=== PATIENT | male | born 1940 | race Caucasian/White ===

== ENCOUNTER 2017-07-12 12:32 | Emergency (ER) | payer OTHER ==
[2017-07-12 13:39] LABS: Absolute Lymphocytes (CBC) 0.5 K/uL (0.7-4.9); Absolute Monocytes 1.2 K/uL (0.1-1.3); Absolute Neutrophil 11.2 K/uL (1.8-8.0); Basophils % 0.2 % (0-1.3); Eosinophils % 0.1 % (0-4.4); Hematocrit 35.3 % (39.6-49.0); Lymphocytes % 4.2 % (15.3-44.8); MCH 26.4 pg (27.0-35.0); MCV 84.3 fL (80-100); MPV 7.6 fL (7.6-11.3); Monocytes % 9.1 % (3.3-12.3); RBC Red Blood Cell Count 4.19 M/uL (4.33-5.43)
--- NOTE | 2017-07-12 13:47 | RAD REPORT ---
EXAM DESCRIPTION: RAD - Chest Single View - 07/12/2017 1:39 pm CLINICAL HISTORY: Fever, chest pain COMPARISON: 04/20/2017, 04/11/2017 FINDINGS: Portable technique limits examination quality. Linear opacities in the medial right lung base probably represent subsegmental atelectasis. A focal i nfiltrate is not confirmed. Heart is mildly prominent size. No displaced fractures.Cervical hardware plate is present.
[2017-07-12 13:48] LABS: Protime INR 1.21
[2017-07-12] MEDS ORDERED: NA CHLORIDE 0.9% 1,000 ML ONE (13:49)
[2017-07-12 14:01] LABS: Albumin 3.8 g/dL (3.2-5.5); Bilirubin Direct 0.2 mg/dL (0-0.2); Bilirubin Total 1.1 mg/dL (0.3-1.2); C-Reactive Protein 107.9 mg/L (<10.0); CKMB Creatine Kinase MB 2.4 ng/ml (0.3-4.0); Protein, Total 7.1 g/dL (6.0-8.3)
[2017-07-12 14:15] LABS: Urine Blood 2+ (NEG); Urine Glucose NEGATIVE (NEG); Urine Protein 1+ (NEG); Urine Specific Gravity 1.015 (1.005-1.030)
[2017-07-12 14:18] LABS: Anisocytosis 1+; Blood Morphology Comment NOTED (NOT SEEN); Platelet Estimate ADEQ; Urine White Blood Cell Casts OK
[2017-07-12 14:20] LABS: Urine Bacteria <20 /HPF (NONE SEEN); Urine Culture Reflex Order NOT NEEDED; Urine RBC <5 /HPF (NONE SEEN)
--- NOTE | 2017-07-12 15:56 | EDPHYS ---
Physician Documentation [facility] Name: Zen Bledsoe Jr Age: 77 yrs Sex: Male : 1940 Arrival Date: 07/12/2017 Time: 12:33 Bed 24 Private MD: Ramon Galeana C ED Physician Karsten Ha HPI: 07/12 13:21 This 77 yrs old Male presents to ER via Wheelchair with complaints of Fever. tw4 13:21 The patient reports fever, that was measured at 101 degrees Fahrenheit. Onset: The tw4 symptoms/episode began/occurred today. Modifying factors: there are no obvious modifying factors. Associated signs and symptoms: Pertinent positives: altered mental status,\E\ chills, cough, with clear sputum, Pertinent negatives: abdominal pain, diarrhea. Severity of symptoms: At their worst the symptoms were moderate in the emergency department the symptoms are unchanged. The patient has not recently seen a physician. Historical: - Allergies: 12:54 BACLOFEN; lk1 12:54 Bactrim; lk1 12:54 Codeine; lk1 12:54 HYDROCODONE; lk1 12:54 Iodine; lk1 12:54 Sulfa (Sulfonamide Antibiotics); lk1 - Home Meds: 15:15 Plavix 75 mg Oral tab once daily [Active]; Toprol XL 25 mg Oral tab 0.5 tab once daily kr2 [Active]; Aspir-81 81 mg Oral TbEC 1 tab once daily [Active]; simvastatin 40 mg Oral tab 1 tab once daily [Active]; Cymbalta 60 mg Oral cpDR 1 cap once daily [Active]; pain pump with prialta 2.0 mcg at .7002 mcg daily nand dilaudid 2.0 mcg at .7002 [Active]; Spiriva with HandiHaler 18 mcg inhalation CpDv 1 cap once daily [Active]; gabapentin 800 mg oral tab [Active]; dymista 1 spray BID [Active]; prednisone 10 mg Oral tab PRN [Active]; ranitidine HCl 300 mg Oral cap once daily [Active]; polyethylene glycol 3350 17 gram/dose Oral powd [Active]; Milk of Magnesia Oral PRN [Active]; levetiracetam 500 mg Oral tab daily [Active]; pantoprazole 40 mg Oral TbEC once daily [Active]; midodrine 10 mg Oral tab [Active]; vitamin b12 [Active]; Vitamin C [Active]; vitamin d3 [Active]; cranberry Oral [Active]; vitamin E [Active]; Singulair 10 mg Oral tab 1 tab once daily [Active]; - PMHx: 12:54 urticaria vasculitis; bladder failure; cardiac stents; Asthma; COPD; Sleep Apnea; lk1 Angina; Arthritis; ESSENTIAL TREMORS; BPH; GERD; Hypertension; 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 - Social history:: Smoking status: Patient/guardian denies using tobacco. ROS: 13:21 ENT: Negative for injury, pain, and discharge, Cardiovascular: Negative for chest pain, tw4 palpitations, and edema, Respiratory: Negative for shortness of breath, cough, wheezing, and pleuritic chest pain, Abdomen/GI: Negative for abdominal pain, nausea, vomiting, diarrhea, and constipation, Back: Negative for injury and pain, MS/Extremity: Negative for injury and deformity. 13:21 Constitutional: Positive for chills, fever, Negative for body aches, fatigue, malaise, poor PO intake. Exam: 13:21 Constitutional: This is a well developed, well nourished patient who is awake, alert, tw4 and in no acute distress. Head/Face: Normocephalic, atraumatic. Chest/axilla: Normal chest wall appearance and motion. Nontender with no deformity. No lesions are appreciated. Cardiovascular: Regular rate and rhythm with a normal S1 and S2. No gallops, murmurs, or rubs. Normal PMI, no JVD. No pulse deficits. Respiratory: Lungs have equal breath sounds bilaterally, clear to auscultation and percussion. No rales, rhonchi or wheezes noted. No increased work of breathing, no retractions or nasal flaring. Abdomen/GI: Soft, non-tender, with normal bowel sounds. No distension or tympany. No guarding or rebound. No evidence of tenderness throughout. 13:21 MS/ Extremity: Pulses equal, no cyanosis. Neurovascular intact. Full, normal range of motion. Neuro: Awake and alert, GCS 15, oriented to person, place, time, and situation. Cranial nerves II-XII grossly intact. Motor strength 5/5 in all extremities. Sensory grossly intact. Cerebellar exam normal. Normal gait. 13:21 : a domínguez is noted, urine is clear. Vital Signs: 12:55 BP 142 / 57; Pulse 86; Resp 16; Temp 100.4(TE); Pulse Ox 92% on R/A; Weight 102.97 kg lk1 (R); Height 5 ft. 11 in. (180.34 cm) (R); Pain 4/10; 13:45 BP 137 / 55; Pulse 80; Resp 17; Pulse Ox 96% on 3.5 lpm NC; dh3 14:15 BP 149 / 58; Pulse 84; Resp 15; Pulse Ox 96% on 3.5 lpm NC; dh3 15:19 BP 130 / 55; Pulse 79; Resp 19; Pulse Ox 97% on 3.5 lpm NC; dh3 16:23 BP 132 / 56; Pulse 78; Resp 17; Temp 98.5(O); Pulse Ox 98% on 3.5 lpm NC; kr2 12:55 Body Mass Index 31.66 (102.97 kg, 180.34 cm) lk1 MDM: 13:00 Patient medically screened. tw4 18:23 Differential diagnosis: viral Infection, bacterial infection, URI. Data reviewed: vital tw4 signs, nurses notes. Counseling: I had a detailed discussion with the patient and/or guardian regarding: the historical points, exam findings, and any diagnostic results supporting the discharge/admit diagnosis. Physician consultation: A Kervin JACOBS was contacted at 15:30, regarding patient's condition, outpatient follow-up, and will see patient in office. Special discussion: I discussed with the patient/guardian in detail that at this point there is no indication for admission to the hospital. It is understood, however, that if the symptoms persist or worsen the patient needs to return immediately for re-evaluation. 07/12 13:07 Order name: Urine Microscopic Only; Complete Time: 14:42 tw4 07/12 13:07 Order name: Urine Culture tw4 07/12 13:07 Order name: Amylase, Serum; Complete Time: 14:42 tw4 07/12 13:07 Order name: Basic Metabolic Panel; Complete Time: 14:42 tw4 07/12 13:07 Order name: Blood Culture Adult (2) 4 07/12 13:07 Order name: BNP; Complete Time: 14:42 tw4 07/12 13:07 Order name: C-Reactive Protein; Complete Time: 14:42 tw4 07/12 13:07 Order name: CBC with Diff; Complete Time: 14:42 tw4 07/12 13:07 Order name: Ckmb; Complete Time: 14:42 tw4 07/12 13:07 Order name: CPK; Complete Time: 14:42 tw4 07/12 13:07 Order name: Lactate; Complete Time: 14:42 tw4 07/12 13:07 Order name: LFT's; Complete Time: 14:42 tw4 07/12 13:07 Order name: Lipase; Complete Time: 14:42 tw4 07/12 13:07 Order name: Procalcitonin; Complete Time: 14:42 tw4 07/12 13:07 Order name: Protime (+inr); Complete Time: 14:42 tw4 07/12 13:07 Order name: Ptt, Activated; Complete Time: 14:42 tw4 07/12 13:07 Order name: Sed Rate; Complete Time: 14:42 tw4 07/12 13:07 Order name: Troponin (emerg Dept Use Only); Complete Time: 14:42 tw4 07/12 13:07 Order name: Chest Single View XRAY; Complete Time: 14:42 tw4 07/12 13:07 Order name: Cardiac monitoring; Complete Time: 13:39 tw4 07/12 13:07 Order name: EKG - Nurse/Tech; Complete Time: 14:48 tw4 07/12 13:07 Order name: IV Saline Lock - Large Bore; Complete Time: 13:32 tw4 07/12 13:07 Order name: Labs collected and sent; Complete Time: 13:32 tw4 07/12 13:07 Order name: O2 Per Protocol; Complete Time: 13:32 tw4 07/12 13:44 Order name: CBC Smear Scan; Complete Time: 14:42 EDMS 07/12 14:08 Order name: Urine Dipstick--Ancillary (enter results); Complete Time: 14:42 bd 07/12 13:07 Order name: O2 Sat Monitoring; Complete Time: 13:32 tw4 04 13:07 Order name: Urine Dipstick-Ancillary (obtain specimen); Complete Time: 13:40 tw4 Administered Medications: 13:39 CANCELLED (Physician Discretion): NS 0.9% (30 ml/kg) 30 ml/kg IV at bolus once; Sepsis kr2 Protocol 13:39 Drug: NS 0.9% 1000 ml Route: IV; Rate: 1 bolus; Site: right antecubital; kr2 15:00 Follow up: Response: No adverse reaction; IV Status: Completed infusion kr2 15:58 Drug: AZITHromycin 500 mg Route: PO; kr2 16:22 Follow up: Response: Medication administered at discharge. kr2 Disposition: 07/12/17 15:55 Discharged to Home. Impression: Acute bronchitis. - Condition is Stable. - Discharge Instructions: Acute Bronchitis, Acute Bronchitis, [id number]. - Prescriptions for Zithromax 500 mg Oral Tablet - take 1 tablet by ORAL route once daily for 5 days; 5 tablet. - Medication Reconciliation Form, Thank You Letter, Antibiotic Education, Prescription Opioid Use form. - Follow up: Ramon Galeana MD; When: As needed; Reason: If symptoms return, Recheck today's complaints, Continuance of care, Re-evaluation by your physician. - Problem is new. - Symptoms have improved. Signatures: Dispatcher [employer] EDMS Makenna Lerma RN RN lk1 Cherri Soni RN RN kr2 Karsten Ha MD MD tw4 Corrections: (The following items were deleted from the chart) 13:39 13:07 NS 0.9% (30 ml/kg) 30 ml/kg IV at bolus once; Sepsis Protocol ordered. tw4 kr2 15:59 13:07 Accucheck ordered. tw4 kr2
--- NOTE | 2017-07-12 15:56 | ER ---
Nurse's Notes [facility] Name: Zen Bledsoe Jr Age: 77 yrs Sex: Male : 1940 Arrival Date: 07/12/2017 Time: 12:33 Bed 24 Private MD: Ramon Galeana C Diagnosis: Acute bronchitis Presentation: 07/12 12:48 Presenting complaint: Significant other states: "He has multiple things wrong. 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 He started running a fever last night. He started acting not himself, like saying things that don't make sense, and not acting like himself. Dr. Galeana said to bring him in here.". Transition of care: patient was not received from another setting of care. Onset of symptoms was July 11, 2017 at 20:00. Care prior to arrival: None. 12:48 Method Of Arrival: Wheelchair lk1 12:48 Acuity: KARY 3 lk1 Triage Assessment: 12:54 General: Appears ill, Behavior is calm, cooperative, appropriate for age. Pain: lk1 Complains of pain in head Pain currently is 4 out of 10 on a pain scale. Cardiovascular: Capillary refill is brisk Patient's skin is warm and dry. Respiratory: Airway is patent Respiratory effort is even, unlabored, Respiratory pattern is regular, symmetrical. GI: Abdomen is non-distended. : Domínguez in place to gravity drainage. Historical: - Allergies: 12:54 BACLOFEN; lk1 12:54 Bactrim; lk1 12:54 Codeine; lk1 12:54 HYDROCODONE; lk1 12:54 Iodine; lk1 12:54 Sulfa (Sulfonamide Antibiotics); lk1 - Home Meds: 15:15 Plavix 75 mg Oral tab once daily [Active]; Toprol XL 25 mg Oral tab 0.5 tab once daily kr2 [Active]; Aspir-81 81 mg Oral TbEC 1 tab once daily [Active]; simvastatin 40 mg Oral tab 1 tab once daily [Active]; Cymbalta 60 mg Oral cpDR 1 cap once daily [Active]; pain pump with prialta 2.0 mcg at .7002 mcg daily nand dilaudid 2.0 mcg at .7002 [Active]; Spiriva with HandiHaler 18 mcg inhalation CpDv 1 cap once daily [Active]; gabapentin 800 mg oral tab [Active]; dymista 1 spray BID [Active]; prednisone 10 mg Oral tab PRN [Active]; ranitidine HCl 300 mg Oral cap once daily [Active]; polyethylene glycol 3350 17 gram/dose Oral powd [Active]; Milk of Magnesia Oral PRN [Active]; levetiracetam 500 mg Oral tab daily [Active]; pantoprazole 40 mg Oral TbEC once daily [Active]; midodrine 10 mg Oral tab [Active]; vitamin b12 [Active]; Vitamin C [Active]; vitamin d3 [Active]; cranberry Oral [Active]; vitamin E [Active]; Singulair 10 mg Oral tab 1 tab once daily [Active]; - PMHx: 12:54 urticaria vasculitis; bladder failure; cardiac stents; Asthma; COPD; Sleep Apnea; lk1 Angina; Arthritis; ESSENTIAL TREMORS; BPH; GERD; 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 - Social history:: Smoking status: Patient/guardian denies using tobacco. Screenin:15 Abuse screen: Denies threats or abuse. Denies injuries from another. Nutritional kr2 screening: No deficits noted. Tuberculosis screening: No symptoms or risk factors identified. Fall Risk IV access (20 points). Assessment: 13:15 General: Appears in no apparent distress. comfortable, well groomed, well developed, kr2 well nourished, Behavior is calm, cooperative. Pain: Complains of pain in chest Pain does not radiate. Pain currently is 4 out of 10 on a pain scale. Quality of pain is described as aching, Pain began gradually, Is continuous, Alleviated by medications, rest, Patient reports he has a pump with Dilaudid administered. He has chronic pain that moves all over his body, the chest pain he states is typical. Neuro: Level of Consciousness is awake, alert, obeys commands, Oriented to person, place, time, situation. Cardiovascular: Capillary refill < 3 seconds in bilateral fingers Patient's skin is warm and dry. Respiratory: Airway is patent Respiratory effort is even, unlabored, Respiratory pattern is regular, symmetrical. Respiratory: Reports He normally is on oxygen at home at 3.5 LPM and he wears a bipap at night. GI: Abdomen is round non-distended. : Domínguez in place to gravity drainage Urine is tom. EENT: Nares are clear bilaterally Oral mucosa is dry. Derm: Skin is intact, Skin is pink, warm \\T\\ dry. Musculoskeletal: Circulation, motion, and sensation intact. 14:30 Reassessment: Patient appears in no apparent distress at this time. Patient and/or kr2 family updated on plan of care and expected duration. Pain level reassessed. Patient is alert, oriented x 3, equal unlabored respirations, skin warm/dry/pink. Patient denies pain at this time. 15:40 Reassessment: Patient appears in no apparent distress at this time. Patient and/or kr2 family updated on plan of care and expected duration. Pain level reassessed. Patient is alert, oriented x 3, equal unlabored respirations, skin warm/dry/pink. 16:25 Reassessment: No changes from previously documented assessment. kr2 Vital Signs: 12:55 BP 142 / 57; Pulse 86; Resp 16; Temp 100.4(TE); Pulse Ox 92% on R/A; Weight 102.97 kg lk1 (R); Height 5 ft. 11 in. (180.34 cm) (R); Pain 4/10; 13:45 BP 137 / 55; Pulse 80; Resp 17; Pulse Ox 96% on 3.5 lpm NC; dh3 14:15 BP 149 / 58; Pulse 84; Resp 15; Pulse Ox 96% on 3.5 lpm NC; dh3 15:19 BP 130 / 55; Pulse 79; Resp 19; Pulse Ox 97% on 3.5 lpm NC; dh3 16:23 BP 132 / 56; Pulse 78; Resp 17; Temp 98.5(O); Pulse Ox 98% on 3.5 lpm NC; kr2 12:55 Body Mass Index 31.66 (102.97 kg, 180.34 cm) lk1 ED Course: 12:33 Patient arrived in ED. as 12:34 Ronald Galeana MD is Private Physician. as 12:34 Ramon Galeana MD is Private Physician. as 12:50 Triage completed. lk1 12:57 Arm band placed on right wrist. lk1 13:00 Karsten aH MD is Attending Physician. tw4 13:15 Patient has correct armband on for positive identification. Bed in low position. Call kr2 light in reach. Side rails up X2. Adult w/ patient. system administration advisor on. Pulse ox on. NIBP on. Door closed. Noise minimized. Head of bed elevated. 13:15 Oxygen administration via nasal cannula 3.5 Response to oxygen therapy: symptoms kr2 improved. 13:23 Initial lab(s) drawn, by me, sent to lab. First set of blood cultures drawn by me. dh3 Inserted saline lock: 20 gauge in right antecubital area, using aseptic technique. Blood collected. 13:26 Cherri Soni, MADELINE is Primary Nurse. kr2 13:28 X-ray completed. Portable x-ray completed in exam room. Patient tolerated procedure jb2 well. 13:39 Chest Single View XRAY In Process Unspecified. EDMS 15:55 Ramon Galeana MD is Referral Physician. tw4 16:25 No provider procedures requiring assistance completed. IV discontinued, intact, kr2 bleeding controlled, No redness/swelling at site. Pressure dressing applied. Administered Medications: 13:39 CANCELLED (Physician Discretion): NS 0.9% (30 ml/kg) 30 ml/kg IV at bolus once; Sepsis kr2 Protocol 13:39 Drug: NS 0.9% 1000 ml Route: IV; Rate: 1 bolus; Site: right antecubital; kr2 15:00 Follow up: Response: No adverse reaction; IV Status: Completed infusion kr2 15:58 Drug: AZITHromycin 500 mg Route: PO; kr2 16:22 Follow up: Response: Medication administered at discharge. kr2 Outcome: 15:55 Discharge ordered by . tw4 16:25 Discharged to home via wheelchair, with family. kr2 16:25 Condition: stable 16:25 Discharge instructions given to patient, family, Instructed on discharge instructions, follow up and referral plans. medication usage, Demonstrated understanding of instructions, follow-up care, medications, Prescriptions given X 1. 16:26 Patient left the ED. kr2 Addendum: 07/18/2017 16:05 Addendum: Culture Results: Positive urine culture. Phone call Attempt #1 spoke with s s patient who reports that he has already followed up with Dr. Galeana and Dr. Kirby regarding urine infection. Pt reports he is feeling better. Signatures: Dispatcher [employer] EDMS Oneil Garrett2 Mily Johnston Shelby, RN RN Makenna Lerma RN RN lk1 Kaycee William 3 Cherri Soni RN RN kr2 Karsten Ha MD MD tw4 Corrections: (The following items were deleted from the chart) 07/12 16:24 16:23 BP 132 / 56; Pulse 78bpm; Resp 17bpm; Pulse Ox 98% 3.5 lpm Nasal Cannula; kr2 kr2
[2017-07-12] MEDS ORDERED: AZITHROMYCIN 250 MG TAB ONE (16:16)
[2017-07-12 16:37] VITALS: BP 132/56; TEMP 98.5; O2SAT 98
== END 2017-07-12 16:26 | disposition home or self-care (01) ==
LOC: ER 12:32
DX: J20.9 Acute bronchitis, unspecified (principal); I10 Essential (primary) hypertension; J44.9 Chronic obstructive pulmonary disease, unspecified; G40.909 Epilepsy, unspecified, not intractable, without status epilepticus; Z95.818 Presence of other cardiac implants and grafts; Z79.01 Long term (current) use of anticoagulants; Z79.82 Long term (current) use of aspirin; Z88.1 Allergy status to other antibiotic agents; Z88.2 Allergy status to sulfonamides; Z88.5 Allergy status to narcotic agent; Z91.048 Other nonmedicinal substance allergy status
CPT/HCPCS: 36415; 71045; 80048; 80076; 82150; 82550; 82553; 83605; 83690; 83880; 84145; 84484; 85025; 85610; 85652; 85730; 86140; 87040 ×2; 87077; 87086; 87088; 87186; 96360; 99285; J7030; 81003; 81015

== ENCOUNTER 2017-08-23 15:43 | Emergency (ER) | payer OTHER ==
[2017-08-23] MEDS ORDERED: NA CHLORIDE 0.9% 1,000 ML ONE (16:48)
[2017-08-23 17:09] LABS: Absolute Lymphocytes (CBC) 1.3 K/uL (0.7-4.9); Absolute Monocytes 0.9 K/uL (0.1-1.3); Absolute Neutrophil 4.4 K/uL (1.8-8.0); Basophils % 0.5 % (0-1.3); Eosinophils % 2.6 % (0-4.4); Hematocrit 34.9 % (39.6-49.0); Lymphocytes % 18.9 % (15.3-44.8); MCV 86.1 fL (80-100); MPV 7.2 fL (7.6-11.3); Monocytes % 13.5 % (3.3-12.3); RBC Red Blood Cell Count 4.05 M/uL (4.33-5.43)
[2017-08-23 17:24] LABS: Protime INR 1.04
--- NOTE | 2017-08-23 17:38 | RAD REPORT ---
EXAM DESCRIPTION: RAD - Chest Single View - 08/23/2017 5:13 pm CLINICAL HISTORY: Chest pain. COMPARISON: 07/12/2017 FINDINGS: Portable technique limits examination quality. The lungs are grossly clear. The heart is mildly moderately enlarged. No displaced fractures.Cervical spine hardware plate noted. IMPRESSION: No acute intrathoracic process suspected.
[2017-08-23 17:47] LABS: ALT/SGPT 16 IU/L (10-60); AST/SGOT 18 IU/L (10-42); Alkaline Phosphatase 55 IU/L (42-121); BUN Blood Urea Nitrogen 13 mg/dL (6-20); Bicarbonate 31 mEq/L (21-31); Bilirubin Direct < 0.1 mg/dL (0-0.2); Bilirubin Total 0.4 mg/dL (0.3-1.2); CKMB Creatine Kinase MB 4.9 ng/ml (0.3-4.0); Creatine Phosphokinase 223 IU/L (22-269); Glucose Level 100 mg/dL (65-120); Lipase 23 U/L (22-51); Magnesium 2.3 mg/dL (1.8-2.5); Potassium 4.3 mEq/L (3.6-5.0); Sodium Level 139 mEq/L (135-145)
--- NOTE | 2017-08-23 18:08 | ER ---
Nurse's Notes [facility] Name: Zen Bledsoe Jr Age: 77 yrs Sex: Male : 1940 Arrival Date: 08/23/2017 Time: 15:44 Bed 6 Private MD: Ronald Galeana Diagnosis: Abdominal tenderness;Chronic obstructive pulmonary disease, unspecified Presentation: 08/23 16:26 Presenting complaint: Preop labs for upcoming cesia showed elevated potassium and hb sodium. Sent by Dr. Galeana. Transition of care: patient was not received from another setting of care. Onset of symptoms was August 23, 2017. Initial Sepsis Screen: Does the patient meet any 2 criteria? No. Patient's initial sepsis screen is negative. Does the patient have a suspected source of infection? No. Patient's initial sepsis screen is negative. Care prior to arrival: None. 16:26 Method Of Arrival: Wheelchair hb 16:26 Acuity: KARY 3 hb Historical: - Allergies: 16:31 BACLOFEN; hb 16:31 Bactrim; hb 16:31 Codeine; hb 16:31 HYDROCODONE; hb 16:31 Iodine; hb 16:31 Sulfa (Sulfonamide Antibiotics); hb - Home Meds: 16:31 Aspir-81 81 mg Oral TbEC 1 tab once daily [Active]; cranberry Oral [Active]; Cymbalta hb 60 mg Oral cpDR 1 cap once daily [Active]; dymista 1 spray BID [Active]; gabapentin 800 mg Oral tab [Active]; levetiracetam 500 mg Oral tab daily [Active]; Milk of Magnesia Oral PRN [Active]; midodrine 10 mg Oral tab [Active]; pain pump with prialta 2.0 mcg at .7002 mcg daily nand dilaudid 2.0 mcg at .7002 [Active]; pantoprazole 40 mg Oral TbEC once daily [Active]; Plavix 75 mg Oral tab once daily [Active]; polyethylene glycol 3350 17 gram/dose Oral powd [Active]; prednisone 10 mg Oral tab PRN [Active]; ranitidine HCl 300 mg Oral cap once daily [Active]; simvastatin 40 mg Oral tab 1 tab once daily [Active]; Singulair 10 mg Oral tab 1 tab once daily [Active]; Spiriva with HandiHaler 18 mcg inhalation CpDv 1 cap once daily [Active]; vitamin b12 [Active]; Vitamin C [Active]; vitamin d3 [Active]; vitamin E [Active]; Toprol XL 25 mg Oral tab 0.5 tab once daily [Active]; - PMHx: 16:31 Angina; Arthritis; Asthma; bladder failure; bowel obstruction; BPH; cardiac stents; hb chronic back pain; COPD; ESSENTIAL TREMORS; gastritis; GERD; Hypertension; 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 - Social history:: Smoking status: Patient/guardian denies using tobacco. - Family history:: not pertinent. Screenin:41 Abuse screen: Denies threats or abuse. Denies injuries from another. Nutritional sv screening: No deficits noted. Tuberculosis screening: No symptoms or risk factors identified. Fall Risk None identified. Assessment: 17:00 General: Appears in no apparent distress. comfortable, well groomed, well developed, sv Behavior is calm, cooperative, appropriate for age. Pain: Denies pain. Neuro: Level of Consciousness is awake, alert, obeys commands, Oriented to person, place, time, situation, Moves all extremities. Full function Gait is steady, Speech is normal. Cardiovascular: Patient's skin is warm and dry. Pulses are 3+ in right radial artery and left radial artery Rhythm is sinus rhythm. Respiratory: Respiratory effort is even, unlabored, Respiratory pattern is regular, symmetrical, Denies shortness of breath. : Domínguez in place to gravity drainage clamped. Derm: Skin is pink, warm \T\ dry. Musculoskeletal: No signs and/or symptoms reported regarding the musculoskeletal system. 17:51 Reassessment: Patient appears in no apparent distress at this time. No changes from sv previously documented assessment. Patient and/or family updated on plan of care and expected duration. Pain level reassessed. Patient is alert, oriented x 3, equal unlabored respirations, skin warm/dry/pink. 18:42 Reassessment: Patient appears in no apparent distress at this time. No changes from sv previously documented assessment. Patient and/or family updated on plan of care and expected duration. Pain level reassessed. Patient is alert, oriented x 3, equal unlabored respirations, skin warm/dry/pink. Vital Signs: 16:28 BP 129 / 62; Pulse 74; Resp 20; Temp 98.2(TE); Pulse Ox 98% on 2 lpm NC; Weight 100.7 hb kg; Height 5 ft. 11 in. (180.34 cm); Pain 5/10; 17:53 BP 167 / 74; Pulse 62; Resp 14; Pulse Ox 99% ; sv 16:28 Body Mass Index 30.96 (100.70 kg, 180.34 cm) hb ED Course: 15:44 Patient arrived in ED. al2 15:45 Ronald Galeana MD is Private Physician. al2 16:28 Triage completed. hb 16:28 Arm band placed on right wrist. hb 16:35 Shayan Muñoz MD is Attending Physician. dale 16:41 Verona Franco RN is Primary Nurse. sv 16:41 ED physician to see patient. sv 16:41 Patient has correct armband on for positive identification. Placed in gown. Bed in low sv position. Call light in reach. Adult w/ patient. Door closed. Head of bed elevated. 17:00 Initial lab(s) drawn, by me, sent to lab. Inserted saline lock: 20 gauge in right sv antecubital area, using aseptic technique. Blood collected. Flushed right antecubital with 5 ml normal saline. 17:08 X-ray completed. Portable x-ray completed in exam room. Patient tolerated procedure bb2 well. 17:09 XRAY Chest (1 view) In Process Unspecified. EDMS 18:06 Ronald Galeana MD is Referral Physician. [facility] 18:42 No provider procedures requiring assistance completed. IV discontinued, intact, sv bleeding controlled, No redness/swelling at site. Pressure dressing applied. Administered Medications: 17:04 Drug: NS 0.9% 500 ml Route: IV; Rate: bolus; Site: right antecubital; sv 17:51 Follow up: Response: No adverse reaction; IV Status: Completed infusion; IV Intake: sv 500ml 17:51 Drug: NS 0.9% 1000 ml Route: IV; Rate: 125 ml/hr; Site: right antecubital; sv 18:42 Follow up: Response: No adverse reaction; IV Status: Order to discontinue infusion sv Intake: 17:51 IV: 500ml; Total: 500ml. sv Output: 17:52 Urine: 650ml (Domínguez); Total: 650ml. sv Outcome: 18:06 Discharge ordered by . dale 18:42 Patient left the ED. sv 18:42 Discharged to home via wheelchair, with family. sv 18:42 Condition: stable 18:42 Discharge instructions given to patient, family, Instructed on discharge instructions, follow up and referral plans. Demonstrated understanding of instructions, follow-up care. Signatures: Dispatcher [employer] Verona Parish RN RN sv Anderson, Corey, MD MD cha Baxter, Heather, RN RN Maritza, Irina bb2 Joana, Maranda fiore2 Corrections: (The following items were deleted from the chart) 18:03 17:53 Pulse 62bpm; Resp 14bpm; Pulse Ox 99%; sv sv
--- NOTE | 2017-08-23 18:08 | EDPHYS ---
Physician Documentation [facility] Name: Zen Bledsoe Jr Age: 77 yrs Sex: Male : 1940 Arrival Date: 08/23/2017 Time: 15:44 Bed 6 Private MD: Ronald Galeana ED Physician Shayan Muñoz HPI: 08/23 18:04 This 77 yrs old Male presents to ER via Wheelchair with complaints of dale Abnormal Lab Results. 18:04 sent for abnormal lad results. Onset: The symptoms/episode began/occurred yesterday. dale Severity of symptoms: At their worst the symptoms were none. The patient has not experienced similar symptoms in the past. Historical: - Allergies: 16:31 BACLOFEN; hb 16:31 Bactrim; hb 16:31 Codeine; hb 16:31 HYDROCODONE; hb 16:31 Iodine; hb 16:31 Sulfa (Sulfonamide Antibiotics); hb - Home Meds: 16:31 Aspir-81 81 mg Oral TbEC 1 tab once daily [Active]; cranberry Oral [Active]; Cymbalta hb 60 mg Oral cpDR 1 cap once daily [Active]; dymista 1 spray BID [Active]; gabapentin 800 mg Oral tab [Active]; levetiracetam 500 mg Oral tab daily [Active]; Milk of Magnesia Oral PRN [Active]; midodrine 10 mg Oral tab [Active]; pain pump with prialta 2.0 mcg at .7002 mcg daily nand dilaudid 2.0 mcg at .7002 [Active]; pantoprazole 40 mg Oral TbEC once daily [Active]; Plavix 75 mg Oral tab once daily [Active]; polyethylene glycol 3350 17 gram/dose Oral powd [Active]; prednisone 10 mg Oral tab PRN [Active]; ranitidine HCl 300 mg Oral cap once daily [Active]; simvastatin 40 mg Oral tab 1 tab once daily [Active]; Singulair 10 mg Oral tab 1 tab once daily [Active]; Spiriva with HandiHaler 18 mcg inhalation CpDv 1 cap once daily [Active]; vitamin b12 [Active]; Vitamin C [Active]; vitamin d3 [Active]; vitamin E [Active]; Toprol XL 25 mg Oral tab 0.5 tab once daily [Active]; - PMHx: 16:31 Angina; Arthritis; Asthma; bladder failure; bowel obstruction; BPH; cardiac stents; hb chronic back pain; COPD; ESSENTIAL TREMORS; gastritis; GERD; Hypertension; 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 - Social history:: Smoking status: Patient/guardian denies using tobacco. - Family history:: not pertinent. ROS: 18:04 Constitutional: Negative for fever, chills, and weight loss, Eyes: Negative for injury, dale pain, redness, and discharge, ENT: Negative for injury, pain, and discharge, Neck: Negative for injury, pain, and swelling, Cardiovascular: Negative for chest pain, palpitations, and edema, Respiratory: Negative for shortness of breath, cough, wheezing, and pleuritic chest pain, Back: Negative for injury and pain, : Negative for injury, bleeding, discharge, and swelling, MS/Extremity: Negative for injury and deformity, Skin: Negative for injury, rash, and discoloration, Neuro: Negative for headache, weakness, numbness, tingling, and seizure, Psych: Negative for depression, anxiety, suicide ideation, homicidal ideation, and hallucinations, Allergy/Immunology: Negative for hives, rash, and allergies, Endocrine: Negative for neck swelling, polydipsia, polyuria, polyphagia, and marked weight changes, Hematologic/Lymphatic: Negative for swollen nodes, abnormal bleeding, and unusual bruising. 18:04 Abdomen/GI: Positive for abdominal pain. Exam: 18:04 Constitutional: This is a well developed, well nourished patient who is awake, alert, dale and in no acute distress. Head/Face: Normocephalic, atraumatic. Eyes: Pupils equal round and reactive to light, extra-ocular motions intact. Lids and lashes normal. Conjunctiva and sclera are non-icteric and not injected. Cornea within normal limits. Periorbital areas with no swelling, redness, or edema. ENT: Nares patent. No nasal discharge, no septal abnormalities noted. Tympanic membranes are normal and external auditory canals are clear. Oropharynx with no redness, swelling, or masses, exudates, or evidence of obstruction, uvula midline. Mucous membranes moist. Neck: Trachea midline, no thyromegaly or masses palpated, and no cervical lymphadenopathy. Supple, full range of motion without nuchal rigidity, or vertebral point tenderness. No Meningismus. Chest/axilla: Normal chest wall appearance and motion. Nontender with no deformity. No lesions are appreciated. Cardiovascular: Regular rate and rhythm with a normal S1 and S2. No gallops, murmurs, or rubs. Normal PMI, no JVD. No pulse deficits. Respiratory: Lungs have equal breath sounds bilaterally, clear to auscultation and percussion. No rales, rhonchi or wheezes noted. No increased work of breathing, no retractions or nasal flaring. Back: No spinal tenderness. No costovertebral tenderness. Full range of motion. Male : Normal genitalia with no discharge or lesions. Skin: Warm, dry with normal turgor. Normal color with no rashes, no lesions, and no evidence of cellulitis. MS/ Extremity: Pulses equal, no cyanosis. Neurovascular intact. Full, normal range of motion. Neuro: Awake and alert, GCS 15, oriented to person, place, time, and situation. Cranial nerves II-XII grossly intact. Motor strength 5/5 in all extremities. Sensory grossly intact. Cerebellar exam normal. Normal gait. Psych: Awake, alert, with orientation to person, place and time. Behavior, mood, and affect are within normal limits. 18:04 Abdomen/GI: Inspection: abdomen appears normal, Bowel sounds: normal, Palpation: mild abdominal tenderness, in all quadrants, Liver: no appreciated palpable abnormalities, Hernia: not appreciated. Vital Signs: 16:28 BP 129 / 62; Pulse 74; Resp 20; Temp 98.2(TE); Pulse Ox 98% on 2 lpm NC; Weight 100.7 hb kg; Height 5 ft. 11 in. (180.34 cm); Pain 5/10; 17:53 BP 167 / 74; Pulse 62; Resp 14; Pulse Ox 99% ; sv 16:28 Body Mass Index 30.96 (100.70 kg, 180.34 cm) hb MDM: 16:35 Patient medically screened. [facility] 18:05 Data reviewed: vital signs, nurses notes, lab test result(s), EKG, radiologic studies, dale plain films. 08/23 16:47 Order name: Basic Metabolic Panel; Complete Time: 17:59 [facility] 08/23 16:47 Order name: BNP; Complete Time: 17:59 [facility] 08/23 16:47 Order name: CBC with Diff; Complete Time: 17:59 [facility] 08/23 16:47 Order name: Ckmb; Complete Time: 17:59 [facility] 08/23 16:47 Order name: CPK; Complete Time: 17:59 [facility] 08/23 16:47 Order name: LFT's; Complete Time: 17:59 [facility] 08/23 16:47 Order name: Magnesium; Complete Time: 17:59 [facility] 08/23 16:47 Order name: PT-INR; Complete Time: 17:59 [facility] 08/23 16:47 Order name: Ptt, Activated; Complete Time: 17:59 [facility] 08/23 16:47 Order name: Troponin (emerg Dept Use Only); Complete Time: 17:59 [facility] 08/23 16:47 Order name: Lipase; Complete Time: 17:59 [facility] 08/23 18:14 Order name: Urine Dipstick--Ancillary (enter results) 08/23 18:17 Order name: Urine --Ancillary (enter results) 08/23 16:47 Order name: XRAY Chest (1 view); Complete Time: 17:59 [facility] 08/23 16:47 Order name: EKG; Complete Time: 16:47 [facility] 08/23 16:47 Order name: Cardiac monitoring; Complete Time: 17:04 [facility] 08/23 16:47 Order name: IV Saline Lock; Complete Time: 17:04 [facility] 08/23 16:47 Order name: Labs collected and sent; Complete Time: 17:04 [facility] 08/23 16:47 Order name: O2 Per Protocol; Complete Time: 17:04 [facility] 08/23 16:47 Order name: O2 Sat Monitoring; Complete Time: 17:04 [facility] Administered Medications: 17:04 Drug: NS 0.9% 500 ml Route: IV; Rate: bolus; Site: right antecubital; sv 17:51 Follow up: Response: No adverse reaction; IV Status: Completed infusion; IV Intake: sv 500ml 17:51 Drug: NS 0.9% 1000 ml Route: IV; Rate: 125 ml/hr; Site: right antecubital; sv 18:42 Follow up: Response: No adverse reaction; IV Status: Order to discontinue infusion sv Disposition: 08/23/17 18:06 Discharged to Home. Impression: Abdominal tenderness, Chronic obstructive pulmonary disease, unspecified. - Condition is Stable. - Discharge Instructions: Abdominal Pain, Adult, Abdominal Pain, Adult, [id number]. - Medication Reconciliation Form, Thank You Letter, Antibiotic Education, Prescription Opioid Use form. - Follow up: Ronald Galeana MD; When: 1 - 2 days; Reason: Recheck today's complaints, Continuance of care, Re-evaluation by your physician. - Problem is new. - Symptoms have improved. Signatures: Dispatcher [employer] [facility] Verona Franco RN RN sv Anderson, Corey, MD MD cha Baxter, Heather, RN RN Corrections: (The following items were deleted from the chart) 18:21 18:18 Urine --Ancillary ordered. [facility] EDMT 18:42 18:06 08/23/2017 18:06 Discharged to Home. Impression: Abdominal tenderness; Chronic sv obstructive pulmonary disease, unspecified. Condition is Stable. Forms are Medication Reconciliation Form, Thank You Letter, Antibiotic Education, Prescription Opioid Use. Follow up: Ronald Galeana; When: 1 - 2 days; Reason: Recheck today's complaints, Continuance of care, Re-evaluation by your physician. Problem is new. Symptoms have improved. dale
[2017-08-23 18:21] LABS: Urine Blood TRACE (NEG); Urine Glucose NEGATIVE (NEG); Urine Protein NEGATIVE (NEG); Urine Specific Gravity <1.005 (1.005-1.030); Urine pH 6.5 (5.0-7.0)
[2017-08-23 18:46] VITALS: TEMP 98.2
[2017-08-23 18:48] VITALS: BP 167/74; O2SAT 99
--- NOTE | 2017-08-23 20:58 | EKG ---
Test Date: 2017-08-23 Test Time: 17:22:13 Flat Lock Operator: OSCAR MEASUREMENT RESULTS: Intervals: Rate: 61 MT: 260 QRSD: 94 QT: 428 QTc: 430 [place]: P: 89 MT: 260 QRS: -17 T: 67 INTERPRETIVE STATEMENTS: Sinus rhythm with 1st degree AV block with premature atrial complexes Cannot rule out Anterior infarct, age undetermined Abnormal ECG Compared to ECG 04/09/2017 16:43:18 Atrial premature complex(es) now present First degree AV block now present Myocardial infarct finding now present Sinus arrhythmia no longer present ST (T wave) deviation no longer present Electronically Signed On 08-23-17 20:57:44 CDT by Sukhi Castro
== END 2017-08-23 18:42 | disposition home or self-care (01) ==
LOC: ER 15:43
DX: J44.9 Chronic obstructive pulmonary disease, unspecified (principal); I10 Essential (primary) hypertension; Z95.818 Presence of other cardiac implants and grafts; G40.909 Epilepsy, unspecified, not intractable, without status epilepticus; Z79.01 Long term (current) use of anticoagulants; Z79.82 Long term (current) use of aspirin; Z88.1 Allergy status to other antibiotic agents; Z88.2 Allergy status to sulfonamides; Z88.5 Allergy status to narcotic agent; Z91.048 Other nonmedicinal substance allergy status
CPT/HCPCS: 36415 ×2; 71045; 80048; 80053; 80076; 81003; 82150; 82550; 82553; 83690 ×2; 83735; 83880; 84443; 84484; 85025 ×2; 85610; 85652; 85730; 93005; 96360; 96361; 99284; J7030

== ENCOUNTER 2018-09-20 07:24 | Day surgery (SDC) | payer OTHER ==
--- OUTSIDE RECORDS SUMMARY | 2018-09-20 07:27 | XMS REPORT ---
:1940 [facility] Address [address] [place] [address] Dr. Andrade [address] [place] [id number] Care Team Providers Name Role Phone Unavailable Unavailable Unavailable Problems This patient has no known problems. Allergies, Adverse Reactions, Alerts This patient has no known allergies or adverse reactions. Medications This patient has no known medications.
[2018-09-20] MEDS ORDERED: Ringers Lactate 1,000 ML IV ONE (08:04)
[2018-09-20] MEDS ORDERED: PROPOFOL 200 MG/20 ML VIAL IV ONE (09:22)
[2018-09-20 09:57] VITALS: TEMP 99.2; O2SAT 95
[2018-09-20] MEDS ORDERED: ONDANSETRON 4 MG/2 ML VIAL ONE (09:58)
[2018-09-20 10:01] VITALS: BP 134/64
--- NOTE | 2018-10-06 03:46 | ENDO RPT ---
[address], [address] COLONOSCOPY PROCEDURE REPORT EXAM DATE: 09/20/2018 PATIENT NAME: Zen Bledsoe MR #: [id number] BIRTHDATE: 1940 ATTENDING: Kvng [address] STATUS: outpatient [employer]: Ellen Aguilar, Maya Carter RN, and Hilario Quintero RN INDICATIONS: The patient is a 78 yr old Male here for a colonoscopy due to RLQ abdominal pain, change in bowel habits, unexplained chronic diarrhea, history of polyps, family history of colon cancer - father, family history of colon polyps - father, and weight loss PROCEDURE PERFORMED: Colonoscopy with biopsy MEDICATIONS: Per Anesthesia. ESTIMATED BLOOD LOSS: None CONSENT: The patient understands the risks and benefits of the procedure and understands that these risks include, but are not limited to: sedation, allergic reaction, infection, perforation and/or bleeding. Alternative means of evaluation and treatment include, among others: physical exam, x-rays, and/or surgical intervention. The patient elects to proceed with this endoscopic procedure. DESCRIPTION OF PROCEDURE: During intra-op preparation period all mechanical medical equipment was checked for proper function. Hand hygiene and appropriate measures for infection prevention was taken. Procedure, possible complications, alternatives including, but not limited to possibility of bleeding, perforation, tear, infection, sepsis, need for surgery, need for blood transfusion, were explained to the patient. After the risks, benefits and alternatives of the procedure were thoroughly explained, Informed consent was verified, confirmed and timeout was successfully executed by the treatment team. The patient was placed in the left lateral position. A digital rectal exam was performed and revealed several skin tags. After appropriate level of anesthesia, the scope was passed. The EC-[id number] ([id number]) endoscope was introduced through the anus and advanced to the ascending colon. The quality of the prep was poor. The instrument was then slowly withdrawn as the colon was fully examined. Scope withdrawal time was 8 minutes. COLON FINDINGS: Random biopsies of the colon and rectum obtained with history of chronic unexplained diarrhea. Internal hemorrhoids were found. Retroflexed views revealed small hemorrhoids. The scope was then completely withdrawn from the patient and the procedure terminated. ADVERSE EVENTS: There were no complications. IMPRESSIONS: 1. Random biopsies of the colon and rectum obtained with history of chronic unexplained diarrhea 2. Internal hemorrhoids 3. Poor prep, BBPS 3 4. Intubation to distal ascending colon RECOMMENDATIONS: fiber rich diet RECALL: Return in 1 day to 1 week(s) for Colonoscopy. Kvng [address] Dr eSigned: Kvng Bennett Dr 09/20/2018 9:43 AM cc: Ronald Galeana CPT CODES: ICD9 CODES: PATIENT NAME: Zen BledsoeSrinath MR#: [id number]
== END 2018-09-20 10:15 | disposition home or self-care (01) ==
LOC: OR 07:24
PROVIDERS: ATTEND Internal Medicine Gastroenterology
PROC: 0DBE8ZX Excision of Large Intestine, Via Natural or Artificial Opening Endoscopic, Diagnostic (ICD-10-PCS; 2018-09-20)
PROC: 0DBP8ZX Excision of Rectum, Via Natural or Artificial Opening Endoscopic, Diagnostic (ICD-10-PCS; principal; 2018-09-20 10:30)
DX: K58.0 Irritable bowel syndrome with diarrhea (principal); K64.8 Other hemorrhoids; Z86.010 Personal history of colon polyps; K21.9 Gastro-esophageal reflux disease without esophagitis; J44.9 Chronic obstructive pulmonary disease, unspecified; J45.909 Unspecified asthma, uncomplicated; M19.90 Unspecified osteoarthritis, unspecified site; Z88.2 Allergy status to sulfonamides; Z88.6 Allergy status to analgesic agent; Z91.041 Radiographic dye allergy status; Z91.048 Other nonmedicinal substance allergy status; Z79.82 Long term (current) use of aspirin; Z87.891 Personal history of nicotine dependence; Z80.0 Family history of malignant neoplasm of digestive organs
CPT/HCPCS: 45380; 88305; J2704; J2405

== ENCOUNTER 2018-11-04 07:53 | Inpatient (IN) | payer OTHER ==
--- OUTSIDE RECORDS SUMMARY | 2018-11-04 07:55 | XMS REPORT ---
:1940 [facility] Address [address] [place] [id number] Care Team Providers Name Role Phone Unavailable Unavailable Unavailable Problems This patient has no known problems. Allergies, Adverse Reactions, Alerts This patient has no known allergies or adverse reactions. Medications This patient has no known medications.
[2018-11-04] MEDS ORDERED: NA CHLORIDE 0.9% 500 ML ONE (08:54)
[2018-11-04 09:19] LABS: Absolute Lymphocytes (CBC) 0.5 K/uL (0.7-4.9); Basophils % 0.2 % (0-1.3); Hematocrit 35.5 % (39.6-49.0); Lymphocytes % 5.5 % (15.3-44.8); MPV 7.2 fL (7.6-11.3); RBC Red Blood Cell Count 4.02 M/uL (4.33-5.43)
[2018-11-04 09:33] LABS: ALT/SGPT 21 U/L (12-78); AST/SGOT 17 U/L (15-37); Albumin 3.4 g/dL (3.4-5.0); Alkaline Phosphatase 52 U/L (45-117); BUN Blood Urea Nitrogen 12 mg/dL (7-18); Bicarbonate 28 mmol/L (21-32); Bilirubin Direct 0.2 mg/dL (0-0.2); Bilirubin Total 0.7 mg/dL (0.2-1.0); Glucose Level 111 mg/dL (74-106); Lipase 55 U/L (73-393); Potassium 3.7 mmol/L (3.5-5.1); Protein, Total 7.4 g/dL (6.4-8.2); Sodium Level 138 mmol/L (136-145)
[2018-11-04] MEDS ORDERED: HYDROMORPHONE HCL 0.5 MG/0.5 ML INJ ONE (09:52)
[2018-11-04] MEDS ORDERED: ONDANSETRON 4 MG/2 ML VIAL ONE (09:53)
--- NOTE | 2018-11-04 10:23 | RAD REPORT ---
EXAM DESCRIPTION: CT - Head C Spine Cap Vonnie Coates - 11/04/2018 9:59 am CLINICAL HISTORY: Head and neck injury with chest and abdominal pain status post fall. Head and neck pain . TECHNIQUE: Computed axial tomography of the head and cervical spine was obtained Computed axial tomography of the chest, abdomen and pelvis was obtained. 100 cc Isovue-300 was given intravenously coronal and sagittal reconstruction was performed. All CT scans are performed using dose optimization technique as appropriate and may include automated exposure control or mA/KV adjustment according to patient size. COMPARISON: CT abdomen June 2018 FINDINGS: An intracranial bleed is not seen. The ventricles are normal in caliber. An extra-axial fl uid collection is not noted. A cervical fracture is not seen. No dislocation is seen. Anterior fusion involves the cervical spine. A mediastinal hematoma is not noted. A pleural effusion is not present. A lung contusion is not seen. Mild to moderate right lower lobe alveolar opacities are without significant change. The liver, spleen, pancreas, adrenals, kidneys and bladder do not demonstrate a traumatic injury Neurostimulator device is in place. Postsurgical changes involve the lumbar spine. Rocha catheter is present the bladder. IMPRESSION: 1. No acute intracranial abnormality is seen 2. A cervical fracture is not visualized. 3. No traumatic injury involving the chest, abdomen or pelvis is seen. 4. Mild to moderate right lower lobe consolidation without significant change from the prior exam. Br onchoscopy may be helpful to help exclude a post obstructive process
--- NOTE | 2018-11-04 11:14 | ER ---
Nurse's Notes [facility] Name: Zen Bledsoe Jr Age: 78 yrs Sex: Male : 1940 Arrival Date: 11/04/2018 Time: 07:57 Bed 6 Private MD: Diagnosis: Pneumonia, unspecified organism;Repeated falls;Weakness;Low back pain Presentation: 11/04 07:57 Presenting complaint: EMS states: Pt hx of chronic pain and multiple back surgeries, ph had a more active day than usual, felt weak and fell in restroom, hit head on counter, denies LOC, was assisted up off of floor and into bed by and neighbors, woke up today w/ severe back pain and headache which has gotten progressively worse, has Dilaudid pain pump and does take Plavix. Care prior to arrival: Cervical collar in place. Placed on backboard. Mechanism of Injury: Fall from standing position. Trauma event details: Injury occurred in the [facility], Injury occurred: at home. Injury occurred: November 04, 2018. 07:57 Method Of Arrival: EMS: [facility] 07:57 Acuity: KARY 3 ph 09:12 Transition of care: patient was not received from another setting of care. Onset of ph symptoms was November 04, 2018. Risk Assessment: Do you want to hurt yourself or someone else? Patient reports no desire to harm self or others. Initial Sepsis Screen: Does the patient meet any 2 criteria? No. Patient's initial sepsis screen is negative. Does the patient have a suspected source of infection? No. Patient's initial sepsis screen is negative. Trauma Activation: Not Applicable Physician: ED Physician; Name: ; Notified At: ; Arrived At: Physician: General Surgeon; Name: ; Notified At: ; Arrived At: Physician: Radiology; Name: ; Notified At: ; Arrived At: Physician: Respiratory; Name: ; Notified At: ; Arrived At: Physician: Lab; Name: ; Notified At: ; Arrived At: Historical: - Allergies: 08:11 BACLOFEN; ph 08:11 Bactrim; ph 08:11 Codeine; ph 08:11 HYDROCODONE; ph 08:11 Iodine; ph 08:11 Sulfa (Sulfonamide Antibiotics); ph - Home Meds: 08:11 Plavix 75 mg Oral tab once daily [Active]; Toprol XL 25 mg Oral tab 0.5 tab 1/2 in am ph and 1 at night [Active]; Aspir-81 81 mg Oral TbEC 1 tab once daily [Active]; simvastatin 40 mg Oral tab 1 tab once daily [Active]; - PMHx: 08:11 Angina; Arthritis; Asthma; bladder failure; BPH; cardiac stents; bowel obstruction; ph chronic back pain; COPD; O2 at home; ESSENTIAL TREMORS; gastritis; GERD; Seizures; Sleep Apnea; Hypertension; chcf domínguez; neurogenic orthogenic hypertension; 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 - Family history:: not pertinent. - Social history:: Smoking status: Patient/guardian denies using tobacco. - Ebola Screening: : No symptoms or risks identified at this time. Screenin:03 Abuse screen: Denies threats or abuse. Denies injuries from another. Nutritional sv screening: No deficits noted. Tuberculosis screening: No symptoms or risk factors identified. Fall Risk No fall in past 12 months (0 pts). No secondary diagnosis (0 pts). No IV (0 pts). Ambulatory Aid- None/Bed Rest/Nurse Assist (0 pts). Gait- Normal/Bed Rest/Wheelchair (0 pts) Mental Status- Oriented to own ability (0 pts). Total Muse Fall Scale indicates No Risk (0-24 pts). Primary Survey: 08:15 NO uncontrolled hemorrhage observed. A: The patient is alert. Breathing/Chest: ph Respiratory pattern: regular, Respiratory effort: spontaneous, unlabored, Breath sounds: coarse, bilaterally. Chest inspection: symmetrical rise and fall of the chest. Circulation: Skin color: pink, Skin temperature: warm, dry. Disability Alert. Exposure/Environment: There is no evidence of uncontrolled external bleeding. No obvious injuries are noted at this time. 12:31 Reassessment Breathing/Chest Respiratory pattern Regular Respiratory effort Spontaneous ph Unlabored Chest inspection Symmetrical. Assessment: 08:30 General: Appears in no apparent distress. uncomfortable, well groomed, Behavior is ph calm, cooperative, appropriate for age. Pain: Complains of pain in head and back. Neuro: Level of Consciousness is awake, alert, obeys commands, Oriented to person, place, time, situation, Reports headache occipital area. Cardiovascular: Capillary refill < 3 seconds in bilateral fingers Patient's skin is warm and dry. Respiratory: Airway is patent Respiratory effort is even, unlabored, Respiratory pattern is regular, symmetrical, Breath sounds are coarse bilaterally. Denies shortness of breath. GI: Patient currently denies abdominal pain, nausea, vomiting. : Domínguez in place to gravity drainage Urine is clear. Derm: Skin is healthy with good turgor, Skin is pink, warm \T\ dry. Musculoskeletal: Circulation, motion, and sensation intact. 09:35 Reassessment: CT informed creatinine is resulted. sv 10:30 Reassessment: Patient appears in no apparent distress at this time. Patient and/or ph family updated on plan of care and expected duration. Pain level reassessed. Patient is alert, oriented x 3, equal unlabored respirations, skin warm/dry/pink. 11:50 Reassessment: Attempted to call report, nurse to call back for report. sv 12:28 Reassessment: Patient appears in no apparent distress at this time. Patient and/or ph family updated on plan of care and expected duration. Pain level reassessed. Patient is alert, oriented x 3, equal unlabored respirations, skin warm/dry/pink. Pt taken to room via stretcher, accompanied by family. Vital Signs: 07:59 BP 135 / 61; Pulse 69; Resp 18; Temp 98.9; Pulse Ox 96% ; sv 08:52 BP 135 / 67; Pulse 66; Resp 18; Pulse Ox 98% ; sv 10:30 BP 144 / 60; Pulse 66; Resp 18; Pulse Ox 97% ; sv 11:00 BP 144 / 61; Pulse 65; Resp 18; Pulse Ox 97% ; sv 11:30 BP 133 / 57; Pulse 66; Resp 18; Pulse Ox 96% ; sv 12:14 BP 105 / 76; Pulse 81; Resp 16; Pulse Ox 96% ; sv 12:30 Temp 97.8; ph Ernestine Coma Score: 08:00 Eye Response: spontaneous(4). Verbal Response: oriented(5). Motor Response: obeys ph commands(6). Total: 15. Trauma Score (Adult): 08:00 Eye Response: spontaneous(1); Verbal Response: oriented(1); Motor Response: obeys ph commands(2); Systolic BP: > 89 mm Hg(4); Respiratory Rate: 10 to 29 per min(4); Peterson Score: 15; Trauma Score: 12 ED Course: 07:57 Patient arrived in ED. ph 07:58 Shayan Muñoz MD is Attending Physician. dale 08:04 Patient has correct armband on for positive identification. Bed in low position. Side sv rails up X2. Pulse ox on. NIBP on. Door closed. 08:06 Triage completed. ph 08:55 Missed attempt(s): 22 gauge in right antecubital area. Bleeding controlled, band aid ph applied, catheter tip intact. 09:00 Initial lab(s) drawn, by me, sent to lab. T\T\S collected, blood band applied to patient. sv Inserted saline lock: 20 gauge in left antecubital area, using aseptic technique. Blood collected. Flushed left antecubital with 5 ml normal saline. 09:01 Radiology exam delayed due to lab results not completed at this time. (BUN/Creatinine) nj IV insertion attempt and/or patient not having appropriate IV at this time. 09:09 Mildred Wasserman, RN is Primary Nurse. ph 09:13 Arm band placed on Patient placed in an exam room, on a stretcher, on oxygen. ph 09:13 Oxygen administration via nasal cannula \T\ 4L/min. ph 09:13 Thermoregulation: warm blanket given to patient. ph 09:26 Radiology exam delayed due to lab results not completed at this time. (BUN/Creatinine). nj 10:01 CT Traumagram (Head C Spine CAP W Con) In Process Unspecified. EDMS 11:12 Ronald Galeana MD is Hospitalizing Provider. dale 12:14 No provider procedures requiring assistance completed. Patient admitted, IV remains in sv place. intact. Administered Medications: 09:01 Drug: NS 0.9% 500 ml Route: IV; Rate: bolus; Site: left antecubital; sv 10:30 Follow up: Response: No adverse reaction; IV Status: Completed infusion; IV Intake: ph 500ml 09:40 Drug: Zofran 4 mg Route: IVP; Site: left antecubital; ph 12:30 Follow up: Response: No adverse reaction ph 09:41 Drug: Dilaudid 0.5 mg Route: IVP; Site: left antecubital; ph 10:30 Follow up: Response: No adverse reaction; Pain is decreased ph 11:46 Drug: SOLU-Medrol 125 mg Route: IVP; Site: left antecubital; ph 12:31 Follow up: Response: No adverse reaction ph 11:46 Drug: Albuterol - atroVENT (3:1) (2.5 mg - 0.5 mg) 3 ml Route: Nebulizer; ph 12:31 Follow up: Response: No adverse reaction ph 12:02 Drug: Zosyn 3.375 grams Route: IVPB; Infused Over: 60 mins; Site: left antecubital; iw 12:31 Follow up: Response: No adverse reaction; IV Status: Completed infusion ph Intake: 10:30 IV: 500ml; Total: 500ml. ph 12:32 IV: 600ml; Total: 1100ml. ph Output: 12:32 Urine: 500ml (Domínguez); Total: 500ml. ph Outcome: 11:13 Decision to Hospitalize by Provider. dale 12:13 Admitted to Tele accompanied by tech, family with patient, via stretcher, room 422, with chart, Report called to Deonna CORREA 12:13 Condition: stable 12:13 Instructed on the need for admit. 12:32 Patient's length of stay was not longer than 2 hours. ph 12:32 Patient left the ED. ph Signatures: Dispatcher [employer] Verona Parish RN RN sv Anderson, Corey, MD MD cha Williams, Irene, RN RN Mildred Wasserman RN RN ph Jordan, Nathan nj Corrections: (The following items were deleted from the chart) 08:04 08:04 Door closed. Head of bed elevated. [facility]
--- NOTE | 2018-11-04 11:14 | EDPHYS ---
Physician Documentation [facility] Name: Zen Bledsoe Jr Age: 78 yrs Sex: Male : 1940 Arrival Date: 11/04/2018 Time: 07:57 Bed 6 Private MD: ED Physician Shayan Muñoz HPI: 11/04 08:21 This 78 yrs old Male presents to ER via EMS with complaints of Fall Injury. dale 08:21 Details of fall: The patient fell from an upright position. Onset: The symptoms/episode dale began/occurred just prior to arrival, this morning. Severity of symptoms: At their worst the symptoms were mild, in the emergency department the symptoms are unchanged. The patient has not experienced similar symptoms in the past. Historical: - Allergies: 08:11 BACLOFEN; ph 08:11 Bactrim; ph 08:11 Codeine; ph 08:11 HYDROCODONE; ph 08:11 Iodine; ph 08:11 Sulfa (Sulfonamide Antibiotics); ph - Home Meds: 08:11 Plavix 75 mg Oral tab once daily [Active]; Toprol XL 25 mg Oral tab 0.5 tab 1/2 in am ph and 1 at night [Active]; Aspir-81 81 mg Oral TbEC 1 tab once daily [Active]; simvastatin 40 mg Oral tab 1 tab once daily [Active]; - PMHx: 08:11 Angina; Arthritis; Asthma; bladder failure; BPH; cardiac stents; bowel obstruction; ph chronic back pain; COPD; O2 at home; ESSENTIAL TREMORS; gastritis; GERD; Seizures; Sleep Apnea; Hypertension; [facility] dom[facility]; neurogenic orthogenic hypertension; 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 - Family history:: not pertinent. - Social history:: Smoking status: Patient/guardian denies using tobacco. - Ebola Screening: : No symptoms or risks identified at this time. ROS: 08:22 Constitutional: Negative for fever, chills, and weight loss, Eyes: Negative for injury, dale pain, redness, and discharge, ENT: Negative for injury, pain, and discharge, Neck: Negative for injury, pain, and swelling, Cardiovascular: Negative for chest pain, palpitations, and edema, Respiratory: Negative for shortness of breath, cough, wheezing, and pleuritic chest pain, Abdomen/GI: Negative for abdominal pain, nausea, vomiting, diarrhea, and constipation, : Negative for injury, bleeding, discharge, and swelling, MS/Extremity: Negative for injury and deformity, Skin: Negative for injury, rash, and discoloration, Psych: Negative for depression, anxiety, suicide ideation, homicidal ideation, and hallucinations, Allergy/Immunology: Negative for hives, rash, and allergies, Endocrine: Negative for neck swelling, polydipsia, polyuria, polyphagia, and marked weight changes, Hematologic/Lymphatic: Negative for swollen nodes, abnormal bleeding, and unusual bruising. 08:22 Back: Positive for injury or acute deformity, decreased range of motion. Exam: 08:22 Constitutional: This is a well developed, well nourished patient who is awake, alert, dale and in no acute distress. Head/Face: Normocephalic, atraumatic. Eyes: Pupils equal round and reactive to light, extra-ocular motions intact. Lids and lashes normal. Conjunctiva and sclera are non-icteric and not injected. Cornea within normal limits. Periorbital areas with no swelling, redness, or edema. ENT: Nares patent. No nasal discharge, no septal abnormalities noted. Tympanic membranes are normal and external auditory canals are clear. Oropharynx with no redness, swelling, or masses, exudates, or evidence of obstruction, uvula midline. Mucous membranes moist. Neck: Trachea midline, no thyromegaly or masses palpated, and no cervical lymphadenopathy. Supple, full range of motion without nuchal rigidity, or vertebral point tenderness. No Meningismus. Chest/axilla: Normal chest wall appearance and motion. Nontender with no deformity. No lesions are appreciated. Cardiovascular: Regular rate and rhythm with a normal S1 and S2. No gallops, murmurs, or rubs. Normal PMI, no JVD. No pulse deficits. Respiratory: Lungs have equal breath sounds bilaterally, clear to auscultation and percussion. No rales, rhonchi or wheezes noted. No increased work of breathing, no retractions or nasal flaring. Abdomen/GI: Soft, non-tender, with normal bowel sounds. No distension or tympany. No guarding or rebound. No evidence of tenderness throughout. Male : Normal genitalia with no discharge or lesions. Skin: Warm, dry with normal turgor. Normal color with no rashes, no lesions, and no evidence of cellulitis. MS/ Extremity: Pulses equal, no cyanosis. Neurovascular intact. Full, normal range of motion. Neuro: Awake and alert, GCS 15, oriented to person, place, time, and situation. Cranial nerves II-XII grossly intact. Motor strength 5/5 in all extremities. Sensory grossly intact. Cerebellar exam normal. Normal gait. Psych: Awake, alert, with orientation to person, place and time. Behavior, mood, and affect are within normal limits. 08:22 Back: pain, that is mild, that is moderate, ROM is painful, normal spinal alignment noted, CVA tenderness, is absent, vertebral tenderness, is not appreciated. Vital Signs: 07:59 BP 135 / 61; Pulse 69; Resp 18; Temp 98.9; Pulse Ox 96% ; sv 08:52 BP 135 / 67; Pulse 66; Resp 18; Pulse Ox 98% ; sv 10:30 BP 144 / 60; Pulse 66; Resp 18; Pulse Ox 97% ; sv 11:00 BP 144 / 61; Pulse 65; Resp 18; Pulse Ox 97% ; sv 11:30 BP 133 / 57; Pulse 66; Resp 18; Pulse Ox 96% ; sv 12:14 BP 105 / 76; Pulse 81; Resp 16; Pulse Ox 96% ; sv 12:30 Temp 97.8; ph [place] Coma Score: 08:00 Eye Response: spontaneous(4). Verbal Response: oriented(5). Motor Response: obeys ph commands(6). Total: 15. Trauma Score (Adult): 08:00 Eye Response: spontaneous(1); Verbal Response: oriented(1); Motor Response: obeys ph commands(2); Systolic BP: > 89 mm Hg(4); Respiratory Rate: 10 to 29 per min(4); Ernestine Score: 15; Trauma Score: 12 MDM: 07:58 Patient medically screened. [facility] 08:23 Data reviewed: vital signs, nurses notes, lab test result(s), EKG, radiologic studies, [facility] CT scan, plain films. 11/04 08:20 Order name: Basic Metabolic Panel; Complete Time: 11:00 [facility] 11/04 08:20 Order name: CBC with Diff; Complete Time: 11:00 [facility] 11/04 08:20 Order name: Creatinine for Radiology; Complete Time: 11:00 [facility] 11/04 08:20 Order name: Type And Screen; Complete Time: 11:00 [facility] 11/04 08:20 Order name: Lipase; Complete Time: 11:00 [facility] 11/04 08:20 Order name: LFT's; Complete Time: 11:00 [facility] 11/04 08:20 Order name: CT Traumagram (Head C Spine CAP W Con); Complete Time: 11:00 [facility] 11/04 11:06 Order name: Blood Culture Adult (2) [facility] 11/04 11:06 Order name: Sputum Culture [facility] 11/04 08:20 Order name: Labs collected and sent; Complete Time: 09:02 [facility] 11/04 08:24 Order name: EKG; Complete Time: 08:25 [facility] 11/04 08:24 Order name: EKG - Nurse/Tech; Complete Time: 09:02 [facility] Administered Medications: 09:01 Drug: NS 0.9% 500 ml Route: IV; Rate: bolus; Site: left antecubital; sv 10:30 Follow up: Response: No adverse reaction; IV Status: Completed infusion; IV Intake: ph 500ml 09:40 Drug: Zofran 4 mg Route: IVP; Site: left antecubital; ph 12:30 Follow up: Response: No adverse reaction ph 09:41 Drug: Dilaudid 0.5 mg Route: IVP; Site: left antecubital; ph 10:30 Follow up: Response: No adverse reaction; Pain is decreased ph 11:46 Drug: SOLU-Medrol 125 mg Route: IVP; Site: left antecubital; ph 12:31 Follow up: Response: No adverse reaction ph 11:46 Drug: Albuterol - atroVENT (3:1) (2.5 mg - 0.5 mg) 3 ml Route: Nebulizer; ph 12:31 Follow up: Response: No adverse reaction ph 12:02 Drug: Zosyn 3.375 grams Route: IVPB; Infused Over: 60 mins; Site: left antecubital; 12:31 Follow up: Response: No adverse reaction; IV Status: Completed infusion ph Disposition: 11/04/18 11:13 Hospitalization ordered by Ronald Galeana for Inpatient Admission. Preliminary diagnosis are Pneumonia, unspecified organism, Repeated falls, Weakness, Low back pain. - Bed requested for Telemetry/MedSurg (Inpatient). - Status is Inpatient Admission. ph - Condition is Stable. - Problem is new. - Symptoms have improved. UTI on Admission? No Signatures: Dispatcher [employer] EDMS Verona Franco RN Shayan Bolivar MD MD cha Williams, Irene, RN RN iw Hall, Patricia, RN RN Jovanni Diaz RN RN ja1 Corrections: (The following items were deleted from the chart) 11:45 11:13 Hospitalization Ordered by Ronald Galeana MD for Inpatient Admission. Preliminary ja1 diagnosis is Pneumonia, unspecified organism; Repeated falls; Weakness; Low back pain. Bed requested for Telemetry/MedSurg (Inpatient). Status is Inpatient Admission. Condition is Stable. Problem is new. Symptoms have improved. UTI on Admission? No. dale 12:32 11:45 11/04/2018 11:13 Hospitalization Ordered by Ronald Galeana MD for Inpatient ph Admission. Preliminary diagnosis is Pneumonia, unspecified organism; Repeated falls; Weakness; Low back pain. Bed requested for Telemetry/MedSurg (Inpatient). Status is Inpatient Admission. Condition is Stable. Problem is new. Symptoms have improved. UTI on Admission? No. ja1
[2018-11-04] MEDS ORDERED: ALBUTEROL 2.5 MG/3 ML NEB SOL ONE (11:47)
[2018-11-04] MEDS ORDERED: METHYLPREDNISOLONE 125 MG INJ ONE (11:47)
[2018-11-04] MEDS ORDERED: PIPER/TAZO/NS 3.375gm 3.375 GM/100 ML BAG ONE (11:47)
[2018-11-04] MEDS ORDERED: IPRATROPIUM BROM 0.5MG/2.5ML ONE (11:47)
[2018-11-04] MEDS: NA CHLORIDE 0.9% 1,000 ML IV SCH ×2 (12:41→13:56)
[2018-11-04] MEDS ORDERED: ACETAMINOPHEN 500 MG TAB PO PRN (12:41)
[2018-11-04] MEDS ORDERED: ALBUTEROL 2.5 MG/3 ML NEB SOL NEB PRN (12:41)
[2018-11-04 13:12] VITALS: BMI 25.9
--- NOTE | 2018-11-04 13:33 | EKG ---
Test Date: 2018-11-04 Test Time: 09:04:15 Web Operations Administrator: OSCAR MEASUREMENT RESULTS: Intervals: Rate: 64 MD: 238 QRSD: 154 QT: 454 QTc: 468 [place]: P: 87 MD: 238 QRS: -3 T: 20 INTERPRETIVE STATEMENTS: Sinus rhythm with 1st degree AV block Right bundle branch block T wave abnormality, consider lateral ischemia Abnormal ECG Compared to ECG 08/23/2017 17:22:13 Right bundle-branch block now present T-wave abnormality now present Possible ischemia now present Atrial premature complex(es) no longer present Myocardial infarct finding no longer present Electronically Signed On 11-04-18 13:33:13 CDT by Sukhi Castro
[2018-11-04] MEDS: METHYLPREDNISOLONE 40 MG INJ IV SCH (16:06)
[2018-11-04] MEDS: HYDROMORPHONE HCL 0.5 MG/0.5 ML INJ IV PRN ×2 (16:06→20:45)
[2018-11-04] MEDS: DICYCLOMINE HCL 10 MG CAP PO SCH ×2 (17:00→20:53)
[2018-11-04] MEDS ORDERED: HOME MED 1 EA UNK (Dicyclomine Hcl [Dicyclomine Hcl] 20 MG) PO SCH (17:00)
[2018-11-04] MEDS: PIPER/TAZO/NS 3.375gm 3.375 GM/100 ML BAG IVPB SCH (17:27)
[2018-11-04] MEDS: ACETAMINOPHEN 500 MG TAB PO SCH (17:28)
[2018-11-04] MEDS: ENOXAPARIN 40 MG/0.4 ML SQ SCH (17:28)
[2018-11-04] MEDS: levETIRAcetam 500 MG TAB PO SCH (20:43)
[2018-11-04] MEDS: HYOSCYAMINE SULF 0.125 MG TAB PO PRN (20:43)
[2018-11-04] MEDS: CLOPIDOGREL 75 MG TABLET PO SCH (20:43)
[2018-11-04] MEDS: ATORVASTATIN 20 MG TAB PO SCH (20:43)
[2018-11-04] MEDS: METOPROLOL XL 25 MG TAB PO SCH (20:44)
[2018-11-04] MEDS: MIDODRINE HCL 5 MG TABLET PO SCH (20:44)
[2018-11-04] MEDS: ASPIRIN EC 81 MG TAB PO SCH (20:44)
[2018-11-04] MEDS: RANITIDINE 150 MG TABLET PO SCH (20:44)
[2018-11-04] MEDS: GABAPENTIN 400 MG CAP PO SCH (20:44)
[2018-11-04] MEDS: FAMOTIDINE 20 MG/2 ML VIAL IV SCH (20:44)
[2018-11-04] MEDS: ENSURE ENLIVE 237 ML CAN PO SCH (20:45)
[2018-11-04] MEDS: IPRATROPIUM BROM 0.5MG/2.5ML NEB PRN (20:45)
[2018-11-04] MEDS: MONTELUKAST 10 MG TAB PO SCH (20:52)
[2018-11-04] MEDS ORDERED: RANITIDINE HCL 300 MG PO SCH (21:00)
[2018-11-04] MEDS ORDERED: HOME MED 1 EA UNK (Gabapentin [Gabapentin] 800 MG) PO SCH (21:00)
[2018-11-04] MEDS: AZELASTINE IN SCH (21:00)
[2018-11-04] MEDS: ARFORMOTEROL TARTRATE 15 MCG/2 ML VIAL.NEB IH SCH (21:00)
[2018-11-04] MEDS: FLUTICASONE IN SCH (21:00)
[2018-11-04] MEDS ORDERED: HOME MED 1 EA UNK (Simvastatin [Simvastatin] 40 MG) PO SCH (21:00)
[2018-11-05] MEDS: PIPER/TAZO/NS 3.375gm 3.375 GM/100 ML BAG IVPB SCH ×3 (01:00→17:22)
[2018-11-05] MEDS: METHYLPREDNISOLONE 40 MG INJ IV SCH ×3 (01:15→17:23)
--- NOTE | 2018-11-05 04:26 | HP ---
Date of Admission: 11/04/2018 Chief Complaint: Fall and back pain. History Of Present Illness: This is a 78-year-old male patient with COPD, who is oxygen and steroid dependent, came into emergency room after he fell down a couple of times in last few days. Last fall was yesterday. The patient had hard time getting up after the fall, and with 2-people assistance, michael james was able to get up. He has been having back pain since this fall today. He came into emergency ro om. After he was evaluated, he was admitted to the hospital with pneumonia and back pain. He has ch ronic cough, coughs up some greenish colored mucus as reported today and has shortness of breath with activity, which has not changed lately. He reports that last 7 to 10 days he has not been feeling l gold his normal self and has felt different. He takes his medications regularly as prescribed. Medications: List reviewed. Review of Systems: Respiratory: As mentioned above. MUSCULOSKELETAL: As mentioned above. All other systems reviewed and are negative. Allergies: BACLOFEN, CODEINE, HYDROCODONE, AND SULFA. 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 Past Surgical History: Significant for appendectomy, tonsillectomy, back surgery, vasectomy, arthros copic knee surgery, hip replacement, cervical spine fusion, right-sided hemicolectomy due to colon po lyps, and surgery for deviated nasal septum. Social History: Negative for smoking and alcohol use. Family History: Significant for cancer of esophagus and hypertension. Physical Examination: Vital Signs: Temperature 97.8, pulse 84, respiratory rate 16, blood pressure 146/74, oxygen saturati on 97% on 3 L nasal cannula oxygen. Height 5 feet 11 inches, weight 186 pounds. General: Awake, alert, oriented, not in distress. HEENT: Head atraumatic, normocephalic. Conjunctivae nonerythematous. Sclerae white. Mouth, no thr ush or edema noted. Ears/Nose, no mass, lesion, discharge noted. Neck: Supple. No JVD, lymph nodes, bruit, thyromegaly noted. Lungs: Presence of some rales in right lower lung field. Not using accessory muscles of respiration . Heart: Normal heart sounds, no murmur or gallop. Abdomen: Soft, bowel sounds normal. No guarding, rigidity, tenderness, mass, hepatosplenomegaly, dis tention, or bruit noted. Genitourinary: Significant for presence of Rocha catheter. Back: Patient has significant back pain with any movement, even trying to sit up in the bed causes s ignificant pain. Extremities: No leg edema. No calf tenderness. Skin: Multiple bruises on both lower extremities. Lymphatics: No lymph node enlargement in neck, supraclavicular, infraclavicular region. Neuro: No focal neurological deficit. Chest: Unremarkable. External Genitalia: Deferred. Rectal: Deferred. Laboratory Data: White count 9.4, hemoglobin 12, platelets 225. Sodium 138, potassium 3.7, chloride 102, bicarb 28, BUN 12, creatinine 0.75, glucose 111. Liver function tests unremarkable. Troponin less than 0.02. Lipase 55. CAT scan of the head and cervical spine no acute intracranial changes no xiao. No cervical spine fracture. CAT scan of the chest and abdomen shows [id number] right low er lobe consolidation without significant change from prior exam June 2018. Impression: 1.Pneumonia. 2.Chronic obstructive pulmonary disease. 3.Hypertension. 4.Orthostatic hypotension. 5.Hyperlipidemia. 6.Gastroesophageal reflux disease. 7.Fatigue. 8.Anemia, chronic, unspecified. 9.Peripheral neuropathy. 10.Neurogenic bladder, status post indwelling Rocha catheter. Plan: We will go ahead and admit the patient to hospital for further evaluation and management of th is problem. Patient is appropriate for inpatient and is expected to spend 2 midnight in the hospital . Home medications will be continued per order. DVT prophylaxis will be given using Lovenox. We wi ll consult Physical Therapy to help ambulate the patient. Continue oxygen nebulizer treatment, IV st eroid, and IV antibiotic, which is Zosyn per order. We will consult Dr. Gallego to see if he needs to consider doing bronchoscopy to rule out any postobstructive process or not. Details and plan of t reatment discussed with the patient and his . The patient has a pain pump and he gets it refille d every month with his pain management physician and his next time he needs refill is sometime next w [facility] as reported. We will check orthostatic vital signs and then decide if we need to increase t he dose of his midodrine from 5 mg to 10 mg 3 times a day or more. JERAD/DOMINICK Voice ID: [id number]
[2018-11-05] MEDS: ACETAMINOPHEN 500 MG TAB PO SCH ×4 (05:33→17:21)
[2018-11-05] MEDS: NA CHLORIDE 0.9% 1,000 ML IV SCH ×3 (05:34→20:29)
[2018-11-05 05:55] LABS: Absolute Lymphocytes (CBC) 0.4 K/uL (0.7-4.9); Hematocrit 34.1 % (39.6-49.0); Lymphocytes % 4.2 % (15.3-44.8); MPV 7.3 fL (7.6-11.3); RBC Red Blood Cell Count 3.85 M/uL (4.33-5.43)
[2018-11-05 06:18] LABS: BUN Blood Urea Nitrogen 13 mg/dL (7-18); Bicarbonate 28 mmol/L (21-32); Glucose Level 129 mg/dL (74-106); NT PRO-BNP 628 pg/mL (<450); Potassium 4.8 mmol/L (3.5-5.1); Sodium Level 142 mmol/L (136-145)
[2018-11-05 06:27] LABS: Blood Morphology Comment NOT SEEN (NOT SEEN); Platelet Estimate ADEQ
[2018-11-05] MEDS: MIDODRINE HCL 5 MG TABLET PO SCH ×3 (08:35→20:30)
[2018-11-05] MEDS: AMLODIPINE 5 MG TAB PO SCH (08:35)
[2018-11-05] MEDS: DULOXETINE 30 MG CAP PO SCH (08:35)
[2018-11-05] MEDS: GABAPENTIN 400 MG CAP PO SCH ×3 (08:35→20:31)
[2018-11-05] MEDS: CYANOCOBALAMIN 1,000 MCG TAB PO SCH (08:36)
[2018-11-05] MEDS: DICYCLOMINE HCL 10 MG CAP PO SCH ×4 (08:36→21:00)
[2018-11-05] MEDS: FAMOTIDINE 20 MG/2 ML VIAL IV SCH ×2 (08:37→20:39)
[2018-11-05] MEDS: ENSURE ENLIVE 237 ML CAN PO SCH ×2 (08:37→22:53)
[2018-11-05] MEDS: ARFORMOTEROL TARTRATE 15 MCG/2 ML VIAL.NEB IH SCH ×2 (08:45→20:45)
[2018-11-05] MEDS: HYDROMORPHONE HCL 0.5 MG/0.5 ML INJ IV PRN ×4 (08:47→21:30)
[2018-11-05] MEDS: FLUTICASONE IN SCH ×2 (09:00→21:00)
[2018-11-05] MEDS: AZELASTINE IN SCH ×2 (09:00→21:00)
--- NOTE | 2018-11-05 09:48 | RAD REPORT ---
EXAM DESCRIPTION: Huy Single View11/05/2018 6:28 am CLINICAL HISTORY: Chest pain COMPARISON: November 04, 2018 FINDINGS: Partial resolution in mild bibasilar lung opacities. Heart remains enlarged
--- NOTE | 2018-11-05 12:42 | P.CNS ---
Date of Consult: 11/05/18 Reason for Consult: Possible pneumonia Chief Complaint: Fall History of Present Illness: Patient is 78 years of age with a history of COPD admitted with a 3 day history of acute fall add seems to happen without warning he does falls to the ground feels very weak unable to get up only happen in the past 3 days denies any cough sputum hemoptysis chest pain of worsening shortness of breath patient was found to have a right middle lobe infiltrate which is chronic was present in CT scan that was done in June she denies any other pulmonary complaints denies any weakness of his extremities Allergies sulfamethoxazole [From Bactrim] Allergy (Intermediate, Verified 04/09/17 20:09) Itching/Hives/Rash baclofen Allergy (Verified 04/09/17 20:09) Itching/Hives/Rash codeine [Codeine] Allergy (Verified 04/09/17 20:09) Itching/Hives/Rash hydrocodone [Hydrocodone] Allergy (Verified 04/09/17 20:09) Nausea/Vomiting iodine Allergy (Verified 04/09/17 20:09) Shortness of breath Sulfa (Sulfonamide Antibiotics) Allergy (Verified 04/09/17 20:09) Itching/Hives/Rash trimethoprim [From Bactrim] Allergy (Verified 04/09/17 20:09) Itching/Hives/Rash Home Medications: Albuterol Sulfate [Ventolin Hfa] 1 puff IH Q4HP PRN 02/07/17 Ascorbic Acid [Vitamin C*] 1,000 mg PO DAILY 02/07/17 Aspirin [Aspirin EC 81 MG] 81 mg PO BEDTIME 02/07/17 Cholecalciferol (Vitamin D3) [Vitamin D3] 4,000 unit PO DAILY 02/07/17 Clopidogrel Bisulfate [Plavix] 75 mg PO BEDTIME 02/07/17 Cyanocobalamin [Vitamin B-12*] 2,000 mcg PO DAILY 02/07/17 Duloxetine [Cymbalta *] 60 mg PO DAILY 02/07/17 Gabapentin 800 mg PO TID 02/07/17 L.acidoph,Paracasei, B.lactis [Probiotic] 1 each PO DAILY 02/07/17 Mag Hydroxide 8% [Milk Of Magnesia*] 30 ml PO DAILYPRN PRN 02/07/17 Metoprolol Succinate 12.5 mg PO BEDTIME 02/07/17 Montelukast [Singulair*] 10 mg PO BEDTIME 02/07/17 Simvastatin 40 mg PO BEDTIME 02/07/17 Sodium Chloride [Saline Nose [place]] 1 spray IH Q6HP PRN 02/07/17 Vitamin E 450 unit PO DAILY 02/07/17 levETIRAcetam [Keppra*] 500 mg PO BEDTIME 02/07/17 raNITIdine HCl [Ranitidine HCl] 300 mg PO BEDTIME 02/07/17 Cranberry Conc/C/Bacill Coag [Cranberry Tablet] 8,400 mg PO DAILY 04/10/17 predniSONE [Deltasone*] 10 mg PO PRN PRN 04/10/17 Azelastine/Fluticasone [Dymista Nasal [place]] 1 spray IN BID 12/22/17 Midodrine HCl [Proamatine*] 5 mg PO TID 12/22/17 Amlodipine [Norvasc] 5 mg PO DAILY 11/04/18 Arformoterol Tartrate [Brovana] 15 mcg IH BID 11/04/18 Dicyclomine HCl 20 mg PO QID 11/04/18 Fluticasone Propionate [Flovent Diskus] 50 mcg IH Q6HR PRN 11/04/18 Hyoscyamine Sulfate [Levsin] 0.125 mg PO Q4HR PRN 11/04/18 Ipratropium/Albuterol Sulfate [Iprat-Albut 0.5-3(2.5) mg/3 ml] 3 ml IH QID PRN 11/04/18 Midodrine HCl [Proamatine] 5 mg PO TID 11/04/18 Montelukast [Singulair] 10 mg PO BEDTIME 11/04/18 - Past Medical/Surgical History Diabetic: No -: Back pain -: Peripheral neuropathy -: Asthma -: Seizures -: GERD -: Atonic bladder -: Sleep apnea -: orthostatic hypotension -: COPD -: Obstructive sleep apnea on BiPAP -: hypertension -: Neural stimulator R hip -: pain pump L hip -: colon surgery x2 -: laminectomy -: R knee surgery -: 2 stents in coronary artery - Family History Father History Unknown: Yes Medical History: Heart disease Mother History Unknown: Yes Medical History: Cancer Notes: esophageal - Social History Smoking Status: Never smoker Alcohol use: No CD- Drugs: No Caffeine use: Yes Place of Residence: Home Review of Systems 10-point ROS is otherwise unremarkable General: Weakness Respiratory: Shortness of Breath Physical Examination Temp Pulse Resp BP Pulse Ox 97.1 F 60 18 133/60 95 11/05/18 12:00 11/05/18 12:00 11/05/18 12:00 11/05/18 12:00 11/05/18 12:00 General: Alert, In no apparent distress, Oriented x3 Neck: Supple Respiratory: Clear to auscultation bilaterally Cardiovascular: No edema, Regular rate/rhythm, Normal S1 S2 Gastrointestinal: Normal bowel sounds, Soft and benign Musculoskeletal: No clubbing Neurological: Normal speech, Normal strength at 5/5 x4 extr - Problems (1) Abnormal chest x-ray Current Visit: No Status: Acute Plan: Patient is 78 years of age admitted with falls without any warning there is no evidence of sepsis is white count is normal he has a chronic right middle lobe infiltrate denies any symptoms of signs of sepsis labs all reviewed he has a BiPAP chemistries unremarkable there is no clinical evidence of sepsis I doubt if this acute pneumonia he is high risk for bronchoscopy will check for orthostatic blood pressure changes physical therapy
[2018-11-05] MEDS: ENOXAPARIN 40 MG/0.4 ML SQ SCH (17:21)
--- NOTE | 2018-11-05 17:40 | PN ---
Date of Progress Note: 11/05/2018 Subjective: Patient was seen this morning for followup. He was lying in bed, not in any distress. Overall feels better today than yesterday. Objective: Vital Signs: Reviewed. HEENT: Unremarkable. Lungs: Bilaterally good equal air entry. Clear to auscultation except minimum right basal rales pre sent. Heart: Heart sounds normal. Abdomen: Soft. Bowel sounds normal. No guarding, rigidity, tenderness, or distention. Extremities: No leg edema. Laboratory Data: White count 10, hemoglobin 11.5, platelets 206. Sodium 142, potassium 4.8, chlorid e 107, bicarb 28, BUN 13, creatinine 0.73, glucose 129. Impression: 1.Pneumonia. 2.Chronic obstructive pulmonary disease. 3.Orthostatic hypotension. 4.Peripheral neuropathy. Plan: We will continue current antibiotic, steroid, oxygen, nebulizer treatment. Consult Dr. Maryann fiore for pneumonia problem. I did talk to him and requested his evaluation to see. He would consider doing bronchoscopy of the patient considering CAT scan findings. We will continue DVT prophylaxis. I will see him tomorrow for followup. JERAD/MODL Voice ID: [id number] Report ID: [id number]
[2018-11-05] MEDS: ASPIRIN EC 81 MG TAB PO SCH (20:30)
[2018-11-05] MEDS: RANITIDINE 150 MG TABLET PO SCH (20:30)
[2018-11-05] MEDS: CLOPIDOGREL 75 MG TABLET PO SCH (20:30)
[2018-11-05] MEDS: levETIRAcetam 500 MG TAB PO SCH (20:30)
[2018-11-05] MEDS: ATORVASTATIN 20 MG TAB PO SCH (20:30)
[2018-11-05] MEDS: METOPROLOL XL 25 MG TAB PO SCH (20:31)
[2018-11-05] MEDS: MONTELUKAST 10 MG TAB PO SCH (20:31)
[2018-11-05] MEDS: IPRATROPIUM BROM 0.5MG/2.5ML NEB PRN (20:45)
[2018-11-06] MEDS: METHYLPREDNISOLONE 40 MG INJ IV SCH ×3 (01:41→18:32)
[2018-11-06] MEDS: PIPER/TAZO/NS 3.375gm 3.375 GM/100 ML BAG IVPB SCH ×3 (01:43→18:28)
[2018-11-06] MEDS: HYDROMORPHONE HCL 0.5 MG/0.5 ML INJ IV PRN ×3 (01:44→13:12)
[2018-11-06] MEDS: ACETAMINOPHEN 500 MG TAB PO SCH ×4 (05:42→18:32)
[2018-11-06] MEDS: MAGNESIUM HYDROXIDE 8% 30 ML PO PRN (07:05)
[2018-11-06] MEDS: NA CHLORIDE 0.9% 1,000 ML IV SCH ×2 (07:06→19:00)
[2018-11-06] MEDS: ARFORMOTEROL TARTRATE 15 MCG/2 ML VIAL.NEB IH SCH ×2 (07:54→20:00)
[2018-11-06] MEDS: DICYCLOMINE HCL 10 MG CAP PO SCH ×4 (09:00→20:09)
[2018-11-06] MEDS: AZELASTINE IN SCH ×2 (09:00→20:11)
[2018-11-06] MEDS: FLUTICASONE IN SCH ×2 (09:00→20:11)
[2018-11-06] MEDS: DULOXETINE 30 MG CAP PO SCH (09:43)
[2018-11-06] MEDS: HYOSCYAMINE SULF 0.125 MG TAB PO PRN (09:43)
[2018-11-06] MEDS: MIDODRINE HCL 5 MG TABLET PO SCH ×3 (09:43→20:10)
[2018-11-06] MEDS: CYANOCOBALAMIN 1,000 MCG TAB PO SCH (09:43)
[2018-11-06] MEDS: AMLODIPINE 5 MG TAB PO SCH (09:45)
[2018-11-06] MEDS: GABAPENTIN 400 MG CAP PO SCH ×3 (09:45→20:10)
[2018-11-06] MEDS: FAMOTIDINE 20 MG/2 ML VIAL IV SCH ×2 (09:52→20:10)
[2018-11-06] MEDS: ENSURE ENLIVE 237 ML CAN PO SCH ×2 (09:55→20:09)
--- NOTE | 2018-11-06 16:30 | PN ---
Date of Progress Note: 11/06/2018 Subjective: Patient was seen this morning for followup. No new complaints/problems reported by him. He was sitting at bedside. Denied any new complaints. Feels better today than yesterday. Still h as a cough, chest congestion, coughing up some colored mucus, but overall feels better than before. Objective: Vital Signs: Reviewed. HEENT: Unremarkable. Lungs: Clear to auscultation except some minimum rales noted in the lower lung field on the right si de. Heart: Sounds normal. Abdomen: Soft. Bowel sounds normal. No guarding, rigidity, tenderness, distention. Extremities: No leg edema. Impression: 1.Pneumonia. 2.Chronic obstructive pulmonary disease. 3.Orthostatic hypotension. Plan: Patient's orthostatic vital signs changes were reviewed, and he still drops his blood pressure in standing position from supine position, so what we will do is, we will increase the dose of his m idodrine from 5 mg 3 times a day to 10 mg 3 times a day considering patient is having recurrent fall lately, which could be very well due to his underlying orthostatic hypotension. I did talk to Dr. Paolo landin today, and he has released patient to go home from his point of view. Medically, the patient is improving, and hopefully, he will be ready for discharge by tomorrow. Details were discussed with the patient. We will discontinue his IV fluid. Continue oxygen nebulizer treatment; steroids; and antibiotic, gabriela hennessy is Brandi. JERAD/MODL Voice ID: [id number] Report ID: [id number]
[2018-11-06] MEDS: ENOXAPARIN 40 MG/0.4 ML SQ SCH (18:32)
[2018-11-06] MEDS: CLOPIDOGREL 75 MG TABLET PO SCH (20:10)
[2018-11-06] MEDS: RANITIDINE 150 MG TABLET PO SCH (20:10)
[2018-11-06] MEDS: ASPIRIN EC 81 MG TAB PO SCH (20:10)
[2018-11-06] MEDS: ATORVASTATIN 20 MG TAB PO SCH (20:11)
[2018-11-06] MEDS: levETIRAcetam 500 MG TAB PO SCH (20:11)
[2018-11-06] MEDS: MONTELUKAST 10 MG TAB PO SCH (20:11)
[2018-11-06] MEDS: METOPROLOL XL 25 MG TAB PO SCH (20:14)
[2018-11-07] MEDS: METHYLPREDNISOLONE 40 MG INJ IV SCH ×2 (00:14→08:31)
[2018-11-07] MEDS: ACETAMINOPHEN 500 MG TAB PO SCH ×2 (00:14→05:25)
[2018-11-07] MEDS: PIPER/TAZO/NS 3.375gm 3.375 GM/100 ML BAG IVPB SCH ×2 (00:14→08:31)
[2018-11-07] MEDS: MAGNESIUM HYDROXIDE 8% 30 ML PO PRN (05:27)
[2018-11-07] MEDS: ARFORMOTEROL TARTRATE 15 MCG/2 ML VIAL.NEB IH SCH (07:35)
[2018-11-07] MEDS: IPRATROPIUM BROM 0.5MG/2.5ML NEB PRN (07:35)
[2018-11-07] MEDS: FAMOTIDINE 20 MG/2 ML VIAL IV SCH (08:31)
[2018-11-07] MEDS: DICYCLOMINE HCL 10 MG CAP PO SCH (08:31)
[2018-11-07] MEDS: DULOXETINE 30 MG CAP PO SCH (08:32)
[2018-11-07] MEDS: AMLODIPINE 5 MG TAB PO SCH (08:32)
[2018-11-07] MEDS: CYANOCOBALAMIN 1,000 MCG TAB PO SCH (08:32)
[2018-11-07] MEDS: GABAPENTIN 400 MG CAP PO SCH (08:32)
[2018-11-07] MEDS: MIDODRINE HCL 5 MG TABLET PO SCH (08:33)
[2018-11-07] MEDS: ENSURE ENLIVE 237 ML CAN PO SCH (08:33)
[2018-11-07 08:34] VITALS: BP 121/87
[2018-11-07] MEDS: FLUTICASONE IN SCH (08:34)
[2018-11-07] MEDS: AZELASTINE IN SCH (08:34)
[2018-11-07 09:09] VITALS: TEMP 97.9
[2018-11-07 12:18] VITALS: O2SAT 96
--- NOTE | 2018-11-08 13:59 | DS ---
Date of Discharge: 11/07/2018 Disposition: Discharged to go home. Physical Examination: HEENT: Unremarkable. Lungs: Clear to auscultation. Heart: Sounds normal. Abdomen: Soft. Bowel sounds normal. No guarding, rigidity, tenderness, or distention. Extremities: No leg edema. Laboratory Data: Upon admission on 11/04/2018, white count 9.4, hemoglobin 12, platelets 225. Sodiu m 138, potassium 3.7, chloride 102, bicarb 28, BUN 12, creatinine 0.75, glucose 111. Liver function tests unremarkable. Troponin less than 0.02. Hospital Course: A 78-year-old male patient, who was admitted to the hospital with back pain and fal l. Please see dictated H and P for more information. The patient was evaluated in the ER. He was a dmitted to the hospital. The patient had a CAT scan done as a part of workup for his fall, revealed presence of pneumonia in the right lower lung and radiologist reported that as unchanged from prior C AT scan findings in June of this year. Chest x-ray done a day prior to admission to the hospital [place] d shown some slight increase in bibasilar lung markings, raising possibility of pneumonia as per radi ologist's report. This was ordered by Dr. Gallego. The patient has chronic cough, dyspnea, and cou ghing up some mucus. Denies any recent fever. After he was evaluated in the ER, he was admitted to the hospital. Pain medication was ordered. He was started on IV antibiotic, Zosyn. Home medication s were continued per order. Orthostatic vital sign changes were done as I was concerned about that a nd it does show that patient's blood pressure drops in standing position compared to supine and sitti ng positions. He takes midodrine 5 mg three times a day, so we will go ahead and increase the dose t o 10 mg three times a day. Dr. Galelgo from Pulmonary was consulted to see if patient will need a b ronchoscopy or not and he informed me that there is no need for any bronchoscopy at this point and brenda rogers is at high risk for such a procedure. His condition overall has improved and he was discharged to go home in stable condition today with following discharge medications and instructions. Final Diagnoses: 1.Pneumonia. 2.Chronic obstructive pulmonary disease. 3.Hypertension. 4.Orthostatic hypotension. 5.Hyperlipidemia. 6.Gastroesophageal reflux disease. 7.Fatigue. 8.Anemia, chronic, unspecified. 9.Peripheral neuropathy. 10.Neurogenic bladder, status post indwelling Rocha catheter. Discharge Medications And Instructions: 1.Continue prior home medications. 2.Augmentin 875 mg twice a day for 10 days. 3.Stop midodrine 5 mg dose and start taking 10 mg three times a day. 4.Follow up at my office next week and follow up with Dr. Gallego in 2 weeks. JERAD/MODL Voice ID: [id number] Report ID: [id number]
== END 2018-11-07 11:22 | disposition home or self-care (01) | DRG 194 ==
LOC: ER 07:53 → ERHOLD 11:16 → 4TH 12:14
PROVIDERS: ADMIT Internal Medicine; ATTEND Internal Medicine
DX: J18.1 Lobar pneumonia, unspecified organism (principal); J44.0 Chronic obstructive pulmonary disease with (acute) lower respiratory infection; I10 Essential (primary) hypertension; I95.1 Orthostatic hypotension; E78.5 Hyperlipidemia, unspecified; G47.33 Obstructive sleep apnea (adult) (pediatric); K21.9 Gastro-esophageal reflux disease without esophagitis; R53.83 Other fatigue; D53.9 Nutritional anemia, unspecified; G62.9 Polyneuropathy, unspecified; N31.9 Neuromuscular dysfunction of bladder, unspecified; Z99.81 Dependence on supplemental oxygen; Z79.51 Long term (current) use of inhaled steroids; Z95.5 Presence of coronary angioplasty implant and graft; Z88.1 Allergy status to other antibiotic agents; Z88.5 Allergy status to narcotic agent; Z88.2 Allergy status to sulfonamides
CPT/HCPCS: 36415; 70450; 71045; 71046; 71260; 72125; 74177; 80048; 80076; 83690; 83880; 84484; 85025; 86850; 86900; 86901; 87040; 87070; 87077; 87186; 87205; 93005; 94640; 94760; 96361; 96365; 96375; 97116; 97161; 97530; 99285; J1170; J1650; J2405; J2543; J2920; J2930; J7030; J7605; Q9967

== ENCOUNTER 2018-11-10 12:35 | Inpatient (IN) | payer OTHER ==
--- OUTSIDE RECORDS SUMMARY | 2018-11-10 12:37 | XMS REPORT ---
:1940 [facility] Address [address] [place] [id number] Care Team Providers Name Role Phone Unavailable Unavailable Unavailable Problems This patient has no known problems. Allergies, Adverse Reactions, Alerts This patient has no known allergies or adverse reactions. Medications This patient has no known medications.
[2018-11-10 13:22] LABS: Absolute Lymphocytes (CBC) 0.4 K/uL (0.7-4.9); Basophils % 0.1 % (0-1.3); Hematocrit 35.9 % (39.6-49.0); Lymphocytes % 5.2 % (15.3-44.8); Protime INR 1.11
[2018-11-10 13:37] LABS: ALT/SGPT 45 U/L (12-78); AST/SGOT 21 U/L (15-37); Albumin 3.1 g/dL (3.4-5.0); Alkaline Phosphatase 49 U/L (45-117); BUN Blood Urea Nitrogen 11 mg/dL (7-18); Bicarbonate 26 mmol/L (21-32); Bilirubin Direct 0.2 mg/dL (0-0.2); Bilirubin Total 0.5 mg/dL (0.2-1.0); Glucose Level 107 mg/dL (74-106); Magnesium 2.6 mg/dL (1.8-2.4); NT PRO-BNP 218 pg/mL (<450); Potassium 4.2 mmol/L (3.5-5.1); Protein, Total 7.3 g/dL (6.4-8.2); Sodium Level 134 mmol/L (136-145); Troponin (Emerg Dept Use Only) < 0.02 ng/mL (0.0-0.045)
[2018-11-10 13:46] LABS: Blood Morphology Comment NOT SEEN (NOT SEEN); Platelet Estimate ADEQ
--- NOTE | 2018-11-10 14:58 | RAD REPORT ---
EXAM DESCRIPTION: RAD - Chest Single View - 11/10/2018 1:58 pm CLINICAL HISTORY: Pneumonia, chest pain COMPARISON: November 05 TECHNIQUE: AP portable chest image was obtained 1350 hours . FINDINGS: Lung volumes are normal. Chronic stranding in each lung base matches the comparison. No ne w failure, infiltrate or mass. The chronic interstitial pattern throughout the lung munguia also seen as stable. Heart and vasculature are normal. No measurable pleural effusion and no pneumothorax. No a cute bony abnormality seen. No acute aortic findings suspected. IMPRESSION: Chronic interstitial lung disease worse in each lung base. Chest findings are not substantially different from the November 05 imaging.
--- NOTE | 2018-11-10 15:09 | ER ---
Nurse's Notes [facility] Name: Zen Bledsoe Jr Age: 78 yrs Sex: Male : 1940 Arrival Date: 11/10/2018 Time: 12:36 Bed 5 Private MD: Diagnosis: Shortness of breath;COPD Exacerbation Presentation: 11/10 12:44 Presenting complaint: states: "he was admitted here with pneumonia on Wednesday and aa5 discharged on Wednesday but since he was discharged he has been having chest pain, nausea, and has been sleeping most of the time". Pt also reports diarrhea today. Transition of care: patient was not received from another setting of care. Onset of symptoms was October 2018. Risk Assessment: Do you want to hurt yourself or someone else? Patient reports no desire to harm self or others. Care prior to arrival: None. 12:44 Acuity: KARY 3 aa5 12:44 Method Of Arrival: Wheelchair aa5 Historical: - Allergies: 12:48 BACLOFEN; aa5 12:48 Bactrim; aa5 12:48 Codeine; aa5 12:48 HYDROCODONE; aa5 12:48 Iodine; aa5 12:48 Sulfa (Sulfonamide Antibiotics); aa5 - Home Meds: 15:33 Aspir-81 81 mg Oral TbEC 1 tab once daily [Active]; Plavix 75 mg Oral tab once daily hb [Active]; Toprol XL 25 mg Oral tab 0.5 tab 1/2 in am and 1 at night [Active]; simvastatin 40 mg Oral tab 1 tab once daily [Active]; amlodipine 5 mg tab 1 tab once daily [Active]; Cymbalta 60 mg oral cpDR 1 cap once daily [Active]; gabapentin 800 mg oral tab 1 tab 3 times per day [Active]; Pain Pump w/Prialta and Dilaudid [Active]; Brovana 15 mcg/2 mL inhalation nebu [Active]; ipratropium-albuterol 0.5 mg-3 mg(2.5 mg base)/3 mL Inhl nebu [Active]; Ventolin HFA 90 mcg/actuation Nebulizer HFAA [Active]; Singulair 10 mg Oral tab 1 tab once daily [Active]; fluticasone inhalation inhalation [Active]; prednisone 10 mg Oral tab as needed [Active]; ranitidine HCl 300 mg Oral tab 1 tab once daily [Active]; dicyclomine 20 mg Oral tab 4 times per day [Active]; hyoscyamine sulfate 0.125 mg SL subl [Active]; levetiracetam 500 mg oral tab nightly [Active]; midodrine 5 mg oral tab 3 times per day [Active]; vitamin b12 [Active]; Vitamin D3 oral oral [Active]; Vitamin E Oral [Active]; Vitamin C Oral [Active]; - PMHx: 12:48 Angina; Arthritis; Asthma; bladder failure; bowel obstruction; BPH; cardiac stents; aa5 chronic back pain; COPD; ESSENTIAL TREMORS; gastritis; GERD; Hypertension; 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; neurogenic orthogenic hypertension; neuropathy; O2 at home; osteoarthritis; Seizures; Sleep Apnea; urticaria vasculitis; - PSHx: 12:48 Tonsillectomy; Appendectomy; Cystoscopy/bladder hydrodistention and transurethral aa5 incision of prostate w/holmium YAG laser; right hip replacement; L3 L4 Laminectomy; Neuro Stimulator; Dilaudid pain pump; Heart stents; C2-C7 fusion with titanium bar; Polyps removed from colon; C4 C5 fusion; Deviated nasal septum repair; Vasectomy; L4 L5 Laminectomy; right knee; Bowel resection; - Immunization history:: Pneumococcal vaccine is up to date, Flu vaccine is up to date. - Social history:: Smoking status: Patient/guardian denies using tobacco. - Ebola Screening: : No symptoms or risks identified at this time. Vital Signs: 12:48 BP 106 / 61; Pulse 89; Resp 18 S; Temp 97.9(TE); Pulse Ox 94% on 4 lpm NC; Weight 89.36 aa5 kg (R); Height 5 ft. 11 in. (180.34 cm) (R); Pain 7/10; 14:00 BP 120 / 75; Pulse 78; Resp 16; Pulse Ox 100% ; sv 14:30 BP 133 / 90; Pulse 81; Resp 19; Pulse Ox 95% on 4 lpm NC; sv 15:30 BP 130 / 71; Pulse 81; Resp 21; Pulse Ox 100% on 4 lpm NC; sv 16:00 BP 148 / 61; Pulse 87; Resp 17; Pulse Ox 100% on 4 lpm NC; sv 12:48 Body Mass Index 27.48 (89.36 kg, 180.34 cm) aa5 ED Course: 12:36 Patient arrived in ED. as 12:46 Triage completed. aa5 12:46 Arm band placed on. aa5 12:50 Ollie Lemus MD is Attending Physician. kdr 12:50 EKG done, by news technical director. reviewed by Ollie Lemus MD. sm3 13:11 Initial lab(s) drawn, by il, sent to lab. Inserted saline lock: 22 gauge in left jb1 antecubital area, using aseptic technique. Blood collected. 13:56 X-ray completed. Portable x-ray completed in exam room. Patient tolerated procedure jb2 well. 13:58 XRAY Chest (1 view) In Process Unspecified. EDMS 14:54 Angi Lemus, MADELINE is Primary Nurse. hb 15:08 Ramon Galeana MD is Hospitalizing Provider. kdr Administered Medications: 15:27 Drug: Xopenex (3) 0.63 mg Route: Inhalation; hb 16:22 Follow up: Response: No adverse reaction hb 15:27 Drug: SOLU-Medrol 125 mg Route: IVP; Site: left antecubital; hb 16:00 Follow up: Response: No adverse reaction hb 15:27 Drug: morphine 2 mg Route: IVP; Site: left antecubital; hb 16:00 Follow up: Response: No adverse reaction hb 15:27 Drug: Zofran 4 mg Route: IVP; Site: left antecubital; hb 16:00 Follow up: Response: No adverse reaction hb 15:27 Drug: LevaQUIN 500 mg Route: PO; hb 16:15 Follow up: Response: No adverse reaction hb Outcome: 15:08 Decision to Hospitalize by Provider. kdr 16:34 Admitted to Tele accompanied by tech, family with patient, via wheelchair, room 224, sv with oxygen, with chart, Report called to Remi CORREA 16:34 Condition: stable 16:34 Instructed on the need for admit. 16:42 Patient left the ED. sv Signatures: Dispatcher [employer] EDMS Feliberto Cortez1 Verona Franco RN RN Ollie Lemus MD MD [facility] Oneil Garrett jb2 Mily Johnston Audri, RN RN [facility] Angi Lemus, RN RN hb Citlali Boudreaux sm3
--- NOTE | 2018-11-10 15:10 | EDPHYS ---
Physician Documentation [facility] Name: Zen Bledsoe Jr Age: 78 yrs Sex: Male : 1940 Arrival Date: 11/10/2018 Time: 12:36 Bed 5 Private MD: ED Physician Ollie Lemus HPI: 11/11 07:34 This 78 yrs old Male presents to ER via Wheelchair with complaints of Chest kdr Pain, Nausea, Diarrhea. 07:35 The patient or guardian reports chest pain that is located primarily in the anterior kdr chest wall, bilaterally. Onset: gradually, 3 day(s) ago. The pain does not radiate. Associated signs and symptoms: Pertinent positives: nausea, shortness of breath. The chest pain is described as aching, dull, a pressure. Duration: The patient or guardian reports multiple episodes, that are intermittent, that wax and wane, with no pattern. Modifying factors: The symptoms are alleviated by nothing. the symptoms are aggravated by nothing. Severity of pain: At its worst the pain was mild in the emergency department the pain is unchanged. The patient has not experienced similar symptoms in the past. Historical: - Allergies: 11/10 12:48 BACLOFEN; aa5 12:48 Bactrim; aa5 12:48 Codeine; aa5 12:48 HYDROCODONE; aa5 12:48 Iodine; aa5 12:48 Sulfa (Sulfonamide Antibiotics); aa5 - Home Meds: 15:33 Aspir-81 81 mg Oral TbEC 1 tab once daily [Active]; Plavix 75 mg Oral tab once daily hb [Active]; Toprol XL 25 mg Oral tab 0.5 tab 1/2 in am and 1 at night [Active]; simvastatin 40 mg Oral tab 1 tab once daily [Active]; amlodipine 5 mg tab 1 tab once daily [Active]; Cymbalta 60 mg oral cpDR 1 cap once daily [Active]; gabapentin 800 mg oral tab 1 tab 3 times per day [Active]; Pain Pump w/Prialta and Dilaudid [Active]; Brovana 15 mcg/2 mL inhalation nebu [Active]; ipratropium-albuterol 0.5 mg-3 mg(2.5 mg base)/3 mL Inhl nebu [Active]; Ventolin HFA 90 mcg/actuation Nebulizer HFAA [Active]; Singulair 10 mg Oral tab 1 tab once daily [Active]; fluticasone inhalation inhalation [Active]; prednisone 10 mg Oral tab as needed [Active]; ranitidine HCl 300 mg Oral tab 1 tab once daily [Active]; dicyclomine 20 mg Oral tab 4 times per day [Active]; hyoscyamine sulfate 0.125 mg SL subl [Active]; levetiracetam 500 mg oral tab nightly [Active]; midodrine 5 mg oral tab 3 times per day [Active]; vitamin b12 [Active]; Vitamin D3 oral oral [Active]; Vitamin E Oral [Active]; Vitamin C Oral [Active]; - PMHx: 12:48 Angina; Arthritis; Asthma; bladder failure; bowel obstruction; BPH; cardiac stents; aa5 chronic back pain; COPD; ESSENTIAL TREMORS; gastritis; GERD; Hypertension; 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[employer]; neurogenic orthogenic hypertension; neuropathy; O2 at home; osteoarthritis; Seizures; Sleep Apnea; urticaria vasculitis; - PSHx: 12:48 Tonsillectomy; Appendectomy; Cystoscopy/bladder hydrodistention and transurethral aa5 incision of prostate w/holmium YAG laser; right hip replacement; L3 L4 Laminectomy; Neuro Stimulator; Dilaudid pain pump; Heart stents; C2-C7 fusion with titanium bar; Polyps removed from colon; C4 C5 fusion; Deviated nasal septum repair; Vasectomy; L4 L5 Laminectomy; right knee; Bowel resection; - Immunization history:: Pneumococcal vaccine is up to date, Flu vaccine is up to date. - Social history:: Smoking status: Patient/guardian denies using tobacco. - Ebola Screening: : No symptoms or risks identified at this time. ROS: 11/11 07:35 Constitutional: Negative for fever, chills, and weight loss, Eyes: Negative for injury, kdr pain, redness, and discharge, ENT: Negative for injury, pain, and discharge, Neck: Negative for injury, pain, and swelling, Back: Negative for injury and pain, : Negative for injury, bleeding, discharge, and swelling, MS/Extremity: Negative for injury and deformity, Skin: Negative for injury, rash, and discoloration, Neuro: Negative for headache, weakness, numbness, tingling, and seizure activity. Psych: Negative for depression, anxiety, suicide ideation, homicidal ideation, and hallucinations, Allergy/Immunology: Negative for hives, rash, and allergies, Endocrine: Negative for neck swelling, polydipsia, polyuria, polyphagia, and marked weight changes, Hematologic/Lymphatic: Negative for swollen nodes, abnormal bleeding, and unusual bruising. Cardiovascular: Positive for chest pain, Negative for edema, orthopnea, palpitations, paroxysmal nocturnal dyspnea. Respiratory: Positive for shortness of breath, Negative for cough, dyspnea on exertion, hemoptysis, orthopnea, pleurisy, sputum production, wheezing. Abdomen/GI: Positive for nausea, Negative for vomiting, diarrhea, abdominal distension, anorexia, dysphagia, hematemesis, black/tarry stool, rectal pain, rectal bleeding. Exam: 07:35 Constitutional: This is a well developed, well nourished patient who is awake, alert, kdr and in no acute distress. Head/Face: Normocephalic, atraumatic. Eyes: Pupils equal round and reactive to light, extra-ocular motions intact. Lids and lashes normal. Conjunctiva and sclera are non-icteric and not injected. Cornea within normal limits. Periorbital areas with no swelling, redness, or edema. Neck: Trachea midline, no thyromegaly or masses palpated, and no cervical lymphadenopathy. Supple, full range of motion without nuchal rigidity, or vertebral point tenderness. No Meningismus. Chest/axilla: Normal chest wall appearance and motion. Nontender with no deformity. No lesions are appreciated. Cardiovascular: Regular rate and rhythm with a normal S1 and S2. No gallops, murmurs, or rubs. Normal PMI, no JVD. No pulse deficits. Respiratory: Lungs have equal breath sounds bilaterally, clear to auscultation and percussion. No rales, rhonchi or wheezes noted. No increased work of breathing, no retractions or nasal flaring. Abdomen/GI: Soft, non-tender, with normal bowel sounds. No distension or tympany. No guarding or rebound. No evidence of tenderness throughout. Back: No spinal tenderness. No costovertebral tenderness. Full range of motion. Skin: Warm, dry with normal turgor. Normal color with no rashes, no lesions, and no evidence of cellulitis. MS/ Extremity: Pulses equal, no cyanosis. Neurovascular intact. Full, normal range of motion. Neuro: Awake and alert, GCS 15, oriented to person, place, time, and situation. Cranial nerves II-XII grossly intact. Motor strength 5/5 in all extremities. Sensory grossly intact. Cerebellar exam normal. Normal gait. Psych: Awake, alert, with orientation to person, place and time. Behavior, mood, and affect are within normal limits. Vital Signs: 11/10 12:48 BP 106 / 61; Pulse 89; Resp 18 S; Temp 97.9(TE); Pulse Ox 94% on 4 lpm NC; Weight 89.36 aa5 kg (R); Height 5 ft. 11 in. (180.34 cm) (R); Pain 7/10; 14:00 BP 120 / 75; Pulse 78; Resp 16; Pulse Ox 100% ; sv 14:30 BP 133 / 90; Pulse 81; Resp 19; Pulse Ox 95% on 4 lpm NC; sv 15:30 BP 130 / 71; Pulse 81; Resp 21; Pulse Ox 100% on 4 lpm NC; sv 16:00 BP 148 / 61; Pulse 87; Resp 17; Pulse Ox 100% on 4 lpm NC; sv 12:48 Body Mass Index 27.48 (89.36 kg, 180.34 cm) aa5 MDM: 15:08 Patient medically screened. kdr 11/11 07:35 HEART Score: History: Slightly Suspicious (0), ECG: Non specific repolarization kdr disturbance / LBTB / PM (1), Age: > or = 65 years (2), Risk Factors: Troponin: < or = 1 x Normal Limit (0). Data reviewed: vital signs, nurses notes, lab test result(s), radiologic studies. 11/10 12:51 Order name: Basic Metabolic Panel; Complete Time: 15: kdr 11/10 12:51 Order name: CBC with Diff; Complete Time: 15: kdr 11/10 12:51 Order name: LFT's; Complete Time: 15: kdr 11/10 12:51 Order name: Magnesium; Complete Time: 15: kdr 11/10 12:51 Order name: NT PRO-BNP; Complete Time: 15: kdr 11/10 12:51 Order name: PT-INR; Complete Time: 15: kdr 11/10 12:51 Order name: Troponin (emerg Dept Use Only); Complete Time: 15: kdr 11/10 12:51 Order name: XRAY Chest (1 view); Complete Time: 15:06 kdr 11/10 13:44 Order name: Manual Differential; Complete Time: 15:06 EDMS 11/10 12:51 Order name: EKG; Complete Time: 12:56 kdr 11/10 12:51 Order name: Cardiac monitoring; Complete Time: 12:52 kdr 11/10 12:51 Order name: EKG - Nurse/Tech; Complete Time: 13:11 kdr 11/10 12:51 Order name: IV Saline Lock; Complete Time: 13:09 kdr 11/10 12:51 Order name: Labs collected and sent; Complete Time: 13:09 kdr 11/10 12:51 Order name: O2 Per Protocol; Complete Time: 12:52 kdr 11/10 12:51 Order name: O2 Sat Monitoring; Complete Time: 12:52 kdr Administered Medications: 11/10 15:27 Drug: Xopenex (3) 0.63 mg Route: Inhalation; hb 16:22 Follow up: Response: No adverse reaction hb 15:27 Drug: SOLU-Medrol 125 mg Route: IVP; Site: left antecubital; hb 16:00 Follow up: Response: No adverse reaction hb 15:27 Drug: morphine 2 mg Route: IVP; Site: left antecubital; hb 16:00 Follow up: Response: No adverse reaction hb 15:27 Drug: Zofran 4 mg Route: IVP; Site: left antecubital; hb 16:00 Follow up: Response: No adverse reaction hb 15:27 Drug: LevaQUIN 500 mg Route: PO; hb 16:15 Follow up: Response: No adverse reaction hb Disposition: 11/10/18 15:08 Hospitalization ordered by Ramon Galeana for Inpatient Admission. Preliminary diagnosis are Shortness of breath, COPD Exacerbation. - Bed requested for Telemetry/MedSurg (Inpatient). - Status is Inpatient Admission. sv - Condition is Fair. - Problem is an acute exacerbation. - Symptoms have improved. UTI on Admission? No Signatures: Dispatcher [employer] EDVerona Mccall RN RN sv Woody, Diana, RN RN dw Rittger, Kevin, MD MD kdr Calderon, Audri, RN RN aa5 Angi Lemus RN RN hb Corrections: (The following items were deleted from the chart) 15:11 15:08 Hospitalization Ordered by A Kervin JACOBS for Inpatient Admission. Preliminary kdr diagnosis is Shortness of breath. Bed requested for Telemetry/MedSurg (Inpatient). Status is Inpatient Admission. Condition is Fair. Problem is an acute exacerbation. Symptoms have improved. UTI on Admission? No. kdr 16:17 15:11 11/10/2018 15:08 Hospitalization Ordered by A Kervin JACOBS for Inpatient Admission. dw Preliminary diagnosis is Shortness of breath; COPD Exacerbation. Bed requested for Telemetry/MedSurg (Inpatient). Status is Inpatient Admission. Condition is Fair. Problem is an acute exacerbation. Symptoms have improved. UTI on Admission? No. kdr 16:42 16:17 11/10/2018 15:08 Hospitalization Ordered by A Kervin JACOBS for Inpatient Admission. sv Preliminary diagnosis is Shortness of breath; COPD Exacerbation. Bed requested for Telemetry/MedSurg (Inpatient). Status is Inpatient Admission. Condition is Fair. Problem is an acute exacerbation. Symptoms have improved. UTI on Admission? No. dw
[2018-11-10] MEDS ORDERED: IPRATROPIUM BROM 0.5MG/2.5ML NEB PRN (15:16)
[2018-11-10] MEDS ORDERED: ACETAMINOPHEN 500 MG TAB PO PRN (15:16)
[2018-11-10] MEDS ORDERED: ALBUTEROL 2.5 MG/3 ML NEB SOL NEB PRN (15:16)
[2018-11-10] MEDS ORDERED: METHYLPREDNISOLONE 125 MG INJ ONE (15:17)
[2018-11-10] MEDS ORDERED: MORPHINE 2 MG/ML SYR ONE (15:17)
[2018-11-10] MEDS ORDERED: LEVALBUTEROL 0.63 MG/3 ML NEB ONE (15:17)
[2018-11-10] MEDS ORDERED: ONDANSETRON 4 MG/2 ML VIAL ONE (15:18)
[2018-11-10] MEDS ORDERED: levoFLOXacin 500 MG TAB ONE (15:18)
[2018-11-10] MEDS: METHYLPREDNISOLONE 40 MG INJ IV SCH (17:00)
[2018-11-10 17:36] VITALS: BMI 27.4
[2018-11-10] MEDS ORDERED: ENOXAPARIN 40 MG/0.4 ML SQ ONE (20:03)
[2018-11-10] MEDS: ARFORMOTEROL TARTRATE 15 MCG/2 ML VIAL.NEB NEB PRN (20:45)
[2018-11-10] MEDS ORDERED: RANITIDINE HCL 300 MG PO SCH (21:00)
[2018-11-10] MEDS: FLUTICASONE PROPIONATE PO SCH (21:00)
[2018-11-10] MEDS: GABAPENTIN 400 MG CAP PO SCH ×2 (21:00→23:00)
[2018-11-10] MEDS ORDERED: HOME MED 1 EA UNK (Dicyclomine Hcl [Dicyclomine Hcl] 20 MG) PO SCH (21:00)
[2018-11-10] MEDS: MIDODRINE HCL 5 MG TABLET PO SCH (22:18)
[2018-11-10] MEDS: HYOSCYAMINE SULF 0.125 MG TAB PO SCH (22:18)
[2018-11-10] MEDS: METOPROLOL XL 25 MG TAB PO SCH (22:18)
[2018-11-10] MEDS: MONTELUKAST 10 MG TAB PO SCH (22:18)
[2018-11-10] MEDS: CLOPIDOGREL 75 MG TABLET PO SCH (22:18)
[2018-11-10] MEDS: ATORVASTATIN 20 MG TAB PO SCH (22:18)
[2018-11-10] MEDS: levETIRAcetam 500 MG TAB PO SCH (22:18)
[2018-11-11] MEDS: METHYLPREDNISOLONE 40 MG INJ IV SCH ×2 (01:00→09:23)
--- NOTE | 2018-11-11 05:52 | HP ---
Date of Admission: 11/10/2018 Chief Complaint: Shortness of breath. History Of Present Illness: A 78-year-old male patient who was admitted to the hospital last week an d was discharged to go home over the weekend in his last hospital admission because of back pain. Fu rther evaluation in the emergency room had presence of pneumonia detected on CAT scan. During last h ospitalization, he was treated with IV antibiotic with Zosyn, IV steroid and nebulizer treatment and Dr. Gallego saw him. During this last hospitalization, his condition improved back to baseline and was discharged to go home in stable condition. Patient returned back to the emergency room today wit h shortness of breath problem, and after he was evaluated he was admitted to the hospital. He is cou ghing up some white colored mucus, sometimes yellow in color. No fever. No chills. No vomiting, di arrhea. After he was evaluated, he was admitted to the hospital. The patient denies any chest pain. He takes medications as prescribed. Medications: List reviewed. Review of Systems: Respiratory: As mentioned above. All other systems reviewed and negative. Allergies: ALLERGIES TO BACLOFEN, CODEINE, HYDROCODONE, SULFA. Past Medical History: Significant for neurogenic bladder for which he has an indwelling Rocha cathet er, orthostatic hypotension, hyperlipidemia, hypertension, fatigue, gastroesophageal reflux disease, COPD, anemia, peripheral neuropathy. Past Surgical History: Significant for appendectomy, tonsillectomy, back surgery, vasectomy, arthros copic knee surgery, cervical spine fusion, right-sided hemicolectomy due to colon polyps, and surgery for deviated nasal septum. Social History: Negative for smoking, alcohol use. Family History: Significant for cancer of esophagus and hypertension. Physical Examination: Vital Signs: Temperature 97.9, pulse 88, respiratory rate 18, blood pressure 153/69, oxygen saturati on 95%. Height 5 feet 11 inches, weight 197 pounds. General: Awake, alert, oriented, not in distress. HEENT: Head atraumatic, normocephalic. Conjunctivae nonerythematous. Sclerae white. Mouth, no thr ush or edema noted. Ears/Nose, no mass, lesion, discharge noted. Neck: Supple. No JVD, lymph nodes, bruit, thyromegaly noted. Lungs: Bilateral good equal air entry. Clear to auscultation. No rhonchi. No rales. Heart: Normal heart sounds, no murmur or gallop. Abdomen: Soft, bowel sounds normal. No guarding, rigidity, tenderness, mass, hepatosplenomegaly, dis tention, or bruit noted. Extremities: No leg edema. No calf tenderness. Skin: No rash, ulcer, cellulitis. Lymphatics: No lymph node enlargement in neck, supraclavicular, infraclavicular region. Genitalia: External genitalia showed evidence of indwelling Rocha catheter Neuro: No focal neurological deficit. Chest: Unremarkable. Rectal: Deferred. Laboratory Data: White count 8.3, hemoglobin 12.2, platelets 305. Sodium 134, potassium 4.2, chlori de 101, bicarb 26, BUN 11, creatinine 0.80 glucose 107. Liver function tests unremarkable. Troponin less than 0.02. Chest x-ray, increased lung markings in both lung bases, unchanged from last 2 week s chest x-ray. Impression: 1.Acute exacerbation of chronic obstructive pulmonary disease. 2.Pneumonia. 3.Rule out pulmonary embolism. 4.Peripheral neuropathy. 5.Neurogenic bladder. 6.Gastroesophageal reflux disease. 7.Hypertension. 8.Hyperlipidemia. 9.Fatigue. 10.Orthostatic hypotension. Plan: Admit patient to hospital for further evaluation and management of this problem. Patient is a ppropriate for inpatient and is expected to spend 2 midnights in hospital. We will consult Pulmonary Service, get a V/Q scan done tomorrow to rule out pulmonary embolism. Start DVT prophylaxis using L ovenox today. Home medications will be continued per order and will follow up tomorrow morning. Det ails of plan of treatment discussed with the patient. Steroid and antibiotics will be given. We kati sharp give Levaquin and IV steroid. JERAD/MODL Voice ID: [id number]
[2018-11-11 06:33] LABS: Absolute Lymphocytes (CBC) 0.4 K/uL (0.7-4.9); Basophils % 0.1 % (0-1.3); Hematocrit 35.3 % (39.6-49.0); Lymphocytes % 6.5 % (15.3-44.8); MPV 6.8 fL (7.6-11.3); RBC Red Blood Cell Count 4.04 M/uL (4.33-5.43)
[2018-11-11 07:03] LABS: BUN Blood Urea Nitrogen 14 mg/dL (7-18); Bicarbonate 28 mmol/L (21-32); Glucose Level 141 mg/dL (74-106); NT PRO-BNP 231 pg/mL (<450); Potassium 5.1 mmol/L (3.5-5.1); Sodium Level 135 mmol/L (136-145)
[2018-11-11] MEDS: FLUTICASONE PROPIONATE PO SCH ×2 (09:00→21:00)
[2018-11-11] MEDS: MIDODRINE HCL 5 MG TABLET PO SCH ×3 (09:20→20:44)
[2018-11-11] MEDS: DULOXETINE 30 MG CAP PO SCH (09:20)
[2018-11-11] MEDS: levoFLOXacin 500 MG TAB PO SCH (09:21)
[2018-11-11] MEDS: HYOSCYAMINE SULF 0.125 MG TAB PO SCH ×4 (09:21→20:45)
[2018-11-11] MEDS: DICYCLOMINE HCL 10 MG CAP PO SCH ×4 (09:21→20:44)
[2018-11-11] MEDS: CYANOCOBALAMIN 1,000 MCG TAB PO SCH (09:22)
[2018-11-11] MEDS: GABAPENTIN 400 MG CAP PO SCH ×3 (09:22→20:25)
[2018-11-11] MEDS: AMLODIPINE 5 MG TAB PO SCH (09:22)
[2018-11-11] MEDS: ASPIRIN EC 81 MG TAB PO SCH (09:23)
--- NOTE | 2018-11-11 09:50 | RAD REPORT ---
EXAM DESCRIPTION: NM - Vent Perfusion VQ Scan - 11/11/2018 6:52 am CLINICAL HISTORY: Shortness of breath COMPARISON: November 10, 2018 chest x-ray TECHNIQUE: 19.9 Mci Xe133 was administered by inhalation. First breath, equilibrium, and washout images of the lungs obtained 7.1 millicuries Technetium-99 MAA was administered intravenously. Anterior, posterior, lateral and ob lique views of the lungs were taken. FINDINGS: The lungs demonstrate relatively homogeneous radiotracer activity on ventilation and perfu golden sequences. No mismatched segmental or lobar perfusion defects are seen. IMPRESSION: No evidence of a pulmonary embolus
--- NOTE | 2018-11-11 11:07 | P.PN ---
Subjective Date of Service: 11/11/18 Chief Complaint: COPD exacerbation Patient was discharged admitted again he is cough and congestion a worse has not fallen recently no fever or chills now coughing up productive sputum more short of breath prednisone did help Review of Systems General: Weakness Respiratory: Cough, Shortness of Breath Physical Examination - Vital Signs Temperature: 96.7 F Blood Pressure: 114/56 Pulse: 76 Respirations: 16 Pulse Ox (%): 96 - Physical Exam General: Alert, In no apparent distress, Oriented x3, Mild distress Respiratory: Expiratory wheezes Cardiovascular: No edema, Normal pulses - Studies Laboratory Data (last 24 hrs) 11/10/18 13:00: PT 13.0 H, INR 1.11 11/10/18 13:00: WBC 8.3 D, Hgb 12.2 L, Hct 35.9 L, Plt Count 305 D 11/10/18 13:00: Sodium 134 L, Potassium 4.2, BUN 11, Creatinine 0.80, Glucose 107 H, Magnesium 2.6 H, Total Bilirubin 0.5, AST 21, ALT 45, Alkaline Phosphatase 49 Assessment & Plan - Problems (Diagnosis) (1) COPD exacerbation Current Visit: Yes Status: Acute Plan: Patient is 78 years of age admitted with COPD exacerbation he has a BiPAP at home complaining of cough congestion patient states that the prednisone helped them I will change him over to p.o. per sputum cultures patient is on midodrine and amlodipine will discuss with Dr. Galeana vital signs in oxygenation stable chemistries unremarkable white count normal
--- NOTE | 2018-11-11 12:36 | ECHO ---
HEIGHT: 5 ft 11 in WEIGHT: 197 lb 0 oz DATE OF STUDY: 11/11/[address]: Ronald Galeana MD 2-DIMENSIONAL: YES M.MODE: YES DOPPLER: YES COLOR FLOW: YES TDS: NO PORTABLE: NO DEFINITY: NO BUBBLE STUDY: NO DIAGNOSIS: EVALUATE LEFT VENTRICULAR EJECTION FRACTION CARDIAC HISTORY: CATHERIZATION: NO SURGERY: NO PROSTHETIC VALVE: NO PACEMAKER: NO MEASUREMENTS (cm) DIASTOLIC (NORMALS) SYSTOLIC (NORMALS) IVSd 1.2 (0.6-1.2) LA Diam (1.9-4.0) LVEF 77% LVIDd 4.2 (3.5-5.7) LVIDs 2.3 (2.0-3.5) %FS 45% LVPWd 1.4 (0.6-1.2) Ao Diam 3.1 (2.0-3.7) 2 DIMENSIONAL ASSESSMENT: RIGHT ATRIUM: NORMAL LEFT ATRIUM: NORMAL RIGHT VENTRICLE: NORMAL LEFT VENTRICLE: NORMAL TRICUSPID VALVE: NORMAL MITRAL VALVE: MITRAL ANNULAR CALCIFICATION PULMONIC VALVE: NORMAL AORTIC VALVE: NORMAL PERICARDIAL EFFUSION: NONE AORTIC ROOT: NONE LEFT VENTRICULAR WALL MOTION: NORMAL. DOPPLER/COLOR FLOW: MILD TRICUSPID REGURGITATION. COMMENTS: EJECTION FRACTION 77%. MITRAL ANNULAR CALCIFICATION. NORMAL LEFT VENTRICULAR SIZE AND FUNCTION. NO WALL MOTION ABNORMALITY. TECHNOLOGIST: JOSEPH IVEY
--- NOTE | 2018-11-11 12:37 | EKG ---
Test Date: 2018-11-10 Test Time: 12:49:01 Manager Risk: MEG MEASUREMENT RESULTS: Intervals: Rate: 84 RI: 202 QRSD: 134 QT: 382 QTc: 451 [place]: P: 70 RI: 202 QRS: 57 T: 63 INTERPRETIVE STATEMENTS: Normal sinus rhythm Possible Left atrial enlargement Right bundle branch block Possible Lateral infarct, age undetermined Possible Inferior infarct, age undetermined Abnormal ECG Compared to ECG 11/04/2018 09:04:15 Myocardial infarct finding now present First degree AV block no longer present T-wave abnormality no longer present Possible ischemia no longer present Electronically Signed On 11-11-18 12:33:11 CDT by Nilay Villela
[2018-11-11] MEDS: ARFORMOTEROL TARTRATE 15 MCG/2 ML VIAL.NEB NEB PRN (13:45)
[2018-11-11] MEDS ORDERED: ENOXAPARIN 40 MG/0.4 ML SQ SCH (17:00)
--- NOTE | 2018-11-11 19:04 | PN ---
Date of Progress Note: 11/11/2018 Subjective: Patient was seen this morning for followup. He was lying in bed, not in any distress. No new complaints or problems reported. Objective: Vital Signs: Reviewed. HEENT: Unremarkable. Lungs: Bilateral good equal air entry. No rhonchi, no rales. Not in any respiratory distress. Heart: Sounds normal. Abdomen: Soft. Bowel sounds normal. No guarding, rigidity, tenderness, distention. Extremities: No leg edema. Laboratory Data: White count 6.2, hemoglobin 12, platelets 307. Sodium 135, potassium 5.1, chloride 102, bicarb 28, BUN 14, creatinine 0.80, glucose 141. Troponin less than 0.02 x3. ProBNP 231 this morning. Impression: 1.Acute exacerbation of chronic obstructive pulmonary disease. 2.Pneumonia. 3.Peripheral neuropathy. 4.Chronic steroid therapy. 5.Hypertension. Plan: Today, patient had a V/Q scan done, which came back negative for pulmonary embolism. Echocard iogram will be done today to evaluate his left ventricular ejection fraction. We will continue Levaq uin, IV steroid, other current medical management, oxygen nebulizer treatment, and Dr. Gallego from Pulmonary will evaluate him. JERAD/MODL Voice ID: [id number] Report ID: [id number]
[2018-11-11] MEDS: CLOPIDOGREL 75 MG TABLET PO SCH (20:24)
[2018-11-11] MEDS: predniSONE 20 MG TAB PO SCH (20:25)
[2018-11-11] MEDS: ATORVASTATIN 20 MG TAB PO SCH (20:44)
[2018-11-11] MEDS: MONTELUKAST 10 MG TAB PO SCH (20:46)
[2018-11-11] MEDS: levETIRAcetam 500 MG TAB PO SCH (20:46)
[2018-11-11] MEDS: METOPROLOL XL 25 MG TAB PO SCH (20:46)
[2018-11-11] MEDS ORDERED: RANITIDINE 150 MG TABLET PO SCH (21:00)
[2018-11-12 06:47] VITALS: TEMP 97.8
[2018-11-12] MEDS: DULOXETINE 30 MG CAP PO SCH (08:54)
[2018-11-12] MEDS: levoFLOXacin 500 MG TAB PO SCH (08:54)
[2018-11-12] MEDS: predniSONE 20 MG TAB PO SCH (08:54)
[2018-11-12] MEDS: ASPIRIN EC 81 MG TAB PO SCH (08:54)
[2018-11-12] MEDS: DICYCLOMINE HCL 10 MG CAP PO SCH ×2 (08:55→12:31)
[2018-11-12] MEDS: GABAPENTIN 400 MG CAP PO SCH (08:55)
[2018-11-12] MEDS: MIDODRINE HCL 5 MG TABLET PO SCH (08:55)
[2018-11-12] MEDS: HYOSCYAMINE SULF 0.125 MG TAB PO SCH ×2 (08:55→12:31)
[2018-11-12] MEDS: AMLODIPINE 5 MG TAB PO SCH (08:56)
[2018-11-12] MEDS: CYANOCOBALAMIN 1,000 MCG TAB PO SCH (08:56)
[2018-11-12] MEDS: FLUTICASONE PROPIONATE PO SCH (09:00)
[2018-11-12 10:10] VITALS: O2SAT 100
--- NOTE | 2018-11-12 11:44 | P.DS ---
Admission Date: 11/10/18 Discharge Date: 11/12/18 Disposition: ROUTINE DISCHARGE Discharge Condition: GOOD Reason for Admission: COPD exacerbation Consultations: Pulmonology - Problems (1) COPD exacerbation Current Visit: Yes Status: Acute (2) Benign prostatic hypertrophy Onset Date: 03/15/14 Current Visit: No Status: Chronic (3) Coronary artery disease Onset Date: 03/15/14 Current Visit: No Status: Chronic Qualifiers: Coronary Disease-Associated Artery/Lesion type: knik artery [place] vs. transplanted heart: knik heart Associated angina: without angina Qualified Code(s): I25.10 - Atherosclerotic heart disease of knik coronary artery without angina pectoris (4) Gastroesophageal reflux disease Onset Date: 03/15/14 Current Visit: No Status: Chronic Qualifiers: Esophagitis presence: without esophagitis Qualified Code(s): K21.9 - Gastro -esophageal reflux disease without esophagitis (5) Hyperlipidemia Onset Date: 03/15/14 Current Visit: No Status: Chronic Qualifiers: Hyperlipidemia type: mixed hyperlipidemia Qualified Code(s): E78.2 - Mixed hyperlipidemia (6) Hypertension Onset Date: 03/15/14 Current Visit: No Status: Chronic Qualifiers: Hypertension type: essential hypertension Qualified Code(s): I10 - Essential (primary) hypertension (7) Osteoarthritis Current Visit: No Status: Chronic Qualifiers: Osteoarthritis location: unspecified site Osteoarthritis type: unspecified Qualified Code(s): M19.90 - Unspecified osteoarthritis, unspecified site Brief History of Present Illness: : A 78-year-old male patient who was admitted to the hospital last week and was discharged to go home over the weekend in his last hospital admission because of back pain. Further evaluation in the emergency room had presence of pneumonia detected on CAT scan. During last hospitalization, he was treated with IV antibiotic with Zosyn, IV steroid and nebulizer treatment and Dr. Gallego saw him. During this last hospitalization, his condition improved back to baseline and was discharged to go home in stable condition. Patient returned back to the emergency room today with shortness of breath problem, and after he was evaluated he was admitted to the hospital. He is coughing up some white colored mucus, sometimes yellow in color. No fever. No chills. No vomiting, diarrhea. After he was evaluated, he was admitted to the hospital. The patient denies any chest pain. He takes medications as prescribed. Hospital Course: Overall during the hospital stay patient remained stable Patient was initially admitted to the hospital for COPD exacerbation. Was started on duo nebs+, steroids, IV antibiotics. Pulmonology was consulted. Patient had marked improvement while here in the hospital on the prior mentioned therapy. Patient was seen by pulmonology who recommended the patient could be discharged home under stable condition as he is doing much better on p.o. steroids and p.o. Levaquin. Patient then was discharged home under stable condition. While here in the hospital patient also had a V/Q scan scan to make sure that he does not have any pulmonary embolism. V/Q scan was negative for any acute abnormality. Patient also had an echocardiogram done to evaluate for pulmonary hypertension versus any cardiac disease. Echocardiogram was also within normal limits and thus patient was discharged home under stable condition. Patient was asked to follow up with primary care provider in about 1 -2 days post discharge and was asked to follow up with pulmonology in about 1-2 days post discharge. Patient was educated extensively on Re using his CPAP machine when he goes home while sleeping at all times. Vital Signs/Physical Exam: Temp Pulse Resp BP Pulse Ox 97.8 F 70 20 103/53 L 95 11/12/18 08:00 11/12/18 08:56 11/12/18 08:00 11/12/18 08:56 11/12/18 08:00 General: Alert, In no apparent distress HEENT: Atraumatic, PERRLA, EOMI Neck: Supple, JVD not distended Respiratory: Clear to auscultation bilaterally, Normal air movement Cardiovascular: Regular rate/rhythm, Normal S1 S2 Gastrointestinal: Normal bowel sounds, No tenderness Musculoskeletal: No tenderness Integumentary: No rashes Neurological: Normal speech, Normal tone, Normal affect Lymphatics: No axilla or inguinal lymphadenopathy Laboratory Data at Discharge: WBC 6.2 K/uL (4.3-10.9) D 11/11/18 05:56 Hgb 12.0 g/dL (13.6-17.9) L 11/11/18 05:56 Hct 35.3 % (39.6-49.0) L 11/11/18 05:56 Plt Count 307 K/uL (152-406) 11/11/18 05:56 PT 13.0 SECONDS (9.5-12.5) H 11/10/18 13:00 INR 1.11 11/10/18 13:00 Sodium 135 mmol/L (136-145) L 11/11/18 05:56 Potassium 5.1 mmol/L (3.5-5.1) 11/11/18 05:56 BUN 14 mg/dL (7-18) 11/11/18 05:56 Creatinine 0.80 mg/dL (0.55-1.3) 11/11/18 05:56 Glucose 141 mg/dL (74-106) H 11/11/18 05:56 Magnesium 2.6 mg/dL (1.8-2.4) H 11/10/18 13:00 Total Bilirubin 0.5 mg/dL (0.2-1.0) 11/10/18 13:00 AST 21 U/L (15-37) 11/10/18 13:00 ALT 45 U/L (12-78) 11/10/18 13:00 Alkaline Phosphatase 49 U/L (45-117) 11/10/18 13:00 Troponin I < 0.02 ng/mL (0.0-0.045) 11/10/18 21:16 Home Medications: Amlodipine [Norvasc*] 5 mg PO DAILY 11/10/18 Arformoterol Tartrate [Brovana] 15 mcg NEB DAILY PRN 11/10/18 Clopidogrel Bisulfate [Plavix] 75 mg PO BEDTIME 11/10/18 Cyanocobalamin (Vitamin B-12) [Vitamin B-12] 2,000 mcg PO DAILY 11/10/18 Dicyclomine HCl 20 mg PO QID 11/10/18 Duloxetine HCl [Cymbalta] 60 mg PO DAILY 11/10/18 Fluticasone Propionate [Flovent Diskus] 2 puff PO TID 11/10/18 Gabapentin [Neurontin] 800 mg PO TID 11/10/18 Hyoscyamine Sulfate [Levsin TAB*] 0.125 mg PO QID 11/10/18 Ipratropium/Albuterol Sulfate [Iprat-Albut 0.5-3(2.5) mg/3 ml] 0.5 mg NEB QID PRN MDD 4 11/10/18 L. Acidophilus/Bifid. Animalis [Probiotic 5 Billion Cell Cap] 1 each PO DAILY Metoprolol Succinate [Toprol Xl] 12.5 mg PO BEDTIME 11/10/18 Midodrine HCl [Proamatine*] 5 mg PO TID 11/10/18 Montelukast Sodium [Singulair] 10 mg PO BEDTIME 11/10/18 Ranitidine HCl [Zantac] 300 mg PO BEDTIME 11/10/18 Simvastatin 40 mg PO BEDTIME 11/10/18 Vit C/Rut/Hesp Cmp/Bioflav,Cit [Special C 500 mg Tablet] 1,000 mcg PO DAILY 04/30 Vit D3/Folic Acid/B2/B6/B12 [Folgard Tablet] 400 iu PO DAILY 11/10/18 levETIRAcetam [Levetiracetam] 500 mg PO BEDTIME 11/10/18 predniSONE [Deltasone*] 10 mg PO BID PRN 11/10/18 levoFLOXacin [Levaquin*] 500 mg PO DAILY #7 tab 11/12/18 New Medications: levoFLOXacin [Levaquin*] 500 mg PO DAILY #7 tab Diet: Regular Activity: Ad delmi Followup: Ramon Gallego MD [ACTIVE - CAN ADMIT] - Ronald Galeana MD [Primary Care Provider] -
[2018-11-12 15:22] VITALS: BP 124/58
== END 2018-11-12 13:00 | disposition home or self-care (01) | DRG 190 ==
LOC: ER 12:35 → ERHOLD 15:14 → 2ND 16:35
PROVIDERS: ADMIT Hospitalist; ATTEND Family Medicine
DX: J44.1 Chronic obstructive pulmonary disease with (acute) exacerbation (principal); J18.9 Pneumonia, unspecified organism; J44.0 Chronic obstructive pulmonary disease with (acute) lower respiratory infection; G62.9 Polyneuropathy, unspecified; N31.9 Neuromuscular dysfunction of bladder, unspecified; K21.9 Gastro-esophageal reflux disease without esophagitis; I10 Essential (primary) hypertension; E78.5 Hyperlipidemia, unspecified; I95.1 Orthostatic hypotension; I25.10 Atherosclerotic heart disease of native coronary artery without angina pectoris; N40.0 Benign prostatic hyperplasia without lower urinary tract symptoms; M19.90 Unspecified osteoarthritis, unspecified site; Z88.5 Allergy status to narcotic agent; Z88.2 Allergy status to sulfonamides
CPT/HCPCS: 36415; 71045; 78582; 80048; 80076; 83735; 83880; 84484; 85025; 85610; 93005; 93306; 94760; 96374; 96375; 99285; A9540; A9558; J1650; J2270; J2405; J2920; J2930; J7512; J7605

== ENCOUNTER 2018-12-21 09:04 | Observation (INO) | payer OTHER ==
--- OUTSIDE RECORDS SUMMARY | 2018-12-21 09:06 | XMS REPORT ---
:1940 [facility] Address [address] [place] [id number] Care Team Providers Name Role Phone Unavailable Unavailable Unavailable Problems This patient has no known problems. Allergies, Adverse Reactions, Alerts This patient has no known allergies or adverse reactions. Medications This patient has no known medications.
[2018-12-21] MEDS ORDERED: ALBUTEROL 2.5 MG/3 ML NEB SOL ONE (10:19)
[2018-12-21] MEDS ORDERED: IPRATROPIUM BROM 0.5MG/2.5ML ONE (10:19)
[2018-12-21 10:25] LABS: Protime INR 1.13
--- NOTE | 2018-12-21 10:32 | RAD REPORT ---
EXAM DESCRIPTION: RAD - Chest Single View - 12/21/2018 10:21 am CLINICAL HISTORY: Congestion;Cough Chest pain. COMPARISON: Chest Pa And Lat (2 Views) dated 12/20/2018; Chest Single View dated 11/10/2018; Chest Sing le View dated 11/05/2018; Chest Pa And Lat (2 Views) dated 11/03/2018; Lung Cancer Screening CT W/O fercho ed 12/20/2018 FINDINGS: Portable technique limits examination quality. Emphysematous changes are present with mild linear opacities in both lung bases, greater on the right . Right lung base opacities may represent atelectasis or developing pneumonia. The heart is mildly en larged in size. No displaced fractures. IMPRESSION: Stable chest since 12/20/2018.
[2018-12-21 10:34] LABS: CKMB Creatine Kinase MB 1.3 ng/mL (0.3-3.6); Creatine Phosphokinase 21 U/L (39-308); Troponin (Emerg Dept Use Only) < 0.02 ng/mL (0.0-0.045)
[2018-12-21 11:44] LABS: Urine Appearance CLOUDY; Urine Bilirubin NEGATIVE (NEG); Urine Blood 1+ (NEG); Urine Color YELLOW; Urine Glucose NEGATIVE (NEG); Urine Protein 1+ (NEG); Urine Specific Gravity 1.015 (1.005-1.030); Urine Urobilinogen 0.2 mg/dL (0.2-1.0); Urine pH 8.5 (5.0-7.0)
[2018-12-21 11:45] LABS: Urine Microscopic Reflex ORDER UMIC
[2018-12-21 11:52] LABS: Urine Bacteria 20-50 /HPF (NONE SEEN)
[2018-12-21 11:53] LABS: Urine Culture Reflex Order REFLEXED
[2018-12-21] MEDS ORDERED: CEFTRIAXONE/SWI 1gm 1 GM/10 ML SYR ONE (11:54)
[2018-12-21 12:09] LABS: Absolute Lymphocytes (CBC) 0.7 K/uL (0.7-4.9); Hematocrit 35.3 % (39.6-49.0); Lymphocytes % 5.9 % (15.3-44.8); MPV 6.3 fL (7.6-11.3); RBC Red Blood Cell Count 3.99 M/uL (4.33-5.43)
--- NOTE | 2018-12-21 12:26 | EDPHYS ---
Physician Documentation [facility] Name: Zen Bledsoe Jr Age: 78 yrs Sex: Male : 1940 Arrival Date: 12/21/2018 Time: 09:07 Bed 4 Private MD: Ramon Galeana C ED Physician Ollie Lemus HPI: 12/21 11:02 This 78 yrs old Male presents to ER via Wheelchair with complaints of Nausea, kdr Abdominal Pain. 11:02 THe patient has had general malaise, cough, congestion and abdominal pain for the past kdr few days. He has a history of colitis and so has a baseline level of abdominal discomfort . Onset: The symptoms/episode began/occurred gradually, 2 day(s) ago. Severity of symptoms: At their worst the symptoms were moderate in the emergency department the symptoms are unchanged. The patient has experienced similar episodes in the past, a few times. The patient has not recently seen a physician. Historical: - Allergies: 09:42 BACLOFEN; iw 09:42 Bactrim; iw 09:42 Codeine; iw 09:42 HYDROCODONE; iw 09:42 Iodine; iw 09:42 Sulfa (Sulfonamide Antibiotics); iw - Home Meds: 09:42 Aspir-81 81 mg Oral TbEC 1 tab once daily [Active]; amlodipine 5 mg tab 1 tab once iw daily [Active]; Brovana 15 mcg/2 mL inhalation nebu [Active]; Cymbalta 60 mg Oral cpDR 1 cap once daily [Active]; dicyclomine 20 mg Oral tab 4 times per day [Active]; fluticasone inhalation [Active]; gabapentin 800 mg Oral tab 1 tab 3 times per day [Active]; hyoscyamine sulfate 0.125 mg SL subl [Active]; ipratropium-albuterol 0.5 mg-3 mg(2.5 mg base)/3 mL Inhl nebu [Active]; levetiracetam 500 mg Oral tab nightly [Active]; midodrine 5 mg Oral tab 3 times per day [Active]; Pain pump w/Prialta and Dilaudid [Active]; Plavix 75 mg Oral tab once daily [Active]; prednisone 10 mg Oral tab as needed [Active]; ranitidine HCl 300 mg Oral tab 1 tab once daily [Active]; simvastatin 40 mg Oral tab 1 tab once daily [Active]; Singulair 10 mg Oral tab 1 tab once daily [Active]; Toprol XL 25 mg Oral tab 0.5 tab 1/2 in am and 1 at night [Active]; Ventolin HFA 90 mcg/actuation Nebulizer HFAA [Active]; vitamin b12 [Active]; Vitamin C Oral [Active]; Vitamin D3 Oral [Active]; vitamin E Oral [Active]; - PMHx: 09:42 Angina; Asthma; Arthritis; bladder failure; bowel obstruction; BPH; cardiac stents; iw chronic back pain; COPD; ESSENTIAL TREMORS; gastritis; GERD; Hypertension; 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; neurogenic orthogenic hypertension; neuropathy; 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 ROS: 11:02 Constitutional: Negative for fever, chills, and weight loss, Eyes: Negative for injury, kdr pain, redness, and discharge, ENT: Negative for injury, pain, and discharge, Neck: Negative for injury, pain, and swelling, Back: Negative for injury and pain, : Negative for injury, bleeding, discharge, and swelling, MS/Extremity: Negative for injury and deformity, Skin: Negative for injury, rash, and discoloration, Neuro: Negative for headache, weakness, numbness, tingling, and seizure activity. Psych: Negative for depression, anxiety, suicide ideation, homicidal ideation, and hallucinations, Allergy/Immunology: Negative for hives, rash, and allergies, Endocrine: Negative for neck swelling, polydipsia, polyuria, polyphagia, and marked weight changes, Hematologic/Lymphatic: Negative for swollen nodes, abnormal bleeding, and unusual bruising. 11:02 Cardiovascular: Positive for chest pain, with cough, The sates that his colitis exacerbations normally start in his chest and then work down to his abdomen. 11:02 Respiratory: Positive for cough, "sounds productive", dyspnea on exertion, hemoptysis, shortness of breath. Exam: 11:02 Constitutional: This is a well developed, well nourished patient who is awake, alert, kdr and in no acute distress. Head/Face: Normocephalic, atraumatic. Eyes: Pupils equal round and reactive to light, extra-ocular motions intact. Lids and lashes normal. Conjunctiva and sclera are non-icteric and not injected. Cornea within normal limits. Periorbital areas with no swelling, redness, or edema. Neck: Trachea midline, no thyromegaly or masses palpated, and no cervical lymphadenopathy. Supple, full range of motion without nuchal rigidity, or vertebral point tenderness. No Meningismus. Chest/axilla: Normal chest wall appearance and motion. Nontender with no deformity. No lesions are appreciated. Cardiovascular: Regular rate and rhythm with a normal S1 and S2. No gallops, murmurs, or rubs. Normal PMI, no JVD. No pulse deficits. Back: No spinal tenderness. No costovertebral tenderness. Full range of motion. Skin: Warm, dry with normal turgor. Normal color with no rashes, no lesions, and no evidence of cellulitis. MS/ Extremity: Pulses equal, no cyanosis. Neurovascular intact. Full, normal range of motion. Neuro: Awake and alert, GCS 15, oriented to person, place, time, and situation. Cranial nerves II-XII grossly intact. Motor strength 5/5 in all extremities. Sensory grossly intact. Cerebellar exam normal. Normal gait. Psych: Awake, alert, with orientation to person, place and time. Behavior, mood, and affect are within normal limits. 11:02 Respiratory: the patient does not display signs of respiratory distress, Respirations: normal, symetrical, no use of accessory muscles, no grunting, no evidence of nasal flaring, Breath sounds: rales, that are mild, are heard diffusely, bronchial sounds, that are moderate, are heard diffusely. Vital Signs: 09:38 BP 128 / 67; Pulse 94; Resp 22 S; Pulse Ox 96% on 4 lpm NC; Weight 88.45 kg; Height 5 iw ft. 11 in. (180.34 cm); Pain 7/10; 09:45 Temp 98.5(O); aa5 10:00 BP 109 / 69; Pulse 93; Resp 16 S; Pulse Ox 98% on 4 lpm NC; aa5 10:24 Temp 98.6(O); aa5 10:30 BP 121 / 61; Pulse 85; Resp 16 S; Pulse Ox 98% on Nebulizer Mask; aa5 11:30 BP 118 / 60; Pulse 97; Resp 18 S; Pulse Ox 98% on 4 lpm NC; aa5 12:30 BP 116 / 65; Pulse 93; Resp 19; Pulse Ox 98% on 4 lpm NC; jl7 13:03 Temp 99.1(O); aa5 13:03 BP 108 / 55; Pulse 94; Resp 16 S; Pulse Ox 99% on 4 lpm NC; Pain 8/10; aa5 14:00 BP 122 / 58; Pulse 92; Resp 16 S; Pulse Ox 97% on 4 lpm NC; aa5 15:00 BP 120 / 60; Pulse 92; Resp 18 S; Temp 99.0(O); Pulse Ox 96% on 4 lpm NC; Pain 6/10; aa5 15:58 BP 122 / 55; Pulse 94; Resp 18 S; Pulse Ox 96% on 4 lpm NC; jl7 17:00 BP 133 / 80; Pulse 95; Resp 18 S; Pulse Ox 96% on 4 lpm NC; Pain 8/10; aa5 09:38 Body Mass Index 27.20 (88.45 kg, 180.34 cm) iw MDM: 11:02 Data reviewed: vital signs, nurses notes, lab test result(s). kdr 12:02 ED course: Awaiting labs to order CT abd/pelvis. kdr 12:23 Patient medically screened. kdr 16:23 Counseling: I had a detailed discussion with the patient and/or guardian regarding: the kdr historical points, exam findings, and any diagnostic results supporting the discharge/admit diagnosis, the presence of at least one elevated blood pressure reading (>120/80) during this emergency department visit, the need for further work-up and treatment in the hospital. 12/21 09:10 Order name: Basic Metabolic Panel; Complete Time: 12:33 kdr 12/21 09:10 Order name: CBC with Diff; Complete Time: 12:48 kdr 12/21 09:10 Order name: Creatinine for Radiology; Complete Time: 12:33 [facility] 12/21 09:10 Order name: Hepatic Function; Complete Time: 12:33 [facility] 12/21 09:10 Order name: Lipase; Complete Time: 12:33 [facility] 12/21 09:37 Order name: Blood Culture Adult (2) [facility] 12/21 09:37 Order name: Ckmb; Complete Time: 10:38 [facility] 12/21 09:37 Order name: CPK; Complete Time: 10:38 [facility] 12/21 09:37 Order name: Lactate; Complete Time: 10:38 [facility] 12/21 09:37 Order name: Procalcitonin; Complete Time: 11:54 [facility] 12/21 09:37 Order name: Protime (+inr); Complete Time: 10:38 [facility] 12/21 09:37 Order name: Ptt, Activated; Complete Time: 10:38 [facility] 12/21 09:37 Order name: Troponin (emerg Dept Use Only); Complete Time: 10:38 [facility] 12/21 09:37 Order name: Chest Single View XRAY; Complete Time: 10:38 [facility] 12/21 09:44 Order name: Sputum Culture [facility] 12/21 11:08 Order name: UA; Complete Time: 11:54 [facility] 12/21 11:52 Order name: Urine Microscopic Only; Complete Time: 11:54 [facility] 12/21 11:56 Order name: Urine Culture [facility] 12/21 12:19 Order name: CBC Smear Scan; Complete Time: 12:48 [facility] 12/21 12:34 Order name: CT Abd/Pelvis - IV Contrast Only; Complete Time: 13:40 [facility] 12/21 15:44 Order name: Basic Metabolic Panel [facility] 12/21 15:44 Order name: Basic Metabolic Panel [facility] 12/21 15:44 Order name: CBC with Automated Diff [facility] 12/21 15:44 Order name: CBC with Automated Diff [facility] 12/21 15:44 Order name: Lipase [facility] 12/21 15:44 Order name: Lipase [facility] 12/21 15:44 Order name: Liver (Hepatic) Function [facility] 12/21 15:44 Order name: Liver (Hepatic) Function [facility] 12/21 09:10 Order name: IV Saline Lock; Complete Time: 11:15 [facility] 12/21 09:10 Order name: Labs collected and sent; Complete Time: 11:15 [facility] 12/21 09:37 Order name: Accucheck; Complete Time: 10:15 kdr 12/21 09:37 Order name: Cardiac monitoring; Complete Time: 10:15 kdr 12/21 09:37 Order name: EKG - Nurse/Tech; Complete Time: 11:09 kdr 12/21 09:37 Order name: IV Saline Lock - Large Bore; Complete Time: 10:15 kdr 12/21 09:37 Order name: O2 Per Protocol; Complete Time: 10:15 kdr 12/21 09:37 Order name: O2 Sat Monitoring; Complete Time: 10:15 kdr 12/21 09:37 Order name: Urine Dipstick-Ancillary (obtain specimen); Complete Time: 10:15 kdr 12/21 10:15 Order name: Domínguez; Complete Time: 11:09 aa5 12/21 11:40 Order name: EKG Electrocardiogram EDMS 12/21 15:44 Order name: NPO EDMS Administered Medications: 09:43 CANCELLED (Physician Discretion): NS 0.9% (30 ml/kg) 30 ml/kg IV at bolus once; Sepsis aa5 Protocol 10:17 Drug: Albuterol - atroVENT (3:1) (2.5 mg - 0.5 mg) 3 ml Route: Nebulizer; aa5 10:33 Follow up: Response: No adverse reaction; No adverse reaction. Pt reports SOB has aa5 improved. 12:00 Drug: Rocephin - (cefTRIAXone) 1 grams {Note: given slow IVP per pharmacy at this aa5 time.} Route: IVPB; Infused Over: 30 mins; Site: right forearm; 12:07 Follow up: Response: No adverse reaction aa5 12:50 CANCELLED (Physician Discretion): fentaNYL (PF) 25 mcg IM once; RASS on ADMIN: Combtv4, iw Very Agttd3, Agttd2, Rstlss1, AlertClm0, Drwsy-1, Lt Sdtn-2, Mod Sdtn-3, Dp Sdtn-4, UnArsble-5 13:00 Drug: Zofran 4 mg Route: IVP; Site: right forearm; aa5 13:30 Follow up: Response: No adverse reaction aa5 13:02 Drug: fentaNYL (PF) 25 mcg Route: IVP; Site: right forearm; aa5 13:30 Follow up: Response: No adverse reaction aa5 17:00 Drug: Dulcolax Suppository 10 mg Route: KS; aa5 17:20 Follow up: Response: Medication administered at discharge. aa5 17:00 Drug: fentaNYL (PF) 50 mcg Route: IVP; Site: right antecubital; aa5 17:20 Follow up: Response: No adverse reaction aa5 Point of Care Testing: Blood Glucose: 09:55 Blood Glucose: 132 mg/dL; aa5 Ranges: Critical Glucose Levels:Adult <50 mg/dl or >400 mg/dl <40 mg/dl or >180 mg/dl Disposition: 12/21/18 12:23 Hospitalization ordered by Ramon Galeana for Observation. Preliminary diagnosis are Abdominal and pelvic pain, Shortness of breath, Bronchitis, not specified as acute or chronic, Urinary tract infection, site not specified. - Bed requested for Telemetry/MedSurg (observation). - Status is Observation. aa5 - Condition is Fair. - Problem is an acute exacerbation. - Symptoms are unchanged. UTI on Admission? Yes Signatures: Dispatcher [employer] EDMS Mayda Hunter RN RN Ollie Lemus MD MD [facility] Lillian Joshi RN RN Maria Dolores Carvalho RN RN aa5 Mariluz Bernard Corrections: (The following items were deleted from the chart) 09:43 09:37 NS 0.9% (30 ml/kg) 30 ml/kg IV at bolus once; Sepsis Protocol ordered. [facility] aa5 11:38 09:38 UA MICROSCOPIC+U.LAB.BRZ ordered. EDIA EDMS 11:38 10:38 UA MICROSCOPIC+U.LAB.BRZ reviewed. [facility] EDMS 11:59 10:34 Urine Culture ordered. EDMS EDMS 12:50 12:49 fentaNYL (PF) 25 mcg IM once; RASS on ADMIN: Combtv4, Very Agttd3, Agttd2, iw Rstlss1, AlertClm0, Drwsy-1, Lt Sdtn-2, Mod Sdtn-3, Dp Sdtn-4, UnArsble-5 ordered. kdr 15:56 12:23 Hospitalization Ordered by A Kervin JACOBS for Inpatient Admission. Preliminary diagnosis is Abdominal and pelvic pain; Shortness of breath; Bronchitis, not specified as acute or chronic; Urinary tract infection, site not specified. Bed requested for Telemetry/MedSurg (Inpatient). Status is Inpatient Admission. Condition is Fair. Problem is an acute exacerbation. Symptoms are unchanged. UTI on Admission? Yes. kdr 16:22 15:56 12/21/2018 12:23 Hospitalization Ordered by A Kervin JACOBS for Inpatient Admission. kdr Preliminary diagnosis is Abdominal and pelvic pain; Shortness of breath; Bronchitis, not specified as acute or chronic; Urinary tract infection, site not specified. Bed requested for Telemetry/MedSurg (Inpatient). Status is Inpatient Admission. Condition is Fair. Problem is an acute exacerbation. Symptoms are unchanged. UTI on Admission? Yes. dw 16:25 16:22 12/21/2018 12:23 Hospitalization Ordered by A Kervin JACOBS for Observation. eb Preliminary diagnosis is Abdominal and pelvic pain; Shortness of breath; Bronchitis, not specified as acute or chronic; Urinary tract infection, site not specified. Bed requested for Telemetry/MedSurg (observation). Status is Observation. Condition is Fair. Problem is an acute exacerbation. Symptoms are unchanged. UTI on Admission? Yes. kdr 17:27 16:25 12/21/2018 12:23 Hospitalization Ordered by A Kervin JACOBS for Observation. aa5 Preliminary diagnosis is Abdominal and pelvic pain; Shortness of breath; Bronchitis, not specified as acute or chronic; Urinary tract infection, site not specified. Bed requested for Telemetry/MedSurg (observation). Status is Observation. Condition is Fair. Problem is an acute exacerbation. Symptoms are unchanged. UTI on Admission? Yes. eb
--- NOTE | 2018-12-21 12:26 | ER ---
Nurse's Notes [facility] Name: Zen Bledsoe Jr Age: 78 yrs Sex: Male : 1940 Arrival Date: 12/21/2018 Time: 09:07 Bed 4 Private MD: Ramon Galeana C Diagnosis: Abdominal and pelvic pain;Shortness of breath;Bronchitis, not specified as acute or chronic;Urinary tract infection, site not specified Presentation: 12/21 09:36 Presenting complaint: Patient states: diffuse abd pain, general weakness, just feeling iw bad X 2 days, denies vomiting or diarrhea, c/p nausea. Transition of care: patient was not received from another setting of care. Onset of symptoms was December 19, 2018. Risk Assessment: Do you want to hurt yourself or someone else? Patient reports no desire to harm self or others. Initial Sepsis Screen: Does the patient meet any 2 criteria? No. Patient's initial sepsis screen is negative. Does the patient have a suspected source of infection?. Care prior to arrival: None. 09:36 Method Of Arrival: Wheelchair iw 09:36 Acuity: KARY 3 iw Historical: - Allergies: 09:42 BACLOFEN; iw 09:42 Bactrim; iw 09:42 Codeine; iw 09:42 HYDROCODONE; iw 09:42 Iodine; iw 09:42 Sulfa (Sulfonamide Antibiotics); iw - Home Meds: 09:42 Aspir-81 81 mg Oral TbEC 1 tab once daily [Active]; amlodipine 5 mg tab 1 tab once iw daily [Active]; Brovana 15 mcg/2 mL inhalation nebu [Active]; Cymbalta 60 mg Oral cpDR 1 cap once daily [Active]; dicyclomine 20 mg Oral tab 4 times per day [Active]; fluticasone inhalation [Active]; gabapentin 800 mg Oral tab 1 tab 3 times per day [Active]; hyoscyamine sulfate 0.125 mg SL subl [Active]; ipratropium-albuterol 0.5 mg-3 mg(2.5 mg base)/3 mL Inhl nebu [Active]; levetiracetam 500 mg Oral tab nightly [Active]; midodrine 5 mg Oral tab 3 times per day [Active]; Pain pump w/Prialta and Dilaudid [Active]; Plavix 75 mg Oral tab once daily [Active]; prednisone 10 mg Oral tab as needed [Active]; ranitidine HCl 300 mg Oral tab 1 tab once daily [Active]; simvastatin 40 mg Oral tab 1 tab once daily [Active]; Singulair 10 mg Oral tab 1 tab once daily [Active]; Toprol XL 25 mg Oral tab 0.5 tab 1/2 in am and 1 at night [Active]; Ventolin HFA 90 mcg/actuation Nebulizer HFAA [Active]; vitamin b12 [Active]; Vitamin C Oral [Active]; Vitamin D3 Oral [Active]; vitamin E Oral [Active]; - PMHx: 09:42 Angina; Asthma; Arthritis; bladder failure; bowel obstruction; BPH; cardiac stents; iw chronic back pain; COPD; ESSENTIAL TREMORS; gastritis; GERD; Hypertension; hot patcher domínguez; neurogenic orthogenic hypertension; neuropathy; 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 Screenin:00 Abuse screen: Denies threats or abuse. Nutritional screening: No deficits noted. aa5 Tuberculosis screening: No symptoms or risk factors identified. Fall Risk Secondary diagnosis (15 points) seizures, IV access (20 points). Total Muse Fall Scale indicates Low Risk Score (25-44 pts). Fall prevention measures have been instituted. Side Rails Up X 2 Placed close to Nursing Station. Assessment: 09:30 General: Appears comfortable, Behavior is calm, cooperative. Pain: Complains of pain in aa5 right lower quadrant and left lower quadrant Pain does not radiate. Pain currently is 7 out of 10 on a pain scale. Quality of pain is described as sharp, Pain began Pt's states "he's had it for a very long time and they said it was colitis but it got worse the last 2 days" Is continuous. Neuro: Level of Consciousness is awake, alert, obeys commands, Oriented to person, place, time, situation. Cardiovascular: Heart tones S1 S2 present Edema is absent. Rhythm is irregular. Respiratory: Reports increased SOB and productive cough with yellowish sputum Airway is patent Respiratory effort is even, unlabored, Respiratory pattern is regular, symmetrical, Breath sounds are coarse bilaterally. GI: Abdomen is round non-distended, Bowel sounds present X 4 quads. Abd is soft and non tender X 4 quads. Reports nausea, Patient currently denies diarrhea, vomiting. : Domínguez in place to gravity drainage. EENT: No signs and/or symptoms were reported regarding the EENT system. Derm: Skin is pink, warm \\T\\ dry. Musculoskeletal: Range of motion: intact in all extremities. 10:30 Reassessment: Urine specimen collected from Domínguez. Sediment noted to Domínguez tubing. Pt's aa5 states "He's had the domínguez for many years and they change it every month at Dr. Kirby's (urologist) and it's about time to be changed again". Dr. Lemus was notified and new order to change Domínguez and recollect urine specimen was obtained. . 10:30 Reassessment: Patient is alert, oriented x 3, equal unlabored respirations, skin aa5 warm/dry/pink. 13:04 Reassessment: Patient is alert, oriented x 3, equal unlabored respirations, skin aa5 warm/dry/pink. Pt taken to CT via stretcher . 14:00 Reassessment: Patient states feeling better. Pt resting in bed with eyes closed, aa5 respirations even and unlabored, skin is pink/warm/dry . 15:00 Reassessment: Pt resting in bed with eyes closed, respirations even and unlabored, skin aa5 is pink/warm/dry. Pt's at bedside. Awaiting room assignment. . 15:30 Reassessment: Dr. Lemus at bedside. jl7 16:07 Reassessment: Unsuccessful attempt to call report to admitting nurse. . aa5 17:00 Reassessment: Patient is alert, oriented x 3, equal unlabored respirations, skin aa5 warm/dry/pink. Vital Signs: 09:38 BP 128 / 67; Pulse 94; Resp 22 S; Pulse Ox 96% on 4 lpm NC; Weight 88.45 kg; Height 5 iw ft. 11 in. (180.34 cm); Pain 7/10; 09:45 Temp 98.5(O); aa5 10:00 BP 109 / 69; Pulse 93; Resp 16 S; Pulse Ox 98% on 4 lpm NC; aa5 10:24 Temp 98.6(O); aa5 10:30 BP 121 / 61; Pulse 85; Resp 16 S; Pulse Ox 98% on Nebulizer Mask; aa5 11:30 BP 118 / 60; Pulse 97; Resp 18 S; Pulse Ox 98% on 4 lpm NC; aa5 12:30 BP 116 / 65; Pulse 93; Resp 19; Pulse Ox 98% on 4 lpm NC; jl7 13:03 Temp 99.1(O); aa5 13:03 BP 108 / 55; Pulse 94; Resp 16 S; Pulse Ox 99% on 4 lpm NC; Pain 8/10; aa5 14:00 BP 122 / 58; Pulse 92; Resp 16 S; Pulse Ox 97% on 4 lpm NC; aa5 15:00 BP 120 / 60; Pulse 92; Resp 18 S; Temp 99.0(O); Pulse Ox 96% on 4 lpm NC; Pain 6/10; aa5 15:58 BP 122 / 55; Pulse 94; Resp 18 S; Pulse Ox 96% on 4 lpm NC; jl7 17:00 BP 133 / 80; Pulse 95; Resp 18 S; Pulse Ox 96% on 4 lpm NC; Pain 8/10; aa5 09:38 Body Mass Index 27.20 (88.45 kg, 180.34 cm) iw ED Course: 09:07 Patient arrived in ED. as 09:08 Ramon Galeana MD is Private Physician. as 09:10 Ollie Lemus MD is Attending Physician. kdr 09:26 Patient has correct armband on for positive identification. Placed in gown. Bed in low mh5 position. Call light in reach. Side rails up X2. Adult w/ patient. Warm blanket given. glass sander on. Pulse ox on. NIBP on. 09:38 Maria Dolores Carvalho, MADELINE is Primary Nurse. aa5 09:38 Triage completed. iw 09:57 Initial lab(s) drawn, by me, sent to lab. aa5 09:57 First set of blood cultures drawn by me. Inserted saline lock: 20 gauge in right aa5 forearm, using aseptic technique. 10:10 Second set of blood cultures drawn by me. Inserted saline lock: 20 gauge in right aa5 antecubital area, using aseptic technique. Blood collected. 10:20 X-ray completed. Portable x-ray completed in exam room. Patient tolerated procedure jb2 well. 10:23 Chest Single View XRAY In Process Unspecified. EDMS 11:07 Domínguez cath inserted, using sterile technique, 18 Fr., by me, balloon inflated, to aa5 gravity drainage, urine specimen collected. Patient tolerated well. Sent to lab. Lab contacted about need to repeat urine micro on new specimen per Dr. Lemus. 11:07 No provider procedures requiring assistance completed. aa5 12:21 Ramon Galeana MD is Hospitalizing Provider. kdr 13:15 CT Abd/Pelvis - IV Contrast Only In Process Unspecified. EDMS 16:45 Patient admitted, IV remains in place. aa5 Administered Medications: 09:43 CANCELLED (Physician Discretion): NS 0.9% (30 ml/kg) 30 ml/kg IV at bolus once; Sepsis aa5 Protocol 10:17 Drug: Albuterol - atroVENT (3:1) (2.5 mg - 0.5 mg) 3 ml Route: Nebulizer; aa5 10:33 Follow up: Response: No adverse reaction; No adverse reaction. Pt reports SOB has aa5 improved. 12:00 Drug: Rocephin - (cefTRIAXone) 1 grams {Note: given slow IVP per pharmacy at this aa5 time.} Route: IVPB; Infused Over: 30 mins; Site: right forearm; 12:07 Follow up: Response: No adverse reaction aa5 12:50 CANCELLED (Physician Discretion): fentaNYL (PF) 25 mcg IM once; RASS on ADMIN: Combtv4, iw Very Agttd3, Agttd2, Rstlss1, AlertClm0, Drwsy-1, Lt Sdtn-2, Mod Sdtn-3, Dp Sdtn-4, UnArsble-5 13:00 Drug: Zofran 4 mg Route: IVP; Site: right forearm; aa5 13:30 Follow up: Response: No adverse reaction aa5 13:02 Drug: fentaNYL (PF) 25 mcg Route: IVP; Site: right forearm; aa5 13:30 Follow up: Response: No adverse reaction aa5 17:00 Drug: Dulcolax Suppository 10 mg Route: RI; aa5 17:20 Follow up: Response: Medication administered at discharge. aa5 17:00 Drug: fentaNYL (PF) 50 mcg Route: IVP; Site: right antecubital; aa5 17:20 Follow up: Response: No adverse reaction aa5 Point of Care Testing: Blood Glucose: 09:55 Blood Glucose: 132 mg/dL; aa5 Ranges: Outcome: 12:23 Decision to Hospitalize by Provider. kdr 16:45 Admitted to Med/surg accompanied by tech, family with patient, with oxygen, with chart, aa5 Report called to MADELINE Gonzalez 16:45 Condition: stable 16:45 Discharge instructions given to patient, significant other, Instructed on the need for admit, Demonstrated understanding of instructions. 17:20 Patient left the ED. aa5 Signatures: Dispatcher [facility] EDMS Ollie Lemus MD MD kdr Buechter, Jesse jb2 Martinez, Amelia as Lillian Joshi, Maria Dolores Francisco RN, RN RN 5 Manasa Johnston Denise Coley RN RN jl7 Corrections: (The following items were deleted from the chart) 11:34 09:30 Respiratory: Reports increased SOB and productive cough with yellowish sputum aa5 Airway is patent Respiratory effort is even, unlabored, Respiratory pattern is regular, symmetrical, aa5 13:05 10:30 BP 121 / 61; Pulse 85bpm; Resp 16bpm; Spontaneous; Pulse Ox 98% 02 4% Nebulizer aa5 Mask; aa5 18:35 17:27 Patient left the ED. aa5 aa5
[2018-12-21 12:27] LABS: Albumin 3.2 g/dL (3.4-5.0); Bilirubin Direct 0.2 mg/dL (0-0.2); Bilirubin Total 0.4 mg/dL (0.2-1.0); Potassium 3.7 mmol/L (3.5-5.1); Protein, Total 7.3 g/dL (6.4-8.2)
[2018-12-21 12:43] LABS: Platelet Estimate ADEQ; Urine White Blood Cell Casts OK
[2018-12-21 12:44] LABS: Blood Morphology Comment NOT SEEN (NOT SEEN)
[2018-12-21] MEDS ORDERED: ONDANSETRON 4 MG/2 ML VIAL ONE (13:00)
[2018-12-21] MEDS ORDERED: FENTANYL CITR 100 MCG/2 ML ONE ×2 (13:00→17:03)
--- NOTE | 2018-12-21 13:24 | RAD REPORT ---
EXAM DESCRIPTION: CT - Abdomen Pelvis W Contrast - 12/21/2018 1:13 pm CLINICAL HISTORY: Abdominal pain COMPARISON: none. TECHNIQUE: Computed axial tomography of the abdomen pelvis was obtained. 100 cc Isovue-300 was admin istered intravenously. Oral contrast was given the evaluation of bowel. All CT scans are performed using dose optimization technique as appropriate and may include automated exposure control or mA/KV adjustment according to patient size. FINDINGS: Bibasilar lung bronchiectasis Small hepatic cyst. Hepatic granuloma. Spleen, pancreas, right adrenal and kidneys appear unremarkable. Small left adrenal adenoma There is no evidence of diverticulitis. Right hemicolectomy. The rectum is mildly distended with stoo l. A Rocha catheter is present within the bladder. Small inguinal hernias contain fat Neurostimulator device in place IMPRESSION: Rectum is mildly distended with stool
[2018-12-21] MEDS ORDERED: ACETAMINOPHEN 500 MG TAB PO PRN (15:21)
--- NOTE | 2018-12-21 15:55 | EKG ---
Test Date: 2018-12-21 Test Time: 11:07:39 State Attorney: OSCAR MEASUREMENT RESULTS: Intervals: Rate: 89 RI: 216 QRSD: 136 QT: 388 QTc: 472 [place]: P: 68 RI: 216 QRS: 6 T: 37 INTERPRETIVE STATEMENTS: Sinus rhythm with sinus arrhythmia with 1st degree AV block Right bundle branch block Cannot rule out Inferior infarct, age undetermined Abnormal ECG Compared to ECG 11/10/2018 12:49:01 First degree AV block now present Myocardial infarct finding still present Electronically Signed On 12-21-18 15:54:10 CDT by Nilay Villela
[2018-12-21] MEDS ORDERED: BISACODYL 10 MG RECTAL SUPP ONE (17:03)
[2018-12-21] MEDS: D5 0.45 NS 1,000 ML IV SCH (17:57)
[2018-12-21 20:13] VITALS: BMI 25.1
[2018-12-21] MEDS ORDERED: TRAMADOL HCL 50 MG TAB PO PRN (21:25)
[2018-12-21] MEDS ORDERED: PROMETHAZINE HCL 25 MG PO PRN (21:26)
[2018-12-21] MEDS ORDERED: HYOSCYAMINE SULFATE 0.125 MG PO PRN (21:26)
[2018-12-21] MEDS ORDERED: ONDANSETRON 4 MG PO PRN (21:26)
[2018-12-21] MEDS ORDERED: COLESTIPOL HCL 1 GM PO PRN (21:26)
[2018-12-21] MEDS: CEFTRIAXONE/SWI 1gm 1 GM/10 ML SYR IVP SCH (21:35)
[2018-12-22] MEDS: D5 0.45 NS 1,000 ML IV SCH (01:58)
[2018-12-22 03:20] VITALS: O2SAT 97
[2018-12-22 05:58] LABS: Absolute Lymphocytes (CBC) 1.1 K/uL (0.7-4.9); Basophils % 0.3 % (0-1.3); Hematocrit 32.3 % (39.6-49.0); MPV 6.1 fL (7.6-11.3); RBC Red Blood Cell Count 3.63 M/uL (4.33-5.43)
[2018-12-22 06:18] LABS: Albumin 2.9 g/dL (3.4-5.0); Bilirubin Direct 0.1 mg/dL (0-0.2); Bilirubin Total 0.3 mg/dL (0.2-1.0); Potassium 4.7 mmol/L (3.5-5.1); Protein, Total 6.6 g/dL (6.4-8.2)
[2018-12-22] MEDS: CEFTRIAXONE/SWI 1gm 1 GM/10 ML SYR IVP SCH (08:54)
[2018-12-22] MEDS ORDERED: HOME MED 1 EA UNK (Duloxetine Hcl [Duloxetine Hcl] 60 MG) PO SCH (09:00)
[2018-12-22] MEDS ORDERED: RANITIDINE HCL 300 MG PO SCH (09:00)
[2018-12-22] MEDS ORDERED: HOME MED 1 EA UNK (Clopidogrel Bisulfate [Plavix*] 75 MG) PO SCH (09:00)
[2018-12-22] MEDS ORDERED: ASPIRIN 81 MG PO SCH (09:00)
[2018-12-22] MEDS ORDERED: HOME MED 1 EA UNK (Montelukast [Singulair*] 10 MG) PO SCH (09:00)
[2018-12-22] MEDS ORDERED: HOME MED 1 EA UNK (Prednisone [Sterapred Ds] 10 MG) PO SCH (09:00)
[2018-12-22] MEDS ORDERED: HOME MED 1 EA UNK (Pantoprazole [Protonix Tab*] 40 MG) PO SCH (09:00)
[2018-12-22] MEDS ORDERED: HOME MED 1 EA UNK (Simvastatin [Simvastatin] 40 MG) PO SCH (09:00)
[2018-12-22] MEDS ORDERED: METOPROLOL SUCCINATE PO SCH (09:00)
[2018-12-22] MEDS ORDERED: HOME MED 1 EA UNK (Dicyclomine Hcl [Dicyclomine Hcl] 20 MG) PO SCH (09:00)
[2018-12-22] MEDS ORDERED: TIOTROPIUM BROMIDE 18 MCG IN SCH (09:00)
[2018-12-22] MEDS ORDERED: HOME MED 1 EA UNK (Midodrine Hcl [Midodrine Hcl] 10 MG) PO SCH (09:00)
[2018-12-22] MEDS ORDERED: BUDESONIDE 3 MG PO SCH (09:00)
[2018-12-22] MEDS ORDERED: GABAPENTIN 400 MG PO SCH (09:00)
[2018-12-22 09:57] VITALS: BP 116/59; TEMP 98.2
--- NOTE | 2018-12-23 04:16 | HP ---
Date of Admission: 12/21/2018 Medications: List reviewed. Allergies: TO BACLOFEN, CODEINE, HYDROCODONE, SULFA. Social History: Negative for smoking or alcohol use. Family History: Significant for cancer of esophagus and hypertension. Past Surgical History: Significant for appendectomy, tonsillectomy, back surgery, vasectomy, arthros copic knee surgery, cervical spine fusion, right-sided hemicolectomy due to colon polyps, and surgery for deviated nasal septum. Past Medical History: Significant for neurogenic bladder, for which he has indwelling Rocha catheter ; COPD; orthostatic hypotension; hyperlipidemia; hypertension; chronic fatigue problem; gastroesophag eal reflux disease; anemia; peripheral neuropathy. Physical Examination: Vital Signs: Height 5 feet 11 inches, weight 180 pounds, temperature , pulse , r espiratory rate , blood pressure , oxygen saturation . General: Awake, alert, oriented, not in distress. HEENT: Head atraumatic, normocephalic. Conjunctivae nonerythematous. Sclerae white. Mouth, no thr ush or edema noted. Ears/Nose, no mass, lesion, discharge noted. Neck: Supple. No JVD, lymph nodes, bruit, thyromegaly noted. Lungs: Bilateral good equal air entry. Clear to auscultation. No rhonchi. No rales. Heart: Normal heart sounds, no murmur or gallop. Abdomen: Soft, bowel sounds normal. No guarding, rigidity, tenderness, mass, hepatosplenomegaly, dis tention, or bruit noted. Extremities: No leg edema. No calf tenderness. Skin: No rash, ulcer, cellulitis. Lymphatics: No lymph node enlargement in neck, supraclavicular, infraclavicular region. Neuro: No focal neurological deficit. Chest: Unremarkable. External Genitalia: Deferred. Rectal: Deferred. Laboratory Data: Yesterday, white count 11.9, hemoglobin 11.9, platelets 375. This morning, white c ount 9.5, hemoglobin 11.2, platelets 335. This morning, sodium 139, potassium 4.7, chloride 104, bic arb 32, BUN 7, creatinine 0.86, glucose 127. Liver function tests unremarkable. Procalcitonin less than 0.05. Troponin less than 0.02. Yesterday, sodium 139, potassium 3.7, chloride 102, bicarb 30, BUN 12, creatinine 0.86, glucose 111. Urinalysis done in emergency room, 3+ leukocyte esterase, wbc' s TNTC, 1+ blood, 20-50 bacteria. CAT scan of abdomen and pelvis done in emergency room shows rectum is mildly distended with stool, otherwise, no acute findings. The patient's chest x-ray showed stab le chest since 12/20/2018. Emphysematous changes present with mild linear opacity in both lung bases , greater on the right and right lung opacity may represent atelectasis or developing pneumonia. EKG , sinus rhythm with sinus arrhythmia, first-degree AV block, right bundle branch block. Hospital Course: The patient was admitted to the hospital. He was kept in the hospital overnight. This morning when I saw him, he was feeling better. Medically, he was stable for discharge. I did e xplain him all the findings that he had on his test results. He is coughing up some yellowish to gre enish-colored mucus and in presence of current chest x-ray finding, I will give him benefit of doubt and give him antibiotics for that for possibility of either bronchitis or pneumonia type of problem. His urine test is abnormal and I am not sure why ER physician ordered the urinalysis as he does not have any signs of urinary tract infection and in presence of his indwelling Rocha catheter, his urina lysis always will show abnormality that we are seeing noted on this current test, but we do not need to treat him for any urinary tract infection and we should not label him as any urinary tract infecti on for this reason explained here. Once again, I did explain all these details to him and his daught er today, but as long as he has a catheter, his urine test always will look abnormal and one should n ot do any urine test unless clinically he shows any signs or symptoms of urinary tract infection, whi ch he does not have at this point. The patient's daughter also informed me that the patient had a CA T scan of chest done 2 days ago as outpatient ordered by Dr. Gallego and results were discussed with her. The patient was discharged to go home in stable condition with instruction to continue all teddy or home medications and follow up at my office. The patient was also advised to follow up with Dr. Giuliano young for his ongoing abdominal pain complaint. The patient was told to take Augmentin 875 mg twice a day for 1 week and take it with food. Final Diagnoses: 1.Abdominal pain. 2.Acute bronchitis. 3.Bronchiectasis. 4.Chronic obstructive pulmonary disease. 5.Neurogenic bladder with indwelling Rocha catheter. 6.Orthostatic hypotension. 7.Hyperlipidemia. 8.Hypertension. 9.Chronic fatigue. 10.Gastroesophageal reflux disease. 11.Peripheral neuropathy. 12.Anemia, chronic, unspecified. 13.Idiopathic pulmonary fibrosis. JERAD/MODL Voice ID: [id number]
--- NOTE | 2019-01-03 02:54 | HP ---
Date of Admission: 12/21/2018 Chief Complaint: Abdominal pain. History Of Present Illness: This is a 78-year-old male patient, came into the emergency room with co mplaints of abdominal pain. Patient denies any nausea, vomiting. Denies any constipation or diarrhe a. 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 Son harvey. He denies any hematemesis or blood in stool. He also reported that he is coughing up some color ed mucus in last few days. After he was evaluated in the ER, he was admitted to the hospital under m y service. Review of Systems: GI: As mentioned above. Respiratory: As mentioned above. All other systems reviewed and negative. DICTATION ENDS HERE. JERAD/MODL Voice ID: [id number]
== END 2018-12-22 10:18 | disposition home or self-care (01) ==
LOC: ER 09:04 → ERHOLD 15:29 → 2ND 17:18
PROVIDERS: ADMIT Internal Medicine; ATTEND Internal Medicine
PROC: 0T9B70Z Drainage of Bladder with Drainage Device, Via Natural or Artificial Opening (ICD-10-PCS; principal; 2018-12-21)
DX: J47.0 Bronchiectasis with acute lower respiratory infection (principal); R10.9 Unspecified abdominal pain; N31.9 Neuromuscular dysfunction of bladder, unspecified; I10 Essential (primary) hypertension; I95.1 Orthostatic hypotension; R53.82 Chronic fatigue, unspecified; J84.112 Idiopathic pulmonary fibrosis; J44.9 Chronic obstructive pulmonary disease, unspecified; E78.5 Hyperlipidemia, unspecified; G62.9 Polyneuropathy, unspecified; K21.9 Gastro-esophageal reflux disease without esophagitis
CPT/HCPCS: 93005; 87040 ×2; 87088; 85025 ×2; 87086; 80048 ×2; 36415; 82550; 85610; 82962; 80076 ×2; 83605; 85730; 87077; 87186; 84484; 82553; 83690 ×2; 84145; 74177; 71045; 94640; 51702 ×2; 96375; 96374; 99285; Q9967; J3010 ×2; J0696 ×5; J2405; G0378 ×3; 81003; 81015

== ENCOUNTER 2018-12-31 12:12 | Inpatient (IN) | payer OTHER ==
--- OUTSIDE RECORDS SUMMARY | 2018-12-31 12:15 | XMS REPORT ---
:1940 [facility] Address [address] [place] [id number] Care Team Providers Name Role Phone Unavailable Unavailable Unavailable Problems This patient has no known problems. Allergies, Adverse Reactions, Alerts This patient has no known allergies or adverse reactions. Medications This patient has no known medications.
[2018-12-31] MEDS ORDERED: LEVALBUTEROL 1.25 MG/3 ML NEB ONE (13:02)
[2018-12-31] MEDS ORDERED: METHYLPREDNISOLONE 125 MG INJ ONE (13:02)
[2018-12-31 13:25] LABS: Absolute Lymphocytes (CBC) 0.6 K/uL (0.7-4.9); Basophils % 0.4 % (0-1.3); Lymphocytes % 4.9 % (15.3-44.8); MPV 6.7 fL (7.6-11.3)
--- NOTE | 2018-12-31 13:30 | RAD REPORT ---
EXAM DESCRIPTION: RAD - Chest Single View - 12/31/2018 1:02 pm CLINICAL HISTORY: CHEST PAIN Chest pain. COMPARISON: Chest Single View dated 12/21/2018; Chest Pa And Lat (2 Views) dated 12/20/2018; Chest Sin gle View dated 11/10/2018; Chest Single View dated 11/05/2018 FINDINGS: Portable technique limits examination quality. Emphysematous changes are present throughout the lungs with linear subsegmental atelectasis in the ri ght lung base. The heart is upper limit of normal in size. No displaced fractures.Hardware is present cervical spine. IMPRESSION: Prominent COPD.
[2018-12-31 13:44] LABS: CKMB Creatine Kinase MB 1.2 ng/mL (0.3-3.6)
[2018-12-31 14:09] LABS: Protime INR 1.12
[2018-12-31 14:14] LABS: Blood Morphology Comment NOT SEEN (NOT SEEN); Platelet Estimate ADEQ; Urine White Blood Cell Casts OK
[2018-12-31] MEDS ORDERED: Levofloxacin 750mg IV 750 MG/150 ML BAG IV ONE (14:16)
[2018-12-31 15:04] LABS: ALT/SGPT 17 U/L (12-78); AST/SGOT 10 U/L (15-37); Albumin 3.4 g/dL (3.4-5.0); Alkaline Phosphatase 52 U/L (45-117); BUN Blood Urea Nitrogen 10 mg/dL (7-18); Bicarbonate 27 mmol/L (21-32); Bilirubin Direct 0.2 mg/dL (0-0.2); Bilirubin Total 0.5 mg/dL (0.2-1.0); Glucose Level 124 mg/dL (74-106); Magnesium 2.3 mg/dL (1.8-2.4); NT PRO-BNP 262 pg/mL (<450); Potassium 4.1 mmol/L (3.5-5.1); Protein, Total 7.3 g/dL (6.4-8.2); Sodium Level 139 mmol/L (136-145); Troponin (Emerg Dept Use Only) < 0.02 ng/mL (0.0-0.045)
[2018-12-31] MEDS ORDERED: KETOROLAC 30 MG/ML INJ ONE (15:12)
[2018-12-31] MEDS ORDERED: ENOXAPARIN 80 MG/0.8 ML SQ ONE (15:41)
--- NOTE | 2018-12-31 15:41 | RAD REPORT ---
EXAM DESCRIPTION: CT - Chest For Pe Angio - 12/31/2018 3:28 pm CLINICAL HISTORY: Chest pain. COUGH COMPARISON: Lung Cancer Screening CT W/O dated 12/20/2018; Chest Single View dated 12/31/2018 TECHNIQUE: CT angiogram of the pulmonary arteries was performed with MIP. All CT scans are performed using dose optimization technique as appropriate and may include automated exposure control or mA/KV adjustment according to patient size. FINDINGS: Segmental and subsegmental pulmonary thromboemboli are noted in the right upper lobe branc hes as well as the right lower lobe branches posteriorly. No evidence of RV strain pattern No acute aortic finding demonstrated. Ill-defined opacities in both lung bases medially, greater on the right likely represent aspiration o r pneumonia. No significant pericardial or pleural fluid. No concerning bony finding. IMPRESSION: Segmental and subsegmental pulmonary thromboemboli are noted in the right upper lobeand right lower lobe pulmonary tree branches. No evidence of RV strain. Ill-defined opacities are present in both medial lung bases, greater on the right, likely representin g aspiration or pneumonia. The findings were discussed with Dr. Castro in the ER On 12/31/2018 at 3:35 p.m. by telephone.
--- NOTE | 2018-12-31 15:45 | EDPHYS ---
Physician Documentation [facility] Name: Zen Bledsoe Jr Age: 78 yrs Sex: Male : 1940 Arrival Date: 12/31/2018 Time: 12:15 Bed 23 Private MD: Ramon Galeana C ED Physician Racquel Castro HPI: 12/31 13:26 This 78 yrs old Male presents to ER via Wheelchair with complaints of ma2 Shortness Of Breath, Chest Pain. 13:26 The patient has shortness of breath at rest. Onset: The symptoms/episode began/occurred ma2 gradually, 2 week(s) ago. Associated signs and symptoms: Pertinent positives: productive cough, Pertinent negatives: chest pain, non-productive cough, diaphoresis. Severity of symptoms: At their worst the symptoms were moderate in the emergency department the symptoms are unchanged. The patient has experienced similar episodes in the past. Historical: - Allergies: 12:42 BACLOFEN; la1 12:42 Bactrim; la1 12:42 Codeine; la1 12:42 HYDROCODONE; la1 12:42 Iodine; la1 12:42 Sulfa (Sulfonamide Antibiotics); la1 - Home Meds: 15:23 amlodipine 5 mg tab 1 tab once daily [Active]; Aspir-81 81 mg Oral TbEC 1 tab once mg2 daily [Active]; Brovana 15 mcg/2 mL inhalation nebu [Active]; Cymbalta 60 mg Oral cpDR 1 cap once daily [Active]; dicyclomine 20 mg Oral tab 4 times per day [Active]; fluticasone inhalation [Active]; gabapentin 800 mg Oral tab 1 tab 3 times per day [Active]; hyoscyamine sulfate 0.125 mg SL subl [Active]; ipratropium-albuterol 0.5 mg-3 mg(2.5 mg base)/3 mL Inhl nebu [Active]; levetiracetam 500 mg Oral tab nightly [Active]; midodrine 5 mg Oral tab 3 times per day [Active]; Pain pump w/Prialta and Dilaudid [Active]; Plavix 75 mg Oral tab once daily [Active]; prednisone 10 mg Oral tab as needed [Active]; ranitidine HCl 300 mg Oral tab 1 tab once daily [Active]; simvastatin 40 mg Oral tab 1 tab once daily [Active]; Singulair 10 mg Oral tab 1 tab once daily [Active]; Toprol XL 25 mg Oral tab 0.5 tab 1/2 in am and 1 at night [Active]; Ventolin HFA 90 mcg/actuation Nebulizer HFAA [Active]; vitamin b12 [Active]; Vitamin C Oral [Active]; Vitamin D3 Oral [Active]; vitamin E Oral [Active]; - PMHx: 12:42 Angina; Arthritis; Asthma; bladder failure; bowel obstruction; BPH; cardiac stents; la1 chronic back pain; COPD; ESSENTIAL TREMORS; gastritis; GERD; Hypertension; 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 - Social history:: Smoking status: Patient/guardian denies using tobacco, Patient uses Patient/guardian denies using alcohol, street drugs, The patient lives with family. - Ebola Screening: : No symptoms or risks identified at this time. - Family history:: not pertinent. ROS: 13:26 Constitutional: Negative for fever, chills, and weight loss. ma2 13:26 All other systems are negative. Exam: 13:26 Constitutional: This is a well developed, well nourished patient who is awake, alert, ma2 and in no acute distress. Head/Face: Normocephalic, atraumatic. Eyes: Pupils equal round and reactive to light, extra-ocular motions intact. Lids and lashes normal. Conjunctiva and sclera are non-icteric and not injected. Cornea within normal limits. Periorbital areas with no swelling, redness, or edema. Chest/axilla: Normal chest wall appearance and motion. Nontender with no deformity. No lesions are appreciated. Cardiovascular: Regular rate and rhythm with a normal S1 and S2. No gallops, murmurs, or rubs. Normal PMI, no JVD. No pulse deficits. Respiratory: + wheezes and on 4L O2 via nc, No rales, rhonch noted. No increased work of breathing, no retractions or nasal flaring. Abdomen/GI: Soft, non-tender, with normal bowel sounds. No distension or tympany. No guarding or rebound. No evidence of tenderness throughout. Back: No spinal tenderness. No costovertebral tenderness. Full range of motion. Skin: Warm, dry with normal turgor. Normal color with no rashes, no lesions, and no evidence of cellulitis. MS/ Extremity: Pulses equal, no cyanosis. Neurovascular intact. Full, normal range of motion. Neuro: Awake and alert, GCS 15, oriented to person, place, time, and situation. Cranial nerves II-XII grossly intact. Motor strength 5/5 in all extremities. Sensory grossly intact. Cerebellar exam normal. Normal gait. Vital Signs: 12:42 BP 111 / 66; Pulse 98; Resp 20; Temp 98.4(TE); Pulse Ox 86% on 4 lpm NC; la1 13:45 BP 97 / 74; Pulse 94; Resp 18; Pulse Ox 98% on R/A; mg2 14:45 BP 125 / 65; Pulse 95; Resp 18; Pulse Ox 96% on R/A; mg2 15:00 BP 130 / 87; Pulse 99; Resp 18; Pulse Ox 98% on R/A; mg2 16:00 BP 131 / 89; Pulse 95; Resp 18; Temp 98.2; Pulse Ox 97% on 4 lpm NC; mg2 17:00 BP 129 / 70; Pulse 96; Resp 18; Temp 98; Pulse Ox 98% on 4 lpm NC; mg2 MDM: 12:48 Patient medically screened. ma2 13:26 Differential diagnosis: Anemia asthma, CHF exacerbation, Chronic Obstructive Pulmonary ma2 Disease Myocardial Infarction pneumonia, reactive airway disease. 15:41 Antibiotic administration: The patient is discharged and will get outpatient ma2 antibiotics. Antibiotic administration: has PE, segmental, vs wnl, lovenox given, will cover with antibiotics for copd, although no infiltrate seen on ct, he does not need hospital acquired coverage althoe he was in the hospital 2 weeks ago becauser there is no infiltrate . Data reviewed: vital signs. ED course: discussed with dr. Wing . 12/31 12:48 Order name: Basic Metabolic Panel; Complete Time: 15:08 mg2 12/31 12:48 Order name: CBC with Diff; Complete Time: 14:59 mg2 12/31 12:48 Order name: LFT's; Complete Time: 15: mg2 12/31 12:48 Order name: Magnesium; Complete Time: 15:08 mg2 12/31 12:48 Order name: NT PRO-BNP; Complete Time: 15:08 [facility] 12/31 12:48 Order name: PT-INR; Complete Time: 14:59 [facility] 12/31 12:48 Order name: Troponin (emerg Dept Use Only); Complete Time: 15:08 [facility] 12/31 12:56 Order name: Blood Culture Adult (2) [facility] 12/31 12:56 Order name: Ckmb; Complete Time: 14:06 [facility] 12/31 12:56 Order name: CPK; Complete Time: 14:06 [facility] 12/31 12:56 Order name: D-Dimer; Complete Time: 14:59 [facility] 12/31 12:56 Order name: Lipase; Complete Time: 14:06 [facility] 12/31 12:56 Order name: Ptt, Activated; Complete Time: 14:59 [facility] 12/31 14:14 Order name: CBC Smear Scan; Complete Time: 14:59 [facility] 12/31 12:48 Order name: XRAY Chest (1 view); Complete Time: 14:06 [facility] 12/31 14:09 Order name: CT Chest For PE Angio [facility] 12/31 14:40 Order name: Creatinine (Radiology Only); Complete Time: 14:59 [facility] 12/31 15:43 Order name: Basic Metabolic Panel [facility] 12/31 15:43 Order name: Basic Metabolic Panel [facility] 12/31 15:43 Order name: CBC with Automated Diff [facility] 12/31 15:43 Order name: CBC with Automated Diff [facility] 12/31 15:43 Order name: NT PRO-BNP [facility] 12/31 15:43 Order name: NT PRO-BNP [facility] 12/31 15:43 Order name: Troponin I [facility] 12/31 15:43 Order name: Troponin I [facility] 12/31 15:43 Order name: Troponin I [facility] 12/31 12:48 Order name: EKG; Complete Time: 12:49 [facility] 12/31 12:48 Order name: Cardiac monitoring; Complete Time: 13:21 [facility] 12/31 12:48 Order name: EKG - Nurse/Tech; Complete Time: 13:21 [facility] 12/31 12:48 Order name: IV Saline Lock; Complete Time: 13: [facility] 12/31 12:48 Order name: Labs collected and sent; Complete Time: 13: [facility] 12/31 12:48 Order name: O2 Per Protocol; Complete Time: 13:21 mg2 12/31 12:48 Order name: O2 Sat Monitoring; Complete Time: 13: mg2 12/31 15:43 Order name: Consistent Carb (ADA) 1800 Benito EDMS Administered Medications: 13:21 Drug: SOLU-Medrol 125 mg Route: IVP; Site: right antecubital; mg2 16:01 Follow up: Response: No adverse reaction; Marked relief of symptoms mg2 13:21 Drug: Xopenex 1.25 mg Route: Inhalation; mg2 16:01 Follow up: Response: No adverse reaction; Marked relief of symptoms mg2 14:44 Drug: levofloxacin 750 mg Volume: 150 ml; Route: IVPB; Infused Over: 90 mins; Site: mg2 right antecubital; 16:30 Follow up: Response: No adverse reaction; IV Status: Completed infusion mg2 15:15 Drug: TORadol 30 mg Route: IVP; Site: right antecubital; mg2 16:01 Follow up: Response: No adverse reaction; Marked relief of symptoms mg2 15:50 Drug: Lovenox 80 mg Route: Sub-Q; Site: right lower abdomen; mg2 16:00 Follow up: Response: No adverse reaction mg2 Disposition: 12/31/18 15:44 Hospitalization ordered by Rita Wing for Inpatient Admission. Preliminary diagnosis are Pulmonary embolism, Chronic obstructive pulmonary disease with (acute) exacerbation. - Bed requested for Telemetry/MedSurg (Inpatient). - Status is Inpatient Admission. mg2 - Condition is Stable. - Problem is new. - Symptoms are unchanged. UTI on Admission? No Signatures: Dis[facility] Navdeep Henson RN RN Racquel Castro MD MD ma2 Mariluz Bernard Dago Enriquez RN RN mg2 Corrections: (The following items were deleted from the chart) 16:47 15:44 Hospitalization Ordered by Rita iWng MD for Inpatient Admission. Preliminary diagnosis is Pulmonary embolism; Chronic obstructive pulmonary disease with (acute) exacerbation. Bed requested for Telemetry/MedSurg (Inpatient). Status is Inpatient Admission. Condition is Stable. Problem is new. Symptoms are unchanged. UTI on Admission? No. ma2 17:28 16:47 12/31/2018 15:44 Hospitalization Ordered by Rita Wing MD for Inpatient mg2 Admission. Preliminary diagnosis is Pulmonary embolism; Chronic obstructive pulmonary disease with (acute) exacerbation. Bed requested for Telemetry/MedSurg (Inpatient). Status is Inpatient Admission. Condition is Stable. Problem is new. Symptoms are unchanged. UTI on Admission? No. eb
--- NOTE | 2018-12-31 15:45 | ER ---
Nurse's Notes [facility] Name: Zen Bledsoe Jr Age: 78 yrs Sex: Male : 1940 Arrival Date: 12/31/2018 Time: 12:15 Bed 23 Private MD: Ramon Galeana C Diagnosis: Pulmonary embolism;Chronic obstructive pulmonary disease with (acute) exacerbation Presentation: 12/31 12:43 Presenting complaint: Patient states: I have been feeling progressively SOB for the la1 last two weeks but real bad 2 days ago. Pt wears home 02, sats have been trending down. Transition of care: patient was not received from another setting of care. Onset of symptoms was December 31, 2018. Risk Assessment: Do you want to hurt yourself or someone else? Patient reports no desire to harm self or others. Initial Sepsis Screen: Does the patient meet any 2 criteria? RR > 20 per min. HR > 90 bpm. Does the patient have a suspected source of infection? Yes: Productive cough/pneumonia. 12:43 Method Of Arrival: Wheelchair la1 12:43 Acuity: KARY 2 la1 15:20 Care prior to arrival: None. mg2 Triage Assessment: 16:00 Respiratory: the patient has mild shortness of breath. mg2 Historical: - Allergies: 12:42 BACLOFEN; la1 12:42 Bactrim; la1 12:42 Codeine; la1 12:42 HYDROCODONE; la1 12:42 Iodine; la1 12:42 Sulfa (Sulfonamide Antibiotics); la1 - Home Meds: 15:23 amlodipine 5 mg tab 1 tab once daily [Active]; Aspir-81 81 mg Oral TbEC 1 tab once mg2 daily [Active]; Brovana 15 mcg/2 mL inhalation nebu [Active]; Cymbalta 60 mg Oral cpDR 1 cap once daily [Active]; dicyclomine 20 mg Oral tab 4 times per day [Active]; fluticasone inhalation [Active]; gabapentin 800 mg Oral tab 1 tab 3 times per day [Active]; hyoscyamine sulfate 0.125 mg SL subl [Active]; ipratropium-albuterol 0.5 mg-3 mg(2.5 mg base)/3 mL Inhl nebu [Active]; levetiracetam 500 mg Oral tab nightly [Active]; midodrine 5 mg Oral tab 3 times per day [Active]; Pain pump w/Prialta and Dilaudid [Active]; Plavix 75 mg Oral tab once daily [Active]; prednisone 10 mg Oral tab as needed [Active]; ranitidine HCl 300 mg Oral tab 1 tab once daily [Active]; simvastatin 40 mg Oral tab 1 tab once daily [Active]; Singulair 10 mg Oral tab 1 tab once daily [Active]; Toprol XL 25 mg Oral tab 0.5 tab 1/2 in am and 1 at night [Active]; Ventolin HFA 90 mcg/actuation Nebulizer HFAA [Active]; vitamin b12 [Active]; Vitamin C Oral [Active]; Vitamin D3 Oral [Active]; vitamin E Oral [Active]; - PMHx: 12:42 Angina; Arthritis; Asthma; bladder failure; bowel obstruction; BPH; cardiac stents; la1 chronic back pain; COPD; ESSENTIAL TREMORS; gastritis; GERD; Hypertension; 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 - Social history:: Smoking status: Patient/guardian denies using tobacco, Patient uses Patient/guardian denies using alcohol, street drugs, The patient lives with family. - Ebola Screening: : No symptoms or risks identified at this time. - Family history:: not pertinent. Screenin:20 Abuse screen: Denies threats or abuse. Denies injuries from another. Nutritional mg2 screening: No deficits noted. Tuberculosis screening: No symptoms or risk factors identified. Fall Risk IV access (20 points). Gait- Weak (10 pts.). Assessment: 15:18 General: Appears in no apparent distress. comfortable, Behavior is calm, cooperative. mg2 Pain: Complains of pain in back Pain does not radiate. Pain currently is 6 out of 10 on a pain scale. Quality of pain is described as aching, Pain began gradually. Neuro: Level of Consciousness is awake, alert, obeys commands, Oriented to person, place, time, situation. Cardiovascular: Capillary refill < 3 seconds Patient's skin is warm and dry. Rhythm is regular. Respiratory: Reports shortness of breath Airway is patent Respiratory effort is even, unlabored, Breath sounds are clear. GI: No deficits noted. : No deficits noted. EENT: No deficits noted. Derm: Skin is intact, is healthy with good turgor, Skin is pink, warm \T\ dry. normal. Musculoskeletal: Circulation, motion, and sensation intact. Capillary refill < 3 seconds. 15:27 Reassessment: patient is in ct scan right now. mg2 16:00 Reassessment: provider informed the patient about the plan for admission and agreed. mg2 Vital Signs: 12:42 BP 111 / 66; Pulse 98; Resp 20; Temp 98.4(TE); Pulse Ox 86% on 4 lpm NC; la1 13:45 BP 97 / 74; Pulse 94; Resp 18; Pulse Ox 98% on R/A; mg2 14:45 BP 125 / 65; Pulse 95; Resp 18; Pulse Ox 96% on R/A; mg2 15:00 BP 130 / 87; Pulse 99; Resp 18; Pulse Ox 98% on R/A; mg2 16:00 BP 131 / 89; Pulse 95; Resp 18; Temp 98.2; Pulse Ox 97% on 4 lpm NC; mg2 17:00 BP 129 / 70; Pulse 96; Resp 18; Temp 98; Pulse Ox 98% on 4 lpm NC; mg2 ED Course: 12:15 Patient arrived in ED. as 12:15 Ronald Galeana MD is Private Physician. as 12:15 Ramon Galeana MD is Private Physician. as 12:42 Arm band placed on left wrist. EKG completed in triage. Results shown to MD. la1 12:44 Triage completed. la1 12:48 Dago Enriquez, MADELINE is Primary Nurse. mg2 12:48 Racquel Castro MD is Attending Physician. ma2 13:03 XRAY Chest (1 view) In Process Unspecified. EDMS 13:05 First set of blood cultures drawn. Inserted saline lock: 20 gauge in right antecubital mg2 area, using aseptic technique. Blood collected. 13:22 No provider procedures requiring assistance completed. mg2 14:16 Second set of blood cultures drawn by me. lt1 14:29 Radiology exam delayed due to lab results not completed at this time. (BUN/Creatinine). mw3 14:51 Private physician called and left a message on Dr. Wing's Cell phone who is covering eb for Dr. Galenaa to please call Dr. Castro regarding a patient admission. 15:24 Patient has correct armband on for positive identification. mg2 15:31 CT Chest For PE Angio In Process Unspecified. EDMS 15:44 Rita Wing MD is Hospitalizing Provider. ma2 17:16 Patient admitted, IV remains in place. mg2 Administered Medications: 13:21 Drug: SOLU-Medrol 125 mg Route: IVP; Site: right antecubital; mg2 16:01 Follow up: Response: No adverse reaction; Marked relief of symptoms mg2 13:21 Drug: Xopenex 1.25 mg Route: Inhalation; mg2 16:01 Follow up: Response: No adverse reaction; Marked relief of symptoms mg2 14:44 Drug: levofloxacin 750 mg Volume: 150 ml; Route: IVPB; Infused Over: 90 mins; Site: mg2 right antecubital; 16:30 Follow up: Response: No adverse reaction; IV Status: Completed infusion mg2 15:15 Drug: TORadol 30 mg Route: IVP; Site: right antecubital; mg2 16:01 Follow up: Response: No adverse reaction; Marked relief of symptoms mg2 15:50 Drug: Lovenox 80 mg Route: Sub-Q; Site: right lower abdomen; mg2 16:00 Follow up: Response: No adverse reaction mg2 Outcome: 15:44 Decision to Hospitalize by Provider. ma2 17:16 Admitted to Med/surg accompanied by tech, via wheelchair, room 231, with oxygen, with mg2 chart, Report called to MADELINE Hong 17:16 Condition: stable 17:16 Instructed on the need for admit, Demonstrated understanding of instructions. 17:28 Patient left the ED. mg2 Signatures: Dispatcher [employer] EDMS Mily Johnston Lee, RN RN la1 Racquel Castro MD MD ma2 Mariluz Bernard Michele, RN RN mg2 Skye Christiansen 3 Makenna Horta [facility]
[2018-12-31 20:22] VITALS: BMI 25.9
[2018-12-31] MEDS ORDERED: GABAPENTIN 400 MG CAP PO SCH (21:00)
[2018-12-31] MEDS ORDERED: ENOXAPARIN 80 MG/0.8 ML SQ SCH (21:00)
[2018-12-31] MEDS ORDERED: DICYCLOMINE HCL 10 MG CAP PO SCH (21:00)
[2018-12-31] MEDS: TRAMADOL HCL 50 MG TAB PO PRN (21:59)
[2019-01-01 00:49] LABS: Urine Appearance CLEAR; Urine Bilirubin NEGATIVE (NEG); Urine Blood 1+ (NEG); Urine Color YELLOW; Urine Glucose NEGATIVE (NEG); Urine Protein TRACE (NEG); Urine Specific Gravity >=1.030 (1.005-1.030); Urine Urobilinogen 0.2 mg/dL (0.2-1.0); Urine pH 5.5 (5.0-7.0)
[2019-01-01 00:56] LABS: Urine Microscopic Reflex ORDER UMIC
[2019-01-01 02:13] LABS: Urine Bacteria 20-50 /HPF (NONE SEEN); Urine Culture Reflex Order REFLEXED; Urine RBC <5 /HPF (NONE SEEN); Urine Yeast MANY (NONE SEEN); Urine Yeast with Hyphae PRESENT
[2019-01-01] MEDS: ENOXAPARIN 80 MG/0.8 ML SQ SCH ×2 (06:11→17:33)
[2019-01-01] MEDS: TRAMADOL HCL 50 MG TAB PO PRN ×3 (06:11→19:11)
[2019-01-01 06:25] LABS: Absolute Lymphocytes (CBC) 0.5 K/uL (0.7-4.9); Basophils % 0.1 % (0-1.3); Hematocrit 31.3 % (39.6-49.0); Lymphocytes % 5.7 % (15.3-44.8); MPV 6.7 fL (7.6-11.3); RBC Red Blood Cell Count 3.54 M/uL (4.33-5.43)
[2019-01-01 06:29] LABS: Potassium 4.8 mmol/L (3.5-5.1)
[2019-01-01] MEDS ORDERED: COLESTIPOL 1 GM TAB PO PRN (07:27)
[2019-01-01] MEDS ORDERED: HYOSCYAMINE SULF 0.125 MG TAB PO PRN (07:27)
[2019-01-01] MEDS ORDERED: HOME MED 1 EA UNK (Ondansetron Hcl [Zofran] 4 MG) PO PRN (07:27)
[2019-01-01] MEDS ORDERED: PROMETHAZINE 25 MG TABLET PO PRN (07:27)
[2019-01-01] MEDS ORDERED: ONDANSETRON 4 MG (ODT) TAB PO PRN (08:07)
[2019-01-01] MEDS ORDERED: TIOTROPIUM 5 SPRAYS/INHALER IH SCH ×2 (09:00)
[2019-01-01] MEDS ORDERED: Levofloxacin500mg IV 500 MG/100 ML BAG IV SCH (09:00)
[2019-01-01] MEDS: DICYCLOMINE HCL 10 MG CAP PO SCH ×3 (09:00→21:17)
[2019-01-01] MEDS ORDERED: HOME MED 1 EA UNK (Duloxetine Hcl [Duloxetine Hcl] 60 MG) PO SCH (09:00)
[2019-01-01] MEDS ORDERED: HOME MED 1 EA UNK (Midodrine Hcl [Midodrine Hcl] 10 MG) PO SCH (09:00)
[2019-01-01] MEDS ORDERED: RANITIDINE HCL 300 MG PO SCH (09:00)
[2019-01-01] MEDS ORDERED: [UNRECOGNIZED DRUG - OTHER] PO SCH (09:00)
[2019-01-01] MEDS ORDERED: HOME MED 1 EA UNK (Dicyclomine Hcl [Dicyclomine Hcl] 20 MG) PO SCH (09:00)
[2019-01-01] MEDS ORDERED: HOME MED 1 EA UNK (Simvastatin [Simvastatin] 40 MG) PO SCH (09:00)
[2019-01-01] MEDS ORDERED: LEVETIRACETAM 250 MG PO SCH (09:00)
[2019-01-01] MEDS: MONTELUKAST 10 MG TAB PO SCH (09:26)
[2019-01-01] MEDS: LACTOBACILLUS/ACIDOPHILUS TAB PO SCH (09:26)
[2019-01-01] MEDS: PANTOPRAZOLE 40MG TABLET PO SCH (09:27)
[2019-01-01] MEDS: predniSONE 10 MG TAB PO SCH (09:27)
[2019-01-01] MEDS: levETIRAcetam 500 MG TAB PO SCH (09:27)
[2019-01-01] MEDS: RANITIDINE 150 MG TABLET PO SCH ×2 (09:28→21:16)
[2019-01-01] MEDS: METOPROLOL XL 25 MG TAB PO SCH (09:28)
[2019-01-01] MEDS: GABAPENTIN 400 MG CAP PO SCH ×3 (09:29→21:18)
[2019-01-01] MEDS: levoFLOXacin 500 MG TAB PO SCH (09:29)
[2019-01-01] MEDS: DULOXETINE 30 MG CAP PO SCH (09:29)
[2019-01-01] MEDS: MIDODRINE HCL 5 MG TABLET PO SCH ×3 (09:29→21:00)
[2019-01-01] MEDS ORDERED: ACETAMINOPHEN 500 MG TAB PO PRN (12:40)
--- NOTE | 2019-01-01 13:21 | EKG ---
Test Date: 2018-12-31 Test Time: 12:41:34 [employer] [place]: [place] MEASUREMENT RESULTS: Intervals: Rate: 101 [place]: 210 QRSD: 130 QT: 352 QTc: 456 Hunter: P: 68 AZ: 210 QRS: 59 T: 77 INTERPRETIVE STATEMENTS: Sinus tachycardia with 1st degree AV block with premature atrial complexes Right bundle branch block Inferior infarct, age undetermined Anterolateral infarct, age undetermined Abnormal ECG Compared to ECG 12/21/2018 11:07:39 Atrial premature complex(es) now present Sinus rhythm no longer present Sinus arrhythmia no longer present Myocardial infarct finding still present Electronically Signed On 01-01-19 13:18:51 CDT by Nilay Villela
--- NOTE | 2019-01-01 18:13 | RAD REPORT ---
EXAM DESCRIPTION: US - Extrem Venous W Compress Khalif - 01/01/2019 5:52 pm CLINICAL HISTORY: Pulmonary emboli, leg pain and swelling COMPARISON: None. TECHNIQUE: Real-time sonographic evaluation of the bilateral lower extremity common femoral, superfi cial femoral, popliteal and posterior tibial veins was performed. FINDINGS: Normal compressibility, flow augmentation, phasic flow and spontaneous flow are identified in the right lower extremity common femoral, superficial femoral, popliteal and posterior tibial vei ns. No intraluminal filling defects seen. The left-sided common femoral, superficial femoral and popliteal veins are also clear of thrombus. Pa sue has thrombus filling superficial veins posterior to the knee extending into the calf. No extens ion into the deeper popliteal vein. IMPRESSION: No deep venous thrombosis identified in either lower extremity. Superficial venous thrombosis in veins posterior to the knee and in the calf.
--- NOTE | 2019-01-01 20:16 | HP ---
Date of Admission: 01/01/2019 Chief Complaint: Shortness of breath. History Of Present Illness: This is a 78-year-old male patient who has been in and out of hospital lately mostly with respiratory problem. He came into emergency room with complaints of shortness of breath. After he was evaluated, he was admitted to the hospital with pulmonary embolism. The patient never had any prior history of DVT or pulmonary embolism. Denies any recent travel. Denies any fever, chills, nausea, or vomiting. He has chronic symptom of cough with chest congestion and coughing up some mucus and sometimes is yellow to green in color. This has not changed lately as he describes. Allergies: SULFA, HYDROCODONE, CODEINE, AND BACLOFEN. Medications: List reviewed. Review of Systems: Respiratory: As mentioned above. All other systems reviewed and negative. Social History: Negative for smoking or alcohol use. Family History: Significant for cancer of esophagus and hypertension. Past Surgical History: Significant for appendectomy, tonsillectomy, back surgery, vasectomy, arthroscopic knee surgery, cervical spine fusion, right- sided hemicolectomy due to colon polyps, and surgery for deviated nasal septum. Past Medical History: COPD, neurogenic bladder, has an indwelling Rocha catheter due to neurogenic bladder. Orthostatic hypotension, hyperlipidemia, chronic fatigue, gastroesophageal reflux disease, hypertension, anemia, peripheral neuropathy, and bronchiectasis. Physical Examination: Vital Signs: Temperature 97, pulse 82, respiratory rate 18, blood pressure 138/ 64, oxygen saturation 95%. Height 5 feet 11 inches, weight 186 pounds. General: Awake, alert, oriented, not in distress. HEENT: Head atraumatic, normocephalic. Conjunctivae nonerythematous. Sclerae white. Mouth, no thrush or edema noted. Ears/Nose, no mass, lesion, discharge noted. Neck: Supple. No JVD, lymph nodes, bruit, thyromegaly noted. Lungs: Presence of wheezing in lower lung munguia, not in respiratory distress. Heart: Normal heart sounds, no murmur or gallop. Abdomen: Soft, bowel sounds normal. No guarding, rigidity, tenderness, mass, hepatosplenomegaly, distention, or bruit noted. Extremities: No leg edema. No calf tenderness. Skin: No rash, ulcer, cellulitis. Lymphatics: No lymph node enlargement in neck, supraclavicular, infraclavicular region. Neuro: No focal neurological deficit. Chest: Unremarkable. External Genitalia: Deferred. Rectal: Deferred. Laboratory Data: Yesterday, white count 13.3, hemoglobin 11.9, platelets 273. This morning, white count 8.6, hemoglobin 11, platelets 248. Yesterday, sodium 139, potassium 4.1, chloride 103, bicarb 27, BUN 10, creatinine 0.87, glucose 124. Liver function tests unremarkable. Troponin less than 0.02. This morning : Sodium 140, potassium 4.8, chloride 105, bicarb 28, BUN 15, creatinine 0.86, glucose 117. D-dimer 15,614. INR 1.12. Urinalysis done in the emergency room shows wbc's 10-20, bacteria many, and 1+ blood. This abnormalities are due to his chronic indwelling Rocha catheter. Chest x-ray shows changes of prominent COPD. CAT scan of the chest per PE protocol shows segmental and subsegmental thromboemboli noted in the right upper lobe and right lower lobe. No evidence of right ventricular strain. Ill- defined opacity present in both medial lung bases, greater on the right. Impression: 1. Pulmonary embolism. 2. Rule out deep venous thrombosis, legs. 3. Bronchiectasis. 4. Pulmonary fibrosis. 5. Chronic obstructive pulmonary disease. 6. Anemia, unspecified. 7. Neurogenic bladder with indwelling Rocha catheter. 8. Orthostatic hypotension. 9. Peripheral neuropathy. 10. Gastroesophageal reflux disease. 11. Hypertension. 12. Hyperlipidemia. 13. Chronic obstructive pulmonary disease. Plan: Admit patient to hospital for further evaluation and management of this problem. The patient is appropriate for inpatient and is expected to spend 2 midnights in hospital. The patient was started on Lovenox injection. We will continue that. He was also started on Levaquin for some respiratory infection. At this point, I would not classify him as any pneumonia. His changes noted on the CAT scan are chronic changes. His chronic mucus production has not changed lately. I will not classify him as urinary tract infection today because of his chronic indwelling Rocha catheter. Abnormal urinalysis is to be expected and this was explained to patient as well. We will continue home medications per order. Lovenox will be continued today starting tomorrow. We will probably change it to either Xarelto or Eliquis. Plan is to give him anticoagulation therapy for 6 months. Venous Doppler of both leg was ordered today to rule out DVT. Details of planned treatment discussed with the patient. I will see him tomorrow for followup. JERAD/DOMINICK Voice ID: [id number]
[2019-01-01] MEDS: ATORVASTATIN 20 MG TAB PO SCH (21:17)
[2019-01-02] MEDS: ENOXAPARIN 80 MG/0.8 ML SQ SCH ×2 (06:03→16:43)
[2019-01-02] MEDS ORDERED: MAGNESIUM HYDROXIDE 8% 30 ML PO ONE (07:02)
[2019-01-02] MEDS: IPRATROPIUM BROM 0.5MG/2.5ML NEB PRN (08:48)
[2019-01-02] MEDS: ALBUTEROL 2.5 MG/3 ML NEB SOL NEB PRN (08:48)
[2019-01-02] MEDS: DULOXETINE 30 MG CAP PO SCH (08:54)
[2019-01-02] MEDS: DICYCLOMINE HCL 10 MG CAP PO SCH ×3 (08:54→20:21)
[2019-01-02] MEDS: predniSONE 10 MG TAB PO SCH (08:55)
[2019-01-02] MEDS: METOPROLOL XL 25 MG TAB PO SCH (08:55)
[2019-01-02] MEDS: levETIRAcetam 500 MG TAB PO SCH (08:55)
[2019-01-02] MEDS: RANITIDINE 150 MG TABLET PO SCH ×2 (08:55→20:21)
[2019-01-02] MEDS: GABAPENTIN 400 MG CAP PO SCH ×3 (08:55→20:21)
[2019-01-02] MEDS: GUAIFENESIN 600 MG SA TAB PO SCH ×2 (08:55→20:21)
[2019-01-02] MEDS: LACTOBACILLUS/ACIDOPHILUS TAB PO SCH (08:55)
[2019-01-02] MEDS: levoFLOXacin 500 MG TAB PO SCH (08:55)
[2019-01-02] MEDS: PANTOPRAZOLE 40MG TABLET PO SCH (08:55)
[2019-01-02] MEDS: MONTELUKAST 10 MG TAB PO SCH (08:56)
[2019-01-02] MEDS: MIDODRINE HCL 5 MG TABLET PO SCH ×3 (09:00→20:22)
[2019-01-02] MEDS: TRAMADOL HCL 50 MG TAB PO PRN (13:20)
[2019-01-02] MEDS: ATORVASTATIN 20 MG TAB PO SCH (20:21)
--- NOTE | 2019-01-02 21:08 | PN ---
Date of Progress Note: 01/02/2019 Subjective: Patient was seen this morning for followup. He was lying in bed, not in any distress. Denies any new complaints this morning. Has some cough, chest congestion. Objective: Vital Signs: Reviewed. HEENT: Unremarkable. Lungs: Clear to auscultation. No rhonchi. No rales. Not in any respiratory distress. Heart: Sounds normal. Abdomen: Soft. Bowel sounds normal. No guarding, rigidity, tenderness, or distention. Extremities: No leg edema. Impression: 1.Pulmonary embolism. 2.Superficial thrombophlebitis, right leg. 3.Chronic obstructive pulmonary disease. 4.Bronchiectasis. 5.Pulmonary fibrosis. Plan: We will continue current medications, antibiotic, continue Lovenox. I have requested nursing staff to check with patient's pharmacy to find out whether insurance will cover Xarelto or Eliquis, a nd once I have this information, we will make decision to discharge him probably tomorrow with approp riate oral anticoagulant medications. Physical Therapy to help ambulate the patient. I will see him tomorrow for followup. JERAD/MODL Voice ID: [id number] Report ID: [id number]
[2019-01-02 21:35] VITALS: O2SAT 95
[2019-01-03] MEDS: ENOXAPARIN 80 MG/0.8 ML SQ SCH (05:52)
[2019-01-03] MEDS: ALBUTEROL 2.5 MG/3 ML NEB SOL NEB PRN (08:05)
[2019-01-03] MEDS: IPRATROPIUM BROM 0.5MG/2.5ML NEB PRN (08:05)
[2019-01-03 08:29] VITALS: BP 111/62; TEMP 97.7
[2019-01-03] MEDS: DULOXETINE 30 MG CAP PO SCH (08:46)
[2019-01-03] MEDS: RANITIDINE 150 MG TABLET PO SCH (08:46)
[2019-01-03] MEDS: DICYCLOMINE HCL 10 MG CAP PO SCH (08:46)
[2019-01-03] MEDS: LACTOBACILLUS/ACIDOPHILUS TAB PO SCH (08:46)
[2019-01-03] MEDS: GABAPENTIN 400 MG CAP PO SCH (08:47)
[2019-01-03] MEDS: levoFLOXacin 500 MG TAB PO SCH (08:47)
[2019-01-03] MEDS: GUAIFENESIN 600 MG SA TAB PO SCH (08:47)
[2019-01-03] MEDS: levETIRAcetam 500 MG TAB PO SCH (08:48)
[2019-01-03] MEDS: MONTELUKAST 10 MG TAB PO SCH (08:48)
[2019-01-03] MEDS: predniSONE 10 MG TAB PO SCH (08:48)
[2019-01-03] MEDS: PANTOPRAZOLE 40MG TABLET PO SCH (08:48)
[2019-01-03] MEDS: METOPROLOL XL 25 MG TAB PO SCH (08:48)
[2019-01-03] MEDS: MIDODRINE HCL 5 MG TABLET PO SCH (09:00)
--- NOTE | 2019-01-03 20:43 | DS ---
Date of Discharge: 01/03/2019 Disposition: Discharged to go home. Physical Examination: HEENT: Unremarkable. Lungs: Clear to auscultation. Heart: Sounds normal. Abdomen: Soft. Bowel sounds normal. No guarding, rigidity, tenderness, or distention. Extremities: No leg edema. Laboratory Data: Upon admission, white count 13.3, hemoglobin 11.9, platelets 273 on 12/31/2018. On 01/01/2019, white count was 8.6, hemoglobin 11, platelets 248. Upon admission, sodium 139, potassiu m 4.1, chloride 103, bicarb 27, BUN 10, creatinine 0.87, glucose 124. Liver function tests unremarka ble. Troponin less than 0.02. Hospital Course: This is a 78-year-old pleasant male patient, admitted to the hospital after he pres ented to emergency room with complaints of shortness of breath. Please see dictated H and P for more information. After patient was evaluated in the ER, was diagnosed as having bilateral pulmonary emb bubba on basis of CT scan of the chest per PE protocol. His D-dimer was elevated, so further workup in cluding CT scan of the chest was done. Diagnosis of pulmonary embolism was made and the patient was started on Lovenox and was admitted to the hospital. DVT study of lower extremity was ordered, which came back negative for DVT, but it did show some superficial thrombophlebitis of right lower extremi ty. The patient tolerated Lovenox injection very well. Did not have any problems with that. He was started on antibiotic Levaquin for possibility of pneumonia with his cough, congestion, and coughing up some colored phlegm. His home medications were continued. Physical Therapy was consulted. The patient started ambulating well. Today, the patient was discharged to go home in stable condition wi th following discharge medications and instructions. Final Diagnoses: 1.Pulmonary embolism. 2.Superficial thrombophlebitis, right leg. 3.Bronchiectasis. 4.Pulmonary fibrosis. 5.Possible pneumonia. 6.Chronic obstructive pulmonary disease. 7.Anemia, unspecified. 8.Neurogenic bladder, status post indwelling Rocha catheter. 9.Orthostatic hypotension. 10.Peripheral neuropathy. 11.Gastroesophageal reflux disease. 12.Hypertension. 13.Hyperlipidemia. 14.COPD. Discharge Medications: 1.Continue all prior home medication except stop aspirin and stop clopidogrel. 2.Do not take any Aleve, Motrin, ibuprofen, naproxen type of medications. 3.Take Xarelto 15 mg p.o. 2 times a day, which is at 7 a.m. and 7 p.m. for 21 days. The patient to start this as of 7 p.m. today. 4.Take Levaquin 500 mg p.o. daily for 1 week. 5.Follow up at my office in 2 weeks. When the patient comes to see me at office in 2 weeks, we will write prescription for Xarelto 20 mg daily, which will be started after he completes 21 days of 15 m g prescription. Details were discussed with the patient. JERAD/DOMINICK Voice ID: [id number] Report ID: [id number]
== END 2019-01-03 10:05 | disposition home or self-care (01) | DRG 175 ==
LOC: ER 12:12 → ERHOLD 15:39 → 2ND 17:14
PROVIDERS: ADMIT Internal Medicine; ATTEND Internal Medicine
DX: I26.99 Other pulmonary embolism without acute cor pulmonale (principal); J18.9 Pneumonia, unspecified organism; J47.0 Bronchiectasis with acute lower respiratory infection; I80.01 Phlebitis and thrombophlebitis of superficial vessels of right lower extremity; D64.9 Anemia, unspecified; N31.2 Flaccid neuropathic bladder, not elsewhere classified; I95.1 Orthostatic hypotension; G62.9 Polyneuropathy, unspecified; K21.9 Gastro-esophageal reflux disease without esophagitis; I10 Essential (primary) hypertension; E78.5 Hyperlipidemia, unspecified; Z96.0 Presence of urogenital implants; J84.10 Pulmonary fibrosis, unspecified; Z88.2 Allergy status to sulfonamides
CPT/HCPCS: 36415; 71045; 71275; 80048; 80076; 81003; 81015; 82550; 82553; 83690; 83735; 83880; 84484; 85025; 85379; 85610; 85730; 87040; 87086; 87088; 93005; 93970; 94640; 94760; 96365; 96366; 96372; 96375; 97116; 97161; 97530; 99285; J1650; J2930; J7512; Q9967

== ENCOUNTER 2019-01-14 12:31 | Inpatient (IN) | payer OTHER ==
[2019-01-14] MEDS ORDERED: ONDANSETRON 4 MG/2 ML VIAL ONE (12:47)
[2019-01-14] MEDS ORDERED: MECLIZINE HCL 12.5 MG TAB ONE (12:47)
[2019-01-14 13:13] LABS: Basophils % 0.3 % (0-1.3); Hematocrit 35.3 % (39.6-49.0); Lymphocytes % 8.8 % (15.3-44.8); MPV 6.5 fL (7.6-11.3); RBC Red Blood Cell Count 3.91 M/uL (4.33-5.43)
[2019-01-14 13:15] LABS: Protime INR 2.82
[2019-01-14 13:32] LABS: ALT/SGPT 20 U/L (12-78); AST/SGOT 11 U/L (15-37); Albumin 3.2 g/dL (3.4-5.0); Alkaline Phosphatase 48 U/L (45-117); BUN Blood Urea Nitrogen 12 mg/dL (7-18); Bicarbonate 33 mmol/L (21-32); Bilirubin Direct 0.2 mg/dL (0-0.2); Bilirubin Total 0.5 mg/dL (0.2-1.0); Glucose Level 111 mg/dL (74-106); Magnesium 2.4 mg/dL (1.8-2.4); NT PRO-BNP 217 pg/mL (<450); Protein, Total 7.2 g/dL (6.4-8.2); Sodium Level 142 mmol/L (136-145); Troponin (Emerg Dept Use Only) < 0.02 ng/mL (0.0-0.045)
--- NOTE | 2019-01-14 14:05 | RAD REPORT ---
EXAM DESCRIPTION: CT - Head Brain Wo Cont - 01/14/2019 1:57 pm CLINICAL HISTORY: Dizziness COMPARISON: 2013 TECHNIQUE: Computed axial tomography of the head was obtained. IV contrast was not requested. All CT scans are performed using dose optimization technique as appropriate and may include automated exposure control or mA/KV adjustment according to patient size. FINDINGS: An intracranial bleed is not seen . The ventricles are normal in caliber. No extra-axial fluid collection is noted. Mild to moderate low-density areas within periventricular, deep and subcortical white matter likely r epresent ischemic changes secondary to small vessel disease. Fluid within the sinuses/ mastoids is not seen. IMPRESSION: No acute intracranial abnormality is seen. If patient's symptoms persist MRI of the bra in would be recommended.
--- NOTE | 2019-01-14 14:06 | RAD REPORT ---
EXAM DESCRIPTION: Huy Single View01/14/2019 1:34 pm CLINICAL HISTORY: COPD COMPARISON: December 2018 FINDINGS: Lungs are hyperaerated The lungs appear clear of acute infiltrate. The heart is mildly enlarged. IMPRESSION: No acute abnormalities displayed
--- NOTE | 2019-01-14 14:35 | RAD REPORT ---
EXAM DESCRIPTION: JOSENeck Angio01/14/2019 2:04 pm CLINICAL HISTORY: Syncope COMPARISON: None TECHNIQUE: 50 cc Isovue 370 was administered intravenously. 3D MIP reconstruction performed All CT scans are performed using dose optimization technique as appropriate and may include automated exposure control or mA/KV adjustment according to patient size. FINDINGS: The aortic arch, very proximal common carotid and proximal vertebral arteries are not inc luded in the field of view and are not evaluated. Mild plaque is present within the visualized common carotid, internal carotid and external carotid a rteries. The vertebral arteries are codominant without visualization of an abnormality. IMPRESSION: Mild plaque the within carotid arteries Very proximal common carotid and vertebral arteries were not evaluated on this exam NASCET criteria used. Mild 0-49% stenosis Moderate 50-69% stenosis Severe 70-99% stenosis
[2019-01-14] MEDS ORDERED: DIAZEPAM 10 MG/2 ML INJ SYRINGE ONE (14:39)
--- NOTE | 2019-01-14 14:39 | RAD REPORT ---
EXAM DESCRIPTION: CTHead angio01/14/2019 2:07 pm CLINICAL HISTORY: syncope COMPARISON: None TECHNIQUE: CT angiogram of the head was obtained. 3D MIPS reconstruction performed. All CT scans are performed using dose optimization technique as appropriate and may include automated exposure control or mA/KV adjustment according to patient size. FINDINGS: The basilar, internal carotid, anterior cerebral, middle cerebral and posterior cerebral a rteries are normal caliber. An aneurysm is not seen. A significant stenosis is not noted. IMPRESSION: Unremarkable CT angiogram head.
--- NOTE | 2019-01-14 15:08 | EDPHYS ---
Physician Documentation [facility] Name: Zen Bledsoe Jr Age: 78 yrs Sex: Male : 1940 Arrival Date: 01/14/2019 Time: 12:43 Bed 19 Private MD: ED Physician Chuy Carrington HPI: 01/14 13:39 This 78 yrs old Male presents to ER via EMS with complaints of General jmm Weakness, Nausea, Dizziness. 13:39 The patient presents with dizziness, sense of spinning. Onset: The symptoms/episode jmm began/occurred acutely, 2 day(s) ago. Modifying factors: The symptoms are alleviated by lying down, the symptoms are aggravated by movement of head, standing up, changing position. This is a 78 year old male with a history of PE, asthma that presents to the ED with complaints of dizziness, vomiting and nausea beginning 2 days ago. Symptoms were acute, patient is been in bed since due to exacerbating symptoms. Denies abdominal pain. Has not had an episode like this before. Recently diagnosed with PE and is taking anticoagulants. . Historical: - Allergies: 12:43 BACLOFEN; aa5 12:43 Bactrim; aa5 12:43 Codeine; aa5 12:43 HYDROCODONE; aa5 12:43 Iodine; aa5 12:43 Sulfa (Sulfonamide Antibiotics); aa5 - Home Meds: 12:56 midodrine 10 mg oral tab 3 times per day [Active]; gabapentin 400 mg oral cap 3 times aa5 per day [Active]; pantoprazole 40 mg oral TbEC once daily [Active]; dicyclomine 20 mg Oral tab 3 times per day [Active]; Xarelto 15 mg oral tab twice a day [Active]; Prednisolone 10mg Oral once daily [Active]; simvastatin 40 mg Oral tab once daily [Active]; duloxetine 60 mg oral cpDR once daily [Active]; montelukast 10 mg oral tab once daily [Active]; ranitidine HCl 300 mg Oral cap once daily [Active]; metoprolol tartrate 12.5mg Oral tab once daily [Active]; Spiriva with HandiHaler 18 mcg inhalation CpDv 1 cap once daily [Active]; Dilaudid pain pump [Active]; tramadol PRN [Active]; ondansetron PRN [Active]; promethazine PRN [Active]; hyoscyamine PRN [Active]; colestipol oral oral [Active]; - PMHx: 12:43 Angina; Arthritis; Asthma; bladder failure; bowel obstruction; BPH; cardiac stents; aa5 chronic back pain; COPD; ESSENTIAL TREMORS; gastritis; GERD; Hypertension; watermaster domínguez; neurogenic orthogenic hypertension; neuropathy; O2 at home; osteoarthritis; Seizures; Sleep Apnea; urticaria vasculitis; 12:56 PE; aa5 - PSHx: 12:56 Tonsillectomy; right knee; Appendectomy; Cystoscopy/bladder hydrodistention and aa5 transurethral incision of prostate w/holmium YAG laser; right hip replacement; L3, L4 laminectomy; neuro stimulator; Heart stents; Dilaudid pain pump; C2-C7 fusion with titanium bar; Polyps removed from colon; Deviated septum repair; Vasectomy; Bowel resection; - Ebola Screening: : No symptoms or risks identified at this time. ROS: 13:39 Constitutional: Negative for fever, chills, and weight loss, Cardiovascular: Negative jmm for chest pain, palpitations, and edema, Respiratory: Negative for shortness of breath, cough, wheezing, and pleuritic chest pain. 13:39 Abdomen/GI: Positive for vomiting. 13:39 Neuro: Positive for dizziness. 13:39 All other systems are negative. Exam: 13:39 Constitutional: This is a well developed, well nourished patient who is awake, alert, jmm and in no acute distress. Head/Face: atraumatic. 13:39 ENT: Moist Mucus Membranes Neck: Trachea midline, Supple Chest/axilla: Normal chest wall appearance and motion. Cardiovascular: Regular rate and rhythm. No edema appreciated Respiratory: Normal respirations, no respiratory distress appreciated Abdomen/GI: Non distended, soft 13:39 Eyes: Extraocular movements: no acute changes, Nystagmus: nystagmus with fast component noted, bilaterally. 13:39 Abdomen/GI: Inspection: abdomen appears normal, Bowel sounds: normal, Palpation: abdomen is soft and non-tender, in all quadrants. 13:39 Musculoskeletal/extremity: ROM: intact in all extremities. 13:39 Skin: Appearance: Color: normal in color. 13:39 Neuro: Orientation: is normal, Mentation: is normal, Memory: is normal. 13:39 Neuro: Cerebellar function: normal finger to nose testing. 13:39 Psych: Behavior/mood is pleasant, cooperative. Vital Signs: 12:44 BP 159 / 76; Pulse 95; Resp 18 S; Temp 98.3(O); Pulse Ox 90% on 4 lpm NC; aa5 14:47 BP 145 / 73; Pulse 79; Resp 18; Pulse Ox 98% on R/A; Pain 2/10; em 15:33 BP 122 / 79; Pulse 80; Resp 18; Pulse Ox 100% on R/A; em MDM: 12:44 Patient medically screened. rn 15:04 Data reviewed: vital signs, nurses notes. Counseling: I had a detailed discussion with [facility] the patient and/or guardian regarding: the historical points, exam findings, and any diagnostic results supporting the discharge/admit diagnosis, lab results, radiology results, the need for further work-up and treatment in the hospital. ED course: I discussed the patient with Dr. Galeana whom accepted admission. . 01/14 12:48 Order name: Basic Metabolic Panel; Complete Time: 13:34 [facility] 01/14 12:48 Order name: CBC with Diff; Complete Time: 13:34 [facility] 01/14 12:48 Order name: LFT's; Complete Time: 13:34 [facility] 01/14 12:48 Order name: Magnesium; Complete Time: 13:34 [facility] 01/14 12:48 Order name: NT PRO-BNP; Complete Time: 13:34 [facility] 01/14 12:48 Order name: PT-INR; Complete Time: 13:34 [facility] 01/14 12:48 Order name: Troponin (emerg Dept Use Only); Complete Time: 13:34 [facility] 01/14 12:48 Order name: XRAY Chest (1 view); Complete Time: 14:37 [facility] 01/14 12:48 Order name: CT Head Brain wo Cont; Complete Time: 14:37 [facility] 01/14 12:48 Order name: CT Head Angio; Complete Time: 14:44 [facility] 01/14 12:48 Order name: CT Neck Angio; Complete Time: 14:44 [facility] 01/14 14:59 Order name: CT Chest Wo Con; Complete Time: 15:49 [facility] 01/14 12:48 Order name: EKG; Complete Time: 12:49 [facility] 01/14 12:48 Order name: Cardiac monitoring; Complete Time: 13:04 [facility] 01/14 12:48 Order name: EKG - Nurse/Tech; Complete Time: 13:04 [facility] 01/14 12:48 Order name: IV Saline Lock; Complete Time: 13: [facility] 01/14 12:48 Order name: Labs collected and sent; Complete Time: 13:04 [facility] 01/14 12:48 Order name: O2 Per Protocol; Complete Time: 13: [facility] 01/14 12:48 Order name: O2 Sat Monitoring; Complete Time: 13: [facility] 01/14 14:59 Order name: EKG - Nurse/Tech; Complete Time: 15:03 [facility] Administered Medications: 12:52 Drug: Zofran 4 mg Route: IVP; Site: left antecubital; aa5 13:30 Follow up: Response: No adverse reaction; Nausea is decreased em 13:15 Drug: Meclizine 25 mg Route: PO; em 15:14 Follow up: Response: No adverse reaction; Marked relief of symptoms em 14:52 Drug: Valium 2 mg Route: IVP; Site: left antecubital; aa5 16:20 Follow up: Response: No adverse reaction; Marked relief of symptoms em 16:20 Drug: Tylenol 650 mg Route: PO; em Disposition: 17:19 Co-signature as Attending Physician, Chuy Carrington MD. rn Disposition: 01/14/19 15:06 Hospitalization ordered by Ramon Galeana for Inpatient Admission. Preliminary diagnosis are Chest pain, unspecified, Vertigo. - Bed requested for Telemetry/MedSurg (Inpatient). - Status is Inpatient Admission. em - Condition is Stable. - Problem is new. - Symptoms have improved. UTI on Admission? Yes Signatures: Dispatcher [employer] EDMS Nahun Tong PA PA jmm Sadi, Kp, KEYSEATING MACHINE SET UP OPERATOR KEYSEATING MACHINE SET UP OPERATOR Chuy Monsalve MD MD rn Calderon, Audri, RN RN aa5 Leonie Espinosa Corrections: (The following items were deleted from the chart) 15:11 15:06 Hospitalization Ordered by Ramon Galeana MD for Inpatient Admission. Preliminary gm diagnosis is Chest pain, unspecified; Vertigo. Bed requested for Telemetry/MedSurg (Inpatient). Status is Inpatient Admission. Condition is Stable. Problem is new. Symptoms have improved. UTI on Admission? Yes. [facility] 16:00 15:11 01/14/2019 15:06 Hospitalization Ordered by A Kervin JACOBS for Inpatient Admission. gm Preliminary diagnosis is Chest pain, unspecified; Vertigo. Bed requested for Telemetry/MedSurg (Inpatient). Status is Inpatient Admission. Condition is Stable. Problem is new. Symptoms have improved. UTI on Admission? Yes. 17:04 16:00 01/14/2019 15:06 Hospitalization Ordered by A Kervin JACOBS for Inpatient Admission. em Preliminary diagnosis is Chest pain, unspecified; Vertigo. Bed requested for Telemetry/MedSurg (Inpatient). Status is Inpatient Admission. Condition is Stable. Problem is new. Symptoms have improved. UTI on Admission? Yes.
--- NOTE | 2019-01-14 15:08 | ER ---
Nurse's Notes [facility] Name: Zen Bledsoe Jr Age: 78 yrs Sex: Male : 1940 Arrival Date: 01/14/2019 Time: 12:43 Bed 19 Private MD: Diagnosis: Chest pain, unspecified;Vertigo Presentation: 01/14 12:43 Presenting complaint: EMS states: nausea, dizziness, and generalized weakness that aa5 began 2 days ago. Pt denies vomiting. Pt's also reports pt finished antibiotics for cystitis last night. Pt's states "he also has a blood clot in his lungs so they gave him Xarelto last time he was here back on December 21". Transition of care: patient was not received from another setting of care. Onset of symptoms was January 2019. Risk Assessment: Do you want to hurt yourself or someone else? Patient reports no desire to harm self or others. Initial Sepsis Screen: Does the patient meet any 2 criteria? HR > 90 bpm. Does the patient have a suspected source of infection? Yes: Other: Recent Cystitis. Care prior to arrival: Medication(s) given: zofran 4 mg, Toradol 30mg IVP IV initiated. 20 GA, in the left antecubital area. 12:43 Acuity: KARY 3 aa5 12:43 Method Of Arrival: EMS: [facility] aa5 Historical: - Allergies: 12:43 BACLOFEN; aa5 12:43 Bactrim; aa5 12:43 Codeine; aa5 12:43 HYDROCODONE; aa5 12:43 Iodine; aa5 12:43 Sulfa (Sulfonamide Antibiotics); aa5 - Home Meds: 12:56 midodrine 10 mg oral tab 3 times per day [Active]; gabapentin 400 mg oral cap 3 times aa5 per day [Active]; pantoprazole 40 mg oral TbEC once daily [Active]; dicyclomine 20 mg Oral tab 3 times per day [Active]; Xarelto 15 mg oral tab twice a day [Active]; Prednisolone 10mg Oral once daily [Active]; simvastatin 40 mg Oral tab once daily [Active]; duloxetine 60 mg oral cpDR once daily [Active]; montelukast 10 mg oral tab once daily [Active]; ranitidine HCl 300 mg Oral cap once daily [Active]; metoprolol tartrate 12.5mg Oral tab once daily [Active]; Spiriva with HandiHaler 18 mcg inhalation CpDv 1 cap once daily [Active]; Dilaudid pain pump [Active]; tramadol PRN [Active]; ondansetron PRN [Active]; promethazine PRN [Active]; hyoscyamine PRN [Active]; colestipol oral oral [Active]; - PMHx: 12:43 Angina; Arthritis; Asthma; bladder failure; bowel obstruction; BPH; cardiac stents; aa5 chronic back pain; COPD; ESSENTIAL TREMORS; gastritis; GERD; Hypertension; halfway domínguez; neurogenic orthogenic hypertension; neuropathy; O2 at home; osteoarthritis; Seizures; Sleep Apnea; urticaria vasculitis; 12:56 PE; aa5 - PSHx: 12:56 Tonsillectomy; right knee; Appendectomy; Cystoscopy/bladder hydrodistention and aa5 transurethral incision of prostate w/holmium YAG laser; right hip replacement; L3, L4 laminectomy; neuro stimulator; Heart stents; Dilaudid pain pump; C2-C7 fusion with titanium bar; Polyps removed from colon; Deviated septum repair; Vasectomy; Bowel resection; - Ebola Screening: : No symptoms or risks identified at this time. Screenin:44 Abuse screen: Denies threats or abuse. Nutritional screening: No deficits noted. em Tuberculosis screening: No symptoms or risk factors identified. Fall Risk None identified. Assessment: 12:44 General: Appears in no apparent distress. comfortable, Behavior is calm, cooperative, em Denies fever. Pain: Complains of pain in right upper quadrant, left upper quadrant, right lower quadrant and left lower quadrant Pain does not radiate. Pain currently is 8 out of 10 on a pain scale. Quality of pain is described as aching, Pain began 2-3 days ago. Is continuous. Neuro: Level of Consciousness is awake, alert, obeys commands, Oriented to person, place, time, situation, Appropriate for age Joint Cutter Machine are equal bilaterally Moves all extremities. Speech is normal, Facial symmetry appears normal, Reports dizziness, Denies blurred vision headache. Cardiovascular: Reports nausea, Denies chest pain, Capillary refill < 3 seconds Patient's skin is warm and dry. Respiratory: Airway is patent Respiratory effort is even, unlabored, Respiratory pattern is regular, symmetrical, Denies shortness of breath. GI: Reports nausea, Patient currently denies vomiting. : Domínguez in place to gravity drainage Urine is clear, Denies burning with urination. Derm: Skin is intact, is healthy with good turgor, Skin is pink, warm \\T\\ dry. Musculoskeletal: Capillary refill < 3 seconds, Range of motion: intact in all extremities. 12:44 Reassessment: I agree with assessment completed by Kp Avitia LVN . aa5 13:40 Reassessment: pt currently in CT. em 15:02 Reassessment: Patient appears in no apparent distress at this time. Patient and/or em family updated on plan of care and expected duration. Pain level reassessed. reports chest pain/tightness that started 30 minutes ago, provider notified. 15:42 Reassessment: pt reports headache, rates 8/10, provider notified, new medication orders em received. 16:30 Reassessment: Patient appears in no apparent distress at this time. Patient and/or em family updated on plan of care and expected duration. Pain level reassessed. Patient is alert, oriented x 3, equal unlabored respirations, skin warm/dry/pink. Patient states symptoms have not improved. Vital Signs: 12:44 BP 159 / 76; Pulse 95; Resp 18 S; Temp 98.3(O); Pulse Ox 90% on 4 lpm NC; aa5 14:47 BP 145 / 73; Pulse 79; Resp 18; Pulse Ox 98% on R/A; Pain 2/10; em 15:33 BP 122 / 79; Pulse 80; Resp 18; Pulse Ox 100% on R/A; em ED Course: 12:43 Patient arrived in ED. em 12:43 Kp Avitia LVN is Primary Nurse. em 12:43 Arm band placed on Patient placed in an exam room, on a stretcher. aa5 12:44 Chuy Carrington MD is Attending Physician. rn 12:44 Patient has correct armband on for positive identification. Bed in low position. Call em light in reach. Side rails up X2. Adult w/ patient. aircraft life support fitter on. Pulse ox on. NIBP on. Warm blanket given. Pillow given. 12:44 Maintain EMS IV. Dressing intact. Good blood return noted. Site clean \\T\\ dry. Gauge \\T\\ em site: 20 LAC. Oxygen administration via nasal cannula \\T\\ 4L/min. 12:46 Triage completed. aa5 12:47 [facility] m 12:54 Radiology exam delayed due to lab results not completed at this time. (BUN/Creatinine). bq 13:16 X-ray completed. Portable x-ray completed in exam room. Patient tolerated procedure mh1 well. 13:35 XRAY Chest (1 view) In Process Unspecified. EDMS 13:55 No provider procedures requiring assistance completed. Patient did not have IV access em during this emergency room visit. 13:57 CT Head Brain wo Cont In Process Unspecified. EDMS 14:04 CT completed. Patient tolerated procedure well. Patient moved back from CT. mw3 14:04 CT Head Angio In Process Unspecified. EDMS 14:04 CT Neck Angio In Process Unspecified. EDMS 15:05 Ramon Galeana MD is Hospitalizing Provider. jmm 15:17 CT Chest Wo Con In Process Unspecified. EDMS Administered Medications: 12:52 Drug: Zofran 4 mg Route: IVP; Site: left antecubital; aa5 13:30 Follow up: Response: No adverse reaction; Nausea is decreased em 13:15 Drug: Meclizine 25 mg Route: PO; em 15:14 Follow up: Response: No adverse reaction; Marked relief of symptoms em 14:52 Drug: Valium 2 mg Route: IVP; Site: left antecubital; aa5 16:20 Follow up: Response: No adverse reaction; Marked relief of symptoms em 16:20 Drug: Tylenol 650 mg Route: PO; em Outcome: 15:06 Decision to Hospitalize by Provider. jmm 17:04 Patient left the ED. em 18:22 Admitted to Med/surg accompanied by tech, family with patient, via stretcher, room 404, em with oxygen, with chart, Report called to MADELINE Cuevas 18:22 Condition: good 18:22 Instructed on the need for admit, Demonstrated understanding of instructions. Signatures: Dispatcher [employer] EDMS Nahun Tong PA [facility] Bonnie Christianson 1 QuRenetta mederos bq Sadi, Kp, LANGUAGE ARTS TEACHER LANGUAGE ARTS TEACHER em Chuy Carrington MD MD rn Calderon, Audri, RN RN aa5 Skye Christiansen mw3 Corrections: (The following items were deleted from the chart) 13:55 Discharged to home ambulatory, with family, em em 13:55 Condition: good em em 13:55 Discharge instructions given to patient, family, Instructed on discharge em instructions, follow up and referral plans. medication usage, Demonstrated understanding of instructions, follow-up care, medications, Prescriptions given X 2, em 19: 12:44 Pain: Complains of pain in abdomen em aa5 19: 12:44 Neuro: Level of Consciousness is awake, alert, obeys commands, Oriented to aa5 person, place, time, situation, Appropriate for age Reports dizziness, Denies blurred vision headache em
[2019-01-14] MEDS ORDERED: ACETAMINOPHEN 500 MG TAB PO PRN (15:19)
[2019-01-14] MEDS ORDERED: ONDANSETRON 4 MG/2 ML VIAL IV PRN (15:19)
--- NOTE | 2019-01-14 15:46 | RAD REPORT ---
EXAM DESCRIPTION: CT - Thorax Wo Con - 01/14/2019 3:17 pm CLINICAL HISTORY: Chest pain COMPARISON: December 2018 TECHNIQUE: Computed axial tomography of the chest was obtained. Contrast was not requested. All CT scans are performed using dose optimization technique as appropriate and may include automated exposure control or mA/KV adjustment according to patient size. FINDINGS: The evaluation of mediastinum, lincoln and vessels is limited secondary to lack of IV contras t administration. Mild left lower lobe opacities. Mild improvement in a mild right lower lobe opacities No mediastinal or hilar lymphadenopathy is seen. A pleural effusion is not present. No pericardial effusion IMPRESSION: Development of mild left lower lobe opacities. Mild improvement in right lower lobe opac ities. These probably represent pneumonia
[2019-01-14] MEDS ORDERED: ACETAMINOPHEN 325 MG TABLET ONE (15:49)
[2019-01-14 17:02] VITALS: BMI 25.9
[2019-01-14] MEDS ORDERED: ONDANSETRON 4 MG (ODT) TAB PO PRN (19:12)
[2019-01-14] MEDS ORDERED: PROMETHAZINE 25 MG TABLET PO PRN (19:12)
[2019-01-14] MEDS ORDERED: COLESTIPOL 1 GM TAB PO PRN (19:12)
[2019-01-14] MEDS ORDERED: HYOSCYAMINE SULF 0.125 MG TAB PO PRN (19:12)
[2019-01-14 19:38] LABS: Urine Appearance CLEAR; Urine Bilirubin NEGATIVE (NEG); Urine Blood 2+ (NEG); Urine Color YELLOW; Urine Glucose NEGATIVE (NEG); Urine Protein TRACE (NEG); Urine Specific Gravity >=1.030 (1.005-1.030); Urine Urobilinogen 0.2 mg/dL (0.2-1.0); Urine pH 6.5 (5.0-7.0)
[2019-01-14 19:39] LABS: Urine Microscopic Reflex ORDER UMIC
[2019-01-14 19:59] LABS: Urine Bacteria <20 /HPF (NONE SEEN); Urine Culture Reflex Order REFLEXED; Urine RBC <5 /HPF (NONE SEEN)
[2019-01-14] MEDS: ALBUTEROL 2.5 MG/3 ML NEB SOL NEB SCH (20:00)
[2019-01-14] MEDS: IPRATROPIUM BROM 0.5MG/2.5ML NEB SCH (20:00)
[2019-01-14] MEDS: RIVAROXABAN 15 MG TABLET PO SCH (20:27)
[2019-01-14] MEDS: TRAMADOL HCL 50 MG TAB PO PRN (20:27)
[2019-01-14] MEDS: QUETIAPINE 25 MG TAB PO SCH (20:27)
[2019-01-14] MEDS: GABAPENTIN 400 MG CAP PO SCH (20:27)
[2019-01-14] MEDS ORDERED: HOME MED 1 EA UNK (Dicyclomine Hcl [Dicyclomine Hcl] 20 MG) PO SCH (21:00)
[2019-01-14] MEDS ORDERED: HOME MED 1 EA UNK (Midodrine Hcl [Midodrine Hcl] 10 MG) PO SCH (21:00)
[2019-01-15] MEDS: ALBUTEROL 2.5 MG/3 ML NEB SOL NEB SCH ×4 (02:00→19:55)
[2019-01-15] MEDS: IPRATROPIUM BROM 0.5MG/2.5ML NEB SCH ×4 (02:00→19:55)
[2019-01-15 06:13] LABS: Absolute Lymphocytes (CBC) 1.1 K/uL (0.7-4.9); Basophils % 0.2 % (0-1.3); Hematocrit 32.2 % (39.6-49.0); Lymphocytes % 13.8 % (15.3-44.8); MPV 6.8 fL (7.6-11.3); RBC Red Blood Cell Count 3.58 M/uL (4.33-5.43)
[2019-01-15 06:15] LABS: Potassium 4.5 mmol/L (3.5-5.1)
--- NOTE | 2019-01-15 06:16 | EKG ---
Test Date: 2019-01-14 Test Time: 13:10:03 Supervisor Fertilizer: QUIRINO MEASUREMENT RESULTS: Intervals: Rate: 81 NJ: 202 QRSD: 140 QT: 404 QTc: 469 Hutchinson: P: 72 NJ: 202 QRS: -17 T: 40 INTERPRETIVE STATEMENTS: Sinus rhythm with premature atrial complexes Right bundle branch block Possible Inferior infarct, age undetermined Abnormal ECG Compared to ECG 12/31/2018 12:41:34 Sinus tachycardia no longer present First degree AV block no longer present Myocardial infarct finding still present Electronically Signed On 01-15-19 06:15:41 CDT by Sukhi Castro
[2019-01-15] MEDS ORDERED: INFLUENZA VACCINE (for 3y+) 0.5 ML DOSE IMVAC ONE (08:00)
[2019-01-15] MEDS: MONTELUKAST 10 MG TAB PO SCH (08:36)
[2019-01-15] MEDS: levoFLOXacin 500 MG TAB PO SCH (08:36)
[2019-01-15] MEDS: METOPROLOL XL 25 MG TAB PO SCH (08:37)
[2019-01-15] MEDS: PANTOPRAZOLE 40MG TABLET PO SCH (08:37)
[2019-01-15] MEDS: predniSONE 5 MG TAB PO SCH (08:37)
[2019-01-15] MEDS: DULOXETINE 30 MG CAP PO SCH (08:37)
[2019-01-15] MEDS: GABAPENTIN 400 MG CAP PO SCH ×3 (08:37→20:32)
[2019-01-15] MEDS: RANITIDINE 150 MG TABLET PO SCH (08:37)
[2019-01-15] MEDS: RIVAROXABAN 15 MG TABLET PO SCH ×2 (08:38→20:32)
[2019-01-15] MEDS: DICYCLOMINE HCL 10 MG CAP PO SCH ×3 (08:39→20:31)
[2019-01-15] MEDS: MIDODRINE HCL 5 MG TABLET PO SCH ×3 (08:40→20:32)
[2019-01-15] MEDS ORDERED: ASPIRIN EC 81 MG TAB PO SCH (09:00)
[2019-01-15] MEDS ORDERED: TIOTROPIUM 5 SPRAYS/INHALER IH SCH (09:00)
--- NOTE | 2019-01-15 20:17 | HP ---
Date of Admission: 01/14/2019 Chief Complaint: Dizziness and chest pain. History Of Present Illness: This is a 78-year-old male who has multiple comorbidities, [facility], came into the emergency room with complaints of severe dizziness and some frankie st pain. Patient describes his dizziness as room spinning around every time he tries to get up. He has difficulty getting up and difficulty ambulating because of the severe dizziness. He is also havi ng some headache associated with dizziness. No head injury. No vomiting. He is also reporting some vague chest pain in the center of the chest. No other associated symptoms with the chest pain. No aggravating or relieving factor. He has chronic problem with cough, congestion, coughing up some muc us which is sometimes clear and sometimes yellow to green in color and this has not changed lately. After he was evaluated in the ER, he was admitted to the hospital. When I saw him this morning he st ill had lot of dizziness to the extent that he had even trouble sitting up in the bed with assistance . Medications: List reviewed. Allergies: TO SULFA, HYDROCODONE, CODEINE, BACLOFEN. Review of Systems: SALES CONTRACT ADMINISTRATOR: As mentioned above. Cardiovascular: As mentioned above. Respiratory: As mentioned above. All other systems reviewed and negative. Social History: Negative for smoking or alcohol use. Family History: Significant for cancer of esophagus and hypertension. Past Surgical History: Significant for appendectomy, tonsillectomy, back surgery, vasectomy, arthros copic knee surgery, cervical spine fusion, right-sided hemicolectomy due to colon polyps, and surgery for deviated nasal septum. Past Medical History: Significant for COPD, neurogenic bladder, has an indwelling Rocha catheter sec ondary to that, orthostatic hypotension, hyperlipidemia, chronic fatigue, gastroesophageal reflux dis ease, hypertension, anemia, peripheral neuropathy, bronchiectasis, recurrent pneumonia, and recently diagnosed as having pulmonary embolism on 01/01/2019 with superficial thrombophlebitis of leg. Physical Examination: Vital Signs: This morning temperature 97.9, pulse 73, respiratory rate 18, blood pressure 132/73, ox ygen saturation 95%. Height 5 feet 11 inches, weight 186 pounds. General: Awake, alert, oriented, not in distress. HEENT: Head atraumatic, normocephalic. Conjunctivae nonerythematous. Sclerae white. Mouth, no thr ush or edema noted. Ears/Nose, no mass, lesion, discharge noted. Neck: Supple. No JVD, lymph nodes, bruit, thyromegaly noted. Lungs: Presence of bilateral lower lobe rhonchi and crackles, not in any respiratory distress. Heart: Normal heart sounds, no murmur or gallop. Abdomen: Soft, bowel sounds normal. No guarding, rigidity, tenderness, mass, hepatosplenomegaly, dis tention, or bruit noted. Extremities: No leg edema. No calf tenderness. Skin: No rash, ulcer, cellulitis. Lymphatics: No lymph node enlargement in neck, supraclavicular, infraclavicular region. Neuro: No focal neurological deficit. Chest: Unremarkable. External Genitalia: Deferred. Rectal: Deferred. Laboratory Data: Yesterday white count 11.2, hemoglobin 11.8, platelets 285. This morning white cou nt 8.3, hemoglobin 11.2, platelets 282. Yesterday, sodium 142, potassium 4, chloride 102, bicarb 33, BUN 12, creatinine 0.91 glucose 111. Liver function tests unremarkable. Troponin less than 0.02 x 3. This morning sodium 141, potassium 4.5, chloride 104m bicarb 32, BUN 17, creatinine 0.96, glucose 105. INR 2.82. Urinalysis done in the emergency room, nitrite positive, 1+ leukocyte esterase, ana cristina teria less than 20, and it is important to keep in mind that patient has an indwelling Rocha catheter , he does not exhibit any symptoms of urinary tract infection and his urinalysis always will look abn ormal, so we should not label this as a urinary tract infection. Chest x-ray; no acute cardiopulmonary changes. Electrocardiogram; no acute ST-T changes. CAT scan o f the head was negative for any acute intracranial changes. CT angiogram of head was unremarkable. CT angiogram of neck does not show any significant carotid artery stenosis. CAT scan of the chest do ne in the ER shows development of mild left lower lobe opacities, mild improvement in right lower lob e opacities. Impression: 1.Recurrent pneumonia. 2.Rule out aspiration pneumonia. 3.Dizziness. 4.Chest pain. 5.Chronic obstructive pulmonary disease. 6.Bronchiectasis. 7.Pulmonary embolism. 8.Neurogenic bladder, with indwelling Rocha catheter. 9.Orthostatic hypotension. 10.Hyperlipidemia. 11.Chronic fatigue. 12.Gastroesophageal reflux disease. 13.Hypertension. 14.Anemia. 15.Peripheral neuropathy. Plan: We will go ahead and admit him to the hospital for further evaluation of this problem. Chan gardner is appropriate for inpatient and is expected to spend 2 midnights in hospital. We will continue ho me medications per order, give nebulizer treatment per order. Continue antibiotics per order. We wi ll order MRI of the brain tomorrow and also we will get a speech therapy consultation and modified ba rium swallow. Depending on results of this test, we will decide about further plan of treatment. De tails were discussed with the patient. We will continue Xarelto 50 mg twice a day. JERAD/DOMINICK Voice ID: [id number]
[2019-01-15] MEDS: ATORVASTATIN 20 MG TAB PO SCH (20:31)
[2019-01-15] MEDS: QUETIAPINE 25 MG TAB PO SCH (20:32)
[2019-01-16] MEDS: IPRATROPIUM BROM 0.5MG/2.5ML NEB SCH ×4 (02:15→19:40)
[2019-01-16] MEDS: ALBUTEROL 2.5 MG/3 ML NEB SOL NEB SCH ×4 (02:15→19:40)
[2019-01-16] MEDS: RIVAROXABAN 15 MG TABLET PO SCH ×2 (09:03→20:04)
[2019-01-16] MEDS: MONTELUKAST 10 MG TAB PO SCH (09:04)
[2019-01-16] MEDS: DULOXETINE 30 MG CAP PO SCH (09:04)
[2019-01-16] MEDS: predniSONE 5 MG TAB PO SCH (09:04)
[2019-01-16] MEDS: GABAPENTIN 400 MG CAP PO SCH ×3 (09:04→20:05)
[2019-01-16] MEDS: RANITIDINE 150 MG TABLET PO SCH (09:04)
[2019-01-16] MEDS: PANTOPRAZOLE 40MG TABLET PO SCH (09:04)
[2019-01-16] MEDS: levoFLOXacin 500 MG TAB PO SCH (09:05)
[2019-01-16] MEDS: MIDODRINE HCL 5 MG TABLET PO SCH ×3 (09:05→20:05)
[2019-01-16] MEDS: METOPROLOL XL 25 MG TAB PO SCH (09:05)
[2019-01-16] MEDS: MUPIROCIN 2% OINT 22GM TUBE TOP SCH ×2 (09:05→20:06)
[2019-01-16] MEDS: DICYCLOMINE HCL 10 MG CAP PO SCH ×3 (09:05→20:04)
--- NOTE | 2019-01-16 09:52 | EKG ---
Test Date: 2019-01-15 Test Time: 06:12:13 Coconut Candy Maker: MABLE MEASUREMENT RESULTS: Intervals: Rate: 66 MN: 228 QRSD: 142 QT: 432 QTc: 452 Corning: P: 64 MN: 228 QRS: -4 T: 27 INTERPRETIVE STATEMENTS: Sinus rhythm with sinus arrhythmia with 1st degree AV block Right bundle branch block Abnormal ECG Compared to ECG 01/14/2019 13:10:03 First degree AV block now present Atrial premature complex(es) no longer present Myocardial infarct finding no longer present Electronically Signed On 01-16-19 09:52:00 CDT by Sukhi Castro
--- NOTE | 2019-01-16 10:56 | RAD REPORT ---
EXAM DESCRIPTION: RAD - Barium Swallow Modified - 01/16/2019 10:49 am CLINICAL HISTORY: recurrent pneumonia, r/o aspiration COMPARISON: No comparisons TECHNIQUE: The patient was given liquid, semi-solid and solid forms of barium. Lateral view fluorosc opic imaging was performed in conjunction with speech pathology service. FINDINGS: Laryngeal penetration; not cleared Aspiration: No cough with thin and nectar Pharyngeal residue: Severe Vallecular, Severe pyriform, Severe with puree mild coating with all othe r consistencies in posterior wall. severe narrowing / strictures in upper to lower esophagus, mild to moderate retention, more than 60 s ec. after swallow. 1-3 sec swallow delay. Total fluoroscopy time: 5 minutes and 58 seconds
--- NOTE | 2019-01-16 15:38 | RAD REPORT ---
EXAM DESCRIPTION: MRI - Brain Wo Cont - 01/16/2019 3:14 pm CLINICAL HISTORY: dizziness Headache, drowsiness COMPARISON: Head angio dated 01/14/2019 TECHNIQUE: Multi-sequence, multiplanar MR imaging of the brain was performed without contrast. FINDINGS: No intracranial hemorrhage, hydrocephalus or extra-axial fluid collections.Moderate conflu ent T2/FLAIR hyperintensity in the periventricular and deep white matter is present compatible with c hronic microvascular ischemic changes. No edema or shift of midline structures. No findings to suspec t brain mass. DWI is negative for acute CVA. Midline structures are normally formed. Mastoid air cells and paranasal sinuses are clear. IMPRESSION: Negative for acute CVA or other acute intracranial process.
[2019-01-16] MEDS: ATORVASTATIN 20 MG TAB PO SCH (20:04)
[2019-01-16] MEDS: QUETIAPINE 25 MG TAB PO SCH (20:05)
[2019-01-16] MEDS: TRAMADOL HCL 50 MG TAB PO PRN (20:05)
--- NOTE | 2019-01-17 00:11 | PN ---
Date of Progress Note: 01/16/2019 Subjective: Patient was seen this morning for followup. He was lying in bed, not in distress, still having dizziness, but it was better today than yesterday. No other new complaints reported. Objective: Vital Signs: Reviewed. HEENT: Examination unremarkable. Lungs: Bilateral good equal air entry. Presence of some basal rales, not in respiratory distress. Heart: Sounds normal. Abdomen: Soft. Bowel sounds normal. No guarding, rigidity, tenderness, or distention. Extremities: No leg edema. Impression: 1.Recurrent pneumonia, rule out aspiration. 2.Dizziness, rule out stroke. 3.Chronic obstructive pulmonary disease. 4.Bronchiectasis. 5.Peripheral neuropathy. 6.Orthostatic hypotension. 7.Neurogenic bladder with indwelling Rocha catheter. Plan: Modified barium swallow and speech therapy consult were ordered. MRI of the brain was ordered without contrast. Patient has a pain pump and with that in mind his pain management physician was c ontacted prior to doing the MRI and he said to contact and service clerks supervisor for the [employer] that has provid ed this pain pump and artist's representative to come by to the hospital to turn the pain pump back on after t he MRI is done as doing an MRI in presence of such pain pump would turn the pain pump off and that ne eds to be coordinated, so nurse will coordinate that and will do MRI at appropriate time, either toda y or tomorrow. After that, our plan is to discharge depending on the test results. Overall his cond ition is deteriorating with underlying COPD, orthostatic hypotension, peripheral neuropathy, and mult iple comorbidities. He lives at home with his and both of them seem to have difficulties handli ng his medical problems and medications. Patient tends to forget to take his medications in timely m julio and tends to forget as well. Sometimes patient drops his medications from his hands, so w e are concerned that he may not be taking medications on a regular basis as prescribed. He needs ass istance with several different activities of daily life, for example he needs hands-on assistance wit h dressing, continent care, and toileting and also needs hands-on assistance with mobility and ambula tion. He uses a walker as well. He needs standby assistance with transfer and bathing. All this in formation about activities of daily life and level of assistance, detail information was obtained by communicating with the patient's daughter and . JERAD/MODL Voice ID: [id number] Report ID: [id number]
[2019-01-17] MEDS: ALBUTEROL 2.5 MG/3 ML NEB SOL NEB SCH ×3 (01:40→14:25)
[2019-01-17] MEDS: IPRATROPIUM BROM 0.5MG/2.5ML NEB SCH ×3 (01:40→14:25)
[2019-01-17] MEDS ORDERED: MAGNESIUM HYDROXIDE 8% 30 ML PO ONE (06:45)
[2019-01-17] MEDS: DICYCLOMINE HCL 10 MG CAP PO SCH ×2 (08:47→13:50)
[2019-01-17] MEDS: DULOXETINE 30 MG CAP PO SCH (08:47)
[2019-01-17] MEDS: levoFLOXacin 500 MG TAB PO SCH (08:47)
[2019-01-17] MEDS: RANITIDINE 150 MG TABLET PO SCH (08:48)
[2019-01-17] MEDS: MONTELUKAST 10 MG TAB PO SCH (08:48)
[2019-01-17] MEDS: predniSONE 5 MG TAB PO SCH (08:48)
[2019-01-17] MEDS: PANTOPRAZOLE 40MG TABLET PO SCH (08:48)
[2019-01-17] MEDS: GABAPENTIN 400 MG CAP PO SCH ×2 (08:48→13:50)
[2019-01-17] MEDS: METOPROLOL XL 25 MG TAB PO SCH (08:49)
[2019-01-17] MEDS: MIDODRINE HCL 5 MG TABLET PO SCH ×2 (08:49→13:50)
[2019-01-17] MEDS: RIVAROXABAN 15 MG TABLET PO SCH (08:55)
[2019-01-17] MEDS ORDERED: MECLIZINE HCL 12.5 MG TAB PO SCH (09:00)
[2019-01-17] MEDS ORDERED: INFLUENZA VACCINE (for 3y+) 0.5 ML DOSE IMVAC ONE (10:00)
[2019-01-17] MEDS: MUPIROCIN 2% OINT 22GM TUBE TOP SCH (10:25)
[2019-01-17 15:10] VITALS: O2SAT 96
[2019-01-17 16:52] VITALS: BP 115/78; TEMP 97.7
--- NOTE | 2019-01-18 18:32 | DS ---
Date of Discharge: 01/17/2019 Disposition: Discharged to go home. Physical Examination: HEENT: Unremarkable. Lungs: Clear to auscultation. No rhonchi or rales. Heart: Sounds normal. Abdomen: Soft. Bowel sounds normal. No guarding, rigidity, tenderness, or distention. Extremities: No leg edema. Discharge Medications And Instructions: 1.Continue prior home medication. 2.Levaquin 500 mg daily for 1 week. 3.Follow up at my office in 1-2 weeks. Hospital Course: A 78-year-old male patient admitted to the hospital after he came into emergency ro om with complaints of shortness of breath. Please see dictated H and P for more information. The brenda rogers was admitted with diagnosis of recurrent pneumonia and has underlying COPD as well. He has mul tiple other comorbidities. He was admitted to the hospital. IV antibiotics were given. Home medica tions continued. He uses CPAP regularly for his sleep apnea. Physical therapy was consulted. He lundberg s significant generalized weakness and debility problem that has improved. He also had significant d izziness when he came in. CAT scan of the head was negative for any acute intracranial changes. We did obtain MRI of the brain yesterday, which was negative for any acute stroke. Because of his recur rent pneumonia problem in the right or left lower lobe, I was concerned about possibility of aspirati on, so Speech Therapy was consulted and modified barium swallow was done yesterday and results came b ack abnormal. The speech therapist has recommended specific diet instruction and the patient sees oh s greenhouse technician, Dr. Bennett, as outpatient basis and he was advised to continue to follow up wit h him. Today, I did talk to him about possibility of going to retirement facility, but the chiqui ent and his family decided not to go to such facility, wanted to go home with home health and home ph ysical therapy, so social service was consulted to help make arrangements. The patient's urine cultu re came back positive, but as noted before that we should not consider that as a urinary tract infect ion and we should not treat any urine culture result because he has an indwelling Rocha catheter rao use of neurogenic bladder and anytime we do urinalysis or urine culture in such patient, it is likely to grow some bacteria, but that does not necessarily indicate any infection. I am not even so sure why the ER provider did urinalysis without having any definite signs and symptoms of urinary tract in fection, so we will not treat urine culture results, which was positive. His dizziness has improved over period of this hospitalization. Final Diagnoses: 1.Aspiration pneumonia. 2.Dizziness. 3.Benign positional paroxysmal vertigo. 4.Chronic obstructive pulmonary disease. 5.Neurogenic bladder. 6.Orthostatic hypotension. 7.Generalized weakness. 8.Debility. JERAD/MODL Voice ID: [id number] Report ID: [id number]
== END 2019-01-17 18:43 | disposition home health service (06) | DRG 179 ==
LOC: ER 12:31 → ERHOLD 15:18 → 4TH 16:32
PROVIDERS: ADMIT Internal Medicine; ATTEND Internal Medicine
DX: J69.0 Pneumonitis due to inhalation of food and vomit (principal); H81.10 Benign paroxysmal vertigo, unspecified ear; J44.9 Chronic obstructive pulmonary disease, unspecified; N31.9 Neuromuscular dysfunction of bladder, unspecified; I95.1 Orthostatic hypotension; R53.1 Weakness; R53.81 Other malaise; Z96.0 Presence of urogenital implants; G62.9 Polyneuropathy, unspecified; Z88.2 Allergy status to sulfonamides; Z86.711 Personal history of pulmonary embolism; Z23 Encounter for immunization
CPT/HCPCS: 36415; 70450; 70496; 70498; 70551; 71045; 71250; 74230; 80048; 80076; 81003; 81015; 83735; 83880; 84484; 85025; 85610; 87077; 87086; 87088; 87186; 90471; 92526; 92611; 93005; 94640; 96374; 96375; 99285; J2405; J3360; J7512; J8597; Q0169; Q2035; Q9967

== ENCOUNTER 2019-04-22 12:22 | Emergency (ER) | payer OTHER ==
--- OUTSIDE RECORDS SUMMARY | 2019-04-22 12:25 | XMS REPORT ---
:1940 [facility] Address [address] [place]rade [address] [place] [id number] Care Team Providers Name Role Phone Unavailable Unavailable Unavailable Problems This patient has no known problems. Allergies, Adverse Reactions, Alerts This patient has no known allergies or adverse reactions. Medications This patient has no known medications.
[2019-04-22 13:22] LABS: Urine Blood 3+ (NEG); Urine Glucose NEGATIVE (NEG); Urine Protein 1+ (NEG); Urine Specific Gravity 1.015 (1.005-1.030)
[2019-04-22 13:32] LABS: Urine Bacteria <20 /HPF (NONE SEEN); Urine Culture Reflex Order NOT NEEDED; Urine RBC >50 /HPF (NONE SEEN)
[2019-04-22 13:33] LABS: Absolute Lymphocytes (CBC) 0.7 K/uL (0.7-4.9); Basophils % 0.1 % (0-1.3); Hematocrit 34.1 % (39.6-49.0); Lymphocytes % 6.9 % (15.3-44.8); MPV 6.9 fL (7.6-11.3)
[2019-04-22 13:36] LABS: Protime INR 1.32
[2019-04-22 13:43] LABS: Potassium 4.1 mmol/L (3.5-5.1)
--- NOTE | 2019-04-22 14:21 | EDPHYS ---
Physician Documentation [facility] Name: Zen Bledsoe Jr Age: 79 yrs Sex: Male : 1940 Arrival Date: 04/22/2019 Time: 12:25 Bed 18 Private MD: Ronald Galeana ED Physician Chuy Carrington HPI: 04/22 14:00 This 79 yrs old Male presents to ER via Wheelchair with complaints of Urinary rn Problem. 14:00 The patient presents with scrotal pain, of the right side, with swelling. Onset: The rn symptoms/episode began/occurred 4 month(s) ago. Modifying factors: The symptoms are alleviated by nothing, the symptoms are aggravated by movement, pressure. Severity of symptoms: At their worst the symptoms were moderate, in the emergency department the symptoms are unchanged. The patient has experienced similar episodes in the past. Reports domínguez placement 3 days ago, has had foleys for 6 years, bled day after placement, usually does this, but got worse, now clearing up and stopped today. On blood thinners.. Historical: - Allergies: 12:38 BACLOFEN; sv 12:38 Bactrim; sv 12:38 Codeine; sv 12:38 HYDROCODONE; sv 12:38 Iodine; sv 12:38 Sulfa (Sulfonamide Antibiotics); sv - Home Meds: 12:43 amlodipine 5 mg tab 1 tab once daily [Active]; Aspir-81 81 mg Oral TbEC 1 tab once rb1 daily [Active]; Brovana 15 mcg/2 mL inhalation nebu [Active]; colestipol Oral [Active]; Cymbalta 60 mg Oral cpDR 1 cap once daily [Active]; dicyclomine 20 mg Oral tab 4 times per day [Active]; dilaudid pain pump [Active]; duloxetine 60 mg Oral cpDR once daily [Active]; fluticasone inhalation [Active]; gabapentin 800 mg Oral tab 1 tab 3 times per day [Active]; gabapentin 400 mg Oral cap 3 times per day [Active]; hyoscyamine PRN [Active]; hyoscyamine sulfate 0.125 mg SL subl [Active]; ipratropium-albuterol 0.5 mg-3 mg(2.5 mg base)/3 mL Inhl nebu [Active]; levetiracetam 500 mg Oral tab nightly [Active]; metoprolol tartrate 12.5MG Oral tab once daily [Active]; midodrine 10 mg Oral tab 3 times per day [Active]; montelukast 10 mg Oral tab once daily [Active]; ondansetron PRN [Active]; pantoprazole 40 mg Oral TbEC once daily [Active]; Prednisolone 10mg Oral once daily [Active]; promethazine PRN [Active]; ranitidine HCl 300 mg Oral cap once daily [Active]; simvastatin 40 mg Oral tab once daily [Active]; Singulair 10 mg Oral tab 1 tab once daily [Active]; Spiriva with HandiHaler 18 mcg inhalation CpDv 1 cap once daily [Active]; tramadol PRN [Active]; Xarelto 15 mg Oral tab twice a day [Active]; prednisone 10 mg Oral tab as needed [Active]; ranitidine HCl 300 mg Oral tab 1 tab once daily [Active]; simvastatin 40 mg Oral tab 1 tab once daily [Active]; Toprol XL 25 mg Oral tab 0.5 tab 1/2 in am and 1 at night [Active]; Ventolin HFA 90 mcg/actuation Nebulizer HFAA [Active]; vitamin b12 [Active]; Vitamin C Oral [Active]; Vitamin D3 Oral [Active]; vitamin E Oral [Active]; dicyclomine 20 mg Oral tab 3 times per day [Active]; - PMHx: 12:38 Angina; COPD; urticaria vasculitis; osteoarthritis; bowel obstruction; Arthritis; 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; bladder failure; Seizures; Sleep Apnea; O2 at home; Asthma; BPH; cardiac stents; chronic back pain; ESSENTIAL TREMORS; PE; gastritis; GERD; neuropathy; Hypertension; 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 - Family history:: not pertinent. - Ebola Screening: : Patient negative for fever greater than or equal to 101.5 degrees Fahrenheit, and additional compatible Ebola Virus Disease symptoms. - Hospitalizations: : No recent hospitalization is reported. ROS: 15:02 Constitutional: Negative for fever, chills, and weight loss, Cardiovascular: Negative rn for chest pain, palpitations, and edema, Respiratory: Negative for shortness of breath, cough, wheezing, and pleuritic chest pain, Abdomen/GI: Negative for abdominal pain, nausea, vomiting, diarrhea, and constipation, Back: Negative for injury and pain, : + hematuria MS/Extremity: Negative for injury and deformity, Skin: Negative for injury, rash, and discoloration, Neuro: Negative for headache, weakness, numbness, tingling, and seizure. Exam: 14:00 Constitutional: This is a well developed, well nourished patient who is awake, alert, rn and in no acute distress. Abdomen/GI: soft, non-tender Vital Signs: 12:35 BP 122 / 66; Pulse 66; Resp 20; Temp 98.4; Pulse Ox 89% on 4 lpm NC; Weight 81.65 kg; sv Height 5 ft. 11 in. (180.34 cm); 14:17 BP 120 / 54; Pulse 70; Resp 19; Pulse Ox 100% on R/A; rb1 12:35 Body Mass Index 25.10 (81.65 kg, 180.34 cm) sv MDM: 12:55 Patient medically screened. rn 14:19 Differential diagnosis: UTI, Domínguez catheter problem. Data reviewed: vital signs, nurses rn notes, lab test result(s), and as a result, I will discharge patient. Counseling: I had a detailed discussion with the patient and/or guardian regarding: the historical points, exam findings, and any diagnostic results supporting the discharge/admit diagnosis, lab results, the need for outpatient follow up, to return to the emergency department if symptoms worsen or persist or if there are any questions or concerns that arise at home. Response to treatment: the patient's symptoms have resolved after treatment, the patient's condition has returned to base line, the patient is now symptom free, and as a result, I will discharge patient. Special discussion: I discussed with the patient/guardian in detail that at this point there is no indication for admission to the hospital. It is understood, however, that if the symptoms persist or worsen the patient needs to return immediately for re-evaluation. Based on the history and exam findings, there is no indication for further emergent testing or inpatient evaluation. I discussed with the patient/guardian the need to see the primary care provider for further evaluation of the symptoms. I discussed with the patient/guardian the need to see the urologist for further evaluation of the symptoms. ED course: Urine completely clear after irrigation, + possible UTI, bleeding started day after new domínguez placed and on blood thinner for PE, likely combination led to today's presentation.. 04/22 13:05 Order name: Urine Culture rn 04/22 13:05 Order name: Urine Microscopic Only; Complete Time: 13:48 rn 04/22 13:05 Order name: CBC with Diff; Complete Time: 13:48 rn 04/22 13:05 Order name: Basic Metabolic Panel; Complete Time: 13:48 rn 04/22 13:05 Order name: Protime (+inr); Complete Time: 13:48 04/22 13:05 Order name: Ptt, Activated; Complete Time: 13:48 rn 04/22 13:05 Order name: Bladder Irrigation; Complete Time: 14:13 rn 04/22 13:05 Order name: Urine Dipstick-Ancillary (obtain specimen); Complete Time: 13:12 rn 04/22 13:05 Order name: IV Start; Complete Time: 13:23 rn 04/22 13:14 Order name: Urine Dipstick--Ancillary (enter results); Complete Time: 13:48 ms Administered Medications: No medications were administered Disposition: 04/22/19 14:21 Discharged to Home. Impression: Urinary tract infection, site not specified, Hematuria, unspecified. - Condition is Stable. - Discharge Instructions: Hematuria, Adult, Urinary Tract Infection, Adult. - Prescriptions for Cipro 500 mg Oral Tablet - take 1 tablet by ORAL route every 12 hours for 7 days; 14 tablet. - Medication Reconciliation Form, Thank You Letter, Antibiotic Education, Prescription Opioid Use form. - Follow up: Kiarra Kirby MD; When: As needed; Reason: Recheck today's complaints, Re-evaluation by your physician. - Problem is new. - Symptoms are resolved. Signatures: Dispatcher [employer] EDMS Joan, Ver[place], RN RN sv Carrington, Chuy, MD MD rn Amaral, Michelle, RN RN rb1 Corrections: (The following items were deleted from the chart) 14:47 14:21 04/22/2019 14:21 Discharged to Home. Impression: Urinary tract infection, site rb1 not specified; Hematuria, unspecified. Condition is Stable. Forms are Medication Reconciliation Form, Thank You Letter, Antibiotic Education, Prescription Opioid Use. Follow up: Kiarra Kirby; When: As needed; Reason: Recheck today's complaints, Re-evaluation by your physician. Problem is new. Symptoms are resolved. 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 . rn 15: 14:00 Constitutional: Negative for fever, chills, and weight loss, Eyes: Negative for rn injury, pain, redness, and discharge, Cardiovascular: Negative for chest pain, palpitations, and edema, Respiratory: Negative for shortness of breath, cough, wheezing, and pleuritic chest pain, Abdomen/GI: Negative for abdominal pain, nausea, vomiting, diarrhea, and constipation, : + right scrotal pain and swelling MS/Extremity: Negative for injury and deformity, Skin: Negative for injury, rash, and discoloration, Neuro: Negative for headache, weakness, numbness, tingling, and seizure, rn 15: 14:00 Constitutional: This is a well developed, well nourished patient who is awake, rn alert, and in no acute distress. Abdomen/GI: soft, non-tender Male : + right scrotal swelling with mild tenderness, no erythema or warmth, no evidence of inguinal hernia. rn
--- NOTE | 2019-04-22 14:21 | ER ---
Nurse's Notes [facility] Name: Zen Bledsoe Jr Age: 79 yrs Sex: Male : 1940 Arrival Date: 04/22/2019 Time: 12:25 Bed 18 Private MD: Ronald Galeana Diagnosis: Urinary tract infection, site not specified;Hematuria, unspecified Presentation: 04/22 12:35 Presenting complaint: Patient states: had a domínguez catheter placed and for the past week sv he has had bleeding from it but today the bleeding has improved but the urine is still dark. Dr Galeana told them to come in to be seen. Transition of care: patient was not received from another setting of care. Onset of symptoms was April 2019. Risk Assessment: Do you want to hurt yourself or someone else? Patient reports no desire to harm self or others. Care prior to arrival: None. 12:35 Method Of Arrival: Wheelchair sv 12:35 Acuity: KARY 3 sv 12:43 Initial Sepsis Screen: Does the patient meet any 2 criteria? No. Patient's initial rb1 sepsis screen is negative. Does the patient have a suspected source of infection? No. Patient's initial sepsis screen is negative. Historical: - Allergies: 12:38 BACLOFEN; sv 12:38 Bactrim; sv 12:38 Codeine; sv 12:38 HYDROCODONE; sv 12:38 Iodine; sv 12:38 Sulfa (Sulfonamide Antibiotics); sv - Home Meds: 12:43 amlodipine 5 mg tab 1 tab once daily [Active]; Aspir-81 81 mg Oral TbEC 1 tab once rb1 daily [Active]; Brovana 15 mcg/2 mL inhalation nebu [Active]; colestipol Oral [Active]; Cymbalta 60 mg Oral cpDR 1 cap once daily [Active]; dicyclomine 20 mg Oral tab 4 times per day [Active]; dilaudid pain pump [Active]; duloxetine 60 mg Oral cpDR once daily [Active]; fluticasone inhalation [Active]; gabapentin 800 mg Oral tab 1 tab 3 times per day [Active]; gabapentin 400 mg Oral cap 3 times per day [Active]; hyoscyamine PRN [Active]; hyoscyamine sulfate 0.125 mg SL subl [Active]; ipratropium-albuterol 0.5 mg-3 mg(2.5 mg base)/3 mL Inhl nebu [Active]; levetiracetam 500 mg Oral tab nightly [Active]; metoprolol tartrate 12.5MG Oral tab once daily [Active]; midodrine 10 mg Oral tab 3 times per day [Active]; montelukast 10 mg Oral tab once daily [Active]; ondansetron PRN [Active]; pantoprazole 40 mg Oral TbEC once daily [Active]; Prednisolone 10mg Oral once daily [Active]; promethazine PRN [Active]; ranitidine HCl 300 mg Oral cap once daily [Active]; simvastatin 40 mg Oral tab once daily [Active]; Singulair 10 mg Oral tab 1 tab once daily [Active]; Spiriva with HandiHaler 18 mcg inhalation CpDv 1 cap once daily [Active]; tramadol PRN [Active]; Xarelto 15 mg Oral tab twice a day [Active]; prednisone 10 mg Oral tab as needed [Active]; ranitidine HCl 300 mg Oral tab 1 tab once daily [Active]; simvastatin 40 mg Oral tab 1 tab once daily [Active]; Toprol XL 25 mg Oral tab 0.5 tab 1/2 in am and 1 at night [Active]; Ventolin HFA 90 mcg/actuation Nebulizer HFAA [Active]; vitamin b12 [Active]; Vitamin C Oral [Active]; Vitamin D3 Oral [Active]; vitamin E Oral [Active]; dicyclomine 20 mg Oral tab 3 times per day [Active]; - PMHx: 12:38 Angina; COPD; urticaria vasculitis; osteoarthritis; bowel obstruction; Arthritis; 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; bladder failure; Seizures; Sleep Apnea; O2 at home; Asthma; BPH; cardiac stents; chronic back pain; ESSENTIAL TREMORS; PE; gastritis; GERD; neuropathy; Hypertension; 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 - Family history:: not pertinent. - Ebola Screening: : Patient negative for fever greater than or equal to 101.5 degrees Fahrenheit, and additional compatible Ebola Virus Disease symptoms. - Hospitalizations: : No recent hospitalization is reported. Screenin:43 Abuse screen: Denies threats or abuse. Nutritional screening: No deficits noted. rb1 Tuberculosis screening: No symptoms or risk factors identified. Fall Risk None identified. Assessment: 12:43 General: Appears in no apparent distress. comfortable, Behavior is calm, cooperative, rb1 Denies fever. Pain: Complains of pain in suprapubic area Pain currently is 4 out of 10 on a pain scale. Neuro: Level of Consciousness is awake, alert, obeys commands, Oriented to person, place, time, situation. Cardiovascular: Capillary refill < 3 seconds is brisk in bilateral fingers. Respiratory: Reports Wears oxygen at home. Airway is patent Respiratory effort is even, unlabored, Respiratory pattern is regular, symmetrical. GI: No signs and/or symptoms were reported involving the gastrointestinal system. : Reports Had a new Domínguez inserted on and then he noticed that he had blood in his urine. Denies blood clots. Pt. is currently taking Xarelto so he was concerned. Derm: Skin is pink, warm \T\ dry. 13:43 Reassessment: Patient appears in no apparent distress at this time. No changes from rb1 previously documented assessment. 14:18 Reassessment: Irrigated bladder, return was clear, no visible blood noted. Pt. rb1 tolerated well. Dr. Carrington was shown a sample of the specimen. 14:30 Reassessment: Patient appears in no apparent distress at this time. Patient and/or rb1 family updated on plan of care and expected duration. Pain level reassessed. Patient is alert, oriented x 3, equal unlabored respirations, skin warm/dry/pink. Vital Signs: 12:35 BP 122 / 66; Pulse 66; Resp 20; Temp 98.4; Pulse Ox 89% on 4 lpm NC; Weight 81.65 kg; sv Height 5 ft. 11 in. (180.34 cm); 14:17 BP 120 / 54; Pulse 70; Resp 19; Pulse Ox 100% on R/A; rb1 12:35 Body Mass Index 25.10 (81.65 kg, 180.34 cm) sv ED Course: 12:25 Patient arrived in ED. as 12:25 Ronald Galeana MD is Private Physician. as 12:36 Triage completed. sv 12:39 Arm band placed on. sv 12:42 Michelle Amaral, RN is Primary Nurse. rb1 12:43 Patient has correct armband on for positive identification. Bed in low position. Call rb1 light in reach. Side rails up X 1. Pulse ox on. NIBP on. 12:55 Chuy Carrington MD is Attending Physician. rn 13:23 Initial lab(s) drawn, by me, sent to lab. Inserted saline lock: 22 gauge in right ss antecubital area, using aseptic technique. 14:20 Kiarra Kirby MD is Referral Physician. rn 14:46 No provider procedures requiring assistance completed. IV discontinued, intact, rb1 bleeding controlled, No redness/swelling at site. Pressure dressing applied. Administered Medications: No medications were administered Outcome: 14:21 Discharge ordered by MD. rn 14:46 Discharged to home via wheelchair, with family. rb1 14:46 Condition: stable 14:46 Discharge instructions given to patient, Instructed on discharge instructions, follow up and referral plans. medication usage, Demonstrated understanding of instructions, follow-up care, medications, Prescriptions given X 1. 14:47 Patient left the ED. rb1 Addendum: 04/26/2019 07:31 Addendum: Culture Results: Positive urine culture. Bacteria is resistant to, has s s intermediate sensitivity, or is not tested against prescribed antibiotics. Report given to TSERING for further evaluation and then to transport tank technician for follow up with patient. 04/27/2019 17:02 Addendum: Other reports that patient has followed up with PCP and they have since s s changed his antibiotic therapy according to his urine culture. Signatures: Verona Franco RN RN Mily Johnston Roman, MD MD rn Smirch, Shelby, RN RN Michelle Amaral, MADELINE RN rb1 Corrections: (The following items were deleted from the chart) 04/22 12:39 12:35 Temp 98.4F; sv sv 15:53 12:43 Respiratory: Airway is patent Respiratory effort is even, unlabored, Respiratory rb1 pattern is regular, symmetrical, rb1
[2019-04-22 15:07] VITALS: TEMP 98.4
[2019-04-22 15:09] VITALS: BP 120/54; O2SAT 100
== END 2019-04-22 14:47 | disposition home or self-care (01) ==
LOC: ER 12:22
DX: N39.0 Urinary tract infection, site not specified (principal); R31.9 Hematuria, unspecified; I10 Essential (primary) hypertension; J44.9 Chronic obstructive pulmonary disease, unspecified; G40.909 Epilepsy, unspecified, not intractable, without status epilepticus; Z79.01 Long term (current) use of anticoagulants; Z88.1 Allergy status to other antibiotic agents; Z88.2 Allergy status to sulfonamides; Z88.5 Allergy status to narcotic agent; Z88.8 Allergy status to other drugs, medicaments and biological substances; Z91.048 Other nonmedicinal substance allergy status; Z95.818 Presence of other cardiac implants and grafts
CPT/HCPCS: 36415; 80048; 81003; 81015; 85025; 85610; 85730; 87077; 87086; 87088; 87186; 99284

== ENCOUNTER 2019-06-01 09:08 | Inpatient (IN) | payer OTHER ==
--- OUTSIDE RECORDS SUMMARY | 2019-06-01 09:10 | XMS REPORT ---
:1940 [facility] Address [address] [place] [address] [place] [id number] Care Team Providers Name Role Phone Unavailable Unavailable Unavailable Problems This patient has no known problems. Allergies, Adverse Reactions, Alerts This patient has no known allergies or adverse reactions. Medications This patient has no known medications.
[2019-06-01] MEDS ORDERED: NA CHLORIDE 0.9% 500 ML ONE (09:54)
[2019-06-01] MEDS ORDERED: PROMETHAZINE INJ 25 MG/ML AMP ONE ×2 (09:54→13:09)
--- NOTE | 2019-06-01 10:21 | RAD REPORT ---
EXAM DESCRIPTION: US - Abdomen Exam Limited - 06/01/2019 10:12 am CLINICAL HISTORY: ABD PAIN COMPARISON: Abdomen Exam Complete dated 08/09/2017 FINDINGS: The gallbladder demonstrates no gallstones. No pericholecystic fluid or gallbladder wall t hickening. The common bile duct is normal measuring 4 mm. The liver demonstrates no findings of intrahepatic biliary dilatation. IMPRESSION: Unremarkable examination.
--- NOTE | 2019-06-01 10:54 | RAD REPORT ---
EXAM DESCRIPTION: CT - Abdomen Pelvis Wo Contrast - 06/01/2019 10:39 am CLINICAL HISTORY: Abdominal pain. no contrast;Abd pain COMPARISON: Abdomen Pelvis W Contrast dated 12/21/2018 TECHNIQUE: CT imaging of the abdomen and pelvis was performed without contrast. Solid organ, bowel a nd vascular assessment is limited due to lack of IV and oral contrast. All CT scans are performed using dose optimization technique as appropriate and may include automated exposure control or mA/KV adjustment according to patient size. FINDINGS: Bibasilar lung opacities are present likely subsegmental atelectasis.Mild traction bronchi ectasis also present in both posterior lung bases. The liver, spleen, pancreas, adrenal glands and kidneys are within normal limits for a limited non-co ntrast examination.Cholecystectomy clips. The stomach is very dilated along with multiple significantly dilated small bowel loops. This is comp atible with mechanical small-bowel obstruction proximally. Distal small bowel loops are decompressed. No free air or abscess. Appendectomy. Mild free fluid is seen in the pelvis. Right total hip arthroplasty is present. Moderate lumbar degenerative changes. IMPRESSION: Moderate proximal mechanical small-bowel obstruction. A limited non-contrast examination was performed as detailed.
[2019-06-01 11:37] LABS: Absolute Lymphocytes (CBC) 0.5 K/uL (0.7-4.9); Basophils % 0.1 % (0-1.3); Hematocrit 33.2 % (39.6-49.0); Lymphocytes % 5.6 % (15.3-44.8); MPV 6.8 fL (7.6-11.3)
[2019-06-01 11:54] LABS: ALT/SGPT 18 U/L (12-78); AST/SGOT 11 U/L (15-37); Albumin 2.9 g/dL (3.4-5.0); Alkaline Phosphatase 48 U/L (45-117); BUN Blood Urea Nitrogen 10 mg/dL (7-18); Bicarbonate 32 mmol/L (21-32); Bilirubin Direct 0.2 mg/dL (0-0.2); Bilirubin Total 0.5 mg/dL (0.2-1.0); Glucose Level 103 mg/dL (74-106); Lipase 43 U/L (73-393); Protein, Total 7.2 g/dL (6.4-8.2); Sodium Level 134 mmol/L (136-145)
--- NOTE | 2019-06-01 12:21 | ER ---
Nurse's Notes [facility] Name: Zen Bledsoe Jr Age: 79 yrs Sex: Male : 1940 Arrival Date: 06/01/2019 Time: 09:11 Bed 6 Private MD: Diagnosis: Mechanical Small Bowel Obstruction Presentation: 06/01 09:16 Presenting complaint: EMS states: Epigastric pain, radiates to suprapubic area with N/V jl7 started last night. Pt has Domínguez in-place. Transition of care: patient was not received from another setting of care. Onset of symptoms was May 31, 2019. Risk Assessment: Do you want to hurt yourself or someone else? Patient reports no desire to harm self or others. Initial Sepsis Screen: Does the patient meet any 2 criteria? No. Patient's initial sepsis screen is negative. Does the patient have a suspected source of infection? No. Patient's initial sepsis screen is negative. Care prior to arrival: None. 09:16 Method Of Arrival: EMS: [facility] 7 09:16 Acuity: KARY 3 jl7 Triage Assessment: 09:20 General: Appears in no apparent distress. uncomfortable, ill, Behavior is calm, jl7 cooperative, appropriate for age. Pain: Complains of pain in epigastric area Pain radiates to suprapubic area Pain currently is 7 out of 10 on a pain scale. Pain began 1 day ago. Is continuous. Neuro: Level of Consciousness is awake, alert, obeys commands, Oriented to person, place, time, situation. Cardiovascular: Patient's skin is warm and dry. Respiratory: Airway is patent Respiratory effort is even, unlabored, Respiratory pattern is regular, symmetrical. GI: Abdomen is round non-distended, Stools are reported to be normal. Last BM was May 31, 2019. Reports nausea, vomiting, Patient currently denies diarrhea. : Domínguez in place to gravity drainage Urine is cloudy, in the drainage tube Daughter reports his healthcare nurse took a sample and he does have a UTI but wasn't able to keep them first dose of antibiotics down. Derm: Skin is pink, warm \T\ dry. Musculoskeletal: No signs and/or symptoms reported regarding the musculoskeletal system. Historical: - Allergies: 09:27 HYDROCODONE; jl7 09:27 Codeine; jl7 09:27 Iodine; jl10 18:27 BACLOFEN; 09:27 Bactrim; :27 Sulfa (Sulfonamide Antibiotics); jl7 - Home Meds: : midodrine 10 mg Oral tab 3 times per day [Active]; gabapentin 400 mg Oral cap 3 times jl7 per day [Active]; pantoprazole 40 mg Oral TbEC once daily [Active]; Cindy Probiotic [Active]; prednisone 10 mg Oral tab as needed [Active]; simvastatin 40 mg Oral tab 1 tab once daily [Active]; Xarelto 15 mg Oral tab twice a day [Active]; duloxetine 60 mg Oral cpDR once daily [Active]; montelukast 10 mg Oral tab once daily [Active]; ranitidine HCl 300 mg Oral tab 1 tab once daily [Active]; metoprolol tartrate 6 mg Oral tab once daily [Active]; Pain Pump with Diluadid and Prialt [Active]; tramadol PRN [Active]; ondansetron PRN [Active]; promethazine PRN [Active]; hyoscyamine sulfate 0.125 mg SL subl [Active]; colestipol Oral [Active]; vitamin b12 [Active]; vitamin E Oral [Active]; Vitamin C Oral [Active]; Vitamin D3 Oral [Active]; - PMHx: : urticaria vasculitis; Angina; Arthritis; Asthma; bladder failure; bowel obstruction; jl7 BPH; cardiac stents; chronic back pain; COPD; ESSENTIAL TREMORS; gastritis; GERD; Hypertension; 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 - Coronavirus screen:: The patient has NOT traveled to [place] in the past 14 days. Proceed with normal triage process as indicated. - Social history:: Smoking status: Patient denies any tobacco usage or history of. - Ebola Screening: : No symptoms or risks identified at this time. Screenin:20 Abuse screen: Denies threats or abuse. Denies injuries from another. Nutritional jl screening: No deficits noted. Tuberculosis screening: No symptoms or risk factors identified. Fall Risk IV access (20 points). Total Muse Fall Scale indicates No Risk (0-24 pts). Assessment: 09:20 General: See triage assessment. 7 10:00 Reassessment: Patient appears in no apparent distress at this time. No changes from 7 previously documented assessment. Patient and/or family updated on plan of care and expected duration. Pain level reassessed. Patient is alert, oriented x 3, equal unlabored respirations, skin warm/dry/pink. 11:00 Reassessment: Patient appears in no apparent distress at this time. Patient and/or [facility] family updated on plan of care and expected duration. Pain level reassessed. Patient is alert, oriented x 3, equal unlabored respirations, skin warm/dry/pink. Nausea is decreased Patient states feeling better. 12:00 Reassessment: Patient appears in no apparent distress at this time. No changes from [facility] previously documented assessment. Patient and/or family updated on plan of care and expected duration. Pain level reassessed. Patient is alert, oriented x 3, equal unlabored respirations, skin warm/dry/pink. 13:25 Reassessment: Dr. Jung at bedside. 7 Vital Signs: 09:20 BP 148 / 69; Pulse 79; Resp 19 S; Temp 98.1(TE); Pulse Ox 100% on R/A; Weight 89.36 kg jl7 (R); Height 5 ft. 11 in. (180.34 cm) (R); Pain 7/10; 10:00 BP 154 / 69; Pulse 69; Resp 16 S; Pulse Ox 99% on R/A; jl7 11:03 BP 160 / 58; Pulse 80; Resp 16; Temp 98.0; Pulse Ox 99% on R/A; em1 12:04 BP 141 / 69; Pulse 74; Resp 15 S; Pulse Ox 98% on R/A; jl7 12:30 BP 121 / 54; Pulse 71; Resp 16 S; Pulse Ox 100% on R/A; jl7 13:15 BP 118 / 68; Pulse 76; Resp 16 S; Pulse Ox 100% on R/A; jl7 09:20 Body Mass Index 27.48 (89.36 kg, 180.34 cm) jl7 ED Course: 09:11 Patient arrived in ED. jl7 09:16 Denise Momin, RN is Primary Nurse. jl7 09:18 Triage completed. jl7 09:20 Arm band placed on right wrist. jl7 09:20 Patient has correct armband on for positive identification. Placed in gown. Bed in low jl7 position. Call light in reach. Side rails up X2. Pulse ox on. NIBP on. Warm blanket given. 09:20 Maintain EMS IV. Dressing intact. Good blood return noted. Site clean \T\ dry. Gauge \T\ jl 7 site: 20 R AC. 09:22 Princess Lofton FNP-C is PHCP. kb 09:22 Ollie Lemus MD is Attending Physician. kb 09:45 Initial lab(s) drawn, by ED staff, sent to lab. jl7 10:14 US Abdomen Limited In Process Unspecified. EDMS 11:05 CT Abd/Pelvis - Without Contrast In Process Unspecified. EDMS 11:38 Lab(s) recollected, by me, sent to lab. jl7 13:12 Ramon Galeana MD is Hospitalizing Provider. hb 13:32 No provider procedures requiring assistance completed. jl7 14:10 Missed attempt(s): 22 gauge in left forearm. Bleeding controlled, band aid applied, jl7 catheter tip intact. 14:20 NGT: inserted 12 Fr. via right nare. verified placement of air over stomach, to jl7 intermittent suction. Returned gastric contents. Patient tolerated well. Inserted saline lock: 22 gauge in left hand, using aseptic technique. 14:29 Patient admitted, IV remains in place. intact, No redness/swelling at site. jl7 Administered Medications: 09:45 Not Given (Other Intervention Used): Zofran 4 mg IVP once; over 2 minutes jl7 10:29 Drug: NS 0.9% 500 ml Route: IV; Rate: bolus; Site: right antecubital; jl7 11:24 Follow up: Response: No adverse reaction; IV Status: Completed infusion; IV Intake: jl7 500ml 10:29 Drug: Phenergan 6.25 mg Route: IVP; Site: right antecubital; jl7 10:50 Follow up: Response: No adverse reaction; Nausea is decreased jl7 12:50 Drug: NS 0.9% 1000 ml Route: IV; Rate: 75 ml/hr; Site: right antecubital; em 13:32 Follow up: Response: No adverse reaction; IV Status: Infusion continued upon admission jl7 12:54 Drug: Mefoxin 1 grams {Note: given IVP per hospital protocol .} Route: IVPB; Infused em Over: 30 mins; Site: right antecubital; 13:14 Follow up: Response: No adverse reaction; IV Status: Completed infusion; IV Intake: 10mlem 13:10 Drug: Phenergan 6.25 mg Route: IVP; Site: right antecubital; em 13:32 Follow up: Response: No adverse reaction; Nausea is decreased jl7 Intake: 11:24 IV: 500ml; Total: 500ml. jl7 13:14 IV: 10ml; Total: 510ml. em Outcome: 12:20 Decision to Hospitalize by Provider. kb 14:10 Admitted to Med/surg accompanied by tech, family with patient, via stretcher, room 426, jl7 with oxygen, with chart, Report called to MADELINE Bennett 14:10 Condition: stable 14:10 Discharge instructions given to patient, family, Instructed on the need for admit, Demonstrated understanding of instructions. 14:30 Patient left the ED. jl7 Signatures: Dispatcher [employer] Princess Garcia, SYLVIA-María WARD-Kp Barfield RN RN em Martinez, Eric emAngi Mario RN RN hb Leal, Jahala, RN RN jl7
--- NOTE | 2019-06-01 12:22 | EDPHYS ---
Physician Documentation [facility] Name: Zen Bledsoe Jr Age: 79 yrs Sex: Male : 1940 Arrival Date: 06/01/2019 Time: 09:11 Bed 6 Private MD: ED Physician Ollie Lemus HPI: 06/01 09:37 This 79 yrs old Male presents to ER via EMS with complaints of abdominal kb pain, n/v. 09:37 The patient presents with abdominal pain in the upper abdomen, in the lower abdomen. kb Onset: The symptoms/episode began/occurred 2 day(s) ago. The symptoms do not radiate. Associated signs and symptoms: Pertinent positives: nausea and vomiting. The symptoms are described as constant. Modifying factors: The symptoms are alleviated by nothing, the symptoms are aggravated by pressure. Severity of pain: At its worst the pain was moderate in the emergency department the pain is unchanged. The patient has experienced similar episodes in the past. The patient has not recently seen a physician. Pt reports abd pain that has been an ongoing problem. Reports nausea that started yesterday and vomiting that started last night. reports they have been told he has a problem with his gallbladder and that it is only functioning at 10%. States they have seen Dr Urena and Preston, but neither of them would do the surgery due to pt's history. Also concerned that he may have picked up the flu from home health or caodaism. . Historical: - Allergies: 09:27 HYDROCODONE; jl7 09:27 Codeine; jl7 09:27 Iodine; jl7 09:27 BACLOFEN; jl7 09:27 Bactrim; jl7 09:27 Sulfa (Sulfonamide Antibiotics); jl7 - Home Meds: 09:27 midodrine 10 mg Oral tab 3 times per day [Active]; gabapentin 400 mg Oral cap 3 times jl7 per day [Active]; pantoprazole 40 mg Oral TbEC once daily [Active]; Cindy Probiotic [Active]; prednisone 10 mg Oral tab as needed [Active]; simvastatin 40 mg Oral tab 1 tab once daily [Active]; Xarelto 15 mg Oral tab twice a day [Active]; duloxetine 60 mg Oral cpDR once daily [Active]; montelukast 10 mg Oral tab once daily [Active]; ranitidine HCl 300 mg Oral tab 1 tab once daily [Active]; metoprolol tartrate 6 mg Oral tab once daily [Active]; Pain Pump with Diluadid and Prialt [Active]; tramadol PRN [Active]; ondansetron PRN [Active]; promethazine PRN [Active]; hyoscyamine sulfate 0.125 mg SL subl [Active]; colestipol Oral [Active]; vitamin b12 [Active]; vitamin E Oral [Active]; Vitamin C Oral [Active]; Vitamin D3 Oral [Active]; - PMHx: 09:27 urticaria vasculitis; Angina; Arthritis; Asthma; bladder failure; bowel obstruction; jl7 BPH; cardiac stents; chronic back pain; COPD; ESSENTIAL TREMORS; gastritis; GERD; Hypertension; 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 - Coronavirus screen:: The patient has NOT traveled to [place] in the past 14 days. Proceed with normal triage process as indicated. - Social history:: Smoking status: Patient denies any tobacco usage or history of. - Ebola Screening: : No symptoms or risks identified at this time. ROS: 09:35 Constitutional: Negative for fever, chills, and weight loss, Neck: Negative for injury, kb pain, and swelling, Cardiovascular: Negative for chest pain, palpitations, and edema, Respiratory: Negative for shortness of breath, cough, wheezing, and pleuritic chest pain, Back: Negative for injury and pain, MS/Extremity: Negative for injury and deformity, Skin: Negative for injury, rash, and discoloration, Neuro: Negative for headache, weakness, numbness, tingling, and seizure. 09:35 Abdomen/GI: Positive for abdominal pain, nausea and vomiting. Exam: 09:35 Constitutional: This is a well developed, well nourished patient who is awake, alert, kb and in no acute distress. Head/Face: Normocephalic, atraumatic. Neck: Trachea midline, no thyromegaly or masses palpated, and no cervical lymphadenopathy. Supple, full range of motion without nuchal rigidity, or vertebral point tenderness. No Meningismus. Chest/axilla: Normal chest wall appearance and motion. Nontender with no deformity. No lesions are appreciated. Cardiovascular: Regular rate and rhythm with a normal S1 and S2. No gallops, murmurs, or rubs. Normal PMI, no JVD. No pulse deficits. Respiratory: Lungs have equal breath sounds bilaterally, clear to auscultation and percussion. No rales, rhonchi or wheezes noted. No increased work of breathing, no retractions or nasal flaring. Back: No spinal tenderness. No costovertebral tenderness. Full range of motion. Skin: Warm, dry with normal turgor. Normal color with no rashes, no lesions, and no evidence of cellulitis. MS/ Extremity: Pulses equal, no cyanosis. Neurovascular intact. Full, normal range of motion. Neuro: Awake and alert, GCS 15, oriented to person, place, time, and situation. Cranial nerves II-XII grossly intact. Motor strength 5/5 in all extremities. Sensory grossly intact. Cerebellar exam normal. Normal gait. 09:35 Abdomen/GI: Inspection: abdomen appears normal, Bowel sounds: diminished, in all quadrants, Palpation: soft, in all quadrants, moderate abdominal tenderness, in the epigastric area and right upper quadrant. Vital Signs: 09:20 BP 148 / 69; Pulse 79; Resp 19 S; Temp 98.1(TE); Pulse Ox 100% on R/A; Weight 89.36 kg jl7 (R); Height 5 ft. 11 in. (180.34 cm) (R); Pain 7/10; 10:00 BP 154 / 69; Pulse 69; Resp 16 S; Pulse Ox 99% on R/A; jl7 11:03 BP 160 / 58; Pulse 80; Resp 16; Temp 98.0; Pulse Ox 99% on R/A; em1 12:04 BP 141 / 69; Pulse 74; Resp 15 S; Pulse Ox 98% on R/A; jl7 12:30 BP 121 / 54; Pulse 71; Resp 16 S; Pulse Ox 100% on R/A; 7 13:15 BP 118 / 68; Pulse 76; Resp 16 S; Pulse Ox 100% on R/A; 7 09:20 Body Mass Index 27.48 (89.36 kg, 180.34 cm) 7 MDM: 09:22 Patient medically screened. 12:16 Data reviewed: vital signs, nurses notes. Data reviewed: lab test result(s), radiologic kb studies. Data interpreted: Pulse oximetry: on 2L(s) per nasal canula, is 98 %. Interpretation: normal. 12:17 Counseling: I had a detailed discussion with the patient and/or guardian regarding: the kb historical points, exam findings, and any diagnostic results supporting the discharge/admit diagnosis, lab results, radiology results, the need for further work-up and treatment in the hospital. Physician consultation: Zen Mcmanus MD was contacted at 12:17, regarding consult, patient's condition, and will see patient Dr Lemus spoke with Dr Mcmanus about pt. Will consult. 12:18 Physician consultation: Ronald Galeana MD was contacted at 12:18, regarding admission, to the medical/surgical unit. patient's condition, and will see patient in inpatient room. 12:22 Physician consultation: Zen Mcmanus MD was called at 12:10, was contacted at 12:10, kdr regarding consult, patient's condition, need to evaluate the patient as soon as possible, and will see patient in inpatient room, shortly. 06/01 09:29 Order name: Basic Metabolic Panel; Complete Time: 11:55 kb 06/01 09:29 Order name: CBC with Diff; Complete Time: 11:51 kb 06/01 09:29 Order name: Hepatic Function; Complete Time: 11:55 kb 06/01 09:29 Order name: Lipase; Complete Time: 11:55 kb 06/01 09:29 Order name: US Abdomen Limited; Complete Time: 10:24 kb 06/01 09:36 Order name: Flu; Complete Time: 10:38 kb 06/01 10:25 Order name: CT Abd/Pelvis - Without Contrast; Complete Time: 11:19 kb 06/01 14:18 Order name: Abdomen 1 View (KUB) XRAY 06/01 09:29 Order name: IV Saline Lock; Complete Time: 10:02 kb 06/01 09:29 Order name: Labs collected and sent; Complete Time: 10:02 kb 06/01 14:18 Order name: NG Tube; Complete Time: 14:24 kb Administered Medications: 09:45 Not Given (Other Intervention Used): Zofran 4 mg IVP once; over 2 minutes jl7 10:29 Drug: NS 0.9% 500 ml Route: IV; Rate: bolus; Site: right antecubital; jl7 11:24 Follow up: Response: No adverse reaction; IV Status: Completed infusion; IV Intake: jl7 500ml 10:29 Drug: Phenergan 6.25 mg Route: IVP; Site: right antecubital; jl7 10:50 Follow up: Response: No adverse reaction; Nausea is decreased jl7 12:50 Drug: NS 0.9% 1000 ml Route: IV; Rate: 75 ml/hr; Site: right antecubital; em 13:32 Follow up: Response: No adverse reaction; IV Status: Infusion continued upon admission jl7 12:54 Drug: Mefoxin 1 grams {Note: given IVP per hospital protocol .} Route: IVPB; Infused em Over: 30 mins; Site: right antecubital; 13:14 Follow up: Response: No adverse reaction; IV Status: Completed infusion; IV Intake: 10mlem 13:10 Drug: Phenergan 6.25 mg Route: IVP; Site: right antecubital; em 13:32 Follow up: Response: No adverse reaction; Nausea is decreased jl7 Disposition: 16:08 Co-signature as Attending Physician, Ollie Lemus MD I agree with the assessment and kdr plan of care. Disposition: 06/01/19 12:20 Hospitalization ordered by Ramon Galeana for Inpatient Admission. Preliminary diagnosis is Mechanical Small Bowel Obstruction. - Bed requested for Telemetry/MedSurg (Inpatient). - Status is Inpatient Admission. jl7 - Condition is Stable. - Problem is new. - Symptoms are unchanged. Signatures: Dispatcher [employer] Princess Garcia, EXPLOSIVE SPECIALIST-C EXPLOSIVE SPECIALIST-Ollie Dupree MD MD kdr Munoz, Edgar, RN RN em Angi Lemus RN RN hb Leal, Jahala, RN RN jl7 Corrections: (The following items were deleted from the chart) 12:18 09:35 Abdomen/GI: Inspection: abdomen appears normal, Bowel sounds: normal, Palpation: kb soft, in all quadrants, moderate abdominal tenderness, in the epigastric area and right upper quadrant, kb 13:12 12:20 Hospitalization Ordered by for Inpatient Admission. Preliminary diagnosis is hb Mechanical Small Bowel Obstruction. Bed requested for Telemetry/MedSurg (Inpatient). Status is Inpatient Admission. Condition is Stable. Problem is new. Symptoms are unchanged. kb 14:30 13:12 06/01/2019 12:20 Hospitalization Ordered by A Kervin JACOBS for Inpatient Admission. jl7 Preliminary diagnosis is Mechanical Small Bowel Obstruction. Bed requested for Telemetry/MedSurg (Inpatient). Status is Inpatient Admission. Condition is Stable. Problem is new. Symptoms are unchanged. hb
[2019-06-01] MEDS ORDERED: CEFOXITIN/SWI 1gm 1 GM/10 ML SYR ONE (12:43)
[2019-06-01] MEDS ORDERED: NA CHLORIDE 0.9% 1,000 ML ONE (12:44)
[2019-06-01] MEDS ORDERED: NA CHLORIDE 0.9% 1,000 ML IV SCH (13:51)
--- NOTE | 2019-06-01 14:17 | P.CNS ---
Date of Consult: 06/01/19 PC: This 79-year-old male presents emergency room with abdominal pain and distention. HPC: Patient has been not feeling well since Wednesday. Came to emergency room due to abdominal distention nausea and vomiting. He ate last on Wednesday. PMH: Neurogenic bladder, COPD and PSHx: Previous colon surgery about 20 years ago for colon cancer. 5 admissions for partial small-bowel obstruction. (operated once.) SOC: Allergic to codeine, hydrocodone sulfa SYS REVIEW: Chronic COPD. Also has difficulty swallowing and occasionally aspirates. Has a neurogenic bladder and requires the catheter. Has been having trouble with GI motility. O/E awake alert tired looking man HEENT: Not jaundiced Chest: Chest movement equal bilaterally ABD: Distended and tympanic LOCO: Intact DATA: CT scan suggests obstruction however there is no acute cut off area seen. IMPRESSION: Partial small-bowel obstruction PLAN: Patient be admitted to medical service. He will have a nasogastric tube in its position confirmed in the emergency room. We will even with an NG tube in place for the next 12-24 hr. They will work on trying to restore is she any utility. He does not require surgical intervention at this time but this may change.
--- NOTE | 2019-06-01 15:16 | RAD REPORT ---
EXAM DESCRIPTION: RAD - Abdomen 1 View (KUB) - 06/01/2019 3:10 pm CLINICAL HISTORY: confirm NG tube placement Pain COMPARISON: Abdomen 1 View (KUB) dated 09/29/2018; Abdomen Pelvis Wo Contrast dated 06/01/2019 FINDINGS: Moderate mechanical small bowel obstruction pattern again seen. No pneumoperitoneum. NG tu be appears coiled upon itself in the mid esophagus, adjustment is suggested.
[2019-06-01 15:23] VITALS: BMI 26.2
--- NOTE | 2019-06-01 17:07 | RAD REPORT ---
EXAM DESCRIPTION: RAD - Abdomen 1 View (KUB) - 06/01/2019 5:02 pm CLINICAL HISTORY: NGT placement Pain COMPARISON: Abdomen 1 View (KUB) dated 06/01/2019; Abdomen 1 View (KUB) dated 09/29/2018 FINDINGS: The tip of the enteric tube appears at the gastroesophageal junction.
[2019-06-01] MEDS ORDERED: CEFOXITIN SODIUM 1 GM/VIAL IVPB SCH (18:00)
[2019-06-01] MEDS ORDERED: CEFOXITIN/SWI 1gm 1 GM/10 ML SYR IVP SCH (18:00)
[2019-06-01] MEDS ORDERED: ONDANSETRON 4 MG/2 ML VIAL IV PRN (18:54)
[2019-06-01] MEDS ORDERED: SODIUM CHLORIDE 0.9% 10ML INJ IV PRN (18:56)
[2019-06-01] MEDS: D5 0.9 NS 1,000 ML IV SCH (19:41)
[2019-06-01] MEDS: PROMETHAZINE INJ 25 MG/ML AMP IV PRN (19:41)
[2019-06-01] MEDS: MIDODRINE HCL 5 MG TABLET PO SCH (20:02)
[2019-06-01] MEDS: QUETIAPINE 25 MG TAB PO SCH (20:02)
[2019-06-01] MEDS: METHYLPREDNISOLONE 40 MG INJ IV SCH (20:04)
[2019-06-01] MEDS: ALBUTEROL 2.5 MG/3 ML NEB SOL NEB SCH (20:25)
[2019-06-02] MEDS ORDERED: PIPERACIL/TAZO 3.375 GM VIAL IV ONE (00:27)
[2019-06-02] MEDS ORDERED: NA CHLORIDE 0.9% 100 ML IV ONE (00:29)
[2019-06-02] MEDS: PIPER/TAZO/NS 3.375gm 3.375 GM/100 ML BAG IVPB SCH ×3 (00:29→17:17)
[2019-06-02] MEDS: PROMETHAZINE INJ 25 MG/ML AMP IV PRN (00:44)
[2019-06-02] MEDS: ALBUTEROL 2.5 MG/3 ML NEB SOL NEB SCH ×4 (01:55→20:10)
--- NOTE | 2019-06-02 02:21 | HP ---
Date of Admission: 06/01/2019 Chief Complaint: Abdominal pain, nausea, vomiting. History Of Present Illness: This is a 79-year-old male patient who started to have abdominal pain 2 days ago and over a period of last 2 days pain has gotten worse. As of yesterday, he started to have nausea, vomiting. Denies any fever or chills. Today, he came into emergency room and after he was evaluated he was admitted to the hospital with bowel obstruction. Yesterday, with this abdominal pain, nausea, vomiting, his home health nurse thought that today he might have urinary tract infection causing the symptoms, so they took his urine specimen to Dr. Kirby's office and urine specimen was abnormal and he was told that he possibly did have urinary tract infection and a urine culture was sent, result is pending, but it is important to note that I will not label this patient as having urinary tract infection with abnormal urinalysis as he has indwelling Rocha catheter and as I have explained it to patient and patient's today and in the past that he always will have abnormal urinalysis and culture may grow some bacteria, but that we should not label him as urinary tract infection because of his indwelling Rocha catheter. Medications: List reviewed. Review of Systems: GI: As mentioned above. All other systems reviewed and negative. Allergies: TO SULFA, BACLOFEN, CODEINE, HYDROCODONE, IODINE. Social History: Negative for smoking and alcohol use. Family History: Significant for cancer of esophagus and hypertension. Past Surgical History: Had a small bowel obstruction and surgery for that in 2001. Otherwise, he also had appendectomy, tonsillectomy, back surgery, vasectomy, arthroscopic knee surgery, cervical spine fusion, right-sided hemicolectomy due to colon polyps, and surgery for deviated nasal septum. Past Medical History: Significant for COPD, neurogenic bladder, indwelling Rocha catheter due to that orthostatic hypotension, hyperlipidemia, chronic fatigue, gastroesophageal reflux disease, hypertension, anemia, peripheral neuropathy, bronchiectasis, recurrent pneumonia, pulmonary embolism diagnosed January 01, 2019, with superficial thrombophlebitis of leg. Physical Examination: Vital Signs: Temperature 97.7, pulse 71, respiratory rate 18, blood pressure 145/67, oxygen saturation 96%, height 5 feet 11 inches, weight 188 pounds. General: Awake, alert, oriented, not in distress. HEENT: Head atraumatic, normocephalic. Conjunctivae nonerythematous. Sclerae white. Mouth, no thrush or edema noted. Ears/Nose, no mass, lesion, discharge noted. Neck: Supple. No JVD, lymph nodes, bruit, thyromegaly noted. Lungs: Bilateral good equal air entry. Clear to auscultation. No rhonchi. No rales. Heart: Normal heart sounds, no murmur or gallop. Abdomen: Bowel sounds hypoactive. Patient has tenderness present over left half of the abdomen. Extremities: No leg edema. No calf tenderness. Skin: No rash, ulcer, cellulitis. Lymphatics: No lymph node enlargement in neck, supraclavicular, infraclavicular region. Neuro: No focal neurological deficit. Chest: Unremarkable. External Genitalia: Deferred. Rectal: Deferred. Laboratory Data: White count 9.7, hemoglobin 11, platelets 387. Sodium 134, potassium 4, chloride 96, bicarb 32, BUN 10, creatinine 0.82, glucose 103. Liver function tests unremarkable. Lipase 43. CAT scan of abdomen shows moderate proximal mechanical small bowel obstruction. Chest x-ray, no acute cardiopulmonary changes. Impression: 1. Small bowel obstruction. 2. Chronic obstructive pulmonary disease. 3. Neurogenic bladder with indwelling Rocha catheter. 4. Gastroesophageal reflux disease. 5. Hypertension. 6. Peripheral neuropathy. 7. Orthostatic hypotension. 8. Hyperlipidemia. 9. Anemia. 10. History of pulmonary embolism and superficial thrombophlebitis. Plan: Admit to hospital for further evaluation and management of this problem. Patient is appropriate for inpatient and is expected to spend 2 midnights in hospital. We will continue home medications per order. Keep the patient n.p.o. NG tube was placed in the emergency room to low intermittent suction. General Surgery consultation was obtained from Dr. Mcmanus. We will go ahead and give nebulizer treatment, IV steroid, IV Protonix. Patient is on Xarelto at home and oral prednisone. We will not give full anticoagulation, but we will give Lovenox 40 mg subcutaneous injection daily and continue IV antibiotics Zosyn per order. Details and plan of treatment discussed with the patient. We will consult Physical Therapy starting tomorrow. If the patient's condition does not improve with conservative treatment, then surgical intervention might become necessary. JERAD/MODL Voice ID: [id number]
[2019-06-02 05:46] LABS: Absolute Lymphocytes (CBC) 0.3 K/uL (0.7-4.9); Hematocrit 32.7 % (39.6-49.0); Lymphocytes % 3.4 % (15.3-44.8); MPV 6.3 fL (7.6-11.3); RBC Red Blood Cell Count 3.85 M/uL (4.33-5.43)
[2019-06-02 06:00] LABS: Potassium 4.4 mmol/L (3.5-5.1)
[2019-06-02 06:59] LABS: Anisocytosis 1+; Blood Morphology Comment NOTED (NOT SEEN); Platelet Estimate ADEQ; Poikilocytosis 1+
[2019-06-02] MEDS: MIDODRINE HCL 5 MG TABLET PO SCH ×3 (07:40→20:07)
[2019-06-02] MEDS: MONTELUKAST 10 MG TAB PO SCH (07:40)
[2019-06-02] MEDS: METOPROLOL XL 25 MG TAB PO SCH (07:41)
--- NOTE | 2019-06-02 09:14 | RAD REPORT ---
EXAM DESCRIPTION: RAD - Abdomen 1 View (KUB) - 06/02/2019 8:34 am CLINICAL HISTORY: SBO COMPARISON: Abdomen 1 View (KUB) dated 06/01/2019; Abdomen 1 View (KUB) dated 06/01/2019; Abdomen Pe lvis Wo Contrast dated 06/01/2019 FINDINGS: NG tube is in place. Stomach is decompressed. Dilation of the proximal small bowel is stil l present. Distal small bowel loops are decompressed. Colon is mostly decompressed. No suspicious lexi cifications. No free air or pneumatosis. No significant bony findings IMPRESSION: Dilation of the proximal small bowel has not improved since prior day imaging. NG tube is in place. Stomach is decompressed.
[2019-06-02] MEDS: METHYLPREDNISOLONE 40 MG INJ IV SCH ×2 (09:15→20:00)
[2019-06-02] MEDS: MORPHINE 2 MG/ML SYR IV PRN ×4 (09:16→22:05)
[2019-06-02] MEDS: ENOXAPARIN 40 MG/0.4 ML SQ SCH (09:16)
[2019-06-02] MEDS: PANTOPRAZOLE 40 MG INJ IVP SCH (09:16)
--- NOTE | 2019-06-02 09:18 | PN ---
Date of Progress Note: 06/02/2019 Subjective: Patient was seen this morning for followup, lying in bed, not in distress. Abdominal pa in is better. No new complaints reported overnight. Patient had a bowel movement during nighttime o f [employer] hours as he reports. NG tube is in place. No evidence of any bleeding. Objective: Vital Signs: Reviewed. HEENT: Unremarkable. Lungs: Clear to auscultation. Heart: Sounds normal. Abdomen: Soft. Bowel sounds actually is much better today and has a normal bowel sounds today, so t hat is definitely improvement since yesterday evening when I saw him. Presence of mild tenderness in left lower quadrant, otherwise tenderness from rest of the left side of abdomen has improved compare d to yesterday. Extremities: No leg edema. Laboratory Data: White count 8, hemoglobin 10.8, platelets 350. Sodium 139, potassium 4.4, chloride 103, bicarb 28, BUN 11, creatinine 0.96, glucose 136. Impression: 1.Small bowel obstruction. 2.Chronic obstructive pulmonary disease. 3.Chronic steroid therapy. 4.History of pulmonary embolism. 5.Neurogenic bladder with indwelling Rocha catheter. 6.Anemia, unspecified. Plan: We will go ahead and continue current medications, which is current antibiotics Zosyn. Patien t has NG tube to low intermittent suction, which we will continue that right now. Physical therapy t o help ambulate the patient. We will get abdominal x-ray done today. Follow up with general surgeon Dr. Mcmanus and depending on x-ray results, and recommendation from Dr. Mcmanus. We will decide if patient can start having clear liquid diet today or tomorrow and then removal of NG tube depending on his progress. If that happens, then possible discharge to go home over the weekend. All those details were discussed with the patient to day. Continue Lovenox per order. JERAD/MODL Voice ID: [id number] Report ID: [id number]
--- NOTE | 2019-06-02 15:00 | P.PN ---
Date of Service: 06/02/19 S: Patient states he feels a lot better than yesterday. Had large loose pooled bowel movement this morning. Still has some abdominal tenderness however. O: Vital signs remain stable. Has about 400 cc of thick green fluid and NG canister. Reviewing chest x-ray and checking NG tube I am concerned that it may not be in far enough. Nurses will advance it 4 inches and then we will repeat the abdominal film. A: Clinically seems to be improving however once the tube is verified as being in the stomach, I will start him on some mineral oil. We will also give him some clear liquids and ice chips orally and the duct amount from the NG aspirate. P: Has clinic clean he improves, would imagine Dc NG tube tomorrow starting on clear liquids on lesser is change in his clinical course.
--- NOTE | 2019-06-02 15:57 | RAD REPORT ---
EXAM DESCRIPTION: RAD - Abdomen 1 View (KUB) - 06/02/2019 3:37 pm CLINICAL HISTORY: Device placement nasogastric tube placement FINDINGS: A nasogastric tube lies approximately 12 centimeters into the stomach. Dilated small bowel persists
--- NOTE | 2019-06-02 16:19 | RAD REPORT ---
EXAM DESCRIPTION: RAD - Abdomen 1 View (KUB) - 06/02/2019 4:12 pm CLINICAL HISTORY: Device placement nasogastric tube placement FINDINGS: Tip of the nasogastric tube lies approximately 12 centimeters into the gastric fundus. Dilated small bowel persists
[2019-06-02] MEDS ORDERED: MINERAL OIL 30 ML UCUP PO ONE ×2 (17:00→22:17)
[2019-06-02] MEDS: D5 0.9 NS 1,000 ML IV SCH ×3 (17:18→22:06)
[2019-06-02] MEDS: QUETIAPINE 25 MG TAB PO SCH (20:07)
[2019-06-03] MEDS: PIPER/TAZO/NS 3.375gm 3.375 GM/100 ML BAG IVPB SCH ×3 (00:47→17:36)
[2019-06-03] MEDS: ALBUTEROL 2.5 MG/3 ML NEB SOL NEB SCH ×4 (01:20→21:50)
[2019-06-03] MEDS: MORPHINE 2 MG/ML SYR IV PRN ×4 (05:13→21:40)
[2019-06-03 06:16] LABS: Absolute Lymphocytes (CBC) 0.6 K/uL (0.7-4.9); Basophils % 0.2 % (0-1.3); Hematocrit 32.8 % (39.6-49.0); Lymphocytes % 6.8 % (15.3-44.8); MPV 6.8 fL (7.6-11.3); RBC Red Blood Cell Count 3.81 M/uL (4.33-5.43)
[2019-06-03] MEDS: MIDODRINE HCL 5 MG TABLET PO SCH ×3 (09:00→20:54)
[2019-06-03] MEDS: MONTELUKAST 10 MG TAB PO SCH (09:00)
[2019-06-03] MEDS: METOPROLOL XL 25 MG TAB PO SCH (09:00)
[2019-06-03] MEDS: ENOXAPARIN 40 MG/0.4 ML SQ SCH (09:05)
[2019-06-03] MEDS: PANTOPRAZOLE 40 MG INJ IVP SCH (09:05)
[2019-06-03] MEDS: METHYLPREDNISOLONE 40 MG INJ IV SCH ×2 (09:05→20:54)
--- NOTE | 2019-06-03 10:55 | RAD REPORT ---
EXAM DESCRIPTION: RAD - Abdomen 1 View (KUB) - 06/03/2019 10:44 am CLINICAL HISTORY: SBO COMPARISON: Abdomen 1 View (KUB) dated 06/02/2019; Abdomen 1 View (KUB) dated 06/02/2019 FINDINGS: NG tube remains in place. Tip is in the proximal stomach with side port at the GE junction . Stomach is decompressed. Proximal small bowel dilatation is still present. No substantial improvement. No progression of the s mall bowel dilatation. Distal small bowel loops remain decompressed. Colon is mostly decompressed. No free air or pneumatosis have developed. IMPRESSION: Small bowel dilatation pattern not substantially different from comparison. No progressi ve process.
--- NOTE | 2019-06-03 11:02 | PN ---
Date of Progress Note: 06/03/2019 Subjective: Patient was seen this morning for followup. No new complaints or problems reported by percy draper. Lying in bed, not in distress. Has his NG tube to low intermittent suction. He had a bowel movement before I saw him yesterday morning, but since I have seen him yesterday morning, he has not had any further bowel movement. Abdominal pain is still present, but better than before as he repor ts. Objective: Vital Signs: Reviewed. HEENT: Unremarkable. Lungs: Clear to auscultation. Heart: Sounds normal. Abdomen: Soft. Bowel sounds normal. No guarding, rigidity, distention. Minimum tenderness on the left side of abdomen, but it is significantly better from the time of admission. EXTREMITIES: No leg edema. Laboratory Data: White count 8.9, hemoglobin 10.7, platelets 325. Impression: 1.Small-bowel obstruction. 2.Chronic obstructive pulmonary disease. 3.Pulmonary embolism. 4.Chronic steroid therapy. 5.Chronic anticoagulation therapy. 6.Neurogenic bladder with indwelling Rocha catheter. 7.Orthostatic hypotension. Plan: We will continue current medical therapy. Continue NG tube to low intermittent suction, IV fl uid, IV antibiotics, and Lovenox per order. Will continue to follow up with Dr. Mcmanus and he will follow up on the patient today. Patient will have abdominal x-ray today and we will follow up with Annie Mcmanus to see if the patient can be started on liquid diet today or not, depends on his recommendation and x-ray result. Details were di scussed with the patient. JERAD/MODL Voice ID: [id number] Report ID: [id number]
[2019-06-03] MEDS: D5 0.9 NS 1,000 ML IV SCH (14:29)
[2019-06-03] MEDS ORDERED: MINERAL OIL 30 ML UCUP PO ONE ×2 (15:00→20:00)
[2019-06-03] MEDS ORDERED: DIAZEPAM 5 MG TABLET PO ONE (15:00)
[2019-06-03] MEDS: QUETIAPINE 25 MG TAB PO SCH (20:54)
[2019-06-04] MEDS: PIPER/TAZO/NS 3.375gm 3.375 GM/100 ML BAG IVPB SCH ×3 (01:32→16:40)
[2019-06-04] MEDS: ALBUTEROL 2.5 MG/3 ML NEB SOL NEB SCH ×4 (02:10→20:10)
[2019-06-04] MEDS: D5 0.9 NS 1,000 ML IV SCH ×2 (05:41→21:14)
[2019-06-04 06:38] LABS: Absolute Lymphocytes (CBC) 0.4 K/uL (0.7-4.9); Basophils % 0.1 % (0-1.3); Hematocrit 29.1 % (39.6-49.0); Lymphocytes % 5.1 % (15.3-44.8); MPV 6.5 fL (7.6-11.3); RBC Red Blood Cell Count 3.39 M/uL (4.33-5.43)
[2019-06-04 07:06] LABS: BUN Blood Urea Nitrogen 12 mg/dL (7-18); Bicarbonate 27 mmol/L (21-32); Glucose Level 126 mg/dL (74-106); Magnesium 2.4 mg/dL (1.8-2.4); Sodium Level 143 mmol/L (136-145)
[2019-06-04] MEDS: MIDODRINE HCL 5 MG TABLET PO SCH ×3 (09:00→21:02)
[2019-06-04] MEDS: METOPROLOL XL 25 MG TAB PO SCH (09:00)
[2019-06-04] MEDS: MONTELUKAST 10 MG TAB PO SCH (09:00)
--- NOTE | 2019-06-04 09:36 | RAD REPORT ---
EXAM DESCRIPTION: RAD - Abdomen 1 View (KUB) - 06/04/2019 9:05 am CLINICAL HISTORY: Abdomen pain. FINDINGS: A nasogastric tube has its tip 10 centimeters into the stomach. Mildly dilated small bowel has diminished in caliber since the June 03 examination. Air is pres ent within the colon. These findings are compatible with improvement in a partial small bowel obstruc tion
[2019-06-04] MEDS: PANTOPRAZOLE 40 MG INJ IVP SCH (09:56)
[2019-06-04] MEDS: ENOXAPARIN 40 MG/0.4 ML SQ SCH (09:56)
[2019-06-04] MEDS: METHYLPREDNISOLONE 40 MG INJ IV SCH ×2 (09:56→21:02)
[2019-06-04] MEDS: MORPHINE 2 MG/ML SYR IV PRN ×3 (09:59→21:01)
--- NOTE | 2019-06-04 10:48 | PN ---
Date of Progress Note: 06/04/2019 Subjective: Patient was seen this morning for followup. No new complaints or problems reported by michael macedo. He continues to have his NG tube with low intermittent suction. No bowel movement since I saw michael macedo yesterday. Objective: Vital Signs: Reviewed. HEENT: Unremarkable. Lungs: Clear to auscultation. Heart: Sounds normal. Abdomen: Soft. Bowel sounds present. Minimum left-sided tenderness, but significantly better than the first day. No rebound tenderness. EXTREMITIES: No leg edema. Laboratory Data: White count 8, hemoglobin 9.4, platelets 311. Sodium 143, potassium 4, chloride 10 9, bicarb 27, BUN 12, creatinine 0.75, glucose 126, magnesium 2.4. Impression: 1.Small bowel obstruction. 2.Chronic obstructive pulmonary disease. 3.Neurogenic bladder. Plan: We will go ahead and continue current medication including current antibiotic, NG tube to low intermittent suction IV fluid. Abdominal x-ray will be done today. We will follow up with Dr. Mariposa brunner and if patient does not get started on any diet by him today after he has chance to review x-ray a nd follow up with the patient, then we will have to consider to start him on PICC line and TPN per PICC line. Order was written for PICC line. Details were discussed with the patient. Continue Love nox. JERAD/MODL Voice ID: [id number] Report ID: [id number]
[2019-06-04] MEDS ORDERED: MINERAL OIL 30 ML UCUP FT ONE (15:42)
--- NOTE | 2019-06-04 15:43 | P.PN ---
S patient continues to improve. Looks and feels much better today he states. Had a bowel movement yesterday. Has been trying to get up out of bed. O: Improvement seen on plain abdominal films. Abdomen is soft today, mildly tympanic but once again better than yesterday. A: Partial small-bowel obstruction appears to be resolving P: I will Dc the NG tube, start the patient on clear liquids. We will advance his diet as tolerated. I do not believe that a PICC line will be required at this time as hopefully he will be able to maintain his nutrition within the next 24 hr. Once this has resolved, and he is able to tolerate a diet, he may be suitable for discharge. I have explained to him however that should his symptoms recur, we may need to rethink the plan and that surgery would be an option. He understands as does his and want to proceed.
[2019-06-04] MEDS ORDERED: AA 5%/D20W/ELECTROLYTES-TPN 2,000 ML, Lipids 20% 250 ML with MULTIVITAMINS INJ 10 ML IV SCH ×3 (17:00)
[2019-06-04] MEDS: QUETIAPINE 25 MG TAB PO SCH (21:02)
[2019-06-05] MEDS: PIPER/TAZO/NS 3.375gm 3.375 GM/100 ML BAG IVPB SCH ×3 (00:22→16:21)
[2019-06-05] MEDS: MORPHINE 2 MG/ML SYR IV PRN ×3 (00:27→20:14)
[2019-06-05] MEDS: ALBUTEROL 2.5 MG/3 ML NEB SOL NEB SCH ×4 (01:55→19:55)
[2019-06-05 04:15] LABS: Absolute Lymphocytes (CBC) 0.5 K/uL (0.7-4.9); Basophils % 0.2 % (0-1.3); Hematocrit 31.1 % (39.6-49.0); Lymphocytes % 6.3 % (15.3-44.8); MPV 6.5 fL (7.6-11.3); RBC Red Blood Cell Count 3.59 M/uL (4.33-5.43)
[2019-06-05 04:39] LABS: BUN Blood Urea Nitrogen 11 mg/dL (7-18); Bicarbonate 30 mmol/L (21-32); Glucose Level 133 mg/dL (74-106); Magnesium 2.4 mg/dL (1.8-2.4); Potassium 4.1 mmol/L (3.5-5.1); Sodium Level 144 mmol/L (136-145)
[2019-06-05] MEDS: PANTOPRAZOLE 40 MG INJ IVP SCH (09:29)
[2019-06-05] MEDS: MONTELUKAST 10 MG TAB PO SCH (09:29)
[2019-06-05] MEDS: MIDODRINE HCL 5 MG TABLET PO SCH ×3 (09:29→20:07)
[2019-06-05] MEDS: METOPROLOL XL 25 MG TAB PO SCH (09:30)
[2019-06-05] MEDS: METHYLPREDNISOLONE 40 MG INJ IV SCH ×2 (09:31→20:09)
[2019-06-05] MEDS: ENOXAPARIN 40 MG/0.4 ML SQ SCH (09:31)
[2019-06-05] MEDS: D5 0.9 NS 1,000 ML IV SCH (09:32)
[2019-06-05] MEDS: QUETIAPINE 25 MG TAB PO SCH (20:08)
[2019-06-06] MEDS: PIPER/TAZO/NS 3.375gm 3.375 GM/100 ML BAG IVPB SCH ×2 (00:41→08:13)
[2019-06-06] MEDS: D5 0.9 NS 1,000 ML IV SCH ×2 (00:44→05:16)
--- NOTE | 2019-06-06 00:52 | PN ---
Date of Progress Note: 06/05/2019 Subjective: Patient was seen this morning for followup. No new complaints or problems reported by percy draper. Lying in bed, not in distress. Vital signs reviewed. He was started on clear liquid diet y by Dr. Mcmanus, which he has tolerated very well. No nausea, vomiting. Passing gas per rec amina, but no bowel movement. Objective: Vital Signs: Reviewed. HEENT: Unremarkable. Lungs: Clear to auscultation. Heart: Sounds normal. Abdomen: Soft, bowel sounds normal. No guarding, rigidity, tenderness, or distention. Extremities: No leg edema. Laboratory Data: White count 7.8, hemoglobin 10.1, platelets 297. Sodium 134, potassium 4.1, chlori de 110, bicarb 30, BUN 11, creatinine 0.75, glucose 133, magnesium 2.4. Impression: 1.Small bowel obstruction, improved. 2.Chronic obstructive pulmonary disease. 3.Neurogenic bladder with indwelling Rocha catheter. 4.Orthostatic hypotension. Plan: We will go ahead and continue to follow with Dr. Mcmanus. Patient will continue diet as per o rder from Dr. Mcmanus. We will continue current antibiotics. Ambulation was encouraged. Continue c urrent DVT prophylaxis using Lovenox and I will see him tomorrow for followup. Possible discharge to go home tomorrow. JERAD/MODL Voice ID: [id number] Report ID: [id number]
[2019-06-06] MEDS: ALBUTEROL 2.5 MG/3 ML NEB SOL NEB SCH ×2 (01:25→08:10)
[2019-06-06 01:46] VITALS: O2SAT 96
[2019-06-06 08:12] VITALS: BP 117/56
[2019-06-06] MEDS: METHYLPREDNISOLONE 40 MG INJ IV SCH (08:17)
[2019-06-06] MEDS: PANTOPRAZOLE 40 MG INJ IVP SCH (08:18)
[2019-06-06] MEDS: METOPROLOL XL 25 MG TAB PO SCH (08:18)
[2019-06-06] MEDS: MONTELUKAST 10 MG TAB PO SCH (08:19)
[2019-06-06] MEDS: MIDODRINE HCL 5 MG TABLET PO SCH (08:19)
[2019-06-06] MEDS: ENOXAPARIN 40 MG/0.4 ML SQ SCH (08:19)
[2019-06-06 08:35] VITALS: TEMP 98
--- NOTE | 2019-06-06 22:38 | DS ---
Date of Discharge: 06/06/2019 Disposition: Discharged to go home. Physical Examination: HEENT: Unremarkable. Lungs: Clear to auscultation. Heart: Heart sounds normal. Abdomen: Soft, bowel sounds normal. No guarding, rigidity, tenderness, distention. Extremities: No leg edema. Abdomen: Soft, bowel sounds normoactive. No guarding, rigidity, tenderness, or distention. Laboratory Data: Upon admission, white count 9.7, hemoglobin 11, platelets 387, and last CBC yesterd ay white count 7.8, hemoglobin 10.1, platelets 297. Last chemistry yesterday, sodium 144, potassium 4.1, chloride 110, bicarb 30, BUN 11, creatinine 0.75, glucose 133, magnesium 2.4. Hospital Course: This is a 79-year-old very pleasant male who was admitted to the hospital with smal l bowel obstruction. Please see dictated H and P for more information. Patient came into emergency room with complaints of abdominal pain, nausea, vomiting. After he was evaluated in the ER, he was d iagnosed as having small bowel obstruction and admitted to the hospital. IV fluid, IV antibiotics wa s started. Patient had significant tenderness in the left side of his abdomen, which has resolved ov er period of this hospitalization. NG tube was placed to low intermittent suction. Dr. Mcmanus from General Surgery was consulted. Patient also required pain medication. Physical therapy was consult ed and he started ambulating well. Over period of this hospitalization with conservative treatment, bowel obstruction problem improved and the patient was started on clear liquid diet and then subseque ntly it was advanced. He has tolerated that very well and Dr. Mcmanus discontinued his NG tube and michael james is feeling overall much better than before and today he was discharged to go home in stable medical condition with instruction to continue all prior home medications and follow up at my office next we ek. Final Diagnoses: 1.Small bowel obstruction. 2.Anemia. 3.Chronic obstructive pulmonary disease. 4.Neurogenic bladder with indwelling Rocha catheter. 5.Gastroesophageal reflux disease. 6.Hypertension. 7.Peripheral neuropathy. 8.Orthostatic hypotension. 9.Hyperlipidemia. 10.Anemia. 11.History of pulmonary embolism and superficial thrombophlebitis. JERAD/MODL Voice ID: [id number] Report ID: [id number]
== END 2019-06-06 10:46 | disposition home or self-care (01) | DRG 390 ==
LOC: ER 09:08 → ERHOLD 12:26 → 4TH 13:43
PROVIDERS: ADMIT Internal Medicine; ATTEND Internal Medicine
DX: K56.609 Unspecified intestinal obstruction, unspecified as to partial versus complete obstruction (principal); D64.9 Anemia, unspecified; J44.9 Chronic obstructive pulmonary disease, unspecified; N31.9 Neuromuscular dysfunction of bladder, unspecified; K21.9 Gastro-esophageal reflux disease without esophagitis; I10 Essential (primary) hypertension; G62.9 Polyneuropathy, unspecified; I95.1 Orthostatic hypotension; E78.5 Hyperlipidemia, unspecified; Z86.711 Personal history of pulmonary embolism; Z86.72 Personal history of thrombophlebitis; Z96.0 Presence of urogenital implants; Z79.01 Long term (current) use of anticoagulants; Z79.52 Long term (current) use of systemic steroids; Z88.2 Allergy status to sulfonamides
CPT/HCPCS: 36415; 74018; 74176; 76705; 80048; 80076; 83690; 83735; 85025; 87804; 94640; 96361; 96365; 96375; 97116; 97161; 97530; 99285; C9113; J1650; J2270; J2405; J2543; J2550; J2920; J7030; J7040; J7042

== ENCOUNTER 2019-11-23 11:31 | Emergency (ER) | payer OTHER ==
--- OUTSIDE RECORDS SUMMARY | 2019-11-23 11:33 | XMS REPORT | Continuity of Care Document ---
:1940 Author Organization [facility] t Address [address] [place] [address] Dr. Andrade [address] [place] [id number] Care Team Providers Name Role Phone Unavailable Unavailable Unavailable Problems This patient has no known problems. Allergies, Adverse Reactions, Alerts This patient has no known allergies or adverse reactions. Medications This patient has no known medications. Procedures This patient has no known procedures. Results This patient has no known results.
[2019-11-23] MEDS ORDERED: NA CHLORIDE 0.9% 100 ML IV ONE (13:11)
[2019-11-23] MEDS ORDERED: CEFTRIAXONE/SWI 1gm 1 GM/10 ML SYR ONE (13:11)
[2019-11-23 14:02] LABS: Absolute Lymphocytes (CBC) 0.6 K/uL (0.7-4.9); Basophils % 0.1 % (0-1.3); Hematocrit 33.8 % (39.6-49.0); Lymphocytes % 8.5 % (15.3-44.8); MPV 7.6 fL (7.6-11.3); RBC Red Blood Cell Count 4.09 M/uL (4.33-5.43)
[2019-11-23 14:04] LABS: Protime INR 1.56
[2019-11-23 14:10] LABS: ALT/SGPT 12 U/L (12-78); AST/SGOT 8 U/L (15-37); Albumin 3.2 g/dL (3.4-5.0); Alkaline Phosphatase 43 U/L (45-117); BUN Blood Urea Nitrogen 11 mg/dL (7-18); Bicarbonate 32 mmol/L (21-32); Bilirubin Direct 0.2 mg/dL (0-0.2); Bilirubin Total 0.6 mg/dL (0.2-1.0); Ferritin 37.6 ng/mL (26-388); Glucose Level 106 mg/dL (74-106); Lipase 39 U/L (73-393); Protein, Total 7.4 g/dL (6.4-8.2); Sodium Level 138 mmol/L (136-145); Troponin (Emerg Dept Use Only) < 0.02 ng/mL (0.0-0.045)
--- NOTE | 2019-11-23 14:10 | RAD REPORT ---
EXAM DESCRIPTION: RAD - Chest Single View - 11/23/2019 1:56 pm CLINICAL HISTORY: Congestion;Cough;COPD COMPARISON: Portable chest January 2019 TECHNIQUE: AP portable chest image was obtained 11/23/2019 1:56 pm . FINDINGS: Lung volumes are reduced slightly from the comparison study. This accentuates the prominen t baseline interstitial pattern. Lung markings are not significantly different when adjusting for the differences in technique and inspiratory effort. Patient likely has chronic fibrotic change/ atelect asis at the right base. No convincing evidence for a new mass or consolidation of the lung parenchyma. Heart and vasculature are normal. No measurable pleural effusion and no pneumothorax. No acute bony abnormality seen. No acute aortic findings suspected. IMPRESSION: Chronic interstitial lung changes are present not substantially different from January 11.
[2019-11-23 14:14] LABS: Urine Amorphous Sediment 2+ /HPF (NONE SEEN); Urine Bacteria 20-50 /HPF (NONE SEEN); Urine Culture Reflex Order NOT NEEDED; Urine Mucus 2+ /HPF (NONE SEEN)
[2019-11-23 14:14] LABS: Urine Blood 2+ (NEG); Urine Glucose NEGATIVE (NEG); Urine Protein 1+ (NEG)
--- NOTE | 2019-11-23 15:29 | ER ---
Nurse's Notes [facility] [place] Name: Zen Bledsoe Jr Age: 79 yrs Sex: Male : 1940 Arrival Date: 11/23/2019 Time: 11:34 Bed 15 Private MD: Ramon Galeana C Diagnosis: Acute upper respiratory infection, unspecified;Cough Presentation: 11/22 12:15 Chief complaint: Patient states: productive cough, chest tightness, SOB started iw yesterday morning, fainted twice yesterday , was seen by home health nurse and was told his O2 level was low, is normally on 4 L NC , daughter states he fainted after his consultation with pain doctor, pt was trying to get into car with assistance and his eyes rolled back and he fell forward in the car, had a similar episode while walking yesterday. Coronavirus screen: cough unrelated to allergies, difficulty breathing, fatigue, Client presents with at least one sign or symptom that may indicate coronavirus-19. Standard/surgical mask placed on the client. Provider contacted for isolation considerations. Ebola Screen: Patient negative for fever greater than or equal to 101.5 degrees Fahrenheit, and additional compatible Ebola Virus Disease symptoms Patient denies exposure to infectious person. Patient denies travel to an Ebola-affected area in the 21 days before illness onset. No symptoms or risks identified at this time. Initial Sepsis Screen: Does the patient meet any 2 criteria? No. Patient's initial sepsis screen is negative. Does the patient have a suspected source of infection? No. Patient's initial sepsis screen is negative. Risk Assessment: Do you want to hurt yourself or someone else? Patient reports no desire to harm self or others. 12:15 Method Of Arrival: Wheelchair iw 12:17 Onset of symptoms was November 22, 2019. iw 12:17 Acuity: KARY 2 iw Triage Assessment: 13:00 General: Appears in no apparent distress. uncomfortable, Behavior is calm, cooperative, bp appropriate for age. Pain: Denies pain. EENT: No deficits noted. Neuro: Reports weakness GENERALIZED. Cardiovascular: No deficits noted. Respiratory: Reports shortness of breath. GI: No signs and/or symptoms were reported involving the gastrointestinal system. : Domínguez in place ALF INDWELLING. Derm: No deficits noted. Musculoskeletal: No deficits noted. Historical: - Allergies: 12:21 BACLOFEN; iw 12:21 Bactrim; iw 12:21 Codeine; iw 12:21 HYDROCODONE; iw 12:21 Iodine; iw 12:21 Sulfa (Sulfonamide Antibiotics); iw 12:21 Demerol; iw - Home Meds: 12:21 colestipol Oral [Active]; duloxetine 60 mg Oral cpDR once daily [Active]; gabapentin iw 400 mg Oral cap 3 times per day [Active]; hyoscyamine sulfate 0.125 mg SL subl [Active]; metoprolol tartrate 6 mg Oral tab once daily [Active]; midodrine 10 mg Oral tab 3 times per day [Active]; montelukast 10 mg Oral tab once daily [Active]; ondansetron PRN [Active]; Pain Pump with Diluadid and Prialt [Active]; pantoprazole 40 mg Oral TbEC once daily [Active]; price probiotic [Active]; prednisone 10 mg Oral tab as needed [Active]; promethazine PRN [Active]; ranitidine HCl 300 mg Oral tab 1 tab once daily [Active]; simvastatin 40 mg Oral tab 1 tab once daily [Active]; Xarelto 15 mg Oral tab twice a day [Active]; Vitamin D3 Oral [Active]; tramadol PRN [Active]; vitamin b12 [Active]; Vitamin C Oral [Active]; vitamin E Oral [Active]; - PMHx: 12:21 Angina; Arthritis; Asthma; bladder failure; bowel obstruction; BPH; cardiac stents; iw chronic back pain; COPD; ESSENTIAL TREMORS; gastritis; GERD; Hypertension; 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 - Social history:: Smoking status: Patient denies any tobacco usage or history of. Screenin:00 Abuse screen: Denies threats or abuse. Denies injuries from another. Nutritional bp screening: No deficits noted. Tuberculosis screening: No symptoms or risk factors identified. Fall Risk None identified. Assessment: 13:00 General: SEE TRIAGE NOTE. bp 15:00 Reassessment: ALL CURRENT ORDERS COMPLETED, RESULTS PENDING FOR DISPO. bp 15:58 Reassessment: PT D/C HOME VIA W/C WITH FAMILY, DX WITH ACUTE URI. ks7 Vital Signs: 12:17 BP 102 / 53; Pulse 90; Resp 20 S; Pulse Ox 94% on 4 lpm NC; Weight 86.18 kg; Height 5 iw ft. 11 in. (180.34 cm); 14:00 BP 113 / 55; Pulse 85; Resp 24; Pulse Ox 95% ; bp 14:57 BP 87 / 68; Pulse 97; Resp 22; Pulse Ox 96% ; bp 15:41 BP 124 / 52; Pulse 85; Resp 18; Pulse Ox 100% ; ks7 12:17 Body Mass Index 26.50 (86.18 kg, 180.34 cm) iw ED Course: 11:34 Patient arrived in ED. as 11:35 Ramon Galeana MD is Private Physician. as 11:47 Ollie Lemus MD is Attending Physician. kdr 12:19 Triage completed. iw 12:21 Arm band placed on. iw 13:00 Patient has correct armband on for positive identification. Bed in low position. Call bp light in reach. Side rails up X2. 13:30 Inserted saline lock: 20 gauge in right forearm, using aseptic technique. Blood bp collected. 13:45 Norbert Miranda, MADELINE is Primary Nurse. bp 13:56 CXR XRAY In Process Unspecified. EDMS 15:28 Ramon Galeana MD is Referral Physician. kdr 15:59 No provider procedures requiring assistance completed. IV discontinued, intact, ks7 bleeding controlled, No redness/swelling at site. Pressure dressing applied. Administered Medications: 13:45 Drug: Rocephin - (cefTRIAXone) 1 grams Route: IVPB; Infused Over: 30 mins; Site: right bp forearm; 16:01 Follow up: IV Status: Completed infusion; IV Intake: 100ml ks7 15:57 Drug: predniSONE 20 mg Route: PO; ks7 15:58 Follow up: Response: No adverse reaction ks7 15:57 Drug: Cipro 500 mg Route: PO; ks7 15:58 Follow up: Response: No adverse reaction ks7 Intake: 16:01 IV: 100ml; Total: 100ml. ks7 Outcome: 15:28 Discharge ordered by . kdr 16:00 Discharged to home via wheelchair, with family. ks7 16:00 Condition: stable 16:00 Discharge instructions given to patient, Instructed on discharge instructions, follow up and referral plans. medication usage, Demonstrated understanding of instructions, follow-up care, medications, Prescriptions given X 2. 16:11 Patient left the ED. ks7 Addendum: 11/27/2019 12:39 Addendum: COVID-19 Result: Negative result given to RN to notify pt. Notified pt of d m5 negative COVID 19 swab results. Pt advised that even with a negative test result they should remain in isolation until symptom free for 3 days without medication. Pt also advised to return to the ED for worsening symptoms. Signatures: Dispatcher [employer] EDMS Melanie Michele, MADELINE RN dm5 Ollie Lemus MD MD kdr Martinez, Amelia as Williams, Irene, RN RN iw Peltier, Brian, RN RN bp Songcuan, Kathleen, RN RN ks7 Corrections: (The following items were deleted from the chart) 11/22 12:19 12:15 Chief complaint: Patient states: productive cough, chest tightness, SOB started iw yesterday morning, fainted twice yesterday , was seen by home health nurse and was told his O2 level was low, is normally on 4 L NC iw 15:59 15:41 Pulse 85bpm; Resp 18bpm; Pulse Ox 100%; ks7
--- NOTE | 2019-11-23 15:29 | EDPHYS ---
Physician Documentation [facility] Name: Zen Bledsoe Jr Age: 79 yrs Sex: Male : 1940 Arrival Date: 11/23/2019 Time: 11:34 Bed 15 Private MD: Ramon Galeana C ED Physician Ollie Lemus HPI: 11/22 14:34 This 79 yrs old Male presents to ER via Wheelchair with complaints of kdr Pneumonia, Weakness. 14:35 The patient or guardian reports airway noise, cough, that is intermittent, described as kdr mild, with productive sputum, that is yellow, that is white. Onset: The symptoms/episode began/occurred gradually, 1.5 week(s) ago. Modifying factors: The symptoms are alleviated by nothing. the symptoms are aggravated by activity. 14:36 Associated signs and symptoms: Pertinent positives: chest pain, nausea, sore throat, kdr SOB, this patient has no pertinent positive symptoms. Associated signs and symptoms: Pertinent positives: Syncope/fainting. Severity of symptoms: At their worst the symptoms were mild moderate. The patient has not experienced similar symptoms in the past. 14:40 Associated signs and symptoms: Pertinent positives: The patient has also had multiple kdr syncopal episodes the last few days. he denies any injury secondary to these falls.. The patient has not recently seen a physician. Historical: - Allergies: 12:21 BACLOFEN; iw 12:21 Bactrim; iw 12:21 Codeine; iw 12:21 HYDROCODONE; iw 12:21 Iodine; iw 12:21 Sulfa (Sulfonamide Antibiotics); iw 12:21 Demerol; iw - Home Meds: 12:21 colestipol Oral [Active]; duloxetine 60 mg Oral cpDR once daily [Active]; gabapentin iw 400 mg Oral cap 3 times per day [Active]; hyoscyamine sulfate 0.125 mg SL subl [Active]; metoprolol tartrate 6 mg Oral tab once daily [Active]; midodrine 10 mg Oral tab 3 times per day [Active]; montelukast 10 mg Oral tab once daily [Active]; ondansetron PRN [Active]; Pain Pump with Diluadid and Prialt [Active]; pantoprazole 40 mg Oral TbEC once daily [Active]; price probiotic [Active]; prednisone 10 mg Oral tab as needed [Active]; promethazine PRN [Active]; ranitidine HCl 300 mg Oral tab 1 tab once daily [Active]; simvastatin 40 mg Oral tab 1 tab once daily [Active]; Xarelto 15 mg Oral tab twice a day [Active]; Vitamin D3 Oral [Active]; tramadol PRN [Active]; vitamin b12 [Active]; Vitamin C Oral [Active]; vitamin E Oral [Active]; - PMHx: 12:21 Angina; Arthritis; Asthma; bladder failure; bowel obstruction; BPH; cardiac stents; iw chronic back pain; COPD; ESSENTIAL TREMORS; gastritis; GERD; Hypertension; 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 - Social history:: Smoking status: Patient denies any tobacco usage or history of. ROS: 14:40 Constitutional: Negative for fever, chills, and weight loss, Eyes: Negative for injury, kdr pain, redness, and discharge, ENT: Negative for injury, pain, and discharge, Neck: Negative for injury, pain, and swelling, Cardiovascular: Negative for chest pain, palpitations, and edema, Back: Negative for injury and pain, : Negative for injury, bleeding, discharge, and swelling, MS/Extremity: Negative for injury and deformity, Skin: Negative for injury, rash, and discoloration, Neuro: Negative for headache, weakness, numbness, tingling, and seizure activity. He is alert but easily confused Psych: Negative for depression, anxiety, suicide ideation, homicidal ideation, and hallucinations, Allergy/Immunology: Negative for hives, rash, and allergies, Endocrine: Negative for neck swelling, polydipsia, polyuria, polyphagia, and marked weight changes, Hematologic/Lymphatic: Negative for swollen nodes, abnormal bleeding, and unusual bruising. 14:40 Respiratory: Positive for cough, dyspnea on exertion, shortness of breath, at rest. Negative for hemoptysis, orthopnea, pleurisy. Exam: 14:40 Constitutional: This is a well developed, well nourished patient who is awake, alert, kdr and in no acute distress. Head/Face: Normocephalic, atraumatic. Eyes: Pupils equal round and reactive to light, extra-ocular motions intact. Lids and lashes normal. Conjunctiva and sclera are non-icteric and not injected. Cornea within normal limits. Periorbital areas with no swelling, redness, or edema. Neck: Trachea midline, no thyromegaly or masses palpated, and no cervical lymphadenopathy. Supple, full range of motion without nuchal rigidity, or vertebral point tenderness. No Meningismus. Chest/axilla: Normal chest wall appearance and motion. Nontender with no deformity. No lesions are appreciated. Cardiovascular: Regular rate and rhythm with a normal S1 and S2. No gallops, murmurs, or rubs. Normal PMI, no JVD. No pulse deficits. Abdomen/GI: Soft, non-tender, with normal bowel sounds. No distension or tympany. No guarding or rebound. No evidence of tenderness throughout. Back: No spinal tenderness. No costovertebral tenderness. Full range of motion. Skin: Warm, dry with normal turgor. Normal color with no rashes, no lesions, and no evidence of cellulitis. MS/ Extremity: Pulses equal, no cyanosis. Neurovascular intact. Full, normal range of motion. Neuro: Awake and alert, GCS 15, oriented to person, place, time, and situation. Cranial nerves II-XII grossly intact. Motor strength 5/5 in all extremities. Sensory grossly intact. Cerebellar exam normal. Normal gait. Psych: Awake, alert, with orientation to person, place and time. Behavior, mood, and affect are within normal limits. 14:40 Respiratory: the patient does not display signs of respiratory distress, Mild when coughing up phlegm, Respirations: normal, Breath sounds: are clear throughout. 18:46 ECG was reviewed by the Attending Physician. kdr Vital Signs: 12:17 BP 102 / 53; Pulse 90; Resp 20 S; Pulse Ox 94% on 4 lpm NC; Weight 86.18 kg; Height 5 iw ft. 11 in. (180.34 cm); 14:00 BP 113 / 55; Pulse 85; Resp 24; Pulse Ox 95% ; bp 14:57 BP 87 / 68; Pulse 97; Resp 22; Pulse Ox 96% ; bp 15:41 BP 124 / 52; Pulse 85; Resp 18; Pulse Ox 100% ; ks7 12:17 Body Mass Index 26.50 (86.18 kg, 180.34 cm) iw MDM: 14:39 Data reviewed: vital signs, nurses notes. Counseling: I had a detailed discussion with kdr the patient and/or guardian regarding: the historical points, exam findings, and any diagnostic results supporting the discharge/admit diagnosis, lab results, radiology results. Physician consultation: A Kervin JACOBS was called at 14:40, regarding admission. 15:28 Patient medically screened. [facility] 11/22 12:52 Order name: Blood Culture Adult (2) [facility] 11/22 12:52 Order name: BMP [facility] 11/22 12:52 Order name: C-Reactive Protein [facility] 11/22 12:52 Order name: CBC with Diff [facility] 11/22 12:52 Order name: COVID-19 [facility] 11/22 12:52 Order name: D-Dimer; Complete Time: 14:31 [facility] 11/22 12:52 Order name: Ferritin; Complete Time: 14:31 [facility] 11/22 12:52 Order name: Flu; Complete Time: 14:31 [facility] 11/22 12:52 Order name: Lactate; Complete Time: 14:31 [facility] 11/22 12:52 Order name: LFT's; Complete Time: 14:31 [facility] 11/22 12:52 Order name: Lipase; Complete Time: 14:31 [facility] 11/22 12:52 Order name: Procalcitonin; Complete Time: 15:25 [facility] 11/22 12:52 Order name: PT-INR; Complete Time: 14:31 [facility] 11/22 12:52 Order name: Ptt, Activated; Complete Time: 14:31 [facility] 11/22 12:52 Order name: Strep; Complete Time: 14:31 [facility] 11/22 12:52 Order name: Troponin (emerg Dept Use Only); Complete Time: 14:31 [facility] 11/22 12:52 Order name: CXR XRAY; Complete Time: 14:31 [facility] 11/22 12:52 Order name: Blood Culture [facility] 11/22 12:52 Order name: Basic Metabolic Panel; Complete Time: 14:31 [facility] 11/22 12:52 Order name: C-Reactive Protein; Complete Time: 14:31 [facility] 11/22 12:52 Order name: CBC with Automated Diff; Complete Time: 14:31 [facility] 11/22 12:52 Order name: CORONAVIRUS [facility] 11/22 13:46 Order name: Urine Microscopic Only bp 11/22 13:46 Order name: Urine Culture bp 11/22 13:47 Order name: Urine Microscopic Only; Complete Time: 14:31 [facility] 11/22 13:47 Order name: Urine Culture [facility] 11/22 13:50 Order name: Urine Dipstick--Ancillary (enter results); Complete Time: 14:31 bd 11/22 14:17 Order name: Throat Culture [facility] 11/22 12:52 Order name: EKG; Complete Time: 12:53 kdr 11/22 12:52 Order name: Cardiac monitoring; Complete Time: 13:47 kdr 11/22 12:52 Order name: Document PUI#; Complete Time: 13:47 kdr 11/22 12:52 Order name: Droplet/Contact Precautions; Complete Time: 13:47 kdr 11/22 12:52 Order name: EKG - Nurse/Tech; Complete Time: 13:47 kdr 11/22 12:52 Order name: Domínguez; Complete Time: 13:46 kdr 11/22 12:52 Order name: IV Start; Complete Time: 13:46 kdr 11/22 12:52 Order name: Labs collected and sent; Complete Time: 13:45 kdr 11/22 12:52 Order name: Notify Health Dept [phone]/ ; Complete Time: 13:47 kdr 11/22 12:52 Order name: O2 Per Protocol; Complete Time: 13:47 kdr 11/22 12:52 Order name: O2 Sat Monitoring; Complete Time: 13:46 kdr 11/22 12:52 Order name: Urine Dipstick-Ancillary (obtain specimen); Complete Time: 13:45 kdr EC:46 Rate is 83 beats/min. Rhythm is regular, Sinus Rhythm with No ectopy, Right bundle kdr branch block. QRS [place] is Normal. OR interval is normal. QRS interval is normal. QT interval is normal. Clinical impression: NSR w/ Non-specific ST/T Changes. Administered Medications: 13:45 Drug: Rocephin - (cefTRIAXone) 1 grams Route: IVPB; Infused Over: 30 mins; Site: right bp forearm; 16:01 Follow up: IV Status: Completed infusion; IV Intake: 100ml ks7 15:57 Drug: predniSONE 20 mg Route: PO; ks7 15:58 Follow up: Response: No adverse reaction ks7 15:57 Drug: Cipro 500 mg Route: PO; ks7 15:58 Follow up: Response: No adverse reaction ks7 Disposition: 11/23/19 15:28 Discharged to Home. Impression: Acute upper respiratory infection, unspecified, Cough. - Condition is Stable. - Discharge Instructions: Upper Respiratory Infection, Adult, Cough, Adult, [id number]. - Prescriptions for Prednisone 20 mg Oral Tablet - take 1 tablet by ORAL route once daily for 5 days; 5 tablet. Cipro 500 mg Oral Tablet - take 1 tablet by ORAL route every 12 hours for 7 days; 14 tablet. - Medication Reconciliation Form, Thank You Letter form. - Follow up: Ramon Galeana MD; When: 2 - 3 days; Reason: If symptoms return, Further diagnostic work-up, Recheck today's complaints, Continuance of care, Re-evaluation by your physician. - Problem is an ongoing problem. - Symptoms have improved. - Notes: After one week, resusme Prednisone at 10 mg each day Signatures: Dispatcher [employer] EDMS Ollie Lemus MD MD kdr Lillian Joshi RN RN iw Norbert Miranda RN RN bp Nahed Luis RN RN ks7 Corrections: (The following items were deleted from the chart) 15:29 15:28 11/23/2019 15:28 Discharged to Home. Impression: Acute upper respiratory kdr infection, unspecified. Condition is Stable. Forms are Medication Reconciliation Form, Thank You Letter, Antibiotic Education, Prescription Opioid Use. Follow up: Ramon Galeana; When: 2 - 3 days; Reason: If symptoms return, Further diagnostic work-up, Recheck today's complaints, Continuance of care, Re-evaluation by your physician. Problem is an ongoing problem. Symptoms have improved. kdr 16:11 15:29 11/23/2019 15:28 Discharged to Home. Impression: Acute upper respiratory ks7 infection, unspecified; Cough. Condition is Stable. Forms are Medication Reconciliation Form, Thank You Letter, Antibiotic Education, Prescription Opioid Use. Follow up: Ramon Galeana; When: 2 - 3 days; Reason: If symptoms return, Further diagnostic work-up, Recheck today's complaints, Continuance of care, Re-evaluation by your physician. Problem is an ongoing problem. Symptoms have improved. kdr
[2019-11-23] MEDS ORDERED: predniSONE 20 MG TAB ONE (15:55)
[2019-11-23] MEDS ORDERED: SMZ./TMP. 800/160 MG TABLET ONE (16:01)
[2019-11-23] MEDS ORDERED: CIPROFLOXACIN HCL 500 MG TAB ONE (16:05)
[2019-11-23 16:34] VITALS: O2SAT 100
[2019-11-23 16:43] VITALS: TEMP 98.3
[2019-11-23 16:48] VITALS: BP 172/86
== END 2019-11-23 16:11 | disposition home or self-care (01) ==
LOC: ER 11:31
DX: J06.9 Acute upper respiratory infection, unspecified (principal); Z88.6 Allergy status to analgesic agent; Z88.1 Allergy status to other antibiotic agents; Z91.09 Other allergy status, other than to drugs and biological substances; Z88.2 Allergy status to sulfonamides; Z11.59 Encounter for screening for other viral diseases
CPT/HCPCS: 96365; 93005; 87040 ×2; 87070; 87088; 85025; 87086; 80048; 36415; 85610; 85379; 80076; 87081; 83605; 85730; 87077 ×2; 87186 ×2; 84484; 82728; 83690; 84145; 86140; 87804 ×2; 71045; 99284; 96366; U0002; J0696; 81003; 81015; J7512

== ENCOUNTER 2019-12-15 15:36 | Inpatient (IN) | payer OTHER ==
--- OUTSIDE RECORDS SUMMARY | 2019-12-15 15:42 | XMS REPORT | Continuity of Care Document ---
:1940 Author Organization [facility] t Address [address] [place] [address] Dr. Andrade [address] [place] [id number] Care Team Providers Name Role Phone Unavailable Unavailable Unavailable Problems This patient has no known problems. Allergies, Adverse Reactions, Alerts This patient has no known allergies or adverse reactions. Medications This patient has no known medications. Procedures This patient has no known procedures. Results This patient has no known results.
[2019-12-15] MEDS ORDERED: NA CHLORIDE 0.9% 1,000 ML ONE (16:40)
[2019-12-15 17:03] LABS: Absolute Lymphocytes (CBC) 0.7 K/uL (0.7-4.9); Basophils % 0.2 % (0-1.3); Hematocrit 33.7 % (39.6-49.0); Lymphocytes % 6.2 % (15.3-44.8); MPV 7.6 fL (7.6-11.3); RBC Red Blood Cell Count 4.13 M/uL (4.33-5.43)
[2019-12-15 17:04] LABS: Protime INR 1.37
[2019-12-15 17:17] LABS: Albumin 3.2 g/dL (3.4-5.0); Bilirubin Direct 0.2 mg/dL (0-0.2); Bilirubin Total 0.7 mg/dL (0.2-1.0); Magnesium 2.5 mg/dL (1.8-2.4); Potassium 4.2 mmol/L (3.5-5.1); Protein, Total 7.8 g/dL (6.4-8.2)
--- NOTE | 2019-12-15 17:28 | RAD REPORT ---
EXAM DESCRIPTION: CT - Stone Protocol - 12/15/2019 5:15 pm CLINICAL HISTORY: Abdominal pain. COMPARISON: May 2019 TECHNIQUE: Computed axial tomography of the abdomen pelvis was obtained without oral or IV contrast. Lack of IV and oral contrast limits evaluation of solid organs, bowel, and vessels. Coronal reformat xiao images were obtained and reviewed. All CT scans are performed using dose optimization technique as appropriate and may include automated exposure control or mA/KV adjustment according to patient size. FINDINGS: Moderate left lower lobe alveolar opacities. Mild right lower lobe alveolar opacities. A renal calculus is not seen. An ureteral calculus is not noted. A bladder calculus is not present. Mild gallbladder distention. The liver, spleen, pancreas and adrenals appear grossly normal Right hemicolectomy. No obstruction. No evidence of diverticulitis. The rectum is mildly distended with stool. A Rocha catheter is present the bladder. Small inguinal he rnias contain fat. A neurostimulator device in place. Postsurgical changes involve the lumbar spine IMPRESSION: Negative for a genitourinary calculus Moderate left and mild right lower lobe pneumonia Mild gallbladder distention
--- NOTE | 2019-12-15 17:29 | RAD REPORT ---
EXAM DESCRIPTION: Huy Single View12/15/2019 4:42 pm CLINICAL HISTORY: Chest pain COMPARISON: November 23, 2019 FINDINGS: Moderate left and mild right alveolar opacities The heart is borderline enlarged IMPRESSION: Moderate left and mild right pneumonia
[2019-12-15 17:34] LABS: Urine Appearance CLOUDY; Urine Bilirubin NEGATIVE (NEG); Urine Blood 2+ (NEG); Urine Color YELLOW; Urine Glucose NEGATIVE (NEG); Urine Protein 2+ (NEG)
[2019-12-15 17:47] LABS: Urine Bacteria 20-50 /HPF (NONE SEEN); Urine Culture Reflex Order NOT NEEDED; Urine RBC 20-50 /HPF (NONE SEEN)
[2019-12-15 17:48] LABS: Urine Amorphous Sediment 4+ /HPF (NONE SEEN)
[2019-12-15] MEDS ORDERED: ONDANSETRON 4 MG/2 ML VIAL IV PRN (18:53)
[2019-12-15] MEDS ORDERED: ACETAMINOPHEN 500 MG TAB PO PRN (18:53)
[2019-12-15] MEDS: AZITHROMYCIN IV 500 MG in NA CHLORIDE 0.9% 250 ML IVPB SCH (19:00)
[2019-12-15] MEDS ORDERED: WATER FOR INJ,STERILE 10 ML IV ONE (20:00)
[2019-12-15] MEDS ORDERED: SODIUM CHL 0.9% 100 ML BAG IV ONE (20:00)
[2019-12-15] MEDS ORDERED: Meropenem 1000 MG/VIAL IV SCH (21:00)
[2019-12-15] MEDS ORDERED: Meropenem 500 MG VIAL IV ONE (21:00)
--- NOTE | 2019-12-15 21:18 | RAD REPORT ---
EXAM DESCRIPTION: RAD - Chest Single View - 12/15/2019 8:53 pm CLINICAL HISTORY: Device placement PICC line placement IMPRESSION: PICC line with its tip in the distal superior vena cava
--- NOTE | 2019-12-15 21:58 | ER ---
Nurse's Notes [facility] Name: Zen Bledsoe Jr Age: 79 yrs Sex: Male : 1940 Arrival Date: 12/15/2019 Time: 15:43 Bed 7 Private MD: Diagnosis: Weakness;Pneumonia due to other specified bacteria;Urinary tract infection, site not specified Presentation: 12/14 15:44 Chief complaint: EMS states: Pt is having back pain. Has a known UTI and is scheduled ss to have PICC line placed tonight for IV therapy at home. Coronavirus screen: Client denies travel out of the [place] in the last 14 days. Ebola Screen: Patient denies exposure to infectious person. Patient denies travel to an Ebola-affected area in the 21 days before illness onset. Initial Sepsis Screen: Does the patient meet any 2 criteria? No. Patient's initial sepsis screen is negative. Does the patient have a suspected source of infection? Yes: Dysuria/Frequency/Urgency/UTI. Risk Assessment: Do you want to hurt yourself or someone else? Patient reports no desire to harm self or others. Onset of symptoms is unknown. 15:44 Method Of Arrival: EMS: [facility] ss 15:44 Acuity: KARY 3 ss Historical: - Allergies: 15:48 BACLOFEN; ss 15:48 Bactrim; ss 15:48 Codeine; ss 15:48 Demerol; ss 15:48 HYDROCODONE; ss 15:48 Iodine; ss 15:48 Sulfa (Sulfonamide Antibiotics); ss - PMHx: 15:48 ADD/ADHD; GERD; Hypertension; Asthma; neurogenic orthogenic hypertension; bladder ss failure; bowel obstruction; cardiac stents; chronic back pain; nueropathy in legs bilat; ESSENTIAL TREMORS; Angina; O2 at home; neuropathy; gastritis; COPD; [facility]; BPH; osteoarthritis; Seizures; Arthritis; PE; Sleep Apnea; urticaria vasculitis; - PSHx: 15:48 Tonsillectomy; ss - Immunization history:: Adult Immunizations. - Social history:: Smoking status: . Screenin:53 Abuse screen: Denies threats or abuse. Nutritional screening: No deficits noted. tw2 Tuberculosis screening: No symptoms or risk factors identified. Fall Risk Secondary diagnosis (15 points) impaired mobility. Assessment: 15:50 General: Appears in no apparent distress. well groomed, Behavior is calm, cooperative, tw2 appropriate for age. Pain: Complains of pain in left mid back and right mid back. Neuro: Level of Consciousness is awake, alert, obeys commands, Oriented to person, place, pts spouse at bedside states "he has some vascular dementia so he gets confused and wont answer appropriately at times and wont exactly know what is going on". Cardiovascular: Heart tones S1 S2. Respiratory: Airway is patent Respiratory effort is even, unlabored, Respiratory pattern is regular, symmetrical, Breath sounds are clear bilaterally. GI: Abdomen is round non-distended, Bowel sounds present X 4 quads. : Parent/caregiver report the patient having pain flank(s) domínguez in place that was inserted Wednesday12/13/[address] Kirby's office. EENT: No signs and/or symptoms were reported regarding the EENT system. Derm: No signs and/or symptoms reported regarding the dermatologic system. Musculoskeletal: Range of motion: intact in all extremities. 16:40 Reassessment: pt spouse states domínguez was inserted Wednesday, per provider ok to catch a tw2 sample from domínguez port by sterile technique at this time. 17:40 Reassessment: Patient appears in no apparent distress at this time. No changes from tw2 previously documented assessment. Patient and/or family updated on plan of care and expected duration. Pain level reassessed. 19:50 Reassessment: ICU NURSE AT BEDSIDE FOR PICC LINE PLACEMENT. PATIENT AND FAMILY AWARE OF rv THE PLAN OF CARE. 20:43 Reassessment: AWAITING COVID RESULT. rv Vital Signs: 15:59 BP 141 / 69; Pulse 92; Resp 14; Temp 97.8(TE); Pulse Ox 100% on R/A; ss 16:51 BP 127 / 67; Pulse 93; Resp 17; Pulse Ox 99% on R/A; tw2 17:40 BP 138 / 68; Pulse 89; Resp 20; Pulse Ox 100% on R/A; tw2 18:40 BP 136 / 63; Pulse 86; Resp 20; Pulse Ox 100% on R/A; tw2 19:00 BP 134 / 64; Pulse 88; Resp 20; Pulse Ox 100% on 4 lpm NC; rv 19:30 BP 130 / 67; Pulse 84; Resp 18; Pulse Ox 100% on 4 lpm NC; rv 20:30 BP 135 / 66; Pulse 89; Resp 17; Pulse Ox 100% on 4 lpm NC; rv 21:30 BP 123 / 68; Pulse 96; Resp 18; Temp 98; Pulse Ox 99% ; rv ED Course: 15:43 Patient arrived in ED. ss 15:45 Triage completed. ss 15:48 Arm band placed on right wrist. ss 15:53 Shayan Taylor PA is PHCP. cp 15:53 Shayan Muñoz MD is Attending Physician. cp 15:53 Bed in low position. Call light in reach. bus monitor on. Pulse ox on. NIBP on. tw2 16:29 Rebecca Bobo RN is Primary Nurse. tw2 16:40 Inserted saline lock: 22 gauge in right antecubital area, using aseptic technique. tw2 Blood collected. 16:42 XRAY Chest (1 view) In Process Unspecified. EDMS 17:15 CT Stone Protocol In Process Unspecified. EDMS 18:09 Ramon Galeana MD is Hospitalizing Provider. cp 19:01 Awaiting: medication from pharmacy at this time. tw2 21:39 No provider procedures requiring assistance completed. Patient admitted, IV remains in rv place. Administered Medications: 16:40 Drug: NS 0.9% 250 ml Route: IV; Rate: bolus; Site: right antecubital; tw2 17:34 Follow up: Rate change 100 ml/hr; IV Status: Completed infusion; IV Intake: 250ml tw2 16:50 Drug: NS 0.9% 500 ml Route: IV; Rate: 100 ml/hr; Site: right antecubital; tw2 21:38 Follow up: IV Status: Completed infusion; IV Intake: 250ml rv 17:46 Drug: Meropenem 1 grams Route: IV; Rate: calculated rate; Site: right antecubital; tw2 18:46 Follow up: Response: No adverse reaction; IV Status: Completed infusion tw2 19:15 Drug: Zithromax 500 mg Route: IVPB; Infused Over: 1 hrs; Site: right antecubital; rv 20:43 Follow up: IV Status: Completed infusion; IV Intake: 250ml rv Intake: 17:34 IV: 250ml; Total: 250ml. tw2 20:43 IV: 250ml; Total: 500ml. rv 21:38 IV: 250ml; Total: 750ml. rv Outcome: 18:09 Decision to Hospitalize by Provider. cp 21:46 Admitted to Med/surg accompanied by tech, via stretcher, room 231, with chart, Report rv called to GABRIEL CORREA 21:46 Condition: good 21:46 Instructed on the need for admit. 21:46 Patient left the ED. rv Signatures: Dispatcher [employer] EDMS Mini Selby, RN RN ss Shayan Taylor, MASON PA cp Rebecca Bobo RN RN tw2 Gumaro Trimble RN RN rv
--- NOTE | 2019-12-15 21:59 | EDPHYS ---
Physician Documentation [facility] Name: Zen Bledsoe Jr Age: 79 yrs Sex: Male : 1940 Arrival Date: 12/15/2019 Time: 15:43 Bed 7 Private MD: ED Physician Shayan Muñoz HPI: 12/14 16:10 This 79 yrs old Male presents to ER via EMS with complaints of Back Pain, cp Urinary Problem. 16:10 The patient complains of pain in the mid back area. cp 16:10 The pain does not radiate. Onset: The symptoms/episode began/occurred gradually. cp Associated signs and symptoms: Pertinent positives: chronic UTI, Pertinent negatives: fever. Severity of pain: in the emergency department the pain has improved mildly. Spouse reports patient saw DR Kirby 2 days ago who ordered patient to have PICC line placed for IV antibiotic treatment for chronic UTI. Patient to have PICC line placed this evening, but spouse brought patient to ED for evaluation due to increasing general weakness and confusion. Patient finished last round of antibiotics yesterday. Historical: - Allergies: 15:48 BACLOFEN; ss 15:48 Bactrim; ss 15:48 Codeine; ss 15:48 Demerol; ss 15:48 HYDROCODONE; ss 15:48 Iodine; ss 15:48 Sulfa (Sulfonamide Antibiotics); ss - PMHx: 15:48 ADD/ADHD; GERD; Hypertension; Asthma; neurogenic orthogenic hypertension; bladder ss failure; bowel obstruction; cardiac stents; chronic back pain; nueropathy in legs bilat; ESSENTIAL TREMORS; Angina; O2 at home; neuropathy; gastritis; COPD; [employer] domínguez; BPH; osteoarthritis; Seizures; Arthritis; PE; Sleep Apnea; urticaria vasculitis; - PSHx: 15:48 Tonsillectomy; ss - Immunization history:: Adult Immunizations. - Social history:: Smoking status: . ROS: 16:15 Constitutional: Positive for poor PO intake, Negative for fever. cp 16:15 Eyes: Negative for injury, pain, redness, and discharge. cp 16:15 ENT: Negative for ear pain, sore throat, difficulty swallowing, difficulty handling secretions. 16:15 Cardiovascular: Negative for chest pain. 16:15 Respiratory: Negative for cough, shortness of breath, wheezing. 16:15 Abdomen/GI: Negative for abdominal pain, nausea, vomiting, and diarrhea. 16:15 Back: Positive for flank pain, bilaterally. 16:15 Skin: Negative for rash. 16:15 Neuro: Positive for altered mental status, weakness, Negative for headache. 16:15 All other systems are negative. Exam: 16:20 Constitutional: The patient appears in no acute distress, alert, awake, cp non-diaphoretic, non-toxic, well developed, well nourished. 16:20 Head/Face: Normocephalic, atraumatic. cp 16:20 Eyes: Periorbital structures: appear normal, Pupils: equal, round, and reactive to light and accomodation, Extraocular movements: intact throughout, Conjunctiva: normal, no exudate, no injection, Lids and lashes: appear normal, bilaterally. 16:20 ENT: External ear(s): are unremarkable, Nose: is normal, Posterior pharynx: Airway: no evidence of obstruction, patent. 16:20 Neck: ROM/movement: is normal, is supple, no meningismus, no nuchal rigidity. 16:20 Chest/axilla: Inspection: normal, Palpation: is normal, no crepitus, no tenderness. 16:20 Cardiovascular: Rate: normal, Rhythm: regular, Edema: is not appreciated, JVD: is not appreciated. 16:20 Respiratory: the patient does not display signs of respiratory distress, Respirations: normal, no use of accessory muscles, no retractions, labored breathing, is not present, Breath sounds: decreased breath sounds, are not appreciated, stridor, is not appreciated, wheezing: is not appreciated. 16:20 Abdomen/GI: Inspection: abdomen appears normal, Bowel sounds: active, all quadrants, Palpation: abdomen is soft and non-tender, in all quadrants, rebound tenderness, is not appreciated, voluntary guarding, is not appreciated, involuntary guarding, is not appreciated. 16:20 Back: pain, that is mild, of the mid back area, ROM is painful, with flexion. 16:20 Skin: cellulitis, is not appreciated, no rash present. 16:20 Neuro: Orientation: to person, Mentation: slow to respond, Motor: moves all fours, general weakness without focal deficits. 17:04 ECG was reviewed by the Attending Physician. cp Vital Signs: 15:59 BP 141 / 69; Pulse 92; Resp 14; Temp 97.8(TE); Pulse Ox 100% on R/A; ss 16:51 BP 127 / 67; Pulse 93; Resp 17; Pulse Ox 99% on R/A; tw2 17:40 BP 138 / 68; Pulse 89; Resp 20; Pulse Ox 100% on R/A; tw2 18:40 BP 136 / 63; Pulse 86; Resp 20; Pulse Ox 100% on R/A; tw2 19:00 BP 134 / 64; Pulse 88; Resp 20; Pulse Ox 100% on 4 lpm NC; rv 19:30 BP 130 / 67; Pulse 84; Resp 18; Pulse Ox 100% on 4 lpm NC; rv 20:30 BP 135 / 66; Pulse 89; Resp 17; Pulse Ox 100% on 4 lpm NC; rv 21:30 BP 123 / 68; Pulse 96; Resp 18; Temp 98; Pulse Ox 99% ; rv MDM: 16:02 Patient medically screened. dale 16:30 Differential diagnosis: nephrolithiasis, pyelonephritis, UTI, sepsis, pneumonia. 17:40 Physician consultation: A Kervin JACOBS was called at 17:30, regarding patient's condition, cp left message on voicemail. 18:05 Data reviewed: vital signs, nurses notes, lab test result(s), radiologic studies, plain cp films, I have discussed the patient's presentation/case with the attending Emergency Department Physician; and as a result, I will admit patient. 18:06 Physician consultation: Ramon Galeana MD was called at 18:05, was contacted at 18:05, regarding admission, to the medical/surgical unit. patient's condition, would like medications started, Meropenom 1 grm bid. 18:48 Physician consultation: Ramon Galeana MD was called at 18:48, left message on voicemail to inform chest xray showed concern for bilateral lower lobe pneumonia. 12/14 16:13 Order name: Basic Metabolic Panel; Complete Time: 17:28 cp 12/14 17:28 Interpretation: Normal except: GLUC 119; GFR 82. 12/14 16:13 Order name: CBC with Diff; Complete Time: 17:28 cp 12/14 17:28 Interpretation: Normal except: RBC 4.13; HGB 10.7; HCT 33.7; MCH 25.9; MCHC 31.8; RDW cp 17.9; RIRI% 83.2; LYM% 6.2; NEUT A 8.7. 12/14 16:13 Order name: LFT's; Complete Time: 17:28 / 16:13 Order name: Magnesium; Complete Time: 17:28 / 16:14 Order name: NT PRO-BNP; Complete Time: 17:28 / 16:14 Order name: PT-INR; Complete Time: 17:28 / 16:14 Order name: Procalcitonin / 16:14 Order name: Lactate; Complete Time: 17:28 / 16:14 Order name: Blood Culture Adult (2) / 16:14 Order name: Urine Culture 12/14 17:09 Order name: Urinalysis W/Microscopic EDMS 12/14 18:11 Order name: COVID-19 / 16:14 Order name: XRAY Chest (1 view) / 16:14 Order name: EKG; Complete Time: 16:17 12/14 16:14 Order name: Cardiac monitoring; Complete Time: 16:50 / 16:14 Order name: EKG - Nurse/Tech; Complete Time: 17:29 / 16:14 Order name: IV Saline Lock; Complete Time: 16:50 / 16:14 Order name: Labs collected and sent; Complete Time: 16:50 /04 16:14 Order name: O2 Per Protocol; Complete Time: 16:51 12/14 16:14 Order name: O2 Sat Monitoring; Complete Time: 16:51 12/14 16:14 Order name: Urine Dipstick-Ancillary (obtain specimen); Complete Time: 17:05 12/14 17:03 Order name: CT Stone Protocol 12/14 20:36 Order name: Chest Single View XRAY: stat rv EC:04 Rate is 92 beats/min. Rhythm is regular. TX interval is prolonged at 216 msec. QRS cp interval is prolonged at 136 msec. QT interval is normal. T waves are Inverted in leads aVL, V2. Interpreted by me. Reviewed by me. Administered Medications: 16:40 Drug: NS 0.9% 250 ml Route: IV; Rate: bolus; Site: right antecubital; tw2 17:34 Follow up: Rate change 100 ml/hr; IV Status: Completed infusion; IV Intake: 250ml tw2 16:50 Drug: NS 0.9% 500 ml Route: IV; Rate: 100 ml/hr; Site: right antecubital; tw2 21:38 Follow up: IV Status: Completed infusion; IV Intake: 250ml rv 17:46 Drug: Meropenem 1 grams Route: IV; Rate: calculated rate; Site: right antecubital; tw2 18:46 Follow up: Response: No adverse reaction; IV Status: Completed infusion tw2 19:15 Drug: Zithromax 500 mg Route: IVPB; Infused Over: 1 hrs; Site: right antecubital; rv 20:43 Follow up: IV Status: Completed infusion; IV Intake: 250ml rv Disposition: 12/15 11:06 Co-signature as Attending Physician, Shayan Muñoz MD I agree with the assessment and dale plan of care. Disposition: 12/15/19 18:09 Hospitalization ordered by Ramon Galeana for Inpatient Admission. Preliminary diagnosis are Weakness, Pneumonia due to other specified bacteria, Urinary tract infection, site not specified. - Bed requested for Telemetry/MedSurg (Inpatient). - Status is Inpatient Admission. rv - Condition is Stable. - Problem is new. - Symptoms have improved. Signatures: Dispatcher [employer] EDShayan Bob MD MD cha Smirch, Shelby, RN RN Shayan Jolly PA PA cp Lulu Daigle, MADELINE CORREA Rebecca Bobo RN RN tw2 Gumaro Trimble, MADELINE RN rv Corrections: (The following items were deleted from the chart) 12/14 17:05 16:14 Domínguez ordered. cp tw2 17:08 17:04 URINALYSIS+U.LAB.BRZ ordered. EDMS EDMS 17:09 16:17 UA MICROSCOPIC+U.LAB.BRZ ordered. EDMI EDMS 18:12 18:09 Hospitalization Ordered by A Kervin JACOBS for Inpatient Admission. Preliminary cp diagnosis is Weakness. Bed requested for Telemetry/MedSurg (Inpatient). Status is Inpatient Admission. Condition is Stable. Problem is new. Symptoms have improved. cp 20:02 18:12 12/15/2019 18:09 Hospitalization Ordered by A Kervin JACOBS for Inpatient Admission. cg Preliminary diagnosis is Weakness; Pneumonia due to other specified bacteria. Bed requested for Telemetry/MedSurg (Inpatient). Status is Inpatient Admission. Condition is Stable. Problem is new. Symptoms have improved. cp 20:08 20:02 12/15/2019 18:09 Hospitalization Ordered by A Kervin JACOBS for Inpatient Admission. cp Preliminary diagnosis is Weakness; Pneumonia due to other specified bacteria. Bed requested for Telemetry/MedSurg (Inpatient). Status is Inpatient Admission. Condition is Stable. Problem is new. Symptoms have improved. cg 21:46 20:08 12/15/2019 18:09 Hospitalization Ordered by A Kervin JACOBS for Inpatient Admission. rv Preliminary diagnosis is Weakness; Pneumonia due to other specified bacteria; Urinary tract infection, site not specified. Bed requested for Telemetry/MedSurg (Inpatient). Status is Inpatient Admission. Condition is Stable. Problem is new. Symptoms have improved. cp
[2019-12-15 23:33] VITALS: BMI 24.2
[2019-12-16] MEDS: ALBUTEROL 2.5 MG/3 ML NEB SOL NEB SCH ×4 (04:10→19:25)
[2019-12-16 05:29] LABS: Absolute Lymphocytes (CBC) 0.8 K/uL (0.7-4.9); Basophils % 0.2 % (0-1.3); Hematocrit 28.3 % (39.6-49.0); Lymphocytes % 8.3 % (15.3-44.8); MPV 7.9 fL (7.6-11.3); RBC Red Blood Cell Count 3.49 M/uL (4.33-5.43)
[2019-12-16 06:03] LABS: BUN Blood Urea Nitrogen 10 mg/dL (7-18); Bicarbonate 28 mmol/L (21-32); Glucose Level 106 mg/dL (74-106); NT PRO-BNP 653 pg/mL (<450); Sodium Level 140 mmol/L (136-145)
[2019-12-16] MEDS: AZITHROMYCIN IV 500 MG in NA CHLORIDE 0.9% 250 ML IVPB SCH (09:40)
[2019-12-16] MEDS ORDERED: PROMETHAZINE 25 MG TABLET PO PRN (09:54)
[2019-12-16] MEDS ORDERED: COLESTIPOL 1 GM TAB PO PRN (09:54)
[2019-12-16] MEDS ORDERED: HOME MED 1 EA UNK (Ondansetron Hcl [Zofran] 4 MG) PO PRN (09:54)
[2019-12-16] MEDS ORDERED: TRAMADOL HCL 50 MG TAB PO PRN (09:54)
[2019-12-16] MEDS: predniSONE 5 MG TAB PO SCH (10:34)
[2019-12-16] MEDS: RIVAROXABAN 10 MG TABLET PO SCH (10:34)
[2019-12-16] MEDS: HOME MED 1 EA UNK (Midodrine Hcl [Midodrine Hcl] 10 MG) PO SCH ×2 (13:28→20:28)
[2019-12-16] MEDS: GABAPENTIN 400 MG CAP PO SCH ×3 (13:28→20:28)
[2019-12-16] MEDS: ARFORMOTEROL TARTRATE 15 MCG/2 ML VIAL.NEB IH SCH (19:25)
[2019-12-16] MEDS: Meropenem 1,000 MG in NA CHLORIDE 0.9% 100 ML IV SCH (20:27)
[2019-12-16] MEDS: ATORVASTATIN 20 MG TAB PO SCH (20:27)
[2019-12-16] MEDS: QUETIAPINE 25 MG TAB PO SCH (20:28)
[2019-12-16] MEDS ORDERED: Meropenem 1,000 MG in NA CHLORIDE 0.9% 100 ML IV SCH (21:00)
[2019-12-17] MEDS: ALBUTEROL 2.5 MG/3 ML NEB SOL NEB SCH ×4 (01:30→19:55)
--- NOTE | 2019-12-17 06:55 | EKG ---
Test Date: 2019-12-15 Test Time: 16:59:10 Production Staff Worker: REINA MEASUREMENT RESULTS: Intervals: Rate: 92 NE: 216 QRSD: 136 QT: 388 QTc: 479 Douglas: P: 62 NE: 216 QRS: 17 T: 134 INTERPRETIVE STATEMENTS: Sinus rhythm with 1st degree AV block Nonspecific intraventricular block Possible Inferior infarct, age undetermined T wave abnormality, consider anterolateral ischemia Abnormal ECG Compared to ECG 11/23/2019 13:19:18 Right bundle-branch block no longer present Myocardial infarct finding still present T-wave abnormality still present Possible ischemia still present Electronically Signed On 12-17-19 06:53:28 CDT by Nilay Villela
[2019-12-17] MEDS: ARFORMOTEROL TARTRATE 15 MCG/2 ML VIAL.NEB IH SCH ×2 (07:38→19:55)
[2019-12-17] MEDS: Meropenem 1,000 MG in NA CHLORIDE 0.9% 100 ML IV SCH ×2 (08:15→20:40)
[2019-12-17] MEDS: METOPROLOL XL 25 MG TAB PO SCH (08:16)
[2019-12-17] MEDS: RIVAROXABAN 10 MG TABLET PO SCH (08:17)
[2019-12-17] MEDS: MIDODRINE HCL 5 MG TABLET PO SCH ×3 (08:17→20:45)
[2019-12-17] MEDS: PANTOPRAZOLE 40MG TABLET PO SCH (08:17)
[2019-12-17] MEDS: predniSONE 5 MG TAB PO SCH (08:17)
[2019-12-17] MEDS: GABAPENTIN 400 MG CAP PO SCH ×4 (08:17→20:41)
[2019-12-17] MEDS: HYOSCYAMINE SULF 0.125 MG TAB PO SCH (08:17)
[2019-12-17] MEDS: DULOXETINE 30 MG CAP PO SCH (08:17)
[2019-12-17] MEDS: MONTELUKAST 10 MG TAB PO SCH (08:17)
[2019-12-17] MEDS: [UNRECOGNIZED DRUG - OTHER] PO SCH (08:18)
[2019-12-17] MEDS: AZITHROMYCIN IV 500 MG in NA CHLORIDE 0.9% 250 ML IVPB SCH (08:48)
[2019-12-17] MEDS ORDERED: FAMOTIDINE 20 MG TAB PO SCH (09:00)
[2019-12-17] MEDS ORDERED: HOME MED 1 EA UNK (Simvastatin [Simvastatin] 40 MG) PO SCH (09:00)
[2019-12-17] MEDS ORDERED: HOME MED 1 EA UNK (Duloxetine Hcl [Duloxetine Hcl] 60 MG) PO SCH (09:00)
[2019-12-17] MEDS: ATORVASTATIN 20 MG TAB PO SCH (20:41)
[2019-12-17] MEDS: QUETIAPINE 25 MG TAB PO SCH (20:44)
--- NOTE | 2019-12-17 21:57 | PN ---
Date of Progress Note: 12/17/2019 Subjective: Patient was seen this morning for followup. He was lying in bed, not in any distress. Mental status is still not back to normal. When I saw him, he recognized me, but he thought he was i [facility] and he asked me and I corrected him and I informed him where he was and after minute to two minutes, he kept on asking me the same question thinking that he was in [place]. Objective: Vital Signs: Reviewed. HEENT: Unremarkable. Lungs: Bilateral good equal air entry. Presence of minimum rales noted in lower lung munguia, overal l much better than yesterday, not in any respiratory distress. Heart: Sounds normal. Abdomen: Soft. Bowel sounds normal. No guarding, rigidity, tenderness, or distention. Extremities: No leg edema. Impression: 1.Pneumonia. 2.Anemia. 3.Neurogenic bladder with indwelling Rocha catheter. Plan: We will go ahead and continue current medications, antibiotic, oxygen nebulizer treatment, and his usual home medications. Consult Physical Therapy to help ambulate the patient and I will see iwona m tomorrow for followup. Blood culture remains negative so far. JERAD/MODL Voice ID: [id number] Report ID: [id number]
[2019-12-18] MEDS: ALBUTEROL 2.5 MG/3 ML NEB SOL NEB SCH ×4 (01:54→20:00)
[2019-12-18 05:39] LABS: BUN Blood Urea Nitrogen 13 mg/dL (7-18); Bicarbonate 34 mmol/L (21-32); Glucose Level 98 mg/dL (74-106); Magnesium 2.5 mg/dL (1.8-2.4); Potassium 3.9 mmol/L (3.5-5.1); Sodium Level 142 mmol/L (136-145)
[2019-12-18 05:40] LABS: Absolute Lymphocytes (CBC) 1.4 K/uL (0.7-4.9); Basophils % 0.2 % (0-1.3); Hematocrit 27.2 % (39.6-49.0); Lymphocytes % 17.4 % (15.3-44.8); MPV 7.3 fL (7.6-11.3); RBC Red Blood Cell Count 3.33 M/uL (4.33-5.43)
--- NOTE | 2019-12-18 07:58 | RAD REPORT ---
EXAM DESCRIPTION: RAD - Chest Single View - 12/18/2019 6:40 am CLINICAL HISTORY: pneumonia COMPARISON: December 14 examinations TECHNIQUE: AP portable chest image was obtained 12/18/2019 6:40 am . FINDINGS: Bilateral lower lung field and left mid lung field parenchymal opacification present simil ar to the comparison studies. Parenchymal opacification has not substantially changed. There may be v cade minimal improvement on the left. Right-side PICC line is in place. No vascular engorgement. Heart size is normal. No measurable pleura l effusion and no pneumothorax. No acute bony abnormality seen. No acute aortic findings suspected. IMPRESSION: Left greater than right lung lower lung parenchymal opacification similar or only very f ractionally improved compared to the December 14 imaging.
[2019-12-18] MEDS: ARFORMOTEROL TARTRATE 15 MCG/2 ML VIAL.NEB IH SCH ×2 (08:04→20:00)
[2019-12-18] MEDS: [UNRECOGNIZED DRUG - OTHER] PO SCH (08:23)
[2019-12-18 08:30] LABS: Blood Morphology Comment NOT SEEN (NOT SEEN); Platelet Estimate ADEQ
[2019-12-18] MEDS: Meropenem 1,000 MG in NA CHLORIDE 0.9% 100 ML IV SCH ×2 (08:36→20:56)
[2019-12-18] MEDS: HYOSCYAMINE SULF 0.125 MG TAB PO SCH (08:37)
[2019-12-18] MEDS: MIDODRINE HCL 5 MG TABLET PO SCH ×3 (08:37→20:56)
[2019-12-18] MEDS: GABAPENTIN 400 MG CAP PO SCH ×4 (08:37→20:56)
[2019-12-18] MEDS: AZITHROMYCIN IV 500 MG in NA CHLORIDE 0.9% 250 ML IVPB SCH (08:37)
[2019-12-18] MEDS: METOPROLOL XL 25 MG TAB PO SCH (08:37)
[2019-12-18] MEDS: PANTOPRAZOLE 40MG TABLET PO SCH (08:38)
[2019-12-18] MEDS: RIVAROXABAN 10 MG TABLET PO SCH (08:38)
[2019-12-18] MEDS: DULOXETINE 30 MG CAP PO SCH (08:38)
[2019-12-18] MEDS: MONTELUKAST 10 MG TAB PO SCH (08:38)
[2019-12-18] MEDS: predniSONE 5 MG TAB PO SCH (08:38)
--- NOTE | 2019-12-18 08:46 | HP ---
Date of Admission: 12/16/2019 Chief Complaint: Pain and confusion. History Of Present Illness: This is a 79-year-old male patient, who lives at home with his , has neurogenic bladder for which he has a chronic indwelling Rocha catheter for several years. He gets his catheter changed every month. Recently, he came to emergency room about approximately 3 weeks ago or so and he was not admitted at that time to the hospital, but I understand that. While the ER physician evaluated him, also did a urinalysis and urine culture, which I absolutely do not understand reasoning behind that considering that he has an indwelling catheter. His urine test always will reveal bacteria and will grow some bacteria and same thing happened during this particular urine culture that was collected in the emergency room 3 weeks ago that he had some resistant bacteria which according to culture and sensitivity results would require meropenem. He followed up with Dr. Kirby, who actually had plan for patient to have outpatient PICC line placement which was going to be done yesterday, but meanwhile he ended up in the emergency room yesterday evening. The patient's daughter called and informed me about all these details and informed me that lately in last few days he has been complaining of lot of generalized pain and he was noted to be confused yesterday and all he kept on telling daughter help. We do not know if there was any other culture collected by Dr. Kirby or not at this point. After the patient was evaluated in emergency room, he was admitted to the hospital, he has bilateral pneumonia. I saw him this morning, there was no family member with him at bedside and the patient still remains confused. He answers some simple questions and reported that his pain that he was having is actually better compared to what it was yesterday, chest congestion, otherwise he is not able to answer much details. He was asking me "I do not know what else I need to do today." When I tried to explain it to him, he was not able to understand or remember and he would end up asking similar question again. The patient was not in any respiratory distress when I saw him. Medications: List reviewed. Review of Systems: Constitutional: As mentioned above. EDGE INKER UPPERS: As mentioned above. Respiratory: As mentioned above. All other systems reviewed and negative. Allergies: TO SULFA, BACLOFEN, CODEINE, HYDROCODONE, AND IODINE. Social History: Negative for smoking or alcohol use. Family History: Significant for cancer of esophagus and hypertension. Past Surgical History: Small bowel obstruction and surgery for that in 2001. Otherwise, he also had appendectomy, tonsillectomy, back surgery, vasectomy, arthroscopic knee surgery, cervical spine fusion, right-sided hemicolectomy due to colon polyps, and surgery for deviated nasal septum. Past Medical History: Significant for COPD, neurogenic bladder, indwelling Rocha catheter, orthostatic hypotension, hyperlipidemia, chronic fatigue, gastroesophageal reflux disease, hypertension, anemia, peripheral neuropathy, bronchiectasis, recurrent pneumonia, pulmonary embolism diagnosed January 01, 2019, and superficial thrombophlebitis. Physical Examination: Vital Signs: Last temperature was 98.2, oxygen saturation 95%, pulse 92, respiratory rate 17, blood pressure 136/66, height 5 feet 11 inches, weight 173 pounds. General: Awake, alert, oriented, not in distress. HEENT: Head atraumatic, normocephalic. Conjunctivae nonerythematous. Sclerae white. Mouth, no thrush or edema noted. Ears/Nose, no mass, lesion, discharge noted. Neck: Supple. No JVD, lymph nodes, bruit, thyromegaly noted. Lungs: Bilateral rales noted in lower lung munguia. Not in any respiratory distress. Heart: Normal heart sounds, no murmur or gallop. Abdomen: Soft, bowel sounds normal. No guarding, rigidity, tenderness, mass, hepatosplenomegaly, distention, or bruit noted. Extremities: No leg edema. No calf tenderness. Skin: No rash, ulcer, cellulitis. Lymphatics: No lymph node enlargement in neck, supraclavicular, infraclavicular region. Neuro: No focal neurological deficit. Chest: Unremarkable. External Genitalia: Deferred. Rectal: Deferred. Laboratory Data: Yesterday white count 10.5, hemoglobin 10.7, platelets 219. This morning white count 9.3, hemoglobin 9.3, platelets 180. Yesterday sodium 138, potassium 4.2, chloride 102, bicarb 31, BUN 11, creatinine 0.90, glucose 119. Liver function tests unremarkable. Procalcitonin 0.36. Lactic acid 1.8. This morning sodium 140, potassium 4, chloride 106, bicarb 28, BUN 10, creatinine 0.71, glucose 106. Urinalysis that was collected in the emergency room yesterday was positive for nitrite, 20-50 bacteria, 20-50 wbc's. Once again quality of this urinalysis needs to be question because patient has an indwelling Rocha catheter. His COVID-19 test negative. CAT scan of abdomen per kidney stone protocol, negative for kidney stone, moderate left and mild right- sided lower lobe infiltrates, mild gallbladder distention. Chest x-ray, moderate left and mild right pneumonia. Impression: 1. Pneumonia. 2. Encephalopathy, secondary to above, toxic. 3. Generalized weakness. 4. Malaise. 5. Neurogenic bladder with indwelling Rocha catheter. 6. Chronic obstructive pulmonary disease. 7. Gastroesophageal reflux disease. 8. Pulmonary embolism. 9. Hypertension. 10. Peripheral neuropathy. 11. Orthostatic hypotension. Plan: We will go ahead and admit the patient to hospital for further evaluation and management of this problem. The patient is appropriate for inpatient and is expected to spend 2 midnights in hospital. We will continue home medications per order. The patient will receive antibiotics, which is meropenem and azithromycin. He did have his PICC line placed last night. We will continue current medication including nebulizer treatment. Fall precaution was ordered and I have requested patient to be more closer to nurses station considering his altered mental status. I have discussed details with patient's daughter. I will see him tomorrow for followup. I expect him to go home sometime beginning of next week to middle part of next week. JERAD/DOMINICK Voice ID: [id number] MTDD
--- NOTE | 2019-12-18 10:13 | PN ---
Date of Progress Note: 12/18/2019 Subjective: The patient was seen this morning for followup. He was lying in bed, not in any distress. Still has lot of cough and chest congestion. Complaining of some burning sensation on the both heel region and that is from rubbing on the mattress. Objective: Vital Signs: Reviewed. HEENT: Examination unremarkable. Lungs: Bilateral good equal air entry. Presence of some rales noted in lower lung munguia, not in respiratory distress. Heart: Sounds normal. Abdomen: Soft. Bowel sounds normal. No guarding, rigidity, tenderness, or distention. Extremities: No leg edema. Skin: No evidence of any skin breakdown on heels. Laboratory Data: White count 8.2, hemoglobin 9, platelets 241. Sodium 142, potassium 3.9, chloride 107, bicarb 34, BUN 13, creatinine 0.73, glucose 98, magnesium 2.5. Impression: 1. Pneumonia. 2. Neurogenic bladder. 3. Anemia. Plan: We will go ahead and continue current medications. Continue current meropenem and azithromycin for pneumonia. Chest x-ray shows some improvement. Our plan is to continue this 2 antibiotics IV while here in the hospital. Social Service consultation was requested for patient to go home with 1 week of IV meropenem. Possible discharge to go home on 12/20/2019. Patient has a right arm PICC line in place. The patient's urine culture is growing Pseudomonas and it is a resistant bacteria sensitive to meropenem, but once again, I will not label this as a urinary tract infection because patient has an indwelling Rocha catheter, and he is going to continue to go bacteria from the urine because of his indwelling Rocha catheter. So, we should not label it as a urinary tract infection. JERAD/MODL Voice ID: [id number] Report ID: [id number] JOSE E
[2019-12-18] MEDS: ATORVASTATIN 20 MG TAB PO SCH (20:56)
[2019-12-18] MEDS: QUETIAPINE 25 MG TAB PO SCH (21:04)
[2019-12-19] MEDS: ALBUTEROL 2.5 MG/3 ML NEB SOL NEB SCH ×4 (01:30→19:28)
[2019-12-19] MEDS: ARFORMOTEROL TARTRATE 15 MCG/2 ML VIAL.NEB IH SCH ×2 (07:35→23:45)
[2019-12-19] MEDS: DULOXETINE 30 MG CAP PO SCH (08:54)
[2019-12-19] MEDS: LACTOBACILLUS/ACIDOPHILUS TAB PO SCH (08:54)
[2019-12-19] MEDS: RIVAROXABAN 10 MG TABLET PO SCH (08:54)
[2019-12-19] MEDS: GABAPENTIN 400 MG CAP PO SCH ×4 (08:54→21:07)
[2019-12-19] MEDS: HYOSCYAMINE SULF 0.125 MG TAB PO SCH (08:54)
[2019-12-19] MEDS: MONTELUKAST 10 MG TAB PO SCH (08:54)
[2019-12-19] MEDS: MIDODRINE HCL 5 MG TABLET PO SCH ×3 (08:54→21:06)
[2019-12-19] MEDS: PANTOPRAZOLE 40MG TABLET PO SCH (08:55)
[2019-12-19] MEDS: METOPROLOL XL 25 MG TAB PO SCH (08:55)
[2019-12-19] MEDS: predniSONE 5 MG TAB PO SCH (08:55)
[2019-12-19] MEDS: AZITHROMYCIN IV 500 MG in NA CHLORIDE 0.9% 250 ML IVPB SCH (08:56)
[2019-12-19] MEDS: Meropenem 1,000 MG in NA CHLORIDE 0.9% 100 ML IV SCH ×2 (08:57→21:07)
[2019-12-19] MEDS: ATORVASTATIN 20 MG TAB PO SCH (21:06)
[2019-12-19] MEDS: QUETIAPINE 25 MG TAB PO SCH (21:10)
--- NOTE | 2019-12-19 22:22 | PN ---
Date of Progress Note: 12/19/2019 Subjective: The patient was seen this morning for followup. No new complaints or problems reported by the patient. Lying in bed, not in distress. Objective: Vital Signs: Reviewed. HEENT: Unremarkable. Lungs: Bilateral good equal air entry. Presence of some rales noted in lower lung munguia. Not in d istress. Heart: Sounds normal. Abdomen: Soft. Bowel sounds normal. No guarding, rigidity, tenderness, distention. Extremities: No leg edema. Impression: 1.Pneumonia. 2.Neurogenic bladder. 3.Indwelling Rocha catheter. 4.Orthostatic hypotension. Plan: We will continue current medications, antibiotics. We will repeat chest x-ray and I will see him tomorrow for followup. Possible discharge to go home in next day or 2 days depending on the chiqui ent's overall condition. Details and plan of treatment discussed with the patient. With offloading his heels, the patient reports that his heels already feel back to normal. There is no burning sensa tion in the heel area anymore. JERAD/MODL Voice ID: [id number] Report ID: [id number]
[2019-12-20] MEDS: ALBUTEROL 2.5 MG/3 ML NEB SOL NEB SCH ×2 (02:22→07:45)
[2019-12-20 05:42] LABS: Absolute Lymphocytes (CBC) 1.7 K/uL (0.7-4.9); Basophils % 0.2 % (0-1.3); Hematocrit 27.7 % (39.6-49.0); Lymphocytes % 29.5 % (15.3-44.8); MPV 7.1 fL (7.6-11.3); RBC Red Blood Cell Count 3.41 M/uL (4.33-5.43)
[2019-12-20 05:44] LABS: BUN Blood Urea Nitrogen 13 mg/dL (7-18); Bicarbonate 35 mmol/L (21-32); Glucose Level 95 mg/dL (74-106); Magnesium 2.5 mg/dL (1.8-2.4); Potassium 3.7 mmol/L (3.5-5.1); Sodium Level 144 mmol/L (136-145)
--- NOTE | 2019-12-20 07:29 | RAD REPORT ---
EXAM DESCRIPTION: Huy Single View12/20/2019 6:21 am CLINICAL HISTORY: Cough COMPARISON: December FINDINGS: Bibasilar opacities have partially resolved. Heart is mildly enlarged. PICC line remains in place IMPRESSION: Partial resolution a bibasilar pneumonia
[2019-12-20] MEDS: ARFORMOTEROL TARTRATE 15 MCG/2 ML VIAL.NEB IH SCH (07:45)
[2019-12-20] MEDS: MONTELUKAST 10 MG TAB PO SCH (08:46)
[2019-12-20] MEDS: GABAPENTIN 400 MG CAP PO SCH (08:46)
[2019-12-20] MEDS: DULOXETINE 30 MG CAP PO SCH (08:47)
[2019-12-20] MEDS: PANTOPRAZOLE 40MG TABLET PO SCH (08:48)
[2019-12-20] MEDS: HYOSCYAMINE SULF 0.125 MG TAB PO SCH (08:48)
[2019-12-20] MEDS: METOPROLOL XL 25 MG TAB PO SCH (08:48)
[2019-12-20] MEDS: MIDODRINE HCL 5 MG TABLET PO SCH (08:48)
[2019-12-20] MEDS: predniSONE 5 MG TAB PO SCH (08:49)
[2019-12-20] MEDS: LACTOBACILLUS/ACIDOPHILUS TAB PO SCH (08:49)
[2019-12-20] MEDS: Meropenem 1,000 MG in NA CHLORIDE 0.9% 100 ML IV SCH (08:49)
[2019-12-20] MEDS: AZITHROMYCIN IV 500 MG in NA CHLORIDE 0.9% 250 ML IVPB SCH (08:50)
[2019-12-20 08:56] VITALS: BP 134/60; TEMP 97.4
[2019-12-20] MEDS ORDERED: RIVAROXABAN 20 MG TABLET PO SCH (09:00)
[2019-12-20 10:36] VITALS: O2SAT 93
--- NOTE | 2019-12-22 02:56 | DS ---
Date of Discharge: 12/20/2019 Disposition: Discharged to go home. Physical Examination: HEENT: Unremarkable. Lungs: Clear to auscultation. Heart: Sounds normal. Abdomen: Soft. Bowel sounds normal. No guarding, rigidity, tenderness, or distention. Extremities: No leg edema. Laboratory Data: Upon admission on 12/15/2019; white count 10.5, hemoglobin 10.7, platelets 219. Up on day of discharge; white count 5.9, hemoglobin 9.1, platelets 295. Last chemistry on day of discha rge; sodium 144, potassium 3.7, chloride 106, bicarb 35, BUN 13, creatinine 0.80, glucose 95. Hospital Course: This is a 79-year-old male patient who was admitted to the hospital after he presen xiao to emergency room with complaints of pain and confusion. The patient was evaluated in the emerge ncy room and was admitted to the hospital with pneumonia. His COVID-19 test came back negative. The patient had some confusion. This was thought to be due to encephalopathy secondary to this infectio n. Overall, his condition improved with treatment provided to him which included antibiotics. We ga ve him IV meropenem and Zithromax and his condition improved. Physical therapy was consulted. PICC line was placed. Social Service was consulted to help make arrangements for home IV antibiotic thera py. Final Diagnoses: 1.Pneumonia. 2.Encephalopathy, toxic, secondary to above. 3.Generalized weakness. 4.Debility. 5.Neurogenic bladder with indwelling Rocha catheter. 6.Chronic obstructive pulmonary disease. 7.Gastroesophageal reflux disease. 8.Pulmonary embolism. 9.Hypertension. 10.Peripheral neuropathy. 11.Orthostatic hypotension. Discharge Medications And Instructions: 1.Continue all prior home medications. 2.Home health nurse to assist the patient with IV antibiotics for 1 week. 3.Flush PICC line per protocol. 4.Change PICC line dressing per protocol. 5.Remove PICC line after 1 week of IV antibiotic therapy completed. 6.Meropenem 1000 mg IV every 12 hours for 1 week. 7.Azithromycin 250 mg p.o. daily for 5 days. 8.Follow up at my office in 1-2 weeks. JERAD/MODL Voice ID: [id number] Report ID: [id number]
== END 2019-12-20 11:05 | disposition home health service (06) | DRG 193 ==
LOC: ER 15:36 → ERHOLD 19:11 → 2ND 21:28
PROVIDERS: ADMIT Internal Medicine; ATTEND Internal Medicine
PROC: 02HV33Z Insertion of Infusion Device into Superior Vena Cava, Percutaneous Approach (ICD-10-PCS; principal; 2019-12-15)
DX: J18.9 Pneumonia, unspecified organism (principal); G92 Toxic encephalopathy; J44.0 Chronic obstructive pulmonary disease with (acute) lower respiratory infection; I10 Essential (primary) hypertension; E78.5 Hyperlipidemia, unspecified; K21.9 Gastro-esophageal reflux disease without esophagitis; R53.1 Weakness; R53.81 Other malaise; N31.9 Neuromuscular dysfunction of bladder, unspecified; G62.9 Polyneuropathy, unspecified; I95.1 Orthostatic hypotension; D64.9 Anemia, unspecified; B96.5 Pseudomonas (aeruginosa) (mallei) (pseudomallei) as the cause of diseases classified elsewhere; Z90.49 Acquired absence of other specified parts of digestive tract; Z88.5 Allergy status to narcotic agent; Z88.8 Allergy status to other drugs, medicaments and biological substances; Z86.711 Personal history of pulmonary embolism; Z88.1 Allergy status to other antibiotic agents; Z20.828 Contact with and (suspected) exposure to other viral communicable diseases
CPT/HCPCS: 36415; 36569; 71045; 74176; 76377; 80048; 80076; 81001; 83605; 83735; 83880; 84145; 85025; 85610; 87040; 87077; 87086; 87088; 87186; 93005; 94760; 96361; 96365; 96367; 97110; 97116; 97161; 97530; 99285; J0456; J2185; J7030; J7050; J7512; J7605; U0003

== ENCOUNTER 2020-01-15 08:50 | Observation (INO) | payer OTHER ==
[2020-01-15 10:15] LABS: Absolute Lymphocytes (CBC) 1.2 K/uL (0.7-4.9); Basophils % 0.1 % (0-1.3); Hematocrit 27.9 % (39.6-49.0); Lymphocytes % 15.5 % (15.3-44.8); MPV 7.2 fL (7.6-11.3); RBC Red Blood Cell Count 3.49 M/uL (4.33-5.43)
--- NOTE | 2020-01-15 10:21 | RAD REPORT ---
EXAM DESCRIPTION: RAD - Chest Single View - 01/15/2020 10:12 am CLINICAL HISTORY: Cough;COPD COMPARISON: December 19 TECHNIQUE: AP portable chest image was obtained 01/15/2020 10:12 am . FINDINGS: Prominent interstitial lung markings are noted similar to comparison. No new mass or conso lidation. Retrocardiac base remains limited on the current and prior study. Heart and vasculature are normal. No measurable pleural effusion and no pneumothorax. No acute bony abnormality seen. No acute aortic findings suspected. PICC line has been removed since prior imaging. IMPRESSION: No new mass or consolidation seen. Retrocardiac left base assessment remains limited. Prominent interstitial lung pattern matching comparison.
[2020-01-15 10:29] LABS: BUN Blood Urea Nitrogen 13 mg/dL (7-18); Bicarbonate 27 mmol/L (21-32); Glucose Level 94 mg/dL (74-106); NT PRO-BNP 377 pg/mL (<450); Potassium 3.9 mmol/L (3.5-5.1); Sodium Level 142 mmol/L (136-145); Troponin (Emerg Dept Use Only) < 0.02 ng/mL (0.0-0.045)
[2020-01-15 10:31] LABS: Urine Blood 1+ (NEG); Urine Glucose NEGATIVE (NEG); Urine Protein NEGATIVE (NEG); Urine pH 8.5 (5.0-7.0)
[2020-01-15] MEDS ORDERED: Levofloxacin500mg IV 500 MG/100 ML BAG IV ONE (10:43)
[2020-01-15 10:47] LABS: Urine Bacteria <20 /HPF (NONE SEEN); Urine Culture Reflex Order NOT NEEDED
[2020-01-15 10:48] LABS: Urine Yeast with Hyphae PRESENT
--- NOTE | 2020-01-15 11:33 | ER ---
Nurse's Notes [facility] [place] Name: Zen Bledsoe Jr Age: 79 yrs Sex: Male : 1940 Arrival Date: 01/15/2020 Time: 08:53 Bed 3 Private MD: Diagnosis: Chronic obstructive pulmonary disease with (acute) exacerbation;Dyspnea, unspecified;Altered mental status, unspecified Presentation: 01/14 08:53 Chief complaint: EMS states: Pt c/o chest pain, cough and SOB, dx w/ pneumonia approx 3 ph weeks ago, COVID negative at that time, family reports that pt was confused last night, family also states that Spo2 was low this morning on home o2 at 4L, Spo2 for EMS 96% on 4L, temp of 99.1, 1 gram Tylenol given, Domínguez catheter in place upon arrival. Coronavirus screen: Client denies travel out of the [place] in the last 14 days. congestion, fever, shortness of breath, Client presents with at least one sign or symptom that may indicate coronavirus-19. Standard/surgical mask placed on the client. The client reports previous COVID testing was negative. Ebola Screen: No symptoms or risks identified at this time. Initial Sepsis Screen: Does the patient meet any 2 criteria? No. Patient's initial sepsis screen is negative. Does the patient have a suspected source of infection? Yes: Productive cough/pneumonia. Risk Assessment: Do you want to hurt yourself or someone else? Patient reports no desire to harm self or others. Onset of symptoms was January 15, 2020. 08:53 Method Of Arrival: EMS: [facility] ph 08:53 Acuity: KARY 3 ph Historical: - Allergies: 09:01 BACLOFEN; ph 09:01 Bactrim; ph 09:01 Codeine; ph 09:01 Demerol; ph 09:01 HYDROCODONE; ph 09:01 Iodine; ph 09:01 Sulfa (Sulfonamide Antibiotics); ph - Home Meds: 09:01 colestipol Oral [Active]; duloxetine 60 mg Oral cpDR once daily [Active]; gabapentin ph 400 mg Oral cap 3 times per day [Active]; hyoscyamine sulfate 0.125 mg SL subl [Active]; metoprolol tartrate 6 mg Oral tab once daily [Active]; midodrine 10 mg Oral tab 3 times per day [Active]; montelukast 10 mg Oral tab once daily [Active]; ondansetron PRN [Active]; Pain Pump with Diluadid and Prialt [Active]; pantoprazole 40 mg Oral TbEC once daily [Active]; price probiotic [Active]; prednisone 10 mg Oral tab as needed [Active]; promethazine PRN [Active]; ranitidine HCl 300 mg Oral tab 1 tab once daily [Active]; simvastatin 40 mg Oral tab 1 tab once daily [Active]; tramadol PRN [Active]; vitamin b12 [Active]; Vitamin C Oral [Active]; Vitamin D3 Oral [Active]; vitamin E Oral [Active]; Xarelto 15 mg Oral tab twice a day [Active]; - PMHx: 09:01 ADD/ADHD; Angina; Arthritis; Asthma; bladder failure; bowel obstruction; BPH; cardiac ph stents; chronic back pain; COPD; ESSENTIAL TREMORS; gastritis; GERD; Hypertension; 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 - Family history:: not pertinent. - Hospitalizations: : The patient was recently seen at [facility]. Screenin:01 Abuse screen: Denies threats or abuse. Denies injuries from another. Nutritional ph screening: No deficits noted. Tuberculosis screening: No symptoms or risk factors identified. Fall Risk No fall in past 12 months (0 pts). No secondary diagnosis (0 pts). IV access (20 points). Ambulatory Aid- None/Bed Rest/Nurse Assist (0 pts). Gait- Weak (10 pts.). Mental Status- Oriented to own ability (0 pts). Total Muse Fall Scale indicates Low Risk Score (25-44 pts). Fall prevention measures have been instituted. Side Rails Up X 2 Placed close to Nursing Station Frequent Obs/Assesments occuring Family Present and informed to notify staff if they need to leave bedside As available Patient and Family Educated on Fall Prevention Program and strategies. Assessment: 08:50 General: Appears in no apparent distress. comfortable, Behavior is calm, cooperative, em appropriate for age. Pain: Complains of pain in chest Pain currently is 2 out of 10 on a pain scale. Pain began 2-3 weeks ago. Neuro: Level of Consciousness is awake, alert, obeys commands, Oriented to person, place, time, situation, Appropriate for age. Cardiovascular: Capillary refill < 3 seconds Patient's skin is warm and dry. Rhythm is sinus rhythm. Respiratory: Reports cough that is Airway is patent Respiratory effort is even, unlabored, Respiratory pattern is regular, symmetrical. GI: Abdomen is round non-distended, Reports nausea. : Domínguez in place reports having the catheter due to bladder not working anymore. Derm: Skin is intact, is healthy with good turgor, Skin is pink, warm \T\ dry. Musculoskeletal: Capillary refill < 3 seconds, Range of motion: intact in all extremities. 10:00 Reassessment: Patient appears in no apparent distress at this time. Patient and/or em family updated on plan of care and expected duration. Pain level reassessed. Patient is alert, oriented x 3, equal unlabored respirations, skin warm/dry/pink. 11:00 Reassessment: Patient appears in no apparent distress at this time. Patient and/or em family updated on plan of care and expected duration. Pain level reassessed. Patient is alert, oriented x 3, equal unlabored respirations, skin warm/dry/pink. 12:00 Reassessment: Patient appears in no apparent distress at this time. Patient and/or em family updated on plan of care and expected duration. Pain level reassessed. Patient is alert, oriented x 3, equal unlabored respirations, skin warm/dry/pink. 13:00 Reassessment: Patient appears in no apparent distress at this time. Patient and/or em family updated on plan of care and expected duration. Pain level reassessed. Patient is alert, oriented x 3, equal unlabored respirations, skin warm/dry/pink. 14:15 Reassessment: Patient appears in no apparent distress at this time. Patient and/or em family updated on plan of care and expected duration. Pain level reassessed. Patient is alert, oriented x 3, equal unlabored respirations, skin warm/dry/pink. Vital Signs: 08:53 BP 154 / 89; Pulse 76; Resp 20; Temp 98.3(O); Pulse Ox 95% on 4 lpm NC; ph 10:00 BP 167 / 80; Pulse 67; Resp 18; Pulse Ox 100% on 4 lpm NC; em 10:50 BP 152 / 75; Pulse 65; Resp 18; Pulse Ox 99% on 4 lpm NC; em 11:45 BP 136 / 67; Pulse 73; Resp 18; Pulse Ox 99% on 4 lpm NC; em 12:30 BP 157 / 71; Pulse 66; Resp 18; Pulse Ox 99% 4 lpm ; em 13:15 BP 158 / 73; Pulse 65; Resp 16; Pulse Ox 100% on 4 lpm NC; em 14:00 BP 152 / 63; Pulse 78; Resp 18; Pulse Ox 100% on 4 lpm NC; em ED Course: 08:53 Patient arrived in ED. ph 08:53 Chuy Carrington MD is Attending Physician. rn 08:55 Kp Avitia RN is Primary Nurse. em 08:57 Triage completed. ph 09:02 Patient has correct armband on for positive identification. Bed in low position. Call ph light in reach. Side rails up X2. paper conservator on. Pulse ox on. NIBP on. Door closed. Noise minimized. Warm blanket given. Head of bed elevated. 09:02 Arm band placed on Patient placed in an exam room, on a stretcher, on oxygen, on ph cardiac sonographer, on pulse oximetry. 10:13 XRAY CXR (1 view) In Process Unspecified. EDMS 11:32 Ramon Galeana MD is Hospitalizing Provider. rn 14:11 No provider procedures requiring assistance completed. Patient admitted, IV remains in em place. Administered Medications: 10:49 Drug: LevaQUIN 500 mg Volume: 100 ml; Route: IVPB; Infused Over: 60 mins; Site: right em antecubital; 12:00 Follow up: Response: No adverse reaction; IV Status: Completed infusion; IV Intake: em 100ml 12:15 Drug: SOLU-Medrol 125 mg Route: IVP; Site: right antecubital; em 13:55 Follow up: Response: No adverse reaction em 12:15 Drug: NS 0.9% 500 ml Route: IV; Rate: bolus; Site: right antecubital; em 13:55 Follow up: IV Status: Completed infusion; IV Intake: 500ml em 13:51 Drug: Xopenex (3) 1.25 mg Route: Inhalation; em 14:29 Follow up: Response: No adverse reaction; Marked relief of symptoms em 14:40 Drug: Zofran (Ondansetron) 4 mg Route: IVP; Site: right antecubital; em 14:53 Follow up: Response: No adverse reaction em Intake: 12:00 IV: 100ml; Total: 100ml. em 13:55 IV: 500ml; Total: 600ml. em Outcome: 11:32 Decision to Hospitalize by Provider. rn 14:11 Admitted to Med/surg accompanied by nurse, family with patient, via stretcher, room em 222, with oxygen, with chart, Report called to MADELINE Gonzalez 14:11 Condition: good 14:11 Instructed on the need for admit, Demonstrated understanding of instructions. 14:56 Patient left the ED. em Signatures: Dispatcher [employer] Kp Germain RN RN em Chuy Carrington MD MD rn Hall, Patricia, RN RN ph Corrections: (The following items were deleted from the chart) 10:51 10:00 BP 167 / 80; Pulse 67bpm; Resp 18bpm; Pulse Ox 100% RA; em em 10:51 10:50 BP 152 / 75; Pulse 65bpm; Resp 18bpm; Pulse Ox 99% RA; em em
--- NOTE | 2020-01-15 11:33 | EDPHYS ---
Physician Documentation [facility] Name: Zen Bledsoe Jr Age: 79 yrs Sex: Male : 1940 Arrival Date: 01/15/2020 Time: 08:53 Bed 3 Private MD: ED Physician Chuy Carrington HPI: 01/14 10:08 This 79 yrs old Male presents to ER via EMS with complaints of cough, sob. rn 10:09 The patient has shortness of breath at rest. Onset: The symptoms/episode began/occurred rn at an unknown time. Duration: The symptoms are continuous. The patient's shortness of breath is aggravated by coughing, light activity. Associated signs and symptoms: Pertinent positives: non-productive cough, Pertinent negatives: hemoptysis. Severity of symptoms: At their worst the symptoms were moderate in the emergency department the symptoms are unchanged. The patient has experienced similar episodes in the past. Reports admitted and treated 3 weeks ago for pneumonia, reports felt better, but now getting sick again, family called 911 due to reports of AMS, low oxygen. Patient reports not feeling too bad, but similar to when had pneumonia. . Historical: - Allergies: 09:01 BACLOFEN; ph 09:01 Bactrim; ph 09:01 Codeine; ph 09:01 Demerol; ph 09:01 HYDROCODONE; ph 09:01 Iodine; ph 09:01 Sulfa (Sulfonamide Antibiotics); ph - Home Meds: 09:01 colestipol Oral [Active]; duloxetine 60 mg Oral cpDR once daily [Active]; gabapentin ph 400 mg Oral cap 3 times per day [Active]; hyoscyamine sulfate 0.125 mg SL subl [Active]; metoprolol tartrate 6 mg Oral tab once daily [Active]; midodrine 10 mg Oral tab 3 times per day [Active]; montelukast 10 mg Oral tab once daily [Active]; ondansetron PRN [Active]; Pain Pump with Diluadid and Prialt [Active]; pantoprazole 40 mg Oral TbEC once daily [Active]; price probiotic [Active]; prednisone 10 mg Oral tab as needed [Active]; promethazine PRN [Active]; ranitidine HCl 300 mg Oral tab 1 tab once daily [Active]; simvastatin 40 mg Oral tab 1 tab once daily [Active]; tramadol PRN [Active]; vitamin b12 [Active]; Vitamin C Oral [Active]; Vitamin D3 Oral [Active]; vitamin E Oral [Active]; Xarelto 15 mg Oral tab twice a day [Active]; - PMHx: 09:01 ADD/ADHD; Angina; Arthritis; Asthma; bladder failure; bowel obstruction; BPH; cardiac ph stents; chronic back pain; COPD; ESSENTIAL TREMORS; gastritis; GERD; Hypertension; 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 - Family history:: not pertinent. - Hospitalizations: : The patient was recently seen at [facility]. ROS: 10:09 Constitutional: Negative for fever, chills, and weight loss, Eyes: Negative for injury, rn pain, redness, and discharge, Neck: Negative for injury, pain, and swelling, Cardiovascular: Negative for chest pain, palpitations, and edema, Respiratory: + cough and sob Abdomen/GI: Negative for abdominal pain, nausea, vomiting, diarrhea, and constipation, Back: Negative for injury and pain, MS/Extremity: Negative for injury and deformity, Skin: Negative for injury, rash, and discoloration, Neuro: Negative for headache, numbness, tingling, and seizure. Exam: 10:09 Constitutional: This is a well developed, well nourished patient who is awake, alert, rn and in no acute distress. Head/Face: Normocephalic, atraumatic. Cardiovascular: Regular rate and rhythm. No pulse deficits. Respiratory: Mild tachypnea, no retractions Abdomen/GI: soft, non-tender Male : Domínguez catheter in place Skin: Warm, dry, no evidence of cellulitis. MS/ Extremity: Pulses equal, no cyanosis. Neurovascular intact. Full, normal range of motion. Equal circumference. Neuro: Awake and alert, GCS 15, oriented to person, place, time, and situation. Cranial nerves II-XII grossly intact. Motor strength 4/5 in all extremities. Sensory grossly intact. 10:12 ECG was reviewed by the Attending Physician. rn Vital Signs: 08:53 BP 154 / 89; Pulse 76; Resp 20; Temp 98.3(O); Pulse Ox 95% on 4 lpm NC; ph 10:00 BP 167 / 80; Pulse 67; Resp 18; Pulse Ox 100% on 4 lpm NC; em 10:50 BP 152 / 75; Pulse 65; Resp 18; Pulse Ox 99% on 4 lpm NC; em 11:45 BP 136 / 67; Pulse 73; Resp 18; Pulse Ox 99% on 4 lpm NC; em 12:30 BP 157 / 71; Pulse 66; Resp 18; Pulse Ox 99% 4 lpm ; em 13:15 BP 158 / 73; Pulse 65; Resp 16; Pulse Ox 100% on 4 lpm NC; em 14:00 BP 152 / 63; Pulse 78; Resp 18; Pulse Ox 100% on 4 lpm NC; em MDM: 08:53 Patient medically screened. rn 11:28 Differential diagnosis: Chronic Obstructive Pulmonary Disease pneumonia, Pneumothorax rn pulmonary edema. Data reviewed: vital signs, nurses notes, lab test result(s), EKG, radiologic studies, plain films, and as a result, I will discharge patient. Counseling: I had a detailed discussion with the patient and/or guardian regarding: the historical points, exam findings, and any diagnostic results supporting the discharge/admit diagnosis, lab results, radiology results, the need for further work-up and treatment in the hospital. Response to treatment: the patient's symptoms have mildly improved after treatment, and as a result, I will admit patient. Admission orders: after a detailed discussion of the patient's condition and case, the admit orders are written by me. 11:31 ED course: Notified Dr. Galeana of admission, requests steroids, nebs, ABG. . rn 01/14 08:55 Order name: Blood Culture Adult (2) rn 01/14 08:55 Order name: BMP; Complete Time: 11:21 rn 01/14 08:55 Order name: CBC with Diff; Complete Time: 10:23 rn 01/14 08:55 Order name: NT PRO-BNP; Complete Time: 11:21 rn 01/14 08:55 Order name: Troponin (emerg Dept Use Only); Complete Time: 11:21 rn 01/14 08:55 Order name: Procalcitonin; Complete Time: 11:21 rn 01/14 08:55 Order name: XRAY CXR (1 view); Complete Time: 10:23 rn 01/14 08:55 Order name: COVID-19 rn 01/14 08:55 Order name: Flu; Complete Time: 11:21 rn 01/14 08:55 Order name: Urine Culture rn 01/14 08:55 Order name: Urine Microscopic Only; Complete Time: 11:21 rn 01/14 10:20 Order name: Urine Dipstick--Ancillary (enter results); Complete Time: 11:21 bd 01/14 11:30 Order name: ABG; Complete Time: 11:58 rn 01/14 13:33 Order name: SARS-COV-2 RT PCR EDMS 01/14 08:55 Order name: EKG; Complete Time: 08:56 rn 01/14 08:55 Order name: Cardiac monitoring; Complete Time: 08:55 rn 01/14 08:55 Order name: EKG - Nurse/Tech; Complete Time: 10:08 rn 01/14 08:55 Order name: IV Saline Lock; Complete Time: 08:55 rn 01/14 08:55 Order name: Labs collected and sent; Complete Time: 08:55 rn 01/14 08:55 Order name: O2 Per Protocol; Complete Time: 08:55 rn 01/14 08:55 Order name: O2 Sat Monitoring; Complete Time: 08:55 rn 01/14 08:55 Order name: Urine Dipstick-Ancillary (obtain specimen); Complete Time: 10:08 rn EC:12 Rate is 63 beats/min. Rhythm is regular. QRS [place] is Normal. CT interval is normal. QT rn interval is normal. No Q waves. T waves are Normal. T waves are Inverted in leads V1, V2, V3, V4. No ST changes noted. Clinical impression: NSR w/ Non-specific ST/T Changes. Interpreted by me. Reviewed by me. Administered Medications: 10:49 Drug: LevaQUIN 500 mg Volume: 100 ml; Route: IVPB; Infused Over: 60 mins; Site: right em antecubital; 12:00 Follow up: Response: No adverse reaction; IV Status: Completed infusion; IV Intake: em 100ml 12:15 Drug: SOLU-Medrol 125 mg Route: IVP; Site: right antecubital; em 13:55 Follow up: Response: No adverse reaction em 12:15 Drug: NS 0.9% 500 ml Route: IV; Rate: bolus; Site: right antecubital; em 13:55 Follow up: IV Status: Completed infusion; IV Intake: 500ml em 13:51 Drug: Xopenex (3) 1.25 mg Route: Inhalation; em 14:29 Follow up: Response: No adverse reaction; Marked relief of symptoms em 14:40 Drug: Zofran (Ondansetron) 4 mg Route: IVP; Site: right antecubital; em 14:53 Follow up: Response: No adverse reaction em Disposition: 01/15/20 11:32 Hospitalization ordered by Ramon Galeana for Observation. Preliminary diagnosis are Chronic obstructive pulmonary disease with (acute) exacerbation, Dyspnea, unspecified, Altered mental status, unspecified. - Bed requested for Telemetry/MedSurg (observation). - Status is Observation. em - Condition is Stable. - Problem is new. - Symptoms have improved. Signatures: Dispatcher [employer] EDJuanita Lee Edgar, RN RN em Nieto, Roman, MD MD rn Hall, Patricia, RN RN ph Corrections: (The following items were deleted from the chart) 13:53 11:32 Hospitalization Ordered by A Kervin JACOBS for Observation. Preliminary diagnosis is bd Chronic obstructive pulmonary disease with (acute) exacerbation; Dyspnea, unspecified; Altered mental status, unspecified. Bed requested for Telemetry/MedSurg (observation). Status is Observation. Condition is Stable. Problem is new. Symptoms have improved. rn 14:56 13:53 01/15/2020 11:32 Hospitalization Ordered by A Kervin JACOBS for Observation. em Preliminary diagnosis is Chronic obstructive pulmonary disease with (acute) exacerbation; Dyspnea, unspecified; Altered mental status, unspecified. Bed requested for Telemetry/MedSurg (observation). Status is Observation. Condition is Stable. Problem is new. Symptoms have improved. bd
[2020-01-15 11:48] LABS: Arterial Blood Carboxyhemoglob 1.9 % (0-1.5); Blood Gas Oxyhemoglobin 94.6 % (94-97); Blood O2 Saturation 97.1 % (92-98.5)
[2020-01-15] MEDS ORDERED: LEVALBUTEROL 1.25 MG/3 ML NEB ONE (11:54)
[2020-01-15] MEDS ORDERED: METHYLPREDNISOLONE 125 MG INJ ONE (11:54)
[2020-01-15] MEDS ORDERED: NA CHLORIDE 0.9% 500 ML ONE (12:25)
[2020-01-15] MEDS ORDERED: ONDANSETRON 4 MG/2 ML VIAL ONE (14:50)
[2020-01-15] MEDS ORDERED: ALBUTEROL 2.5 MG/3 ML NEB SOL NEB PRN (15:05)
[2020-01-15] MEDS ORDERED: IPRATROPIUM BROM 0.5MG/2.5ML NEB PRN (15:05)
[2020-01-15] MEDS ORDERED: ONDANSETRON 4 MG/2 ML VIAL IV PRN (15:05)
[2020-01-15] MEDS: METHYLPREDNISOLONE 40 MG INJ IV SCH (17:02)
[2020-01-16] MEDS: METHYLPREDNISOLONE 40 MG INJ IV SCH ×3 (01:38→17:08)
[2020-01-16 06:04] LABS: Absolute Lymphocytes (CBC) 0.3 K/uL (0.7-4.9); Basophils % 0.1 % (0-1.3); Hematocrit 31.3 % (39.6-49.0); Lymphocytes % 3.6 % (15.3-44.8); MPV 7.7 fL (7.6-11.3); RBC Red Blood Cell Count 3.85 M/uL (4.33-5.43)
[2020-01-16 06:35] LABS: BUN Blood Urea Nitrogen 11 mg/dL (7-18); Bicarbonate 29 mmol/L (21-32); Glucose Level 144 mg/dL (74-106); NT PRO-BNP 493 pg/mL (<450); Potassium 4.1 mmol/L (3.5-5.1); Sodium Level 139 mmol/L (136-145)
[2020-01-16] MEDS ORDERED: PROMETHAZINE 25 MG TABLET PO PRN (07:57)
[2020-01-16] MEDS ORDERED: TRAMADOL HCL 50 MG TAB PO PRN (07:57)
[2020-01-16] MEDS ORDERED: ONDANSETRON 4 MG (ODT) TAB PO PRN (07:57)
[2020-01-16] MEDS ORDERED: COLESTIPOL 1 GM TAB PO PRN (07:57)
[2020-01-16] MEDS ORDERED: HYOSCYAMINE SULF 0.125 MG TAB PO SCH (08:00)
--- NOTE | 2020-01-16 08:50 | RAD REPORT ---
EXAM DESCRIPTION: CT - Thorax Wo Con - 01/16/2020 8:03 am CLINICAL HISTORY: Shortness of breath/abnormal chest x-ray COMPARISON: December 2019 CT abdomen and January 15, 2020 chest x-ray TECHNIQUE: Computed axial tomography of the chest was obtained. Contrast was not requested. All CT scans are performed using dose optimization technique as appropriate and may include automated exposure control or mA/KV adjustment according to patient size. FINDINGS: The evaluation of mediastinum, [place] and vessels is limited secondary to lack of IV contras t administration. 5 centimeter left lower lobe opacity has partially resolved. Mild improvement in the right lower lobe opacity. Air bronchograms are present. No mediastinal or hilar lymphadenopathy is seen. A pleural effusion is not present. No pericardial effusion. Coronary arterial calcifications IMPRESSION: Improvement in bilateral lower lobe opacities probably sequela of pneumonia
[2020-01-16 08:57] LABS: Blood Morphology Comment NOT SEEN (NOT SEEN); Platelet Estimate ADEQ
[2020-01-16] MEDS ORDERED: MIDODRINE HCL 5 MG TABLET PO SCH (09:00)
[2020-01-16] MEDS ORDERED: MONTELUKAST 10 MG TAB PO SCH ×2 (09:00→21:00)
[2020-01-16] MEDS ORDERED: FAMOTIDINE 20 MG TAB PO SCH ×2 (09:00→21:00)
[2020-01-16] MEDS ORDERED: RIVAROXABAN 20 MG TABLET PO SCH ×2 (09:00→21:00)
[2020-01-16] MEDS ORDERED: HOME MED 1 EA UNK (Simvastatin [Simvastatin] 40 MG) PO SCH (09:00)
[2020-01-16] MEDS ORDERED: METOPROLOL XL 25 MG TAB PO SCH (09:00)
[2020-01-16 09:25] VITALS: O2SAT 95
[2020-01-16] MEDS: DULOXETINE 30 MG CAP PO SCH (09:27)
[2020-01-16] MEDS: PANTOPRAZOLE 40MG TABLET PO SCH (09:27)
[2020-01-16] MEDS: LACTOBACILLUS/ACIDOPHILUS TAB PO SCH (09:29)
[2020-01-16] MEDS: GABAPENTIN 400 MG CAP PO SCH ×4 (09:32→20:33)
[2020-01-16] MEDS ORDERED: Levofloxacin500mg IV 500 MG/100 ML BAG IV SCH (11:00)
[2020-01-16] MEDS: MIDODRINE HCL 5 MG TABLET PO SCH (17:07)
[2020-01-16] MEDS: ENSURE ENLIVE 237 ML CAN PO SCH (20:38)
[2020-01-16] MEDS ORDERED: ATORVASTATIN 20 MG TAB PO SCH (21:00)
--- NOTE | 2020-01-17 00:06 | HP ---
Date of Admission: 01/16/2020 Chief Complaint: Low-grade fever, feeling weak, sleepy, cough. History Of Present Illness: This is a 79-year-old male patient, who lives at home with his , was brought into emergency room yesterday morning. The patient's daughter contacted me and informed me that the patient was extremely weak and very sleepy for last 24 hours or so. He slept for almost 15 to 16 hours in last 24 hours. He was also having some low-grade fever at home. He has some cough. No vomiting. No diarrhea. After I talked to the patient's daughter, she was advised to bring into emergency room. After he was evaluated in the ER, he was admitted to the hospital. This morning when I saw him, he was lying in bed, not in distress, has his cough, chest congestion, and some wheezing. Medications: List reviewed. Review of Systems: Respiratory: As mentioned above. Constitutional: As mentioned above. All other systems reviewed and negative. Allergies: SULFA, BACLOFEN, CODEINE, IODINE, HYDROCODONE. Social History: Negative for smoking or alcohol use. Family History: Significant for cancer of esophagus and hypertension. Past Surgical History: Small bowel obstruction and surgery for that in 2001. Otherwise, he also had appendectomy, tonsillectomy, back surgery, vasectomy, arthroscopic knee surgery, cervical spine fusion, right-sided hemicolectomy due to colon polyps, and surgery for deviated nasal septum. Past Medical History: Significant for COPD, neurogenic bladder, indwelling Rocha catheter, orthostatic hypotension, hyperlipidemia, chronic fatigue, gastroesophageal reflux disease, hypertension, anemia, peripheral neuropathy, bronchiectasis, recurrent pneumonia, pulmonary embolism diagnosed January 01, 2019, and superficial thrombophlebitis. Physical Examination: Vital Signs: This morning, temperature 98.1, pulse 88, respiratory rate 16, blood pressure 129/59, oxygen saturation 95%. Height 5 feet 11 inches, weight 190 pounds. General: Awake, alert, oriented, not in distress. HEENT: Head atraumatic, normocephalic. Conjunctivae nonerythematous. Sclerae white. Mouth, no thrush or edema noted. Ears/Nose, no mass, lesion, discharge noted. Neck: Supple. No JVD, lymph nodes, bruit, thyromegaly noted. Lungs: Presence of bilateral wheezing, left side is more than the right side. Presence of some rales in lower lung munguia. The patient is not using any accessory muscles of respiration. Heart: Normal heart sounds. No murmur or gallop. Abdomen: Soft. Bowel sounds normal. No guarding, rigidity, tenderness, mass, hepatosplenomegaly, distention, or bruit noted. Extremities: No leg edema. No calf tenderness. Skin: No rash, ulcer, cellulitis. Lymphatics: No lymph node enlargement in neck, supraclavicular, infraclavicular region. Neuro: No focal neurological deficit. Chest: Unremarkable. External Genitalia: Deferred. Rectal: Deferred. Laboratory Data: Yesterday, white count 8, hemoglobin 9.3, platelets 228. This morning, white count 7.6, hemoglobin 10, platelets 233. Blood gas yesterday showed pH 7.42, pCO2 43.6, pO2 94.9, saturation 97% on 36% FiO2. Chemistry yesterday showed sodium 142, potassium 3.9, chloride 108, bicarb 27, BUN 13, creatinine 0.84, glucose 94. Troponin less than 0.02. Urinalysis showed leukocyte esterase 1+, nitrites negative, bacteria less than 20. Keep in mind that I will not label this as urinary tract infection, this is abnormal urine expected in the patients like him with indwelling Rocha catheter. COVID-19 test negative. Chest x-ray showed no new mass or consolidation. Impression: 1. Acute exacerbation of chronic obstructive pulmonary disease. 2. Neurogenic bladder with indwelling Rocha catheter. 3. Orthostatic hypotension. 4. Peripheral neuropathy. 5. Bronchiectasis. 6. Pulmonary embolism. 7. Chronic anticoagulation therapy. Plan: We will admit the patient to the hospital for further evaluation and management of this problem. Continue home medications per order. Continue IV steroids and will get CT chest without contrast, which will be done today. We will follow up on that result. I will see him tomorrow for followup. Possible discharge to go home depending on his condition. JERAD/MODL Voice ID: [id number] MTDD
[2020-01-17] MEDS: METHYLPREDNISOLONE 40 MG INJ IV SCH ×2 (01:12→09:03)
[2020-01-17] MEDS: MIDODRINE HCL 5 MG TABLET PO SCH (05:33)
[2020-01-17 05:36] VITALS: BMI 26.6
[2020-01-17] MEDS: ENSURE ENLIVE 237 ML CAN PO SCH (09:00)
[2020-01-17] MEDS: DULOXETINE 30 MG CAP PO SCH (09:02)
[2020-01-17] MEDS: GABAPENTIN 400 MG CAP PO SCH (09:03)
[2020-01-17] MEDS: PANTOPRAZOLE 40MG TABLET PO SCH (09:03)
[2020-01-17] MEDS: LACTOBACILLUS/ACIDOPHILUS TAB PO SCH (09:03)
[2020-01-17 09:19] VITALS: BP 140/64; TEMP 98.1
[2020-01-17] MEDS ORDERED: METOPROLOL XL 25 MG TAB PO SCH (21:00)
--- NOTE | 2020-01-17 22:10 | DS ---
Date of Discharge: 01/17/2020 Addendum: JERAD/DOMINICK Voice ID: [id number] Report ID: [id number] MTDD
--- NOTE | 2020-01-17 22:25 | DS ---
Date of Discharge: 01/17/2020 Disposition: Discharged to go home. Physical Examination: HEENT: Unremarkable. Lungs: Clear to auscultation. Heart: Sounds normal. Abdomen: Soft. Bowel sounds normal. No guarding, rigidity, tenderness, or distention. Extremities: No leg edema. Laboratory Data: Upon admission, white count 8, hemoglobin 9.3, platelets 228. Repeat white count yesterday 7.6, hemoglobin 10, platelets 233. Chemistry upon admission; sodium 142, potassium 3.9, chloride 108, bicarb 27, BUN 13, creatinine 0.84, glucose 94. Troponin less than 0.02 x3. Hospital Course: This is a 79-year-old male patient living at home came into emergency room with complaints of feeling weak, sleepy, and some dry cough. After the patient was evaluated in the ER, the patient was admitted to the hospital. The patient's daughter described having low-grade fever with temperature around 98 degrees Fahrenheit at home. After the patient was evaluated in the emergency room, he was admitted to the hospital. His mental status had improved after he came to the hospital. He was given IV steroid and overall condition has improved. Home medications were continued. He had some wheezing in his lungs, which actually has improved with use of IV steroid. Chest x-ray did not show any evidence of pneumonia. CAT scan of the chest was done which was unremarkable. The patient's overall condition remained stable, and today, we discharged to go home in stable condition. Final Diagnoses: 1. Acute exacerbation of chronic obstructive pulmonary disease. 2. Neurogenic bladder with Rocha catheter. 3. Peripheral neuropathy. 4. Bronchiectasis. 5. Pulmonary embolism. 6. Chronic anticoagulation therapy. 7. Chronic steroid therapy. 8. Anemia, unspecified. Discharge Medications And Instructions: 1. Continue all prior home medication except change prednisone 10 mg. The patient to take 2 tablets by mouth daily for 1 week, then 1 tablet by mouth daily to continue. 2. Follow up at my office next week on Wednesday or Wednesday and call office for appointment. JERAD/DOMINICK Voice ID: [id number] Report ID: [id number] JOSE E
--- OUTSIDE RECORDS SUMMARY | 2020-01-18 04:07 | XMS REPORT | Continuity of Care Document ---
:1940 Author Organization [facility] t Address [address] [place] [address] Dr. Andrade [address] [place] [id number] Care Team Providers Name Role Phone Unavailable Unavailable Unavailable Problems This patient has no known problems. Allergies, Adverse Reactions, Alerts This patient has no known allergies or adverse reactions. Medications This patient has no known medications. Procedures This patient has no known procedures. Results This patient has no known results.
== END 2020-01-17 09:18 | disposition home health service (06) ==
LOC: ER 08:50 → ERHOLD 11:38 → 2ND 14:22
PROVIDERS: ADMIT Internal Medicine; ATTEND Internal Medicine
DX: J44.1 Chronic obstructive pulmonary disease with (acute) exacerbation (principal); Z20.828 Contact with and (suspected) exposure to other viral communicable diseases; Z79.01 Long term (current) use of anticoagulants; Z79.52 Long term (current) use of systemic steroids; D64.9 Anemia, unspecified; Z86.711 Personal history of pulmonary embolism; J47.9 Bronchiectasis, uncomplicated; N31.9 Neuromuscular dysfunction of bladder, unspecified; G62.9 Polyneuropathy, unspecified; F90.9 Attention-deficit hyperactivity disorder, unspecified type; M19.90 Unspecified osteoarthritis, unspecified site; N40.0 Benign prostatic hyperplasia without lower urinary tract symptoms; Z95.5 Presence of coronary angioplasty implant and graft; G25.0 Essential tremor; Z99.81 Dependence on supplemental oxygen; M54.9 Dorsalgia, unspecified; G89.29 Other chronic pain; K21.9 Gastro-esophageal reflux disease without esophagitis; I10 Essential (primary) hypertension; G47.30 Sleep apnea, unspecified
CPT/HCPCS: 36415; 71045; 71250; 80048; 81003; 81015; 82805; 83880; 84145; 84484; 85025; 87040; 87077; 87086; 87088; 87186; 87804; 93005; 94760; 96361; 96365; 96375; 99285; G0378; J2405; J2920; J2930; J7040; U0003

== ENCOUNTER 2020-01-26 10:55 | Inpatient (IN) | payer OTHER ==
--- OUTSIDE RECORDS SUMMARY | 2020-01-26 11:30 | XMS REPORT | Continuity of Care Document ---
:[address] [facility] t Address [address] [place] [address] Dr. Andrade [address] [place] [id number] Care Team Providers Name Role Phone Unavailable Unavailable Unavailable Problems This patient has no known problems. Allergies, Adverse Reactions, Alerts This patient has no known allergies or adverse reactions. Medications This patient has no known medications. Procedures This patient has no known procedures. Results This patient has no known results.
--- NOTE | 2020-01-26 12:25 | RAD REPORT ---
EXAM DESCRIPTION: Huy Single View01/26/2020 12:11 pm CLINICAL HISTORY: Cough COMPARISON: January 16 2020 FINDINGS: Mild bilateral lower lobe opacities are without significant change Upper lobes appear clear Heart is mildly enlarged Lungs are hyperaerated
[2020-01-26 12:47] LABS: Absolute Lymphocytes (CBC) 1.5 K/uL (0.7-4.9); Basophils % 0.2 % (0-1.3); Hematocrit 32.6 % (39.6-49.0); Lymphocytes % 12.1 % (15.3-44.8); MPV 7.1 fL (7.6-11.3)
[2020-01-26 12:51] LABS: Protime INR 1.32
[2020-01-26 13:02] LABS: Potassium 3.8 mmol/L (3.5-5.1)
--- NOTE | 2020-01-26 13:04 | ER ---
Nurse's Notes [facility] Name: Zen Bledsoe Jr Age: 79 yrs Sex: Male : 1940 Arrival Date: 01/26/2020 Time: 10:57 Bed 17 Private MD: Ronald Galeana Diagnosis: Pneumonia, unspecified organism Presentation: 01/25 11:20 Chief complaint: Patient states: SOB, headache, HTN, nausea, low O2 sat of 92%, sv productive cough, fever above his normal of 96 today was 99 started this morning. Was recently admitted to the hospital last week for pneumonia. Coronavirus screen: Client denies travel out of the [place] in the last 14 days. congestion, cough unrelated to allergies, headache, nausea, shortness of breath, Client presents with at least one sign or symptom that may indicate coronavirus-19. Standard/surgical mask placed on the client. Provider contacted for isolation considerations. Ebola Screen: No symptoms or risks identified at this time. Risk Assessment: Do you want to hurt yourself or someone else? Patient reports no desire to harm self or others. Onset of symptoms was January 26, 2020. 11:20 Method Of Arrival: Wheelchair sv 11:20 Acuity: KARY 3 sv 11:25 Initial Sepsis Screen: Does the patient meet any 2 criteria? No. Patient's initial sv sepsis screen is negative. Does the patient have a suspected source of infection? Yes: Productive cough/pneumonia. Historical: - Allergies: 11:23 BACLOFEN; sv 11:23 Bactrim; sv 11:23 Codeine; sv 11:23 Demerol; sv 11:23 HYDROCODONE; sv 11:23 Iodine; sv 11:23 Sulfa (Sulfonamide Antibiotics); sv - PMHx: 11:23 BPH; cardiac stents; bowel obstruction; ADD/ADHD; Angina; Arthritis; chronic back pain; sv Asthma; bladder failure; GERD; Hypertension; neuropathy; ESSENTIAL TREMORS; COPD; gastritis; osteoarthritis; correction domínguez; nueropathy in legs bilat; neurogenic orthogenic hypertension; O2 at home; PE; Seizures; Sleep Apnea; urticaria vasculitis; - PSHx: 11:23 Tonsillectomy; sv - Immunization history:: Flu vaccine is up to date. - Social history:: Smoking status: Patient denies any tobacco usage or history of. Screenin:42 Abuse screen: Denies threats or abuse. Nutritional screening: No deficits noted. jd3 Tuberculosis screening: No symptoms or risk factors identified. Fall Risk Ambulatory Aid- None/Bed Rest/Nurse Assist (0 pts). Gait- Normal/Bed Rest/Wheelchair (0 pts) Mental Status- Oriented to own ability (0 pts). Total Muse Fall Scale indicates No Risk (0-24 pts). Assessment: 12:41 General: Appears in no apparent distress. comfortable, Behavior is calm, cooperative, jd3 appropriate for age. Pain: Denies pain. Neuro: Level of Consciousness is awake, alert, obeys commands, Oriented to person, place, time, situation. Cardiovascular: Denies chest pain, Capillary refill < 3 seconds Patient's skin is warm and dry. Rhythm is irregular. Respiratory: Reports shortness of breath at rest cough that is persistent Airway is patent Respiratory effort is even, unlabored, Respiratory pattern is regular, symmetrical. GI: No signs and/or symptoms were reported involving the gastrointestinal system. : Domínguez in place to gravity drainage. EENT: No signs and/or symptoms were reported regarding the EENT system. Derm: Skin is intact, Skin is dry, Skin is normal, Skin temperature is warm. Musculoskeletal: Circulation, motion, and sensation intact. Range of motion: intact in all extremities. 14:07 Reassessment: Patient appears in no apparent distress at this time. Patient and/or jd3 family updated on plan of care and expected duration. Pain level reassessed. Patient is alert, oriented x 3, equal unlabored respirations, skin warm/dry/pink. pt reporting pain, provider notified and medicated as ordered. 15:07 Reassessment: Patient appears in no apparent distress at this time. Patient and/or jd3 family updated on plan of care and expected duration. Pain level reassessed. Patient is alert, oriented x 3, equal unlabored respirations, skin warm/dry/pink. pt resting in bed awaiting room assignment for admission. 15:57 Reassessment: Patient appears in no apparent distress at this time. Patient and/or jd3 family updated on plan of care and expected duration. Pain level reassessed. Patient is alert, oriented x 3, equal unlabored respirations, skin warm/dry/pink. report given to Adrianne CORREA. Vital Signs: 11:25 BP 156 / 68; Pulse 77; Resp 20; Temp 98; Pulse Ox 100% on 3 lpm NC; sv 12:40 BP 163 / 76; Pulse 71; Resp 18 S; Pulse Ox 99% on 3 lpm NC; jd3 14:09 BP 141 / 80; Pulse 83; Resp 19 S; Pulse Ox 99% on 3 lpm NC; jd3 15:06 BP 153 / 69; Pulse 72; Resp 17 S; Pulse Ox 100% on 3 lpm NC; jd3 ED Course: 10:57 Patient arrived in ED. ag5 10:57 Ronald Galeana MD is Private Physician. ag5 11:22 Triage completed. sv 11:26 Arm band placed on. sv 11:30 Princess Lofton FNP-C is PHCP. kb 11:30 Ollie Lemus MD is Attending Physician. kb 11:57 Jeff Emery RN is Primary Nurse. jd3 12:12 Chest Single View XRAY In Process Unspecified. EDMS 12:20 Inserted saline lock: 20 gauge in right antecubital area, using aseptic technique. jd3 Blood collected. 12:42 Patient has correct armband on for positive identification. Bed in low position. Call jd3 light in reach. Side rails up X2. Adult w/ patient. physician vice president on. Pulse ox on. NIBP on. 13:03 Ronald Galeana MD is Hospitalizing Provider. kb 15:57 No provider procedures requiring assistance completed. Patient admitted, IV remains in jd3 place. Administered Medications: 13:19 Drug: LevaQUIN 750 mg Volume: 150 ml; Route: IVPB; Infused Over: 90 mins; Site: right jd3 antecubital; 15:08 Follow up: Response: No adverse reaction; IV Status: Completed infusion; IV Intake: jd3 150ml 13:19 Drug: SOLU-Medrol 40 mg Route: IVP; Site: right antecubital; jd3 14:15 Follow up: Response: No adverse reaction jd3 14:04 Drug: traMADol 25 mg Route: PO; jd3 15:09 Follow up: Response: No adverse reaction; RASS: Alert and Calm (0) jd3 14:33 Drug: Phenergan 6.25 mg Route: IVP; Site: right antecubital; jd3 15:09 Follow up: Response: No adverse reaction jd3 Intake: 15:08 IV: 150ml; Total: 150ml. jd3 Outcome: 13:03 Decision to Hospitalize by Provider. kb 15:57 Admitted to Med/surg accompanied by tech, via stretcher, room 216, with oxygen, with jd3 chart, Report called to Adrianne CORREA 15:57 Condition: stable 15:57 Instructed on the need for admit, Demonstrated understanding of instructions. 15:58 Patient left the ED. jd3 Signatures: Dispatcher [employer] EDFL Princess Lofton, DAKOTA WARD-Verona Jorgensen, RN RN Jeff Harden RN RN giovanni Ewing, Patience ag5 Corrections: (The following items were deleted from the chart) 11:26 11:20 Chief complaint: Patient states: SOB, headache, HTN, nausea, low O2 sat of 92%, sv productive cough, fever above his normal of 96 today was 99 started this morning, sv 15:09 15:04 Response: No adverse reaction jd3 jd3
--- NOTE | 2020-01-26 13:05 | EDPHYS ---
Physician Documentation [facility] Name: Zen Bledsoe Jr Age: 79 yrs Sex: Male : 1940 Arrival Date: 01/26/2020 Time: 10:57 Bed 17 Private MD: Ronald Mujica ED Physician Ollie Lemus HPI: 01/25 14:53 This 79 yrs old Male presents to ER via Wheelchair with complaints of Fever, kb Low Oxygen, Altered Mental Status. 14:53 The patient has shortness of breath that occurred at home, and the patient has a kb history of COPD. Onset: The symptoms/episode began/occurred this morning. Duration: The symptoms are continuous. The patient's shortness of breath has no apparent modifying factors. Associated signs and symptoms: Pertinent positives: productive cough, fever, Pertinent negatives: chest pain, non-productive cough, diaphoresis, dizziness, hemoptysis, loss of consciousness, nausea, numbness in extremities, visual changes, vomiting. Severity of symptoms: At their worst the symptoms were moderate in the emergency department the symptoms are unchanged. The patient has experienced similar episodes in the past. The patient has been recently been admitted at [facility], by Dr. mujica, was discharged last week, for similar complaints. reports pt woke up with shortness of breath, cough with green sputum and low grade fever. States pt has had pneumonia 3 times recently. States he always does much better on antibiotics, but as soon as they are all gone the symptoms begin again. 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 - Social history:: Smoking status: Patient denies any tobacco usage or history of. ROS: 14:52 Cardiovascular: Negative for chest pain, palpitations, and edema, Abdomen/GI: Negative kb for abdominal pain, nausea, vomiting, diarrhea, and constipation, Back: Negative for injury and pain, MS/Extremity: Negative for injury and deformity, Skin: Negative for injury, rash, and discoloration, Neuro: Negative for headache, weakness, numbness, tingling, and seizure. 14:52 Constitutional: Positive for fever, malaise. 14:52 Respiratory: Positive for cough, with green sputum, shortness of breath, Negative for dyspnea on exertion, hemoptysis, orthopnea, pleurisy, wheezing. Exam: 13:40 Constitutional: This is a well developed, well nourished patient who is awake, alert, kb and in no acute distress. Head/Face: Normocephalic, atraumatic. Chest/axilla: Normal chest wall appearance and motion. Nontender with no deformity. No lesions are appreciated. Cardiovascular: Regular rate and rhythm with a normal S1 and S2. No gallops, murmurs, or rubs. Normal PMI, no JVD. No pulse deficits. Respiratory: Lungs have equal breath sounds bilaterally, clear to auscultation and percussion. No rales, rhonchi or wheezes noted. No increased work of breathing, no retractions or nasal flaring. Abdomen/GI: Soft, non-tender, with normal bowel sounds. No distension or tympany. No guarding or rebound. No evidence of tenderness throughout. Skin: Warm, dry with normal turgor. Normal color with no rashes, no lesions, and no evidence of cellulitis. MS/ Extremity: Pulses equal, no cyanosis. Neurovascular intact. Full, normal range of motion. Neuro: Awake and alert, GCS 15, oriented to person, place, time, and situation. Cranial nerves II-XII grossly intact. Motor strength 5/5 in all extremities. Sensory grossly intact. Cerebellar exam normal. Normal gait. 13:40 ECG was reviewed by the Attending Physician. Vital Signs: 11:25 BP 156 / 68; Pulse 77; Resp 20; Temp 98; Pulse Ox 100% on 3 lpm NC; sv 12:40 BP 163 / 76; Pulse 71; Resp 18 S; Pulse Ox 99% on 3 lpm NC; jd3 14:09 BP 141 / 80; Pulse 83; Resp 19 S; Pulse Ox 99% on 3 lpm NC; jd3 15:06 BP 153 / 69; Pulse 72; Resp 17 S; Pulse Ox 100% on 3 lpm NC; jd3 MDM: 11:30 Patient medically screened. kb 13:18 Data reviewed: vital signs, nurses notes. Data interpreted: Pulse oximetry: on room air kb is 99 %. Interpretation: normal. Counseling: I had a detailed discussion with the patient and/or guardian regarding: the historical points, exam findings, and any diagnostic results supporting the discharge/admit diagnosis, lab results, radiology results, the need for further work-up and treatment in the hospital. Physician consultation: Ronald Mujica MD was contacted at 13:00, in the emergency department to see patient at 13:00. 01/25 11:31 Order name: Lactate; Complete Time: 13:00 kb 01/25 11:31 Order name: Basic Metabolic Panel; Complete Time: 13:03 kb 01/25 11:31 Order name: Blood Culture Adult (2) kb 01/25 11:31 Order name: CBC with Diff; Complete Time: 12:56 kb 01/25 11:31 Order name: Procalcitonin; Complete Time: 13:18 kb 01/25 11:31 Order name: Protime (+inr); Complete Time: 12:56 kb 01/25 11:31 Order name: Ptt, Activated; Complete Time: 12:56 kb 01/25 11:31 Order name: Urine Microscopic Only; Complete Time: 13:41 kb 01/25 11:31 Order name: Chest Single View XRAY; Complete Time: 12:26 kb 01/25 11:31 Order name: Flu; Complete Time: 13:11 kb 01/25 13:14 Order name: Urine Dipstick--Ancillary (enter results); Complete Time: 13:33 dh3 01/25 11:31 Order name: EKG - Nurse/Tech; Complete Time: 12:37 kb 01/25 11:31 Order name: IV Saline Lock - Large Bore; Complete Time: 12:24 kb 01/25 11:31 Order name: Labs collected and sent; Complete Time: 12:24 kb 01/25 11:31 Order name: O2 Per Protocol; Complete Time: 12:04 kb 01/25 11:31 Order name: O2 Sat Monitoring; Complete Time: 12:04 kb 01/25 11:31 Order name: Urine Dipstick-Ancillary (obtain specimen); Complete Time: 13:07 kb EC:40 Rate is 74 beats/min. Rhythm is regular. QRS Adrian is Normal. ID interval is normal at kb 74 msec. QRS interval is normal at 210 msec. QT interval is normal at 426 msec. Administered Medications: 13:19 Drug: LevaQUIN 750 mg Volume: 150 ml; Route: IVPB; Infused Over: 90 mins; Site: right jd3 antecubital; 15:08 Follow up: Response: No adverse reaction; IV Status: Completed infusion; IV Intake: jd3 150ml 13:19 Drug: SOLU-Medrol 40 mg Route: IVP; Site: right antecubital; jd3 14:15 Follow up: Response: No adverse reaction jd3 14:04 Drug: traMADol 25 mg Route: PO; jd3 15:09 Follow up: Response: No adverse reaction; RASS: Alert and Calm (0) jd3 14:33 Drug: Phenergan 6.25 mg Route: IVP; Site: right antecubital; jd3 15:09 Follow up: Response: No adverse reaction jd3 Disposition: 01/26 13:19 Co-signature as Attending Physician, Ollie Lemus MD I agree with the assessment and [facility] plan of care. Disposition: 01/26/20 13:03 Hospitalization ordered by Ronald Mujica for Observation. Preliminary diagnosis is Pneumonia, unspecified organism. - Bed requested for Telemetry/MedSurg (observation). - Status is Observation. jd3 - Condition is Stable. - Problem is new. - Symptoms are unchanged. Signatures: Dispatcher [employer] EDMO Princess Lofton, SYLVIA-C BIN OPERATOR-CkVerona Tatum RN RN sv Rittger, Kevin, MD MD kdr Martinez, Eric em1 Jeff Emery RN RN jd3 Corrections: (The following items were deleted from the chart) 01/25 15:26 13:03 Hospitalization Ordered by Ronald Mujica MD for Observation. Preliminary diagnosis em1 is Pneumonia, unspecified organism. Bed requested for Telemetry/MedSurg (observation). Status is Observation. Condition is Stable. Problem is new. Symptoms are unchanged. kb 15:58 15:26 01/26/2020 13:03 Hospitalization Ordered by Ronald Mujica MD for Observation. jd3 Preliminary diagnosis is Pneumonia, unspecified organism. Bed requested for Telemetry/MedSurg (observation). Status is Observation. Condition is Stable. Problem is new. Symptoms are unchanged. em1
[2020-01-26] MEDS ORDERED: METHYLPREDNISOLONE 40 MG INJ ONE (13:22)
[2020-01-26] MEDS ORDERED: Levofloxacin 750mg IV 750 MG/150 ML BAG IV ONE (13:23)
[2020-01-26 13:30] LABS: Urine Blood TRACE (NEG); Urine Glucose NEGATIVE (NEG); Urine Protein NEGATIVE (NEG); Urine pH 8.5 (5.0-7.0)
[2020-01-26 13:38] LABS: Urine Bacteria 20-50 /HPF (NONE SEEN); Urine Culture Reflex Order REFLEXED; Urine White Blood Cell Casts 0-5 /LPF (NONE SEEN)
[2020-01-26] MEDS ORDERED: TRAMADOL HCL 50 MG TAB ONE (14:14)
[2020-01-26] MEDS ORDERED: PROMETHAZINE INJ 25 MG/ML AMP ONE (14:42)
[2020-01-26 16:44] VITALS: BMI 27.0
[2020-01-26] MEDS: METHYLPREDNISOLONE 40 MG INJ IV SCH (18:00)
[2020-01-26] MEDS ORDERED: RIVAROXABAN 20 MG TABLET PO ONE (19:00)
[2020-01-26] MEDS ORDERED: RIVAROXABAN 10 MG TABLET PO ONE (19:00)
[2020-01-26] MEDS ORDERED: COLESTIPOL 1 GM TAB PO PRN (20:04)
[2020-01-26] MEDS ORDERED: PROMETHAZINE 25 MG TABLET PO PRN (20:04)
[2020-01-26] MEDS ORDERED: ONDANSETRON 4 MG (ODT) TAB PO PRN (20:18)
[2020-01-26] MEDS: GABAPENTIN 400 MG CAP PO SCH (21:00)
[2020-01-26] MEDS: MIDODRINE HCL 5 MG TABLET PO SCH (21:00)
[2020-01-26] MEDS: ALPRAZOLAM 0.25 MG TABLET PO SCH (21:00)
[2020-01-26] MEDS ORDERED: HYOSCYAMINE SULF 0.125 MG TAB PO SCH (21:00)
--- NOTE | 2020-01-26 21:13 | HP ---
Date of Admission: 01/26/2020 Chief Complaint: Cough, congestion, shortness of breath, feeling weak and sleepy. History Of Present Illness: This is a 79-year-old male patient with multiple comorbidities including COPD, for which he is oxygen dependent and on continuous home oxygen as well as on chronic steroid therapy. The patient saw me at office couple of days ago for his followup after the last hospital stay and he was back to his normal baseline. As of yesterday afternoon or evening time, he started to have cough, congestion, and this morning, he was appearing very sleepy, confused, weak, and was coughing up greenish colored mucus. He was brought into emergency room and after he was evaluated, decision was made to admit him to the hospital. I saw him in the emergency room this morning and his was present with him at bedside. does report the patient having low-grade fever in the last 24 hours. Medications: List reviewed. Review of Systems: Respiratory: As mentioned above. Constitutional: As mentioned above. Neurologic: As mentioned above. Genitourinary: He has an indwelling Rocha catheter. All other systems reviewed and negative. Allergies: SULFA, BACLOFEN, CODEINE, IODINE, HYDROCODONE. Social History: Negative for smoking or alcohol use. Family History: Significant for cancer of esophagus and hypertension. Past Surgical History: Small bowel obstruction and surgery for that in 2001. Otherwise, he also had appendectomy, tonsillectomy, back surgery, vasectomy, arthroscopic knee surgery, cervical spine fusion, right-sided hemicolectomy due to colon polyps, and surgery for deviated nasal septum. Past Medical History: Significant for severe COPD, neurogenic bladder with indwelling Rocha catheter, orthostatic hypotension, hyperlipidemia, chronic fatigue, gastroesophageal reflux disease, hypertension, anemia, peripheral neuropathy, bronchiectasis, recurrent pneumonia, pulmonary embolism diagnosed on January 01, 2019, and superficial thrombophlebitis. Physical Examination: Vital Signs: Height 5 feet 11 inches, weight 194 pounds, temperature 98 F, pulse 77, respiratory rate 20, blood pressure 156/68, oxygen saturation 100%. Constitutional: The patient appears somewhat weaker than his normal baseline. HEENT: Head atraumatic, normocephalic. Conjunctivae nonerythematous. Sclerae white. Mouth, no thrush or edema noted. Ears/Nose, no mass, lesion, discharge noted. Neck: Supple. No JVD, lymph nodes, bruit, thyromegaly noted. Lungs: Bilateral scattered rales noted in lower lung field. Not in any respiratory distress. Heart: Normal heart sounds. No murmur or gallop. Abdomen: Soft, bowel sounds normal. No guarding, rigidity, tenderness, mass, hepatosplenomegaly, distention, or bruit noted. Extremities: No leg edema. No calf tenderness. Skin: No rash, ulcer, cellulitis. Lymphatics: No lymph node enlargement in neck, supraclavicular, infraclavicular region. Neuro: No focal neurological deficit. Chest: Unremarkable. External Genitalia: Deferred. Rectal: Deferred. Genitourinary: Presence of indwelling Rocha catheter. Laboratory Data: Chest x-ray showed mild bilateral lower lobe opacity without any obvious change compared to previous x-ray. WBC 12, hemoglobin 10.5, platelets 352. Sodium 141, potassium 3.8, chloride 105, bicarb 33, glucose 94, BUN 12, creatinine 0.94. Impression: 1. Acute exacerbation of chronic obstructive pulmonary disease. 2. Acute bronchitis. 3. Bronchiectasis. 4. Neurogenic bladder with indwelling Rocha catheter. 5. Orthostatic hypotension. 6. Gastroesophageal reflux disease. 7. Hypertension. 8. Anemia, chronic. 9. Peripheral neuropathy. 10. Pulmonary embolism. 11. Chronic anticoagulation therapy. Plan: We will admit the patient to the hospital for further evaluation and management of this problem. We will go ahead and continue home medications per order. Give IV steroids, nebulizer treatment, oxygen, IV antibiotics per order. Sputum will be sent for Gram stain and culture and I will see him tomorrow for followup. Details of plan of treatment discussed with the patient and the patient's who was at bedside in emergency room. JERAD/MODL Voice ID: [id number] MTDD
[2020-01-27] MEDS: METHYLPREDNISOLONE 40 MG INJ IV SCH ×4 (00:36→17:01)
[2020-01-27 06:21] LABS: Absolute Lymphocytes (CBC) 0.4 K/uL (0.7-4.9); Basophils % 0.1 % (0-1.3); Hematocrit 32.6 % (39.6-49.0); Lymphocytes % 5.4 % (15.3-44.8); MPV 6.9 fL (7.6-11.3); RBC Red Blood Cell Count 4.03 M/uL (4.33-5.43)
[2020-01-27 06:34] LABS: BUN Blood Urea Nitrogen 11 mg/dL (7-18); Bicarbonate 32 mmol/L (21-32); Glucose Level 141 mg/dL (74-106); Potassium 4.6 mmol/L (3.5-5.1); Sodium Level 139 mmol/L (136-145)
[2020-01-27 07:49] LABS: Blood Morphology Comment NOT SEEN (NOT SEEN); Platelet Estimate ADEQ; White Blood Cell Scan OK (OK)
[2020-01-27] MEDS: METOPROLOL XL 25 MG TAB PO SCH (09:12)
[2020-01-27] MEDS: DULOXETINE 30 MG CAP PO SCH (09:13)
[2020-01-27] MEDS: ATORVASTATIN 10 MG TAB PO SCH (09:13)
[2020-01-27] MEDS: FAMOTIDINE 20 MG TAB PO SCH (09:13)
[2020-01-27] MEDS: MIDODRINE HCL 5 MG TABLET PO SCH ×3 (09:14→20:37)
[2020-01-27] MEDS: PANTOPRAZOLE 40MG TABLET PO SCH (09:14)
[2020-01-27] MEDS: LACTOBACILLUS/ACIDOPHILUS TAB PO SCH (09:14)
[2020-01-27] MEDS: GABAPENTIN 400 MG CAP PO SCH ×4 (09:14→20:37)
[2020-01-27] MEDS: Levofloxacin500mg IV 500 MG/100 ML BAG IV SCH (12:01)
--- NOTE | 2020-01-27 13:02 | PN ---
Date of Progress Note: 01/27/2020 Subjective: The patient was seen this morning for followup. No new complaints, problems reported by patient except still has lot of cough and chest congestion. He was lying in bed, not in any distres s. Physical Examination: Vital signs: Reviewed. HEENT: Unremarkable. Lungs: Bilateral rales noted in lower lung munguia, unchanged from yesterday. Any attempts to take d eep breath causes him to have cough and he still has significant chest congestion. Heart: Sounds normal. Abdomen: Soft. Bowel sounds normal. No guarding, rigidity, tenderness, or distention. Extremities: No leg edema. Laboratory Data: White count 7.9, hemoglobin 10.6, platelets 348, sodium 139, potassium 4.6, chlorid e 104, bicarb 32, BUN 11, creatinine 0.82, glucose 141. Impression: 1.Acute exacerbation of chronic obstructive pulmonary disease. 2.Acute bronchitis. 3.Neurogenic bladder with indwelling Rocha catheter. 4.Anemia, chronic. 5.Pulmonary embolism. 6.Chronic anticoagulation therapy. 7.Chronic steroid therapy. Plan: We will consult Physical Therapy to help ambulate the patient. Continue IV steroid, IV antibi otic. We will get a sputum for Gram stain culture and I will see him tomorrow for followup. Depending on his condition, we will decide i f we can discharge him tomorrow or not. JERAD/MODL Voice ID: [id number] Report ID: [id number]
[2020-01-27] MEDS: TRAMADOL HCL 50 MG TAB PO PRN (17:03)
[2020-01-27] MEDS: ALPRAZOLAM 0.25 MG TABLET PO SCH (20:37)
[2020-01-27] MEDS: MONTELUKAST 10 MG TAB PO SCH (20:37)
[2020-01-27] MEDS: IPRATROPIUM BROM 0.5MG/2.5ML NEB PRN (20:48)
[2020-01-27] MEDS: ALBUTEROL 2.5 MG/3 ML NEB SOL NEB PRN (20:48)
[2020-01-28] MEDS: METHYLPREDNISOLONE 40 MG INJ IV SCH ×4 (00:33→17:12)
[2020-01-28] MEDS: TRAMADOL HCL 50 MG TAB PO PRN ×3 (04:44→20:31)
[2020-01-28] MEDS: FAMOTIDINE 20 MG TAB PO SCH (08:30)
[2020-01-28] MEDS: PANTOPRAZOLE 40MG TABLET PO SCH (08:30)
[2020-01-28] MEDS: LACTOBACILLUS/ACIDOPHILUS TAB PO SCH (08:30)
[2020-01-28] MEDS: GABAPENTIN 400 MG CAP PO SCH ×4 (08:30→20:25)
[2020-01-28] MEDS: DULOXETINE 30 MG CAP PO SCH (08:31)
[2020-01-28] MEDS: MIDODRINE HCL 5 MG TABLET PO SCH ×3 (08:31→20:25)
[2020-01-28] MEDS: ATORVASTATIN 10 MG TAB PO SCH (08:32)
[2020-01-28] MEDS: METOPROLOL XL 25 MG TAB PO SCH (08:33)
--- NOTE | 2020-01-28 11:43 | RAD REPORT ---
EXAM DESCRIPTION: RAD - Chest Single View - 01/28/2020 8:00 am CLINICAL HISTORY: COPD, rule out pneumonia Chest pain. COMPARISON: Chest Single View dated 01/26/2020; Chest Single View dated 01/15/2020; Chest Single View dated 12/20/2019; Chest Single View dated 12/18/2019; Thorax Wo Con dated 01/16/2020 FINDINGS: Portable technique limits examination quality. Mild linear subsegmental atelectasis is present in the right lung base. Mild opacity in the left lung base likely represents a small area of atelectasis or infiltrate. The heart is mildly enlarged in si ze. Cervical hardware plate.
[2020-01-28] MEDS: Levofloxacin500mg IV 500 MG/100 ML BAG IV SCH (12:00)
--- NOTE | 2020-01-28 14:29 | PN ---
Date of Progress Note: 01/28/2020 Subjective: The patient was seen this morning for followup, lying in bed, not in distress. Denies a ny complaints. Overall, he feels better today compared to yesterday. Still has cough and chest live estion, but overall he feels better. Objective: Vital Signs: Reviewed. HEENT: Unremarkable. Lungs: Bilateral good equal entry. Presence of some rales noted in lower lung munguia, but overall b adriana today than yesterday. Not using any accessory muscles of respiration. Heart: Sounds normal. Abdomen: Soft. Bowel sounds normal. No guarding, rigidity, tenderness, or distention. Extremities: No leg edema. Laboratory Data: Sputum culture pending. Urine culture is growing gram-negative rods with abnormal urinalysis, but as documented very clearly on multiple prior occasions, this should not be labeled as urinary tract infection as patient has an indwelling Rocha catheter and he is going to always have a bnormal urinalysis with possibility of growth on the urine culture. We will continue current antibio tics. Chest x-ray done today, results reviewed. There is a possibility of small infiltrate in the l fernanda base. We will continue current antibiotic Levaquin. Follow up on sputum culture results. Fransico nue steroids that currently he is on and other current medications. The patient did ambulate well ye sterday as he reports with help of Physical therapy and I will see him tomorrow for followup. JERAD/MODL Voice ID: [id number] Report ID: [id number]
[2020-01-28] MEDS: ALPRAZOLAM 0.25 MG TABLET PO SCH (20:25)
[2020-01-28] MEDS: MONTELUKAST 10 MG TAB PO SCH (20:25)
[2020-01-29] MEDS: ACETAMINOPHEN 500 MG TAB PO PRN ×3 (00:53→21:22)
[2020-01-29] MEDS: METHYLPREDNISOLONE 40 MG INJ IV SCH ×4 (05:35→17:01)
[2020-01-29] MEDS: TRAMADOL HCL 50 MG TAB PO PRN ×2 (05:35→17:01)
[2020-01-29] MEDS: PANTOPRAZOLE 40MG TABLET PO SCH (08:11)
[2020-01-29] MEDS: FAMOTIDINE 20 MG TAB PO SCH (08:11)
[2020-01-29] MEDS: GABAPENTIN 400 MG CAP PO SCH ×4 (08:11→21:23)
[2020-01-29] MEDS: METOPROLOL XL 25 MG TAB PO SCH (08:12)
[2020-01-29] MEDS: ATORVASTATIN 10 MG TAB PO SCH (08:12)
[2020-01-29] MEDS: DULOXETINE 30 MG CAP PO SCH (08:12)
[2020-01-29] MEDS: LACTOBACILLUS/ACIDOPHILUS TAB PO SCH (08:12)
[2020-01-29] MEDS: MIDODRINE HCL 5 MG TABLET PO SCH ×3 (08:12→21:24)
[2020-01-29] MEDS: Levofloxacin500mg IV 500 MG/100 ML BAG IV SCH (12:10)
[2020-01-29] MEDS: ALBUTEROL 2.5 MG/3 ML NEB SOL NEB PRN (19:15)
[2020-01-29] MEDS: IPRATROPIUM BROM 0.5MG/2.5ML NEB PRN (19:15)
--- NOTE | 2020-01-29 21:13 | PN ---
Date of Progress Note: 01/29/2020 Subjective: The patient was seen this morning for followup. He was lying in bed, not in distress. Overall, he is feeling better than before. Cough, congestion, shortness of breath is better. Objective: Vital Signs: Reviewed. HEENT: Unremarkable. Lungs: Bilateral good equal air entry. Presence of rales noted in bilateral lower lung field, mostl y in the basal region, significantly better than before. Not using any accessory muscles of respirat ion. Heart: Sounds normal. Abdomen: Soft. Bowel sounds normal. No guarding, rigidity, tenderness, or distention. EXTREMITIES: No leg edema. Impression: 1.Acute bronchitis. 2.Acute exacerbation of chronic obstructive pulmonary disease. 3.Bronchiectasis. 4.Chronic steroid therapy. 5.Chronic anticoagulation therapy. Plan: We will go ahead and continue current medications. Continue current antibiotics. The patient 's sputum culture is growing staphylococcus. Definite identification and sensitivity result pending. We will need to await until we get the final results back before we can plan to discharge as we woyuly ld like to make sure that this is not MRSA. Depending on this final results on the sputum culture, w jacob will decide if we can discharge him to go home tomorrow or not. JERAD/MODL Voice ID: [id number] Report ID: [id number]
[2020-01-29] MEDS: ALPRAZOLAM 0.25 MG TABLET PO SCH (21:22)
[2020-01-29] MEDS: MONTELUKAST 10 MG TAB PO SCH (21:23)
[2020-01-30] MEDS: METHYLPREDNISOLONE 40 MG INJ IV SCH ×4 (00:14→17:39)
[2020-01-30] MEDS: TRAMADOL HCL 50 MG TAB PO PRN ×2 (04:03→20:59)
[2020-01-30 04:32] LABS: ALT/SGPT 13 U/L (12-78); AST/SGOT 4 U/L (15-37); Albumin 3.1 g/dL (3.4-5.0); Alkaline Phosphatase 45 U/L (45-117); BUN Blood Urea Nitrogen 19 mg/dL (7-18); Bicarbonate 36 mmol/L (21-32); Bilirubin Total 0.4 mg/dL (0.2-1.0); Glucose Level 137 mg/dL (74-106); Magnesium 2.8 mg/dL (1.8-2.4); Potassium 4.5 mmol/L (3.5-5.1); Protein, Total 6.3 g/dL (6.4-8.2); Sodium Level 142 mmol/L (136-145)
[2020-01-30] MEDS: IPRATROPIUM BROM 0.5MG/2.5ML NEB PRN ×2 (08:00→13:05)
[2020-01-30] MEDS: ALBUTEROL 2.5 MG/3 ML NEB SOL NEB PRN ×2 (08:00→13:05)
[2020-01-30] MEDS: DULOXETINE 30 MG CAP PO SCH (08:17)
[2020-01-30] MEDS: PANTOPRAZOLE 40MG TABLET PO SCH (08:17)
[2020-01-30] MEDS: GABAPENTIN 400 MG CAP PO SCH ×4 (08:18→21:00)
[2020-01-30] MEDS: MIDODRINE HCL 5 MG TABLET PO SCH ×3 (08:18→21:00)
[2020-01-30] MEDS: METOPROLOL XL 25 MG TAB PO SCH (08:18)
[2020-01-30] MEDS: ATORVASTATIN 40 MG TAB PO SCH (08:19)
[2020-01-30] MEDS: LACTOBACILLUS/ACIDOPHILUS TAB PO SCH (08:19)
[2020-01-30] MEDS: FAMOTIDINE 20 MG TAB PO SCH (09:21)
[2020-01-30] MEDS: Levofloxacin500mg IV 500 MG/100 ML BAG IV SCH (12:31)
[2020-01-30] MEDS ORDERED: VANCOMYCIN/NS 1 gm 1 GM/250 ML BAG IVPB SCH (14:00)
[2020-01-30] MEDS: VANCOMYCIN 1.5 GM in NA CHLORIDE 0.9% 500 ML IVPB SCH (14:55)
--- NOTE | 2020-01-30 16:12 | EKG ---
Test Date: 2020-01-26 Test Time: 12:37:08 Buyer Agent: SANDRA MEASUREMENT RESULTS: Intervals: Rate: 74 CT: 210 QRSD: 140 QT: 426 QTc: 472 [place]: P: 93 CT: 210 QRS: 39 T: 52 INTERPRETIVE STATEMENTS: Sinus rhythm with sinus arrhythmia with 1st degree AV block Right bundle branch block Possible Inferior infarct, age undetermined T wave abnormality, consider lateral ischemia Abnormal ECG Compared to ECG 01/15/2020 10:06:58 Myocardial infarct finding now present T-wave abnormality now present Possible ischemia now present Electronically Signed On 01-30-20 16:08:37 CDT by Nilay Villela
[2020-01-30] MEDS: ALPRAZOLAM 0.25 MG TABLET PO SCH (20:59)
[2020-01-30] MEDS: MONTELUKAST 10 MG TAB PO SCH (21:01)
[2020-01-30] MEDS: DOXYCYCLINE 100 MG in NA CHLORIDE 0.9% 100 ML IVPB SCH (21:02)
[2020-01-30] MEDS ORDERED: MAGNESIUM HYDROXIDE 8% 30 ML PO PRN (23:18)
[2020-01-31] MEDS: DIPHENHYDRAMINE 25 MG TAB/CAP PO PRN ×3 (00:06→22:07)
[2020-01-31] MEDS: METHYLPREDNISOLONE 40 MG INJ IV SCH ×2 (00:06→05:53)
--- NOTE | 2020-01-31 00:11 | PN ---
Date of Progress Note: 01/30/2020 Subjective: The patient was seen this morning for followup. He is still coughing up copious amount of mucus that is yellow to green in color. Once he coughs of this mucus, his chest congestion and ra ttling sound from chest gets better. Objective: Vital Signs: Reviewed. HEENT: Unremarkable. Lungs: Bilateral good equal air entry. Presence of some rales noted in lower lung field, unchanged. Heart: Sounds normal. Abdomen: Soft. Bowel sounds normal. No guarding, rigidity, tenderness, or distention. Extremities: No leg edema. Laboratory Data: Sodium 142, potassium 4.5, chloride 105, bicarb 36, BUN 19, creatinine 0.79, glucos e 137. Sputum culture came back MRSA. Impression: 1.Methicillin-resistant Staphylococcus aureus pneumonia. 2.Acute exacerbation of chronic obstructive pulmonary disease. Plan: We will go ahead and discontinue Levaquin and start doxycycline and vancomycin. We will reque st PICC line placement and we will order some laxative and Benadryl. The patient was having some itc kim problem, no rash today. JEARD/MODL Voice ID: [id number] Report ID: [id number]
[2020-01-31] MEDS: VANCOMYCIN 1.5 GM in NA CHLORIDE 0.9% 500 ML IVPB SCH ×2 (03:48→14:39)
[2020-01-31] MEDS: ALBUTEROL 2.5 MG/3 ML NEB SOL NEB PRN ×2 (07:40→20:09)
[2020-01-31] MEDS: IPRATROPIUM BROM 0.5MG/2.5ML NEB PRN ×2 (07:40→20:09)
[2020-01-31] MEDS: PANTOPRAZOLE 40MG TABLET PO SCH (08:03)
[2020-01-31] MEDS: ATORVASTATIN 40 MG TAB PO SCH (08:03)
[2020-01-31] MEDS: FAMOTIDINE 20 MG TAB PO SCH (08:03)
[2020-01-31] MEDS: LACTOBACILLUS/ACIDOPHILUS TAB PO SCH (08:04)
[2020-01-31] MEDS: DULOXETINE 30 MG CAP PO SCH (08:04)
[2020-01-31] MEDS: GABAPENTIN 400 MG CAP PO SCH ×4 (08:04→21:00)
[2020-01-31] MEDS: METOPROLOL XL 25 MG TAB PO SCH (08:05)
[2020-01-31] MEDS: predniSONE 20 MG TAB PO SCH ×2 (09:09→22:07)
[2020-01-31] MEDS: DOXYCYCLINE 100 MG in NA CHLORIDE 0.9% 100 ML IVPB SCH ×2 (09:09→22:08)
[2020-01-31] MEDS: MIDODRINE HCL 5 MG TABLET PO SCH ×3 (09:14→21:00)
--- NOTE | 2020-01-31 19:57 | PN ---
Date of Progress Note: 01/31/2020 Subjective: The patient was seen this morning for followup. No new complaints or problems reported by the patient. He was lying in bed, not in distress. He still has significant amount of cough, frankie st congestion, and coughing up copious amount of colored mucus. Not in any respiratory distress. Objective: Vital Signs: Reviewed. HEENT: Unremarkable. Lungs: Bilateral good equal air entry. Minimum rales noted in lung bases, not in distress. Heart: Sounds normal. Abdomen: Soft. Bowel sounds normal. No guarding, rigidity, tenderness, distention. Extremities: No leg edema. Impression: 1.Pneumonia, organism methicillin-resistant Staphylococcus aureus. 2.Chronic obstructive pulmonary disease. 3.Bronchiectasis. Plan: We will continue current medications, continue current antibiotic which is vancomycin and doxy cycline. He is having some constipation problem. We will give stool softener, laxative per order. Social Service was requested to make arrangements for home IV antibiotic therapy upon discharge and p ossible discharge tomorrow if we can get PICC line placed and arrangements for antibiotics. Details were discussed with the patient's daughter, who was contacted this morning. JERAD/MODL Voice ID: [id number] Report ID: [id number]
[2020-01-31] MEDS: ALPRAZOLAM 0.25 MG TABLET PO SCH (22:07)
[2020-01-31] MEDS: MONTELUKAST 10 MG TAB PO SCH (22:08)
[2020-02-01] MEDS: VANCOMYCIN 1.5 GM in NA CHLORIDE 0.9% 500 ML IVPB SCH (02:48)
[2020-02-01] MEDS: DIPHENHYDRAMINE 25 MG TAB/CAP PO PRN (04:09)
[2020-02-01 04:43] LABS: Absolute Lymphocytes (CBC) 0.3 K/uL (0.7-4.9); Basophils % 0.2 % (0-1.3); Hematocrit 26.7 % (39.6-49.0); Lymphocytes % 3.1 % (15.3-44.8); MPV 7.1 fL (7.6-11.3); RBC Red Blood Cell Count 3.33 M/uL (4.33-5.43)
[2020-02-01 04:58] LABS: BUN Blood Urea Nitrogen 15 mg/dL (7-18); Bicarbonate 36 mmol/L (21-32); Glucose Level 126 mg/dL (74-106); Magnesium 2.2 mg/dL (1.8-2.4); Potassium 4.3 mmol/L (3.5-5.1); Sodium Level 141 mmol/L (136-145)
[2020-02-01 06:37] LABS: Blood Morphology Comment NOT SEEN (NOT SEEN); Platelet Estimate ADEQ
[2020-02-01] MEDS: ALBUTEROL 2.5 MG/3 ML NEB SOL NEB PRN (07:30)
[2020-02-01] MEDS: IPRATROPIUM BROM 0.5MG/2.5ML NEB PRN (07:30)
[2020-02-01 08:36] VITALS: O2SAT 93
[2020-02-01] MEDS: MIDODRINE HCL 5 MG TABLET PO SCH ×2 (09:00→12:49)
[2020-02-01] MEDS: METOPROLOL XL 25 MG TAB PO SCH (09:27)
[2020-02-01] MEDS: GABAPENTIN 400 MG CAP PO SCH ×2 (09:27→12:11)
[2020-02-01] MEDS: FAMOTIDINE 20 MG TAB PO SCH (09:27)
[2020-02-01] MEDS: PANTOPRAZOLE 40MG TABLET PO SCH (09:27)
[2020-02-01] MEDS: DULOXETINE 30 MG CAP PO SCH (09:27)
[2020-02-01] MEDS: ATORVASTATIN 40 MG TAB PO SCH (09:27)
[2020-02-01] MEDS: predniSONE 20 MG TAB PO SCH (09:27)
[2020-02-01] MEDS: LACTOBACILLUS/ACIDOPHILUS TAB PO SCH (09:27)
[2020-02-01] MEDS: DOXYCYCLINE 100 MG in NA CHLORIDE 0.9% 100 ML IVPB SCH (09:28)
--- NOTE | 2020-02-01 10:51 | RAD REPORT ---
EXAM DESCRIPTION: RAD - Chest Single View - 01/31/2020 10:22 pm CLINICAL HISTORY: Picc line insertion TECHNIQUE: Single frontal view of the chest is submitted. COMPARISON: 01/28/2020 FINDINGS: Heart: The cardiothoracic silhouette is enlarged, stable. Lungs: Patchy bibasilar opacities, mildly increased on the right. Mediastinum: Thoracic aortic atherosclerosis. Pleura: No appreciable effusion. No pneumothorax. Bones: Mid to lower cervical fusion hardware. Multilevel spondylosis. Upper abdomen: Unremarkable Other: Right upper extremity PICC tip projects over the mid to distal superior vena cava. IMPRESSION: 1. Right upper extremity PICC tip projects over the mid to distal superior vena cava. 2. Patchy bibasilar opacities (atelectasis and/or infiltrate), mildly increased on the right. Electronically signed by: Chantell Scott MD 01/31/2020 10:44 PM CDT Due to temporary technical issues with the PACS/Fluency reporting system, reports are being signed by the in house radiologist without review as a courtesy to ensure prompt reporting. The interpreting r adiologist is fully responsible for the content of the report.
[2020-02-01] MEDS ORDERED: VANCOMYCIN 1.25 GM in NA CHLORIDE 0.9% 250 ML IVPB SCH (15:00)
[2020-02-01] MEDS ORDERED: VANCOMYCIN 1.25 GM in NA CHLORIDE 0.9% 500 ML IVPB SCH (15:00)
[2020-02-01 16:48] VITALS: BP 121/60; TEMP 97
== END 2020-02-01 16:34 | disposition home or self-care (01) | DRG 178 ==
LOC: ER 10:55 → ERHOLD 13:37 → 2ND 15:29 → OBSVTOIN 01-27 18:27
PROVIDERS: ADMIT Internal Medicine; ATTEND Internal Medicine
PROC: 02HV33Z Insertion of Infusion Device into Superior Vena Cava, Percutaneous Approach (ICD-10-PCS; principal; 2020-01-31)
DX: J15.212 Pneumonia due to Methicillin resistant Staphylococcus aureus (principal); J44.1 Chronic obstructive pulmonary disease with (acute) exacerbation; J44.0 Chronic obstructive pulmonary disease with (acute) lower respiratory infection; J20.9 Acute bronchitis, unspecified; K21.9 Gastro-esophageal reflux disease without esophagitis; G89.29 Other chronic pain; M54.9 Dorsalgia, unspecified; I95.1 Orthostatic hypotension; D64.9 Anemia, unspecified; G62.9 Polyneuropathy, unspecified; N31.9 Neuromuscular dysfunction of bladder, unspecified; I10 Essential (primary) hypertension; Z88.5 Allergy status to narcotic agent; Z88.8 Allergy status to other drugs, medicaments and biological substances; Z91.048 Other nonmedicinal substance allergy status; Z95.5 Presence of coronary angioplasty implant and graft; Z99.81 Dependence on supplemental oxygen; Z86.711 Personal history of pulmonary embolism; Z88.1 Allergy status to other antibiotic agents; Z79.01 Long term (current) use of anticoagulants; Z20.828 Contact with and (suspected) exposure to other viral communicable diseases
CPT/HCPCS: 36415; 36569; 71045; 80048; 80053; 80202; 81003; 81015; 83605; 83735; 84145; 85025; 85610; 85730; 87040; 87070; 87077; 87086; 87088; 87186; 87205; 87804; 93005; 94640; 94760; 96365; 96366; 96375; 97161; 99285; G0378; J2550; J2920; J3370; J7040; J7050; J7512; U0002

== ENCOUNTER 2020-02-02 10:51 | Observation (INO) | payer OTHER ==
--- OUTSIDE RECORDS SUMMARY | 2020-02-02 10:53 | XMS REPORT | Continuity of Care Document ---
:1940 Author Organization [facility] t Address [address] [place] [address] Dr. Andrade [address] [place] [id number] Care Team Providers Name Role Phone Unavailable Unavailable Unavailable Problems This patient has no known problems. Allergies, Adverse Reactions, Alerts This patient has no known allergies or adverse reactions. Medications This patient has no known medications. Procedures This patient has no known procedures. Results This patient has no known results.
--- NOTE | 2020-02-02 12:34 | RAD REPORT ---
EXAM DESCRIPTION: RAD - Chest Single View - 02/02/2020 12:28 pm CLINICAL HISTORY: DYSPNEA, recent hospitalization for pneumonia COMPARISON: January 30, January 27 TECHNIQUE: AP portable chest image was obtained 02/02/2020 12:28 pm . FINDINGS: Left basilar linear parenchymal opacification similar to the January 30 study. No new mass or consolidation. PICC line remains in place. Interstitial opacification is increased slightly from comparison. Vasculature is not substantially different. Heart size is normal range and is stable. Tra elbert is midline. No pneumothorax. No acute bony abnormality seen. No acute aortic findings suspected. IMPRESSION: Increased interstitial opacification with no change in vasculature or heart size. Mild failure or volume overload is questioned. No new mass or consolidation.
[2020-02-02 12:42] LABS: Absolute Lymphocytes (CBC) 0.9 K/uL (0.7-4.9); Basophils % 0.2 % (0-1.3); Hematocrit 31.1 % (39.6-49.0); Lymphocytes % 7.4 % (15.3-44.8); MPV 7.5 fL (7.6-11.3); RBC Red Blood Cell Count 3.82 M/uL (4.33-5.43)
[2020-02-02 12:43] LABS: Protime INR 1.02
[2020-02-02] MEDS ORDERED: LEVALBUTEROL 1.25 MG/3 ML NEB ONE (12:50)
[2020-02-02 13:06] LABS: ALT/SGPT 20 U/L (12-78); AST/SGOT 8 U/L (15-37); Albumin 2.8 g/dL (3.4-5.0); Alkaline Phosphatase 47 U/L (45-117); BUN Blood Urea Nitrogen 15 mg/dL (7-18); Bicarbonate 37 mmol/L (21-32); Bilirubin Direct 0.2 mg/dL (0-0.2); Bilirubin Total 0.7 mg/dL (0.2-1.0); Glucose Level 91 mg/dL (74-106); Magnesium 2.6 mg/dL (1.8-2.4); NT PRO-BNP 591 pg/mL (<450); Protein, Total 6.2 g/dL (6.4-8.2); Sodium Level 140 mmol/L (136-145); Troponin (Emerg Dept Use Only) < 0.02 ng/mL (0.0-0.045)
--- NOTE | 2020-02-02 13:59 | ER ---
Nurse's Notes [facility] Name: Zen Bledsoe Jr Age: 79 yrs Sex: Male : 1940 Arrival Date: 02/02/2020 Time: 10:57 Bed 20 Private MD: Diagnosis: COPD Exacerbation, SOB, weakness, pneumonia Presentation: 02/01 10:57 Chief complaint: EMS states: Pt was dx w/ pneumonia and admitted to hospital on 01/14, ph d/c home yesterday, pt on 2L cont o2 for COPD, normal saturation is around 90-91%, today home health nurse came to visit and Spo2 was in 70s on normal o2, increased to 4L and improved to 89%, morning neb and steroids had not been given, A\\T\\A give by EMS, spo2 now 92% on 2L, pt reports mild SOB and chest tightness, PICC line in place to KATY, Vancomycin 1.5 gram currently infusing. Coronavirus screen: Client denies travel out of the [place] in the last 14 days. shortness of breath, Client presents with at least one sign or symptom that may indicate coronavirus-19. Standard/surgical mask placed on the client. Provider contacted for isolation considerations. The client reports previous COVID testing was negative. Date of collection: January 15, 2020 pt reports that he has been tested 2 times, both tests negative. Ebola Screen: No symptoms or risks identified at this time. Initial Sepsis Screen: Does the patient meet any 2 criteria? No. Patient's initial sepsis screen is negative. Does the patient have a suspected source of infection? Yes: Productive cough/pneumonia. Risk Assessment: Do you want to hurt yourself or someone else? Patient reports no desire to harm self or others. Onset of symptoms was February 02, 2020. 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 - Social history:: Smoking status: . Screenin:06 Abuse screen: Denies threats or abuse. Denies injuries from another. Nutritional ph screening: No deficits noted. Tuberculosis screening: No symptoms or risk factors identified. Fall Risk No fall in past 12 months (0 pts). No secondary diagnosis (0 pts). IV access (20 points). Ambulatory Aid- None/Bed Rest/Nurse Assist (0 pts). Gait- Weak (10 pts.). Mental Status- Oriented to own ability (0 pts). Total Muse Fall Scale indicates Low Risk Score (25-44 pts). Fall prevention measures have been instituted. Side Rails Up X 2 Placed close to Nursing Station Frequent Obs/Assesments occuring As available Patient and Family Educated on Fall Prevention Program and strategies. Assessment: 11:11 General: Appears in no apparent distress. comfortable, well groomed, Behavior is calm, ph cooperative, appropriate for age. Pain: Complains of pain in chest Quality of pain is described as dull, "sore". Neuro: Level of Consciousness is awake, alert, obeys commands, Oriented to person, place, time, situation. Cardiovascular: Reports chest pain, shortness of breath, Denies nausea, palpitations, vomiting, Capillary refill < 3 seconds in bilateral fingers Patient's skin is warm and dry. Rhythm is sinus rhythm Chest pain is aggravated by breathing. Respiratory: Reports shortness of breath at rest cough that is productive, Airway is patent Respiratory effort is even, unlabored, Respiratory pattern is regular, symmetrical, Breath sounds are clear in left posterior upper lobe and right posterior upper lobe Breath sounds are diminished in right posterior middle lobe and right posterior lower lobe. GI: No signs and/or symptoms were reported involving the gastrointestinal system. Patient currently denies abdominal pain, diarrhea, nausea, vomiting. : Domínguez in place to gravity drainage. Derm: Skin is healthy with good turgor, is fragile, Skin is pink, warm \\T\\ dry. Musculoskeletal: Circulation, motion, and sensation intact. Range of motion: intact in all extremities. 13:23 Reassessment: Patient appears in no apparent distress at this time. Patient and/or ph family updated on plan of care and expected duration. Pain level reassessed. Patient is alert, oriented x 3, equal unlabored respirations, skin warm/dry/pink. 14:40 Reassessment: Patient appears in no apparent distress at this time. Patient and/or ph family updated on plan of care and expected duration. Pain level reassessed. Patient is alert, oriented x 3, equal unlabored respirations, skin warm/dry/pink. Awaiting room assignment, SO at bedside. Vital Signs: 10:57 BP 158 / 72; Pulse 77; Resp 18; Temp 98.9(O); Pulse Ox 95% on 2 lpm NC; Weight 88.45 ph kg; Height 5 ft. 11 in. (180.34 cm); 12:30 BP 135 / 61; Pulse 87; Resp 18; Pulse Ox 91% on 4 lpm NC; ph 13:23 BP 147 / 65; Pulse 93; Resp 18; Pulse Ox 89% on 4 lpm NC; ph 14:41 BP 120 / 61; Pulse 91; Resp 20; Pulse Ox 96% on 4 lpm NC; ph 19:10 Pulse Ox 90% 2 lpm ; kdr 10:57 Body Mass Index 27.20 (88.45 kg, 180.34 cm) ph 19:10 The patient saturation on 4LPM was 88% - 92% kdr ED Course: 10:57 Patient arrived in ED. ph 11:00 Patient has correct armband on for positive identification. Bed in low position. Call mh5 light in reach. Side rails up X2. Warm blanket given. hall monitor on. Pulse ox on. NIBP on. 11:05 Triage completed. ph 11:13 Arm band placed on Patient placed in an exam room, on a stretcher, on oxygen, on ph engine monitor, on pulse oximetry. 11:38 Ollie Lemus MD is Attending Physician. kdr 11:41 Mildred Wasserman RN is Primary Nurse. ph 12:27 XRAY Chest (1 view) In Process Unspecified. EDMS 13:57 Ramon Galeana MD is Hospitalizing Provider. kdr Administered Medications: 12:56 Drug: Xopenex (3) 1.25 mg Route: Inhalation; ph Outcome: 13:58 Decision to Hospitalize by Provider. kdr 15:56 Patient left the ED. ph Signatures: Dispatcher [employer] Ollie Monroe MD MD kdr Mildred Wasserman RN RN Manasa Henry [facility]
--- NOTE | 2020-02-02 13:59 | EDPHYS ---
Physician Documentation [facility] Name: Zen Bledsoe Jr Age: 79 yrs Sex: Male : 1940 Arrival Date: 02/02/2020 Time: 10:57 Bed 20 Private MD: ED Physician Ollie Lemus HPI: 02/01 19:10 This 79 yrs old Male presents to ER via EMS with complaints of Breathing kdr Difficulty. 19:10 The patient has shortness of breath at rest, with light activity. Onset: The kdr symptoms/episode began/occurred at an unknown time. This is an ongoing problem for the patient. He was discharged yesterday from Dr. Galeana's service and now states that he is having worsening SOB and cough that sounds productive. Duration: The symptoms are continuous, and are steadily getting worse. The patient's shortness of breath is aggravated by coughing, exertion, light activity. Associated signs and symptoms: Pertinent positives: chest pain, productive cough, nausea, Pertinent negatives: fever, hemoptysis, loss of consciousness. Severity of symptoms: At their worst the symptoms were mild moderate just prior to arrival, in the emergency department the symptoms are unchanged. The patient has experienced similar episodes in the past, chronically, but today's symptoms are worse, lasting longer. The patient has been recently seen by a physician: The patient has been recently been admitted at [facility], by Dr. Galeana. 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 - Social history:: Smoking status: . ROS: 19:10 Constitutional: Negative for fever, chills, and weight loss, Eyes: Negative for injury, kdr pain, redness, and discharge, ENT: Negative for injury, pain, and discharge, Neck: Negative for injury, pain, and swelling, Abdomen/GI: Negative for abdominal pain, nausea, vomiting, diarrhea, and constipation, Back: Negative for injury and pain, : Negative for injury, bleeding, discharge, and swelling, MS/Extremity: Negative for injury and deformity, Skin: Negative for injury, rash, and discoloration, Neuro: Negative for headache, weakness, numbness, tingling, and seizure activity. Psych: Negative for depression, anxiety, suicide ideation, homicidal ideation, and hallucinations, Allergy/Immunology: Negative for hives, rash, and allergies, Endocrine: Negative for neck swelling, polydipsia, polyuria, polyphagia, and marked weight changes, Hematologic/Lymphatic: Negative for swollen nodes, abnormal bleeding, and unusual bruising. 19:10 Cardiovascular: Positive for chest pain, with cough, with movement, Negative for edema, orthopnea, palpitations, paroxysmal nocturnal dyspnea. 19:10 Respiratory: Positive for cough, "sounds productive", dyspnea on exertion, shortness of breath, at rest. wheezing. Exam: 19:10 Constitutional: This is a well developed, well nourished patient who is awake, alert, kdr and in mild distress. Head/Face: Normocephalic, atraumatic. Eyes: Pupils equal round and reactive to light, extra-ocular motions intact. Lids and lashes normal. Conjunctiva and sclera are non-icteric and not injected. Cornea within normal limits. Periorbital areas with no swelling, redness, or edema. Neck: Trachea midline, no thyromegaly or masses palpated, and no cervical lymphadenopathy. Supple, full range of motion without nuchal rigidity, or vertebral point tenderness. No Meningismus. Chest/axilla: Normal chest wall appearance and motion. Nontender with no deformity. No lesions are appreciated. Cardiovascular: Regular rate and rhythm with a normal S1 and S2. No gallops, murmurs, or rubs. Normal PMI, no JVD. No pulse deficits. Abdomen/GI: Soft, non-tender, with normal bowel sounds. No distension or tympany. No guarding or rebound. No evidence of tenderness throughout. Back: No spinal tenderness. No costovertebral tenderness. Full range of motion. Skin: Warm, dry with normal turgor. Normal color with no rashes, no lesions, and no evidence of cellulitis. MS/ Extremity: Pulses equal, no cyanosis. Neurovascular intact. Full, normal range of motion. Neuro: Awake and alert, GCS 15, oriented to person, place, time, and situation. Cranial nerves II-XII grossly intact. Motor strength 5/5 in all extremities. Sensory grossly intact. Cerebellar exam normal. Normal gait. Psych: Awake, alert, with orientation to person, place and time. Behavior, mood, and affect are within normal limits. 19:10 Respiratory: the patient does not display signs of respiratory distress, Respirations: normal, Breath sounds: rales, bronchial sounds, that are mild, are heard diffusely, decreased breath sounds, that are mild, are heard in the left posterior upper lobe and left posterior lower lobe, rhonchi, that are moderate, are located in both bases, + upper airway congestion. 19:31 ECG was reviewed by the Attending Physician. kdr Vital Signs: 10:57 BP 158 / 72; Pulse 77; Resp 18; Temp 98.9(O); Pulse Ox 95% on 2 lpm NC; Weight 88.45 ph kg; Height 5 ft. 11 in. (180.34 cm); 12:30 BP 135 / 61; Pulse 87; Resp 18; Pulse Ox 91% on 4 lpm NC; ph 13:23 BP 147 / 65; Pulse 93; Resp 18; Pulse Ox 89% on 4 lpm NC; ph 14:41 BP 120 / 61; Pulse 91; Resp 20; Pulse Ox 96% on 4 lpm NC; ph 19:10 Pulse Ox 90% 2 lpm ; kdr 10:57 Body Mass Index 27.20 (88.45 kg, 180.34 cm) ph 19:10 The patient saturation on 4LPM was 88% - 92% kdr MDM: 13:58 Patient medically screened. kdr 19:17 Data reviewed: vital signs, nurses notes, lab test result(s), EKG, radiologic studies. kdr Counseling: I had a detailed discussion with the patient and/or guardian regarding: the historical points, exam findings, and any diagnostic results supporting the discharge/admit diagnosis, lab results, radiology results, the need for outpatient follow up. 02/01 11:39 Order name: Basic Metabolic Panel kdr 02/01 11:39 Order name: CBC with Diff kdr 02/01 11:39 Order name: LFT's kdr 02/01 11:39 Order name: Magnesium kdr 02/01 11:39 Order name: NT PRO-BNP kdr 02/01 11:39 Order name: PT-INR kdr 02/01 11:39 Order name: Troponin (emerg Dept Use Only) kdr 02/01 12:44 Order name: Manual Differential EDMS 02/01 14:13 Order name: Vancomycin Level Trough EDMS 02/01 14:13 Order name: Vancomycin Peak EDMS 02/01 14:13 Order name: Basic Metabolic Panel EDMS 02/01 14:13 Order name: Basic Metabolic Panel EDMS 02/01 14:13 Order name: CBC with Automated Diff EDMS 02/01 14:13 Order name: CBC with Automated Diff EDMS 02/01 11:39 Order name: XRAY Chest (1 view) kdr 02/01 11:39 Order name: EKG; Complete Time: 11:40 kdr 02/01 11:39 Order name: Cardiac monitoring; Complete Time: 11:59 kdr 02/01 11:39 Order name: EKG - Nurse/Tech; Complete Time: 11:59 kdr 02/01 11:39 Order name: IV Saline Lock; Complete Time: 12:30 kdr 02/01 11:39 Order name: Labs collected and sent; Complete Time: 12:30 kdr 02/01 11:39 Order name: O2 Per Protocol; Complete Time: 11:59 kdr 02/01 11:39 Order name: O2 Sat Monitoring; Complete Time: 11:59 [facility] 02/01 14:13 Order name: Regular EDMS 02/01 14:13 Order name: NT PRO-BNP EDMS 02/01 14:13 Order name: NT PRO-BNP EDMS 02/01 14:13 Order name: Troponin I EDMS 02/01 14:13 Order name: Troponin I EDMS 02/01 14:13 Order name: Troponin I EDMS EC:31 Rate is 83 beats/min. Rhythm is irregular, Sinus arrythmia with No ectopy, Right bundle kdr branch block. QRS [place] is Normal. OR interval is normal. QRS interval is normal. QT interval is normal. Clinical impression: NSR w/ Non-specific ST/T Changes. Administered Medications: 12:56 Drug: Xopenex (3) 1.25 mg Route: Inhalation; ph Disposition: 02/02/20 13:58 Hospitalization ordered by Ramon Galeana for Inpatient Admission. Preliminary diagnosis is COPD Exacerbation, SOB, weakness, pneumonia. - Bed requested for Telemetry/MedSurg (Inpatient). - Status is Inpatient Admission. ph - Condition is Fair. - Problem is an ongoing problem. - Symptoms have improved. Signatures: Dispatcher [employer] EDMS Mayda Hunter RN RN Ollie Lemus MD MD [facility] Mildred Wasserman RN RN ph Corrections: (The following items were deleted from the chart) 14:49 13:58 Hospitalization Ordered by A Kervin JACOBS for Inpatient Admission. Preliminary dw diagnosis is COPD Exacerbation, SOB, weakness, pneumonia. Bed requested for Telemetry/MedSurg (Inpatient). Status is Inpatient Admission. Condition is Fair. Problem is an ongoing problem. Symptoms have improved. kdr 15:56 14:49 02/02/2020 13:58 Hospitalization Ordered by A Kervin JACOBS for Inpatient Admission. ph Preliminary diagnosis is COPD Exacerbation, SOB, weakness, pneumonia. Bed requested for Telemetry/MedSurg (Inpatient). Status is Inpatient Admission. Condition is Fair. Problem is an ongoing problem. Symptoms have improved. dw
[2020-02-02] MEDS ORDERED: ALBUTEROL 2.5 MG/3 ML NEB SOL NEB PRN (14:04)
[2020-02-02] MEDS ORDERED: ACETAMINOPHEN 500 MG TAB PO PRN (14:04)
[2020-02-02] MEDS ORDERED: IPRATROPIUM BROM 0.5MG/2.5ML NEB PRN (14:04)
[2020-02-02 14:08] LABS: Anisocytosis 1+; Blood Morphology Comment NOTED (NOT SEEN); Ovalocytes SLIGHT; Platelet Estimate ADEQ; Poikilocytosis SLIGHT; Polychromasia SLIGHT
[2020-02-02] MEDS ORDERED: VANCOMYCIN 1.25 GM in NA CHLORIDE 0.9% 250 ML IVPB ONE (15:00)
[2020-02-02] MEDS ORDERED: VANCOMYCIN 1.25 GM in NA CHLORIDE 0.9% 250 ML IVPB SCH (15:00)
[2020-02-02 16:06] VITALS: BMI 26.4
[2020-02-02] MEDS ORDERED: VANCOMYCIN/NS 1 gm 1 GM/250 ML BAG IVPB ONE (17:00)
[2020-02-02] MEDS ORDERED: COLESTIPOL 1 GM TAB PO PRN (18:09)
[2020-02-02] MEDS ORDERED: PROMETHAZINE 25 MG TABLET PO PRN (18:09)
[2020-02-02] MEDS ORDERED: HOME MED 1 EA UNK (Ondansetron Hcl [Zofran] 4 MG) PO PRN (18:09)
[2020-02-02] MEDS: ONDANSETRON 4 MG (ODT) TAB PO PRN (18:54)
[2020-02-02] MEDS ORDERED: HYOSCYAMINE SULF 0.125 MG TAB PO PRN (19:00)
[2020-02-02] MEDS ORDERED: DIPHENHYDRAMINE 25 MG TAB/CAP PO ONE (20:26)
[2020-02-02] MEDS ORDERED: HOME MED 1 EA UNK (Midodrine Hcl [Midodrine Hcl] 10 MG) PO SCH (21:00)
[2020-02-02] MEDS ORDERED: ATORVASTATIN 20 MG TAB PO SCH (21:00)
[2020-02-02 21:04] VITALS: O2SAT 97
[2020-02-02] MEDS: MIDODRINE HCL 5 MG TABLET PO SCH (21:08)
[2020-02-02] MEDS: TRAMADOL HCL 50 MG TAB PO PRN (21:08)
[2020-02-02] MEDS: predniSONE 20 MG TAB PO SCH (21:09)
[2020-02-02] MEDS: GABAPENTIN 400 MG CAP PO SCH (21:09)
--- NOTE | 2020-02-02 21:52 | HP ---
Date of Admission: 02/02/2020 Chief Complaint: Not feeling good. History Of Present Illness: This is a 79-year-old male patient, who was discharged from hospital yes terday morning to go home with home IV antibiotics and home health. The patient was doing fine after he went home yesterday. He is on continuous home oxygen. This morning, the patient's contacte emma home health nurse and requested her to come out to help her with PICC line and IV antibiotic, and t he patient also reported at that time that he was not feeling good. His oxygen saturation was in ran ge of between 70% to 80% and since he did not feel good with this significant hypoxia problem in spit e of using his home oxygen, he was sent to emergency room. After he was evaluated, he was admitted t o the hospital. When I saw him in emergency room, his oxygen saturation was ranging around 82% to 85 % at that particular time while I was in the emergency room. He has chronic cough with shortness of breath, coughs up copious amount of purulent sputum, but he reported that part actually is better in last day or 2 days. Denies any vomiting or diarrhea. He has generalized weakness. Medications: List reviewed. Review of Systems: Respiratory: As mentioned above. Constitutional: As mentioned above. All other systems reviewed and negative. Allergies: SULFA, BACLOFEN, CODEINE, IODINE, AND HYDROCODONE. Social History: Negative for smoking or alcohol use. Family History: Significant for cancer of esophagus and hypertension. Past Surgical History: Small bowel obstruction and surgery for that in 2001. Otherwise, he had appe ndectomy, tonsillectomy, back surgery, vasectomy, arthroscopic knee surgery, cervical spine fusion, r ight-sided hemicolectomy due to polyps, and surgery for deviated nasal septum. Past Medical History: Significant for severe COPD, neurogenic bladder with indwelling Rocha catheter , orthostatic hypotension, hyperlipidemia, chronic fatigue, gastroesophageal reflux disease, hyperten golden, anemia, peripheral neuropathy, bronchiectasis, recurrent pneumonia, pulmonary embolism diagnose d on January 01, 2019, and superficial thrombophlebitis. Physical Examination: Vital Signs: Initial temperature 98.9, pulse 77, respiratory rate 18, blood pressure 158/72, oxygen saturation 95%. Height 5 feet 11 inches, weight 190 pounds. General: Awake, alert, oriented, not in distress. HEENT: Head atraumatic, normocephalic. Conjunctivae nonerythematous. Sclerae white. Mouth, no thr ush or edema noted. Ears/Nose, no mass, lesion, discharge noted. Neck: Supple. No JVD, lymph nodes, bruit, thyromegaly noted. Lungs: Bilateral good equal air entry. No wheezing noted. Very minimum rales in the right lung bas e. Overall, lung findings are significantly better than before. The patient was not using any acces karol muscles of respiration, but appeared very weak. Heart: Normal heart sounds. No murmur or gallop. Abdomen: Soft. Bowel sounds normal. No guarding, rigidity, tenderness, mass, hepatosplenomegaly, d istention, or bruit noted. Extremities: No leg edema. No calf tenderness. Skin: No rash, ulcer, cellulitis. Lymphatics: No lymph node enlargement in neck, supraclavicular, infraclavicular region. Neuro: No focal neurological deficit. Chest: Unremarkable. External Genitalia: Deferred. Rectal: Deferred. Laboratory Data: White count 11.9, hemoglobin 9.9, platelets 205. INR 1.02. Sodium 140, potassium 4, chloride 101, bicarb 37, BUN 15, creatinine 0.66, glucose 91. Liver function tests unremarkable. Troponin less than 0.02. Chest x-ray showed increased interstitial opacification, no change in vasc ulature or heart size. Impression: 1.Acute respiratory failure with hypoxia. 2.Acute exacerbation of chronic obstructive pulmonary disease. 3.Pneumonia, methicillin-resistant Staphylococcus aureus organism. 4.Chronic bronchiectasis. 5.Neurogenic bladder with indwelling Rocha catheter. 6.Orthostatic hypotension. 7.Gastroesophageal reflux disease. 8.Peripheral neuropathy. 9.Hypertension. 10.Pulmonary embolism. 11.Chronic anticoagulation therapy. 12.Chronic steroid therapy. Plan: Admit the patient to the hospital for further evaluation and management of this problem. The patient is appropriate for inpatient and is expected to spend 2 midnights in hospital. We will go ah ead and continue oxygen, nebulizer treatment, IV antibiotics per order and oral antibiotic, which kati l be doxycycline and IV antibiotic will be vancomycin. Consult pharmacy for vancomycin management an d we will go ahead and continue home medications per order. The patient's condition progressively lundberg s declined over period of time and lately he has required multiple recurrent hospital admission stay. At this point, there is nothing else we can add on to his medical treatment to improve either his c ondition or to even keep him out of the hospital as it appears very clear that whatever we have done so far in terms of aggressive treatment, we have not been able to keep him out of hospital for any si gnificant length of time and he unfortunately keeps on requiring recurrent hospital admission with [facility]. So at this point, we do not have anything else to add on and I did discuss with him and his who was at bedside about hospice care and they will think about it. Also talked to them about advanced directives and the patient and both informed me that he has a living will and ac cording to that, he does not want any heroic measures like CPR, defibrillation, or ventilator support , so we will write DNR order in the chart after I have confirmed that with the patient today. I also called his daughter after I left the hospital and these details were discussed with her. She unders tands and she definitely agrees with the hospice care and she will communicate with the patient as we ll as ultimately it will be the patient's decision and I will talk to him again tomorrow when I go to hospital and once he makes the decision about hospice care, we will discharge him to go home probably over the weekend with hospice care. Overall, prognosis is very poor. JERAD/MODL Voice ID: [id number]
[2020-02-03] MEDS ORDERED: VANCOMYCIN 1.25 GM in NA CHLORIDE 0.9% 250 ML IVPB SCH (05:00)
[2020-02-03] MEDS ORDERED: VANCOMYCIN 1.5 GM in NA CHLORIDE 0.9% 500 ML IVPB SCH (05:00)
[2020-02-03 05:44] LABS: Absolute Lymphocytes (CBC) 0.3 K/uL (0.7-4.9); Basophils % 0.1 % (0-1.3); Hematocrit 29.4 % (39.6-49.0); Lymphocytes % 4.7 % (15.3-44.8); MPV 7.1 fL (7.6-11.3); RBC Red Blood Cell Count 3.69 M/uL (4.33-5.43)
[2020-02-03 06:27] LABS: BUN Blood Urea Nitrogen 13 mg/dL (7-18); Bicarbonate 37 mmol/L (21-32); Glucose Level 130 mg/dL (74-106); NT PRO-BNP 476 pg/mL (<450); Potassium 4.8 mmol/L (3.5-5.1); Sodium Level 141 mmol/L (136-145)
[2020-02-03] MEDS: ONDANSETRON 4 MG (ODT) TAB PO PRN (08:31)
[2020-02-03] MEDS: TRAMADOL HCL 50 MG TAB PO PRN ×2 (08:31→16:53)
[2020-02-03] MEDS ORDERED: FAMOTIDINE 20 MG TAB PO SCH (09:00)
[2020-02-03] MEDS ORDERED: [UNRECOGNIZED DRUG - OTHER] PO SCH (09:00)
[2020-02-03] MEDS ORDERED: MONTELUKAST 10 MG TAB PO SCH (09:00)
[2020-02-03] MEDS ORDERED: HOME MED 1 EA UNK (Simvastatin [Simvastatin] 40 MG) PO SCH (09:00)
[2020-02-03] MEDS: predniSONE 20 MG TAB PO SCH (09:00)
[2020-02-03] MEDS: MIDODRINE HCL 5 MG TABLET PO SCH ×2 (09:00→13:08)
[2020-02-03] MEDS ORDERED: METOPROLOL XL 25 MG TAB PO SCH (09:00)
[2020-02-03] MEDS ORDERED: PANTOPRAZOLE 40MG TABLET PO SCH (09:00)
[2020-02-03] MEDS ORDERED: DOXYCYCLINE 100 MG CAP PO SCH (09:00)
[2020-02-03] MEDS: GABAPENTIN 400 MG CAP PO SCH ×3 (09:00→16:53)
[2020-02-03] MEDS ORDERED: DULOXETINE 30 MG CAP PO SCH (09:00)
[2020-02-03] MEDS ORDERED: HOME MED 1 EA UNK (Duloxetine Hcl [Duloxetine Hcl] 60 MG) PO SCH (09:00)
[2020-02-03] MEDS ORDERED: DIPHENHYDRAMINE 50 MG/ML VIAL IV ONE (09:26)
--- NOTE | 2020-02-03 09:33 | EKG ---
Test Date: 2020-02-02 Test Time: 11:55:49 Deck Hand: FINN MEASUREMENT RESULTS: Intervals: Rate: 83 ID: [id number] QRSD: 132 QT: 390 QTc: 458 Watkins: P: 57 ID: [id number] QRS: -4 T: 37 INTERPRETIVE STATEMENTS: Sinus rhythm with marked sinus arrhythmia Right bundle branch block Abnormal ECG Compared to ECG 01/26/2020 12:37:08 First degree AV block no longer present Myocardial infarct finding no longer present T-wave abnormality no longer present Possible ischemia no longer present Electronically Signed On 02-03-20 09:31:04 CDT by Nilay Villela
--- NOTE | 2020-02-03 11:54 | DS ---
Date of Discharge: 02/03/2020 Disposition: The patient will be discharged to go home with hospice care. Physical Examination: HEENT: Unremarkable. LUNGS: Clear to auscultation except minimum basal rales unchanged from yesterday. HEART: Sounds normal. ABDOMEN: Soft, bowel sounds normal. No guarding, rigidity, tenderness, or distention. EXTREMITY: No leg edema. SKIN: Presence of rash noted over . Laboratory Data: Yesterday, white count 11.9, hemoglobin 9.9, platelets 205. This morning, white co unt 7, hemoglobin 9.9, platelets 206. Yesterday upon admission; sodium 140, potassium 4, chloride 10 1, bicarb 37, BUN 15, creatinine 0.66, glucose 91. This morning, sodium 141, potassium 4.8, chloride 102, bicarb 37, BUN 13, creatinine 0.69, glucose 130. Troponin less than 0.0. Hospital Course: This is a 79-year-old male patient who came into emergency room yesterday with comp laints of not feeling good. Please see dictated H and P for more information. After patient was leticia luated in the ER, he was admitted to the hospital. The patient has severe terminal COPD. He is on h ome oxygen on chronic steroid therapy. His condition has been declining to the extent that in last f ew months, his condition has deteriorated lot more. Has had multiple hospital admissions with recurr ent symptoms. Yesterday, he was brought in with home oxygen saturation between 70% to 80% in spite o f using his home oxygen and after he arrived in emergency room, he was evaluated, admitted to the [facility]. He was recently day before this visit to emergency room. He was discharged from hospital wit h IV antibiotic which was vancomycin and oral antibiotic doxycycline for MRSA pneumonia. report ed that he had some rash on his buttocks and upper thigh at home, but when I evaluated him in the [facility], I did not see any rash as his rash had resolved. Last night, nurse contacted me and inf ormed me that the patient had a rash over his arms after vancomycin was infused. His vancomycin dose was administered over 1 hour and 45 minutes. So this will not be considered red man syndrome, and t his morning when I saw him, he still had rash on his left arm, so we did discontinue vancomycin yeste rday evening when nurse contacted me and I have informed the patient's family members about this pelon rgy to vancomycin as well. This morning when I walked into his room, he was not feeling good at all. He appeared to be anxious and reported that he was feeling miserable, not comfortable at all and wa nted me to do something for him. His daughter arrived shortly after I was in room with the patient. We had a long discussion today about our goal as far as treatment is concerned, and after my discuss ion with him, his , and daughter yesterday, they all have decided that hospice will be appropriat e for him and the patient wants to go home with hospice care. All of his family's questions were ans wered today. I have also advised them to discontinue nonessential medication at this point. We will also discontinue his Xarelto as he has received Xarelto for [address] of Xarelto. The pat ient to take aspirin 81 mg daily. The patient was on [facility] prior to this admissio n, so it will be easy transition from [facility] to [facility] and charge nurse was yumiko hagen to contact hospice agency. Once arrangements completed, hopefully we can discharge him to go [facility] today with hospice care. The patient has pain pump which is being managed by Dr. Eagle and he g ets it refilled every month. I have advised the patient's daughter that she should contact Dr. Luanne johnson on Wednesday to see if he can program the pump in a way that it can last longer than its intended du ration. Because at some point, patient will not be able to go back to Dr. Eagle's office on a wed basis to refill the pump, so he will have to rely on pain medications which will be given by hos pice but to minimize the withdrawal symptoms if and when is not able to refill his pain pump. Isaiah sharp need to get help from his pain management physician and all those details were discussed with bk john as well today. She will contact Pain Management physician on Wednesday. The patient's daughter and they were both were made aware of the fact that in my opinion, the patient has less than 6 bob hs to live if the disease continues to progress naturally as expected, but I strongly believe that he probably has shorter time than 6 months. Final Diagnoses: 1.Acute respiratory failure with hypoxia. 2.Acute exacerbation of chronic obstructive pulmonary disease. 3.Pneumonia, organism MRSA. 4.Chronic bronchiectasis. 5.Neurogenic bladder with indwelling Rocha catheter. 6.Orthostatic hypotension. 7.Gastroesophageal reflux disease. 8.Peripheral neuropathy. 9.Hypertension. 10.Pulmonary embolism. 11.Chronic anticoagulation therapy. 12.Chronic steroid therapy. Discharge Medications And Instructions: Continue all prior home medication except stop Colestid, sto p metoprolol, stop Xarelto, stop midodrine, stop price probiotic, stop simvastatin. The patient's co mfort care orders to be provided by hospice care team and hospice medical office technology instructor to take over patie nt's care. Hospice diagnosis is terminal COPD. JERAD/MODL Voice ID: [id number] Report ID: [id number]
[2020-02-03] MEDS ORDERED: DIPHENHYDRAMINE 50 MG/ML VIAL IV PRN (13:31)
[2020-02-03] MEDS ORDERED: MORPHINE 2 MG/ML SYR IV PRN (13:31)
[2020-02-03] MEDS ORDERED: RIVAROXABAN 20 MG TABLET PO SCH (17:00)
[2020-02-03 17:04] VITALS: BP 156/70; TEMP 97.6
== END 2020-02-03 17:57 | disposition home health service (06) ==
LOC: ER 10:51 → INTOOBSV 14:57 → ERHOLD 14:57 → 2ND 15:22
PROVIDERS: ADMIT Internal Medicine; ATTEND Internal Medicine
DX: J96.01 Acute respiratory failure with hypoxia (principal); J44.1 Chronic obstructive pulmonary disease with (acute) exacerbation; Z99.81 Dependence on supplemental oxygen; Z79.52 Long term (current) use of systemic steroids; L27.0 Generalized skin eruption due to drugs and medicaments taken internally; T36.8X5A Adverse effect of other systemic antibiotics, initial encounter; Z79.01 Long term (current) use of anticoagulants; J15.212 Pneumonia due to Methicillin resistant Staphylococcus aureus; J47.9 Bronchiectasis, uncomplicated; N31.9 Neuromuscular dysfunction of bladder, unspecified; I95.1 Orthostatic hypotension; K21.9 Gastro-esophageal reflux disease without esophagitis; G62.9 Polyneuropathy, unspecified; Z86.711 Personal history of pulmonary embolism; I10 Essential (primary) hypertension; E78.5 Hyperlipidemia, unspecified; R53.83 Other fatigue; F90.9 Attention-deficit hyperactivity disorder, unspecified type; M19.90 Unspecified osteoarthritis, unspecified site; N40.0 Benign prostatic hyperplasia without lower urinary tract symptoms; Z95.5 Presence of coronary angioplasty implant and graft; G25.0 Essential tremor; G47.30 Sleep apnea, unspecified; R94.31 Abnormal electrocardiogram [ECG] [EKG]; I45.10 Unspecified right bundle-branch block
CPT/HCPCS: 93005; 85025 ×2; 80048 ×2; 36415 ×2; 83735; 85610; 80076; 80202; 84484 ×3; 83880 ×2; 71045; 94760; 99285; J1200; J3370; J2270; J7050; G0378 ×3; J7040; J7512; Q0169